=== PATIENT | female | born 1930 | race Caucasian/White ===

== ENCOUNTER 2020-04-13 13:23 | Inpatient (IN) ==
--- NOTE | 2020-04-13 14:09 | XRay Report ---
XR chest 1V portable CLINICAL HISTORY: weakness COMPARISON STUDY: March 22, 2014 FINDINGS: The heart is borderline enlarged. There is no failure. Since the prior study, the patient h as developed peripheral airspace opacities within the left upper lung zone and left lower lung zone. There is also a subtle peripheral nodular opacity within the right midlung zone.[This is rather dense despite its small size and may be calcified. There are no significant pleural effusions. IMPRESSION: 1. Interval development of nonspecific peripheral airspace opacities within the left upper lung zone and left lower lung zone. The findings are likely infectious/inflammatory. Clinical and radiographic follow-up is recommended. ACT 112: Negative or not required by law. Electronically signed by: Alvaro Barth M.D. 04/13/2020 2:08 PM
--- NOTE | 2020-04-13 14:14 | Electrocardiogram Report ---
Test Reason : Blood Pressure : / mmHG Vent. Rate : 059 BPM Atrial Rate : 059 BPM P-R Int : 162 ms QRS Dur : 120 ms QT Int : 440 ms P-R-T Axes : 088 270 -82 degrees QTc Int : 435 ms Sinus bradycardia Right superior axis deviation Septal infarct (cited on or before 21-MAR-2014) Incomplete left bundle block Abnormal ECG When compared with ECG of 21-MAR-2014 08:56, Questionable change in initial forces of Anterior leads ST no longer elevated in Anterior leads T wave inversion now evident in Lateral leads Confirmed by Eric Cates ([id number]) on 04/13/2020 2:13:46 PM Referred By: Confirmed By:Eric Cates
--- NOTE | 2020-04-13 14:16 | CT Scan Report ---
CT head/brain wo con CT DOSE: 537.48 mGy.cm HISTORY: Mental status change weakness TECHNIQUE: Multiaxial CT images of the head were performed without the use of intravenous contrast. A dose lowering technique was utilized adhering to the principles of ALARA. Comparison: 07/15/2009 Findings: The paranasal sinuses and mastoid air cells are clear. The calvarium and skull base are int act. The ventricles and sulci are within normal limits. There is no mass, hematoma, midline shift, or acute infarct. Age-related atrophy and chronic small vessel change Impression: 1. No acute intracranial abnormality. 2. Age-related atrophy and chronic small vessel change. ACT 112: Negative or not required by law. The above report was generated using voice recognition software. It may contain grammatical, syntax or spelling errors. Electronically signed by: Mj Pierre M.D. 04/13/2020 2:15 PM
[2020-04-13 14:17] LABS: Basophils # (auto) 0.02 K/uL (0-0.2); Basophils % (auto) 0.3 %; Eosinophils # (auto) 0.05 K/uL (0-0.5); Eosinophils % (auto) 0.8 %; Hematocrit (blood only) 32.6 % (37-47); Hemoglobin 10.4 g/dL (12.0-16.0); Immature Granulocytes # (auto) 0.02 K/uL (0.00-0.02); Immature Granulocytes % (auto) 0.3 %; Lymphocytes # (auto) 0.88 K/uL (1.2-3.4); Lymphocytes % (auto) 13.3 %; Mean Corpuscular Hemoglobin 30.5 pg (25-34); Mean Corpuscular Hgb Conc 31.9 g/dL (32-36); Mean Corpuscular Volume 95.6 fL (80-100); Mean Platelet Volume 10.2 fL (7.4-10.4); Monocytes # (auto) 0.79 K/uL (0.11-0.59); Neutrophils # (auto) 4.85 K/uL (1.4-6.5); Neutrophils % (auto) 73.3 %; Platelet Count 291 K/uL (130-400); RDW Coefficient of Variation 13.7 % (11.5-14.5); RDW Standard Deviation 47.6 fL (36.4-46.3); Red Blood Count 3.41 M/uL (4.2-5.4); White Blood Count 6.61 K/uL (4.8-10.8)
[2020-04-13 14:28] LABS: INR 1.1 (0.9-1.1); Partial Thromboplastin Ratio 0.8; Partial Thromboplastin Time 23.7 Seconds (21.0-31.0); Prothrombin Time 11.7 Seconds (9.0-12.0)
[2020-04-13 14:34] LABS: Albumin Level 2.3 gm/dl (3.4-5.0); Aspartate Aminotransferase 14 U/L (15-37); BUN Creatinine Ratio 23.9 (10-20); Blood Urea Nitrogen 24 mg/dl (7-18); Calcium 8.1 mg/dl (8.5-10.1); Carbon Dioxide 31 mmol/L (21-32); Chloride 103 mmol/L (98-107); Creatinine Clr Calc Pharmacy 24.6 ml/min; Est GFR (African American) 57.8; Est GFR (Non-African American) 49.9; Glucose 102 mg/dl (70-99); Potassium 4.4 mmol/L (3.5-5.1); Sodium 136 mmol/L (136-145)
[2020-04-13 14:38] LABS: D Dimer 1640 ug/L FEU (0-500)
[2020-04-13 14:44] LABS: Alanine Aminotransferase 14 U/L (12-78); Albumin Globulin Ratio 0.6 (0.9-2); Alkaline Phosphatase 76 U/L (45-117); Bilirubin,Total 0.4 mg/dl (0.2-1); Globulin 4.1 gm/dl (2.5-4.0); Total Protein 6.4 gm/dl (6.4-8.2); Troponin I < 0.015 ng/ml (0-0.045)
[2020-04-13] MEDS ORDERED: OPTIRAY 320 125ml IV PRN (14:59)
--- NOTE | 2020-04-13 15:09 | CT Scan Report ---
CT angio chest PE protocol CT DOSE: 245.29 mGy.cm HISTORY: Dyspnea. Hypoxia. PE, hypoxic, +dimer TECHNIQUE: Multiaxial CT images of the chest were performed following the intravenous administration of contrast to evaluate the pulmonary arteries. Maximal intensity projection images were also obtaine d. A dose lowering technique was utilized adhering to the principles of ALARA. COMPARISON STUDY: 03/19/2014 FINDINGS: Atherosclerotic change and ectasia of the thoracic aorta. No well-defined significant aneur ysm. Pulmonary vasculature enhances appropriately. There are no significant filling defects. Evaluation of lung parenchyma demonstrates consolidative left lower lobe infiltrative process. There are scattered infiltrative changes involving the peripheral aspect of the right middle and right uppe r lobe region. There is a more significant infiltrate involving the left upper lobe extending to the left pulmonary apex. IMPRESSION: 1. No evidence for pulmonary embolus. 2. Diffuse bilateral pulmonary infiltrates showing components of consolidation as well as a groundgla ss appearance ACT 112: Negative or not required by law. The above report was generated using voice recognition software. It may contain grammatical, syntax or spelling errors. Electronically signed by: Mj Pierre M.D. 04/13/2020 3:08 PM
[2020-04-13] MEDS ORDERED: cefTRIAXone SODIUM 1,000 MG/50 ML BAG IV STA (15:21)
--- NOTE | 2020-04-13 15:33 | Emergency Department Note ---
Impression & Plan Multifocal pneumonia, Hypoxia, Failure to thrive, Ambulatory dysfunction ED Provider Note Provider: Harpreet Garcia MD DATE OF SERVICE: 04/13/2020 CHIEF COMPLAINT: Weakness, decreased intake HISTORY OF PRESENT ILLNESS: Patient is a 89-year-old female with a past medical history of GERD, cardiomyopathy, hypertension, Negrete's esophagus, ambulatory dysfunction presenting from home today after her cleaning lady thought that she was having difficulty ambulating on her own. Patient arrives EMS who found her to be hypoxic on room air. Patient states that he been having some more falls related to not using her walker regularly as well as not eating drinking amounts over the last several months due to loss of taste and smell since starting a nasal spray. She herself denies any shortness of breath, chest pain, rosanne pain, nausea, vomiting, diarrhea, headache, or injury to the extremities. Patient states she sometimes uses oxygen at night inconsistently but does not use any oxygen during the day. States she is a former smoker. Denies fever. Denies recent travel. Patient states he was recently seen at the doctor's office. Patient does states that she had a fall a week or 2 ago. Reviewed the [facility] primary care office record from 2 days ago states that the patient has had issues with feeling "terrible "and not following up with appointments as well as inconsistently taking her medications. Patient states she lives by herself but has a brother nearby who helps with bills and her daughter lives in [place]. REVIEW OF SYSTEMS: A total of 10 review of systems was obtained and negative except as stated above in the HPI. PAST MEDICAL HISTORY: As noted above MEDICATIONS: Reviewed includes digoxin SOCIAL HISTORY: Lives by herself, former smoker PHYSICAL EXAM: GENERAL: alert and oriented in no acute distress on stretcher but appears fatigued and frail Head: normocephalic and atraumatic EYES: No injection, discharge or icterus. PERRL NECK: Trachea midline. Supple. ENT: Mucous membranes pink and moist. LUNGS: Airway patent. No retractions. Breath sounds clear anteriorly but diminished generally HEART: Regular rate and rhythm. No chest wall tenderness ABDOMEN: Soft and non-tender, without guarding or rebound. SKIN: Acyanotic, warm, dry, without rashes EXTREMITIES: Without swelling, tenderness or deformity NEUROLOGICAL: No focal deficits. No aphasia. No facial droop or slurred speech. EKG: Sinus bradycardia with a rate of 59 bpm. No PVC. No acute ST segment elevation is notable. Right axis is noted. CONTINUOUS CARDIAC MONITORING: was ordered and showed a heart rate of 62 bpm in normal sinus rhythm Patient's hypertension was referred to the hospitalist [facility] 15. HOSPITAL COURSE: 1329 Patient was first seen and H&P performed. 1518 Patient reassessed and updated. Patient was updated with findings and agreeable for plan for admission. Hospitalist contacted. Patient's laboratory studies and imaging reviewed. Differential includes Infection, dehydration, metabolic abnormality, hypo/hyperglycemia, electrolyte disturbance, anemia, hypoxia, cardiac sources, intracerebral event, toxicologic, neurologic, as well as other pathologies. IMPRESSION/MEDICAL DECISION MAKING: Patient presents today not hypoxic. D-dimer is elevated. CT scan shows evidence of left upper and left lower lobe pneumonia. Does not appear grossly septic at this time. Given a dose of ceftriaxone here. Again now with an oxygen requirement. No evidence of significant head injury although she is a poor historian and there are reports that she has had some falls. I doubt acute cervical spine injury. No evidence of significant traumatic injury on ev aluation of the patient although she is frail in appearance. There is been compliance issues likely leading to gradual weakness and failure to thrive is a big issue. Not a was compliant with her medications and using her walker which has caused falls. Discussed with the patient recommendation for admission. She was in agreement with this. Discussed with the hospitalist group. No significant exposure or travel although coronavirus exists as a possibility but in discussion with the hospitalist group testing will be sent. Likely is no evidence of digoxin toxicity or significant renal dysfunction at this time. DIAGNOSIS: Hypoxia, multifocal pneumonia, failure to thrive, ambulatory dysfunction, weakness DISPOSITION: Hospitalist will evaluate Patient was agreeable with this plan. Past Med/Surg History Medical History Aortic valve sclerosis Cardiomyopathy FOLLOWS WITH DR HAHN Chronic back pain CKD (chronic kidney disease), stage III Dementia Dementia with behavioral disturbance Depression Diastolic CHF Encounter for pre-operative examination Esophageal reflux HTN (hypertension) Left bundle branch block Mitral regurgitation Osteoarthritis Osteoarthritis Pulmonary hypertension Surgical History History of esophagogastroduodenoscopy (EGD) Family History Father Allergies Other specified forms of hearing loss Mother Allergies Cardiac disorder Daughter Asthma Sister Sinusitis Cancer Bleeding disorder Brother Cancer Sinusitis Social History Preferred Language: Indonesian Communication Ability: Effective 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 Beliefs That Will Affect Care: None Current Living Situation: Alone Other Information That Helps Us Care for You: No Feels Safe at Home: Yes Safety Concerns: Feels Safe At This Time Smoking Status: Former smoker Second Hand Exposure: No ; Hx Alcohol Use: No Hx Substance Use: No Allergies Allergies Allergy/AdvReac Type Severity Reaction Status Date / Time latex Allergy Mild "I don't Verified 04/13/20 14:33 remember" Penicillins Allergy Unknown rash Verified 04/13/20 14:33 yellow dye Allergy Unknown Verified 04/13/20 14:33 Home Meds Home Medications Medication Instructions Recorded Confirmed donepezil 10 mg tablet 10 mg PO QAM tab 06/12/19 04/13/20 alprazolam 0.25 mg tablet 0.25 mg PO BID tab 07/21/19 04/13/20 carvedilol 25 mg tablet 25 mg PO BID tab 07/21/19 04/13/20 ondansetron 4 mg disintegrating 4 mg PO Q8H PRN tab 07/21/19 04/13/20 tablet digoxin 125 mcg PO QAM 08/04/19 04/13/20 lisinopril 20 mg PO QAM 08/04/19 04/13/20 magnesium 100 mg PO QAM 08/04/19 04/13/20 multivitamin 1 tab PO DAILY 09/23/19 04/13/20 cholecalciferol (vitamin D3) 25 mcg PO DAILY 04/13/20 04/13/20 [Vitamin D3] dicyclomine 10 mg PO QID 04/13/20 04/13/20 krill oil 500 mg PO DAILY 04/13/20 04/13/20 omeprazole 20 mg PO BID 04/13/20 04/13/20 zoster vaccine live (PF) 0.5 ml SUBCUT DIRECTED 04/13/20 04/13/20 Results & Data (ED) Vital Signs Vital Signs - 24 hr 04/13/20 13:28 04/13/20 13:30 04/13/20 13:31 Temperature Temperature Source Pulse Rate 60 60 58 L Pulse Rate from SpO2 Sensor 60 60 59 L Respiratory Rate 25 H 24 26 H Blood Pressure 92/52 L 104/51 L Blood Pressure Mean 66 64 Pulse Oximetry 90 92 94 Oxygen Delivery Method Oxygen Flow Rate 3 3 3 Sepsis Recent Fever Within 48 Hours Sepsis New/Unexplained Change in Mental Status Sepsis Action Taken by Nursing Oxygen Flow Rate - Titration Pulse Oximetry Post Tiitration 04/13/20 13:39 04/13/20 13:45 04/13/20 13:46 Temperature 36.8 C Temperature Source Oral Pulse Rate 61 Pulse Rate from SpO2 Sensor Respiratory Rate 18 Blood Pressure 104/51 L Blood Pressure Mean 68 Pulse Oximetry 87 L 87 L 96 Oxygen Delivery Method Room Air Room Air Nasal Cannula Oxygen Flow Rate 3 Sepsis Recent Fever Within 48 Hours No Sepsis New/Unexplained Change in Mental Status No Sepsis Action Taken by Nursing No Action Required Oxygen Flow Rate - Titration 3 Pulse Oximetry Post Tiitration 96 04/13/20 14:00 04/13/20 14:13 04/13/20 14:30 Temperature Temperature Source Pulse Rate 60 62 62 Pulse Rate from SpO2 Sensor 60 62 62 Respiratory Rate 20 26 H 26 H Blood Pressure 126/61 128/62 Blood Pressure Mean 89 92 Pulse Oximetry 99 100 100 Oxygen Delivery Method Oxygen Flow Rate 3 Sepsis Recent Fever Within 48 Hours Sepsis New/Unexplained Change in Mental Status Sepsis Action Taken by Nursing Oxygen Flow Rate - Titration Pulse Oximetry Post Tiitration 04/13/20 14:31 04/13/20 15:01 04/13/20 15:02 Temperature Temperature Source Pulse Rate 63 62 63 Pulse Rate from SpO2 Sensor 63 62 62 Respiratory Rate 20 25 H 25 H Blood Pressure 128/54 L Blood Pressure Mean 74 Pulse Oximetry 100 100 100 Oxygen Delivery Method Oxygen Flow Rate 3 3 3 Sepsis Recent Fever Within 48 Hours Sepsis New/Unexplained Change in Mental Status Sepsis Action Taken by Nursing Oxygen Flow Rate - Titration Pulse Oximetry Post Tiitration 04/13/20 15:30 04/13/20 15:31 04/13/20 16:00 Temperature Temperature Source Pulse Rate 63 64 67 Pulse Rate from SpO2 Sensor 63 63 67 Respiratory Rate 28 H 29 H 24 Blood Pressure 116/51 L 100/46 L Blood Pressure Mean 70 66 Pulse Oximetry 100 100 Oxygen Delivery Method Oxygen Flow Rate 3 3 Sepsis Recent Fever Within 48 Hours Sepsis New/Unexplained Change in Mental Status Sepsis Action Taken by Nursing Oxygen Flow Rate - Titration Pulse Oximetry Post Tiitration 04/13/20 16:01 Temperature Temperature Source Pulse Rate 67 Pulse Rate from SpO2 Sensor 67 Respiratory Rate 25 H Blood Pressure Blood Pressure Mean Pulse Oximetry Oxygen Delivery Method Oxygen Flow Rate Sepsis Recent Fever Within 48 Hours Sepsis New/Unexplained Change in Mental Status Sepsis Action Taken by Nursing Oxygen Flow Rate - Titration Pulse Oximetry Post Tiitration Laboratory Data Result diagrams: 04/13/20 13:56 04/13/20 13:56 Lab Results 04/13/20 04/13/20 04/13/20 Range/Units 13:56 13:56 13:56 WBC 6.61 (4.8-10.8) K/uL RBC 3.41 L (4.2-5.4) M/uL Hgb 10.4 L (12.0-16.0) g/dL Hct 32.6 L (37-47) % MCV 95.6 (80-100) fL MCH 30.5 (25-34) pg MCHC 31.9 L (32-36) g/dL RDW Std Deviation 47.6 H (36.4-46.3) fL RDW Coeff of [place] 13.7 (11.5-14.5) % Plt Count 291 (130-400) K/uL MPV 10.2 (7.4-10.4) fL Immature Gran % (Auto) 0.3 % Neut % (Auto) 73.3 % Lymph % (Auto) 13.3 % Emm[place] % (Auto) 12.0 % Eos % (Auto) 0.8 % Baso % (Auto) 0.3 % Neut # (Auto) 4.85 (1.4-6.5) K/uL Lymph # (Auto) 0.88 L (1.2-3.4) K/uL Emmons # (Auto) 0.79 H (0.11-0.59) K/uL Eos # (Auto) 0.05 (0-0.5) K/uL Baso # (Auto) 0.02 (0-0.2) K/uL Immature Gran # (Auto) 0.02 (0.00-0.02) K/uL PT (9.0-12.0) Seconds INR (0.9-1.1) APTT (21.0-31.0) Seconds PTT Ratio D-Dimer (0-500) ug/L FEU Sodium 136 (136-145) mmol/L Potassium 4.4 (3.5-5.1) mmol/L Chloride 103 (98-107) mmol/L Carbon Dioxide 31 (21-32) mmol/L Anion Gap 3.0 (3-11) BUN 24 H (7-18) mg/dl Creatinine 1.00 (0.6-1.2) mg/dl Est Cr Clr Drug Dosing 24.6 ml/min Est GFR ( Amer) 57.8 Est GFR (Non-Af Amer) 49.9 BUN/Creatinine Ratio 23.9 H (10-20) Glucose 102 H (70-99) mg/dl Lactate 0.9 (0.4-2.0) mmol/L Calcium 8.1 L (8.5-10.1) mg/dl Magnesium 2.0 (1.8-2.4) mg/dl Total Bilirubin 0.4 (0.2-1) mg/dl AST 14 L (15-37) U/L ALT 14 (12-78) U/L Alkaline Phosphatase 76 (45-117) U/L Troponin I < 0.015 (0-0.045) ng/ml Total Protein 6.4 (6.4-8.2) gm/dl Albumin 2.3 L (3.4-5.0) gm/dl Globulin 4.1 H (2.5-4.0) gm/dl Albumin/Globulin Ratio 0.6 L (0.9-2) Procalcitonin (0-0.5) ng/ml TSH 2.250 (0.300-4.500) uIu/ml Digoxin (0.8-2.0) ng/ml 04/13/20 04/13/20 04/13/20 Range/Units 13:56 13:56 14:09 WBC (4.8-10.8) K/uL RBC (4.2-5.4) M/uL Hgb (12.0-16.0) g/dL Hct (37-47) % MCV (80-100) fL MCH (25-34) pg MCHC (32-36) g/dL RDW Std Deviation (36.4-46.3) fL RDW Coeff of [place] (11.5-14.5) % Plt Count (130-400) K/uL MPV (7.4-10.4) fL Immature Gran % (Auto) % Neut % (Auto) % Lymph % (Auto) % Emm[place] % (Auto) % Eos % (Auto) % Baso % (Auto) % Neut # (Auto) (1.4-6.5) K/uL Lymph # (Auto) (1.2-3.4) K/uL Emmons # (Auto) (0.11-0.59) K/uL Eos # (Auto) (0-0.5) K/uL Baso # (Auto) (0-0.2) K/uL Immature Gran # (Auto) (0.00-0.02) K/uL PT 11.7 (9.0-12.0) Seconds INR 1.1 (0.9-1.1) APTT 23.7 (21.0-31.0) Seconds PTT Ratio 0.8 D-Dimer 1640 H* (0-500) ug/L FEU Sodium (136-145) mmol/L Potassium (3.5-5.1) mmol/L Chloride (98-107) mmol/L Carbon Dioxide (21-32) mmol/L Anion Gap (3-11) BUN (7-18) mg/dl Creatinine (0.6-1.2) mg/dl Est Cr Clr Drug Dosing ml/min Est GFR ( Amer) Est GFR (Non-Af Amer) BUN/Creatinine Ratio (10-20) Glucose (70-99) mg/dl Lactate (0.4-2.0) mmol/L Calcium (8.5-10.1) mg/dl Magnesium (1.8-2.4) mg/dl Total Bilirubin (0.2-1) mg/dl AST (15-37) U/L ALT (12-78) U/L Alkaline Phosphatase (45-117) U/L Troponin I (0-0.045) ng/ml Total Protein (6.4-8.2) gm/dl Albumin (3.4-5.0) gm/dl Globulin (2.5-4.0) gm/dl Albumin/Globulin Ratio (0.9-2) Procalcitonin < 0.05 (0-0.5) ng/ml TSH (0.300-4.500) uIu/ml Digoxin 1.6 (0.8-2.0) ng/ml Administered Medications Discontinued Medications Ceftriaxone Sodium (Rocephin) 1,000 mg in 50 mls @ 100 mls/hr IV NOW STA Stop: 04/13/20 15:50 Last Infusion: 04/13/20 17:30 Dose: 0 mls/hr Documented by: [id number] Admin: 04/13/20 15:36 Dose: 100 mls/hr Documented by: [id number] Ioversol (Optiray 320 125ml) 99 ml IV ONCE PRN PRN Reason: Interaction Checking Stop: 04/17/20 14:58 Last Admin: 04/13/20 14:59 Dose: 99 ml Documented by: [id number] Discharge Plan Visit Data Chief Complaint: Lethargic ED Provider: Harpreet Garcia Discharge Problem: Multifocal pneumonia, Hypoxia, Failure to thrive, Ambulatory dysfunction Discharge Instructions Interventions: ED Discharge Assessment Last Done: 04/13/20 17:00 Discharge Problem: Failure to thrive Qualifiers: Failure to thrive age range: in adult Qualified Code(s): R62.7 - Adult failure to thrive
--- NOTE | 2020-04-13 16:09 | History & Physical Report ---
Date of Service April 13, 2020 Assessment & Plan (1) Hypoxia: acute hypoxemic respiratory failure : on night time home 02 as per chart was found to be hypoxic spo2 87% in RA , improved to 96% on 3L In ER pt afebrile, P: 60, R: 25, BP: 92/52 up to 104/51, 87% on RA, No leukocytosis, D-Dimer:1640, lactate: 0.9, procalcitonin: <0.05 possible cause of hypoxia : Pneumonia concern for aspiration pneumonitis ( pt reports of coughing /chocking on food while eating ) CXR: Interval development of nonspecific peripheral airspace opacities within the left upper lung zone and left lower lung zone. The findings are likely infectious/inflammatory. Clinical and radiographic follow-up is recommended. CTA CHEST: No evidence for pulmonary embolus. Diffuse bilateral pulmonary infiltrates showing components of consolidation as well as a groundglass appearance -In ER given Rocephin 1GM IV will change Abx to IV levaquin for broader coverage -sputum culture-ordered no evidence of sepsis : -Covid 19 pending -isolation precautions for now -speech eval -CBC, BMP in am ELEVATED DDIMER: CTA of chest negative for PE reports of lower ext swelling and cramps , has been mostly in bed recently due to weakness lower ext doppler ordered (2) Weakness: generalized weakness with ambulatory dysfunction failure to thrive CT HEAD:1. No acute intracranial abnormality. 2. Age-related atrophy and chronic small vessel change. -PT/OT eval ordered r/o infection reports of urinary incontinence -ordered for urine culture (3) Extremity edema: -Obtain BLE doppler to r/o DVT (4) HTN (hypertension): BP's on low side in ER concern for dehydration ordered gentle IV fluid -Hold lisinopril -Continue carvedilol with holding parameters (5) CKD (chronic kidney disease), stage III: Cr: 1.0. Baseline Cr: 0.9 -Monitor renal functions -Hold nephrotoxic agents when possible (6) Dementia: -Continue donepezil pt appears to be at her baseline mental status able to answer questions appropriately no confusion noted (7) Diastolic CHF: clinically dry due to dehydration , poor PO intake ordered for IVF , hold ACEI FAILURE TO THRIVE , PROTEIN CALORIE MALNUTRITION , SIGNIFICANT WT LOSS: reports of poor appetite , wt loss for several weeks net finisher consulted for nutrition assessment and supplement (8) Cardiomyopathy: H/O grade 1 diastolic dysfunction. H/O idiopathic cardiomyopathy Digoxin level: 1.6 -Continue digoxin, carvedilol with holding parameters DVT Prophylaxis -Lovenox SQ DNR/DNI as per discussion with pt Follows with Dr Herrera for routine care Pt coordinated with Dr Jung. Pt seen by Dr Jung, HPI, PE and further addendum by Dr Jung. History of Present Illness Chief Complaint: Weakness Primary Care Provider: Tiffanie Herrera DO This is a 89-year-old female with multiple comorbidities including diastolic CHF, hypertension, CKD stage III, chronic respiratory failure on home O2 Brought to ER for generalized weakness, poor appetite, dehydration. Patient reports that she has been feeling weak, poor appetite for past several weeks. States food does not taste well, previously was able to walk in her house using a cane, recently felt it has been very difficult to do, Has been staying in bed mostly, sustained a fall 4 weeks ago, never received any medical attention Patient was seen at primary care office visit 2 days ago: With complaint of not feeling well, Patient noted to have ambulatory dysfunction, has not been able to follow-up with any appointments, has not been able to take her oral meds Discussions were made whether need for more care and support at home(patient lives by herself)/and transition to assisted living Patient has been reluctant to make that change Today patient's rn new graduate found her lying in bed, not able to get up on her own, In the ER, patient was awake alert and oriented, very poor historian Understands that she has not been feeling well for past several months, reluctant to seek help, Reports of weight loss of 10-15 pounds in past 4 months: Due to lack of appetite, change in taste Not aware of any contact with COVID-19 positive person Does have a cleaning lady coming in Reports of not able to smell anything for past several days thinks it is due to nasal spray Reports of choking on food occasionally, Denies of any fever or chills, no cough, no chest pain, no dyspnea on exertion or orthopnea Does mention having occasional dizzy spell when trying to get up, Has not been able to take her medications, as she forgets " what are they for " Allergies Allergy/AdvReac Type Severity Reaction Status Date / Time latex Allergy Mild "I don't Verified 04/13/20 14:33 remember" Penicillins Allergy Unknown rash Verified 04/13/20 14:33 yellow dye Allergy Unknown Verified 04/13/20 14:33 Home Medications Home Medications Medication Instructions Recorded Confirmed Type donepezil 10 mg tablet 10 mg PO QAM tab 06/12/19 04/13/20 History alprazolam 0.25 mg tablet 0.25 mg PO BID tab 07/21/19 04/13/20 History carvedilol 25 mg tablet 25 mg PO BID tab 07/21/19 04/13/20 History ondansetron 4 mg disintegrating 4 mg PO Q8H PRN tab 07/21/19 04/13/20 History tablet digoxin 125 mcg PO QAM 08/04/19 04/13/20 History lisinopril 20 mg PO QAM 08/04/19 04/13/20 History magnesium 100 mg PO QAM 08/04/19 04/13/20 History multivitamin 1 tab PO DAILY 09/23/19 04/13/20 History cholecalciferol (vitamin D3) 25 mcg PO DAILY 04/13/20 04/13/20 History [Vitamin D3] dicyclomine 10 mg PO QID 04/13/20 04/13/20 History krill oil 500 mg PO DAILY 04/13/20 04/13/20 History omeprazole 20 mg PO BID 04/13/20 04/13/20 History zoster vaccine live (PF) 0.5 ml SUBCUT DIRECTED 04/13/20 04/13/20 History Past Med/Surg History Medical History Aortic valve sclerosis Cardiomyopathy FOLLOWS WITH DR CATES Chronic back pain CKD (chronic kidney disease), stage III Dementia Dementia with behavioral disturbance Depression Diastolic CHF Encounter for pre-operative examination Esophageal reflux HTN (hypertension) Left bundle branch block Mitral regurgitation Osteoarthritis Osteoarthritis Pulmonary hypertension Surgical History History of esophagogastroduodenoscopy (EGD) Family History Father Allergies Other specified forms of hearing loss Mother Allergies Cardiac disorder Daughter Asthma Sister Sinusitis Cancer Bleeding disorder Brother Cancer Sinusitis Social History Preferred Language: Croatian Communication Ability: Effective Scrubbing Machine Operator Required: No Beliefs That Will Affect Care: None Current Living Situation: Alone Other Information That Helps Us Care for You: No Feels Safe at Home: Yes Safety Concerns: Feels Safe At This Time Smoking Status: Former smoker Second Hand Exposure: No ; Hx Alcohol Use: No Hx Substance Use: No Review of Systems Review of Systems: All systems reviewed & are unremarkable except as noted in HPI & below Constitutional: + fatigue, + weakness, + weight loss (More than 15 pounds in last 4 months) and + problem reported (Lack of taste, change in appetite, unable to smell); no fever and no chills Respiratory: no cough, no dyspnea, no dyspnea on exertion, no sputum production and no wheezing Cardiovascular: + lightheadedness and + edema; no dyspnea, no palpitations and no syncope Gastrointestinal: no abdominal pain, no nausea, no vomiting and no diarrhea/loose stools Genitourinary: + urinary incontinence Neurologic: + gait abnormality, + unsteadiness, + falls and + generalized weakness Physical Exam Constitutional: WD/WN, vitals as above + ill appearing and + thin; no acute distress Eyes: + anicteric sclerae ENMT: Dry oral mucosa Neck: trachea midline, no thyromegaly Respiratory: normal respiratory effort; no respiratory distress and no cough Auscultation: + diminished lung sounds; no crackles, no rales, no rhonchi and no wheezes Cardiovascular: Rate/Rhythm: regular rate and regular rhythm Vessels: no JVD Extremities: + calf tenderness, + pedal edema and + edema Gastrointestinal (Abdomen): Inspection/Auscultation: normal bowel sounds Percussion/Palpation: abdomen soft; abdomen nontender Musculoskeletal: generalized weakness Skin: no rashes, warm and dry Neurologic: PERRL, EOMI, accommodation nl, no face palsy, no dysarthria moves all extremities; no focal motor deficits Psychiatric: A+Ox3, euthymic affect Results & Data Results & Data ([facility]) Vital Signs (Past 12 Hours) Vital Signs Temp Pulse Resp BP Pulse Ox 04/13/20 13:46 96 04/13/20 13:45 87 L 04/13/20 13:39 36.8 C 61 18 104/51 L 87 L 04/13/20 13:31 58 L 26 H 94 04/13/20 13:30 60 24 104/51 L 92 04/13/20 13:28 60 25 H 92/52 L 90 Laboratory Results Short CBC 04/13/20 Range/Units 13:56 WBC 6.61 (4.8-10.8) K/uL Hgb 10.4 L (12.0-16.0) g/dL Hct 32.6 L (37-47) % Plt Count 291 (130-400) K/uL BMP 04/13/20 13:56 Sodium 136 Potassium 4.4 Chloride 103 Carbon Dioxide 31 BUN 24 H Creatinine 1.00 Glucose 102 H Calcium 8.1 L Cardiac Enzymes 04/13/20 Range/Units 13:56 Troponin I < 0.015 (0-0.045) ng/ml Liver Function 04/13/20 Range/Units 13:56 Total Bilirubin 0.4 (0.2-1) mg/dl AST 14 L (15-37) U/L ALT 14 (12-78) U/L Alkaline Phosphatase 76 (45-117) U/L Albumin 2.3 L (3.4-5.0) gm/dl Diagnostic Findings CXR: IMPRESSION: 1. Interval development of nonspecific peripheral airspace opacities within the left upper lung zone and left lower lung zone. The findings are likely infectious/inflammatory. Clinical and radiographic follow-up is recommended. CTA CHEST: IMPRESSION: 1. No evidence for pulmonary embolus. 2. Diffuse bilateral pulmonary infiltrates showing components of consolidation as well as a groundglass appearance CT HEAD: Impression: 1. No acute intracranial abnormality. 2. Age-related atrophy and chronic small vessel change. ECG Additional Comments: Read by Senior Online Marketing Manager: Sinus bradycardia Right superior axis deviation Septal infarct (cited on or before 21-MAR-2014) Incomplete left bundle block Abnormal ECG When compared with ECG of 21-MAR-2014 08:56, Questionable change in initial forces of Anterior leads ST no longer elevated in Anterior leads T wave inversion now evident in Lateral leads Confirmed by Eric Cates ([id number]) on 04/13/2020 2:13:46 PM Supervising Physician Co-Signing Physician Notes Attending addendum: Patient seen and examined, care coordinated with Sydney Stevens PA-C Briefly this is a 9-year-old female, with multiple comorbidities, presented to ER with failure to thrive, poor appetite, dehydration, generalized weakness and ambulatory dysfunction Chest x-ray shows bilateral infiltrate, no evidence of sepsis concern for aspiration pneumonia Empiric admit antibiotic with Levaquin, ordered for sputum culture, COVID-19 test ordered, continue isolation precaution till test result is available Patient will need PT OT, dietitian/nutrition, speech evaluation(to assess aspiration) She will need additional support at home, case management consulted for discharge planning issues CODE STATUS: DNR/DNI Please refer to further documentation by Sydney Stevens PA-C for discussion of other chronic issues Carla Jung MD
[2020-04-13] MEDS ORDERED: ENOXAPARIN INJ 30 MG/0.3 ML SYR SQ SCH (19:24)
[2020-04-13] MEDS ORDERED: ALBUT/IPRATROP 3MG/0.5MG NEB 3 ML VIAL NEB PRN (19:24)
[2020-04-13] MEDS ORDERED: SODIUM CHLORIDE 0.9% 1000ML 1,000 ML IV SCH (19:24)
[2020-04-13] MEDS ORDERED: ALUMINUM/MAGNESIUM SUSP 30 ML UDC PO PRN (19:24)
[2020-04-13] MEDS ORDERED: POLYETHYLENE (MIRALAX) 17 GM PACK PO PRN (19:24)
[2020-04-13] MEDS ORDERED: ONDANSETRON INJ 2 MG/ML 2 ML VIAL IV PRN (19:24)
[2020-04-13] MEDS ORDERED: MAGNESIUM HYDROXIDE SUSP 30 ML UDC PO PRN (19:24)
[2020-04-13] MEDS: LEVOFLOXACIN/D5W 750 MG/150 ML BAG IV SCH (22:30)
[2020-04-13] MEDS: PANTOprazole 40 MG TAB PO SCH (22:37)
[2020-04-13] MEDS: carvediloL 25 MG TAB PO SCH (22:37)
[2020-04-13] MEDS: DICYCLOMINE HCL 10 MG CAP PO SCH (22:37)
[2020-04-13] MEDS: HEPARIN SOD 5,000 UNIT/0.5 ML VIAL SQ SCH (23:08)
[2020-04-14 08:19] LABS: Hematocrit (blood only) 31.3 % (37-47); Hemoglobin 9.7 g/dL (12.0-16.0); Mean Corpuscular Hemoglobin 30.7 pg (25-34); Mean Corpuscular Volume 99.1 fL (80-100); Mean Platelet Volume 9.8 fL (7.4-10.4); Platelet Count 271 K/uL (130-400); RDW Coefficient of Variation 13.7 % (11.5-14.5); RDW Standard Deviation 49.5 fL (36.4-46.3); Red Blood Count 3.16 M/uL (4.2-5.4); White Blood Count 5.45 K/uL (4.8-10.8)
[2020-04-14] MEDS: carvediloL 25 MG TAB PO SCH ×2 (08:35→19:44)
[2020-04-14 08:51] LABS: BUN Creatinine Ratio 29.1 (10-20); Calcium 8.3 mg/dl (8.5-10.1); Est GFR (African American) 79.3; Est GFR (Non-African American) 68.5; Potassium 4.5 mmol/L (3.5-5.1)
[2020-04-14] MEDS: PANTOprazole 40 MG TAB PO SCH ×2 (08:59→19:45)
[2020-04-14] MEDS: DICYCLOMINE HCL 10 MG CAP PO SCH ×4 (08:59→19:46)
[2020-04-14] MEDS: DONEPEZIL HCL 10 MG TAB PO SCH (08:59)
[2020-04-14] MEDS ORDERED: NON-FORMULARY MEDICATION (Magnesium 100 MG) PO SCH (09:00)
[2020-04-14] MEDS: CHOLECALCIFEROL 1,000 UNITS 25 MCG TAB PO SCH (09:00)
[2020-04-14] MEDS: MULTIVITAMIN TAB PO SCH (09:00)
[2020-04-14] MEDS: HEPARIN SOD 5,000 UNIT/0.5 ML VIAL SQ SCH ×2 (09:23→20:45)
--- NOTE | 2020-04-14 10:33 | Hospitalist Progress Note ---
Date of Service April 14, 2020 Assessment & Plan (1) Hypoxia: acute hypoxemic respiratory failure : on night time home 02 as per chart was found to be hypoxic spo2 87% in RA , improved to 96% on 3L In ER pt afebrile, P: 60, R: 25, BP: 92/52 up to 104/51, 87% on RA, No leukocytosis, D-Dimer:1640, lactate: 0.9, procalcitonin: <0.05 possible cause of hypoxia : Pneumonia concern for aspiration pneumonitis ( pt reports of coughing /choking on food while eating ) CXR: Interval development of nonspecific peripheral airspace opacities within the left upper lung zone and left lower lung zone. The findings are likely infectious/inflammatory. Clinical and radiographic follow-up is recommended. CTA CHEST: No evidence for pulmonary embolus. Diffuse bilateral pulmonary infiltrates showing components of consolidation as well as a ground glass appearance -In ER given Rocephin 1GM IV will change Abx to IV levaquin for broader coverage -sputum culture-ordered no evidence of sepsis : -Covid 19 pending -isolation precautions for now -speech eval -CBC, BMP in am ELEVATED DDIMER: CTA of chest negative for PE reports of lower ext swelling and cramps , has been mostly in bed recently due to weakness lower ext doppler ordered (2) Weakness: generalized weakness with ambulatory dysfunction failure to thrive CT HEAD:1. No acute intracranial abnormality. 2. Age-related atrophy and chronic small vessel change. -PT/OT eval ordered r/o infection reports of urinary incontinence -ordered for urine culture (3) Extremity edema: -Obtain BLE doppler to r/o DVT (4) HTN (hypertension): BP's on low side in ER concern for dehydration ordered gentle IV fluid -Hold lisinopril -Continue carvedilol with holding parameters (5) CKD (chronic kidney disease), stage III: Cr: 1.0. Baseline Cr: 0.9 -Monitor renal functions -Hold nephrotoxic agents when possible (6) Dementia: -Continue donepezil pt appears to be at her baseline mental status able to answer questions appropriately no confusion noted (7) Diastolic CHF: clinically dry due to dehydration , poor PO intake ordered for IVF , hold ACEI FAILURE TO THRIVE , PROTEIN CALORIE MALNUTRITION , SIGNIFICANT WT LOSS: reports of poor appetite , wt loss for several weeks art instructor consulted for nutrition assessment and supplement (8) Cardiomyopathy: H/O grade 1 diastolic dysfunction. H/O idiopathic cardiomyopathy Digoxin level: 1.6 -Continue digoxin, carvedilol with holding parameters DVT Prophylaxis -Lovenox SQ DNR/DNI as per discussion with pt Follows with Dr Herrera for routine care labs checked ROS-No Headache, No Visual Changes, No Nausea, No Vomiting, No Fever, No Chills, No Neck Pain or Stiffness, No Chest Pain, No Palpitations, No SOB, No RIOS, No Cough, No Sputum, No Wheezing, No Abdominal Pain, No Diarrhea, No Hematemesis, No Hemoptysis, No Unexpected Weight Loss, No Flank pain, No Melena, No Hematochezia, No Frequency, No Urgency, No Burning, No Hematuria, No Rashes, No Diaphoresis. Appetite poor Physical Exam Gen-AAO x 3, NAD, Afebrile, pleasant/thin Head-NCAT, EOMI, PERRLA, Anicteric Sclera, No Posterior Pharyngeal Erythema Neck-Supple, No JVD, No Thyromegaly, No Masses, No LAD, No Bruits Lungs-Clear to Auscultation Bilaterally, No Rales, No Rhonchi, No Wheezing, No Crepitus Chest-No S4, +S1, +S2, No S3, No Murmurs, No Rubs, No Gallops, No Ectopy Abdomen-Soft, Bowel Sounds Present, Non Tender, Non Distended, No Hepatomegaly, No Splenomegaly, No Palpable Masses, No Rebound, No Rigidity, No Guarding Musculoskeletal-Full Range of Motion Bilaterally, No CVAT Extremities-No Cyanosis, No Clubbing, No Edema Nuero-Cranial Nerves II-XII grossly intact, Motor WNL, DTRs WNL, Strength WNL, Non Focal Psych-Normal Mood Admission and Anticipated Discharge Date Admission Date: April 13, 2020 Anticipated date of discharge: 04/16/20 Results & Data Results & Data ([facility]) Vital Signs (Past 12 Hours) Vital Signs Temp Pulse Pulse Resp BP Pulse Ox 04/14/20 08:01 36.8 C 66 20 116/60 98 04/14/20 08:00 56 L 04/14/20 05:02 36.7 C 57 L 20 111/54 L 94 04/13/20 22:38 36.8 C 63 20 129/65 97
[2020-04-14 14:32] LABS: Appearance Urine Cloudy (Clear); Bacteria Urine Automated Negative (Negative); Bilirubin Urine Negative (Negative); Blood Urine Trace (Negative); Color Urine Dark Yellow; Epithelial Cell Urine Auto >30 /lpf (0-5); Glucose Urine UA Negative (Negative); Ketones Urine Negative (Negative); Leukocyte Esterase Urine 1+ (Negative); Nitrite Urine Negative (Negative); Protein Urine 1+ (Negative); Specific Gravity Urine > 1.045 (1.000-1.030); Urobilinogen Urine Negative (Negative); WBC Urine Automated >30 /hpf (0-5); pH Urine 5.5 (4.5-7.5)
[2020-04-14] MEDS: DIGOXIN 0.125 MG TAB PO SCH (16:57)
[2020-04-15] MEDS: CHOLECALCIFEROL 1,000 UNITS 25 MCG TAB PO SCH (08:13)
[2020-04-15] MEDS: MULTIVITAMIN TAB PO SCH (08:13)
[2020-04-15] MEDS: DONEPEZIL HCL 10 MG TAB PO SCH (08:13)
[2020-04-15] MEDS: PANTOprazole 40 MG TAB PO SCH ×2 (08:13→21:06)
[2020-04-15] MEDS: DICYCLOMINE HCL 10 MG CAP PO SCH ×4 (08:14→21:06)
[2020-04-15] MEDS: carvediloL 25 MG TAB PO SCH ×3 (08:14→21:07)
[2020-04-15] MEDS: HEPARIN SOD 5,000 UNIT/0.5 ML VIAL SQ SCH ×2 (09:18→21:49)
--- NOTE | 2020-04-15 10:47 | Hospitalist Progress Note ---
Date of Service April 15, 2020 Assessment & Plan (1) Hypoxia: acute hypoxemic respiratory failure : on night time home 02 as per chart was found to be hypoxic spo2 87% in RA , improved to 96% on 3L In ER pt afebrile, P: 60, R: 25, BP: 92/52 up to 104/51, 87% on RA, No leukocytosis, D-Dimer:1640, lactate: 0.9, procalcitonin: <0.05 possible cause of hypoxia : Pneumonia concern for aspiration pneumonitis ( pt reports of coughing /choking on food while eating ) CXR: Interval development of nonspecific peripheral airspace opacities within the left upper lung zone and left lower lung zone. The findings are likely infectious/inflammatory. Clinical and radiographic follow-up is recommended. CTA CHEST: No evidence for pulmonary embolus. Diffuse bilateral pulmonary infiltrates showing components of consolidation as well as a ground glass appearance -In ER given Rocephin 1GM IV will change Abx to IV levaquin for broader coverage -sputum culture-ordered no evidence of sepsis : -Covid 19 pending -isolation precautions for now -speech eval -CBC, BMP in am ELEVATED DDIMER: CTA of chest negative for PE reports of lower ext swelling and cramps , has been mostly in bed recently due to weakness lower ext doppler ordered (2) Weakness: generalized weakness with ambulatory dysfunction failure to thrive UTI-Continue Levaquin CT HEAD:1. No acute intracranial abnormality. 2. Age-related atrophy and chronic small vessel change. -PT/OT eval ordered (3) Extremity edema: -Obtain BLE doppler to r/o DVT (4) HTN (hypertension): -Resume lisinopril, Add Norvasc, Stop IVFs -Continue carvedilol with holding parameters (5) CKD (chronic kidney disease), stage III: Cr: 1.0. Baseline Cr: 0.9 -Monitor renal functions -Hold nephrotoxic agents when possible (6) Dementia: -Continue donepezil pt appears to be at her baseline mental status able to answer questions appropriately no confusion noted (7) Diastolic CHF: FAILURE TO THRIVE , PROTEIN CALORIE MALNUTRITION , SIGNIFICANT WT LOSS: reports of poor appetite , wt loss for several weeks project management analyst consulted for nutrition assessment and supplement (8) Cardiomyopathy: H/O grade 1 diastolic dysfunction. H/O idiopathic cardiomyopathy Digoxin level: 1.6 -Continue digoxin, carvedilol with holding parameters DVT Prophylaxis -Lovenox SQ DNR/DNI as per discussion with pt Follows with Dr Herrera for routine care labs checked ROS-No Headache, No Visual Changes, No Nausea, No Vomiting, No Fever, No Chills, No Neck Pain or Stiffness, No Chest Pain, No Palpitations, No SOB, No RIOS, No Cough, No Sputum, No Wheezing, No Abdominal Pain, No Diarrhea, No Hematemesis, No Hemoptysis, No Unexpected Weight Loss, No Flank pain, No Melena, No Hematochezia, No Frequency, No Urgency, No Burning, No Hematuria, No Rashes, No Diaphoresis. Appetite poor Physical Exam Gen-AAO x 3, NAD, Afebrile, pleasant/thin Head-NCAT, EOMI, PERRLA, Anicteric Sclera, No Posterior Pharyngeal Erythema Neck-Supple, No JVD, No Thyromegaly, No Masses, No LAD, No Bruits Lungs-Clear to Auscultation Bilaterally, No Rales, No Rhonchi, No Wheezing, No Crepitus Chest-No S4, +S1, +S2, No S3, No Murmurs, No Rubs, No Gallops, No Ectopy Abdomen-Soft, Bowel Sounds Present, Non Tender, Non Distended, No Hepatomegaly, No Splenomegaly, No Palpable Masses, No Rebound, No Rigidity, No Guarding Musculoskeletal-Full Range of Motion Bilaterally, No CVAT Extremities-No Cyanosis, No Clubbing, No Edema Nuero-Cranial Nerves II-XII grossly intact, Motor WNL, DTRs WNL, Strength WNL, Non Focal Psych-Normal Mood Admission and Anticipated Discharge Date Admission Date: April 13, 2020 Anticipated date of discharge: 04/16/20 Results & Data Results & Data ([facility]) Vital Signs (Past 12 Hours) Vital Signs Temp Pulse Resp BP Pulse Ox 04/15/20 08:20 36.1 C L 64 20 180/80 H 98 04/15/20 04:11 36.8 C 58 L 18 164/75 H 94
[2020-04-15 11:29] LABS: Basophils # (auto) 0.01 K/uL (0-0.2); Basophils % (auto) 0.2 %; Eosinophils # (auto) 0.05 K/uL (0-0.5); Eosinophils % (auto) 0.8 %; Hematocrit (blood only) 33.7 % (37-47); Hemoglobin 10.6 g/dL (12.0-16.0); Immature Granulocytes # (auto) 0.01 K/uL (0.00-0.02); Immature Granulocytes % (auto) 0.2 %; Lymphocytes # (auto) 0.71 K/uL (1.2-3.4); Lymphocytes % (auto) 11.1 %; Mean Corpuscular Hemoglobin 30.5 pg (25-34); Mean Corpuscular Hgb Conc 31.5 g/dL (32-36); Mean Corpuscular Volume 97.1 fL (80-100); Mean Platelet Volume 10.6 fL (7.4-10.4); Monocytes # (auto) 0.49 K/uL (0.11-0.59); Monocytes % (auto) 7.7 %; Neutrophils # (auto) 5.13 K/uL (1.4-6.5); Platelet Count 322 K/uL (130-400); RDW Coefficient of Variation 13.8 % (11.5-14.5); RDW Standard Deviation 48.8 fL (36.4-46.3); Red Blood Count 3.47 M/uL (4.2-5.4)
[2020-04-15 11:33] LABS: Albumin Level 2.3 gm/dl (3.4-5.0); BUN Creatinine Ratio 26.8 (10-20); Creatinine Clr Calc Pharmacy 26.8 ml/min; Est GFR (Non-African American) 55.2; Potassium 4.2 mmol/L (3.5-5.1)
[2020-04-15 11:40] LABS: Albumin Globulin Ratio 0.5 (0.9-2); Bilirubin,Total 0.3 mg/dl (0.2-1); Globulin 4.9 gm/dl (2.5-4.0); Prealbumin 8.2 mg/dl (20-40); Total Protein 7.2 gm/dl (6.4-8.2)
[2020-04-15] MEDS: lisinopriL 20 MG TAB PO SCH (11:59)
[2020-04-15] MEDS: AMLODIPINE BESYLATE 5 MG TAB PO SCH (11:59)
[2020-04-15] MEDS: DIGOXIN 0.125 MG TAB PO SCH (16:56)
[2020-04-15] MEDS: LEVOFLOXACIN/D5W 750 MG/150 ML BAG IV SCH (21:07)
[2020-04-15] MEDS: MELATONIN 3 MG TAB PO PRN (22:21)
[2020-04-16] MEDS ORDERED: HydrALAZINE HCL 20 MG/ML VIAL IV STA (05:12)
[2020-04-16 05:41] LABS: Basophils # (auto) 0.01 K/uL (0-0.2); Basophils % (auto) 0.1 %; Eosinophils # (auto) 0.06 K/uL (0-0.5); Eosinophils % (auto) 0.7 %; Hematocrit (blood only) 35.8 % (37-47); Hemoglobin 11.3 g/dL (12.0-16.0); Immature Granulocytes # (auto) 0.03 K/uL (0.00-0.02); Immature Granulocytes % (auto) 0.3 %; Lymphocytes # (auto) 1.14 K/uL (1.2-3.4); Lymphocytes % (auto) 12.9 %; Mean Corpuscular Hemoglobin 30.4 pg (25-34); Mean Corpuscular Hgb Conc 31.6 g/dL (32-36); Mean Corpuscular Volume 96.2 fL (80-100); Mean Platelet Volume 10.8 fL (7.4-10.4); Monocytes # (auto) 0.93 K/uL (0.11-0.59); Monocytes % (auto) 10.5 %; Neutrophils % (auto) 75.5 %; Platelet Count 341 K/uL (130-400); RDW Coefficient of Variation 13.6 % (11.5-14.5); RDW Standard Deviation 47.6 fL (36.4-46.3); Red Blood Count 3.72 M/uL (4.2-5.4); White Blood Count 8.87 K/uL (4.8-10.8)
[2020-04-16 06:13] LABS: BUN Creatinine Ratio 32.6 (10-20); Calcium 9.2 mg/dl (8.5-10.1); Est GFR (African American) 73.5; Est GFR (Non-African American) 63.4; Potassium 4.5 mmol/L (3.5-5.1)
--- NOTE | 2020-04-16 07:18 | Hospitalist Progress Note ---
Date of Service April 16, 2020 Assessment & Plan (1) Hypoxia: acute hypoxemic respiratory failure : on night time home 02 as per chart was found to be hypoxic spo2 87% in RA , improved to 96% on 3L In ER pt afebrile, P: 60, R: 25, BP: 92/52 up to 104/51, 87% on RA, No leukocytosis, D-Dimer:1640, lactate: 0.9, procalcitonin: <0.05 possible cause of hypoxia : Pneumonia concern for aspiration pneumonitis ( pt reports of coughing /choking on food while eating ) CXR: Interval development of nonspecific peripheral airspace opacities within the left upper lung zone and left lower lung zone. The findings are likely infectious/inflammatory. Clinical and radiographic follow-up is recommended. CTA CHEST: No evidence for pulmonary embolus. Diffuse bilateral pulmonary infiltrates showing components of consolidation as well as a ground glass appearance -In ER given Rocephin 1GM IV will change Abx to IV levaquin for broader coverage -sputum culture-ordered no evidence of sepsis : -Covid 19 pending -isolation precautions for now -speech eval -CBC, BMP in am ELEVATED DDIMER: CTA of chest negative for PE reports of lower ext swelling and cramps , has been mostly in bed recently due to weakness lower ext doppler ordered (2) Weakness: generalized weakness with ambulatory dysfunction UTI-Continue Levaquin CT HEAD:1. No acute intracranial abnormality. 2. Age-related atrophy and chronic small vessel change. -PT/OT eval ordered (3) Extremity edema: -Obtain BLE doppler to r/o DVT (4) HTN (hypertension): -Resume lisinopril, Add Norvasc, Added Imdur and Hydralazine -Continue carvedilol with holding parameters (5) CKD (chronic kidney disease), stage III: -Monitor renal functions -Hold nephrotoxic agents when possible Dry by numbers, gentle IVFs (6) Dementia: -Continue donepezil pt appears to be at her baseline mental status able to answer questions appropriately no confusion noted (7) Diastolic CHF: FAILURE TO THRIVE , PROTEIN CALORIE MALNUTRITION , SIGNIFICANT WT LOSS: Prealbumin 8.2 reports of poor appetite , wt loss for several weeks mechanical systems control engineer consulted for nutrition assessment and supplement (8) Cardiomyopathy: H/O grade 1 diastolic dysfunction. H/O idiopathic cardiomyopathy Digoxin level: 1.6 -Continue digoxin, carvedilol with holding parameters DVT Prophylaxis -Lovenox SQ DNR/DNI as per discussion with pt Follows with Dr Herrera for routine care labs checked ROS-No Headache, No Visual Changes, No Nausea, No Vomiting, No Fever, No Chills, No Neck Pain or Stiffness, No Chest Pain, No Palpitations, No SOB, No RIOS, No Cough, No Sputum, No Wheezing, No Abdominal Pain, No Diarrhea, No Hematemesis, No Hemoptysis, No Unexpected Weight Loss, No Flank pain, No Melena, No Hematochezia, No Frequency, No Urgency, No Burning, No Hematuria, No Rashes, No Diaphoresis. Appetite poor Physical Exam Gen-AAO x 3, NAD, Afebrile, pleasant/thin Head-NCAT, EOMI, PERRLA, Anicteric Sclera, No Posterior Pharyngeal Erythema Neck-Supple, No JVD, No Thyromegaly, No Masses, No LAD, No Bruits Lungs-Faint Rales, No Rhonchi, No Wheezing, No Crepitus Chest-No S4, +S1, +S2, No S3, No Murmurs, No Rubs, No Gallops, No Ectopy Abdomen-Soft, Bowel Sounds Present, Non Tender, Non Distended, No Hepatomegaly, No Splenomegaly, No Palpable Masses, No Rebound, No Rigidity, No Guarding Musculoskeletal-Full Range of Motion Bilaterally, No CVAT Extremities-No Cyanosis, No Clubbing, No Edema Nuero-Cranial Nerves II-XII grossly intact, Motor WNL, DTRs WNL, Strength WNL, Non Focal Psych-Normal Mood Admission and Anticipated Discharge Date Admission Date: April 13, 2020 Anticipated date of discharge: 04/16/20 Results & Data Results & Data ([facility]) Vital Signs (Past 12 Hours) Vital Signs Temp Pulse Pulse Resp BP BP Pulse Ox 04/16/20 05:48 69 183/80 H 04/16/20 05:44 69 196/89 H 04/16/20 03:43 37.0 C 72 18 201/94 H 199/97 H 90 04/15/20 22:20 61
[2020-04-16] MEDS: DONEPEZIL HCL 10 MG TAB PO SCH (09:09)
[2020-04-16] MEDS: AMLODIPINE BESYLATE 5 MG TAB PO SCH (09:09)
[2020-04-16] MEDS: HEPARIN SOD 5,000 UNIT/0.5 ML VIAL SQ SCH ×2 (09:10→20:07)
[2020-04-16] MEDS: DICYCLOMINE HCL 10 MG CAP PO SCH ×4 (09:10→20:33)
[2020-04-16] MEDS: carvediloL 25 MG TAB PO SCH ×2 (09:10→20:08)
[2020-04-16] MEDS: MULTIVITAMIN TAB PO SCH (09:11)
[2020-04-16] MEDS: ISOSORBIDE MONO EXTENDED REL 30 MG TABCR PO SCH (09:11)
[2020-04-16] MEDS: lisinopriL 20 MG TAB PO SCH (09:12)
[2020-04-16] MEDS: PANTOprazole 40 MG TAB PO SCH ×2 (09:12→20:33)
[2020-04-16] MEDS: CHOLECALCIFEROL 1,000 UNITS 25 MCG TAB PO SCH (09:12)
[2020-04-16] MEDS: ACETAMINOPHEN 325 MG TAB PO PRN (09:16)
[2020-04-16] MEDS ORDERED: ONDANSETRON 4 MG OD TAB PO PRN (10:46)
[2020-04-16] MEDS ORDERED: SODIUM CHLORIDE 0.9% 1000ML 1,000 ML IV ONE (11:14)
--- NOTE | 2020-04-16 14:38 | Ultrasound Report ---
US venous doppler LE BI HISTORY: Pain. Edema. R/O DVT COMPARISON STUDY: None. FINDINGS: There is normal compressibility, flow, and augmentation within the bilateral lower extremit y deep venous systems. IMPRESSION: No DVT within the right or left lower extremity. ACT 112: Negative or not required by law. The above report was generated using voice recognition software. It may contain grammatical, syntax or spelling errors. Electronically signed by: Mj Pierre M.D. 04/16/2020 2:36 PM
[2020-04-16] MEDS: DIGOXIN 0.125 MG TAB PO SCH (16:18)
[2020-04-16] MEDS: ALPRAZolam 0.25 MG TABLET PO SCH (20:11)
[2020-04-17 05:57] LABS: Hematocrit (blood only) 33.9 % (37-47); Hemoglobin 10.8 g/dL (12.0-16.0); Mean Corpuscular Hemoglobin 30.4 pg (25-34); Mean Corpuscular Hgb Conc 31.9 g/dL (32-36); Mean Corpuscular Volume 95.5 fL (80-100); Platelet Count 333 K/uL (130-400); RDW Coefficient of Variation 13.9 % (11.5-14.5); RDW Standard Deviation 48.3 fL (36.4-46.3); Red Blood Count 3.55 M/uL (4.2-5.4)
[2020-04-17 06:31] LABS: BUN Creatinine Ratio 29.5 (10-20); Calcium 8.9 mg/dl (8.5-10.1); Creatinine Clr Calc Pharmacy 35.7 ml/min; Est GFR (African American) 89.5; Est GFR (Non-African American) 77.2; Potassium 4.1 mmol/L (3.5-5.1)
--- NOTE | 2020-04-17 08:10 | Hospitalist Progress Note ---
Date of Service April 17, 2020 Assessment & Plan (1) Hypoxia: acute hypoxemic respiratory failure : on night time home 02 as per chart was found to be hypoxic spo2 87% in RA , improved to 96% on 3L In ER pt afebrile, P: 60, R: 25, BP: 92/52 up to 104/51, 87% on RA, No leukocytosis, D-Dimer:1640, lactate: 0.9, procalcitonin: <0.05 possible cause of hypoxia : Pneumonia concern for aspiration pneumonitis ( pt reports of coughing /choking on food while eating ) CXR: Interval development of nonspecific peripheral airspace opacities within the left upper lung zone and left lower lung zone. The findings are likely infectious/inflammatory. Clinical and radiographic follow-up is recommended. CTA CHEST: No evidence for pulmonary embolus. Diffuse bilateral pulmonary infiltrates showing components of consolidation as well as a ground glass appearance -In ER given Rocephin 1GM IV will change Abx to IV levaquin for broader coverage -sputum culture-ordered no evidence of sepsis : -Covid 19 pending -isolation precautions for now -speech eval -CBC, BMP in am ELEVATED DDIMER: CTA of chest negative for PE reports of lower ext swelling and cramps , has been mostly in bed recently due to weakness lower ext doppler ordered (2) Weakness: generalized weakness with ambulatory dysfunction She and DTR c/o neck weakness, when she flexes her neck, she's too weak to lift it up UTI-Continue Levaquin CT HEAD:1. No acute intracranial abnormality. 2. Age-related atrophy and chronic small vessel change. -PT/OT eval ordered (3) Extremity edema: -Obtain BLE doppler to r/o DVT (4) HTN (hypertension): -Resume lisinopril, Add Norvasc, Added Imdur and Hydralazine -Continue carvedilol with holding parameters (5) CKD (chronic kidney disease), stage III: -Monitor renal functions -Hold nephrotoxic agents when possible Dry by numbers, gentle IVFs (6) Dementia: -Continue donepezil pt appears to be at her baseline mental status able to answer questions appropriately no confusion noted (7) Diastolic CHF: FAILURE TO THRIVE , PROTEIN CALORIE MALNUTRITION , SIGNIFICANT WT LOSS: Prealbumin 8.2 reports of poor appetite , wt loss for several weeks boarding room fixer consulted for nutrition assessment and supplement (8) Cardiomyopathy: H/O grade 1 diastolic dysfunction. H/O idiopathic cardiomyopathy Digoxin level: 1.6 -Continue digoxin, carvedilol with holding parameters DVT Prophylaxis -Lovenox SQ DNR/DNI as per discussion with pt Follows with Dr Herrera for routine care labs checked ROS-No Headache, No Visual Changes, No Nausea, No Vomiting, No Fever, No Chills, No Neck Pain or Stiffness, No Chest Pain, No Palpitations, No SOB, No RIOS, No Cough, No Sputum, No Wheezing, No Abdominal Pain, No Diarrhea, No Hematemesis, No Hemoptysis, No Unexpected Weight Loss, No Flank pain, No Melena, No Hematochezia, No Frequency, No Urgency, No Burning, No Hematuria, No Rashes, No Diaphoresis. Appetite poor Physical Exam Gen-AAO x 3, NAD, Afebrile, pleasant/thin Head-NCAT, EOMI, PERRLA, Anicteric Sclera, No Posterior Pharyngeal Erythema Neck-Supple, No JVD, No Thyromegaly, No Masses, No LAD, No Bruits Lungs-Faint Rales, No Rhonchi, No Wheezing, No Crepitus Chest-No S4, +S1, +S2, No S3, No Murmurs, No Rubs, No Gallops, No Ectopy Abdomen-Soft, Bowel Sounds Present, Non Tender, Non Distended, No Hepatomegaly, No Splenomegaly, No Palpable Masses, No Rebound, No Rigidity, No Guarding Musculoskeletal-Full Range of Motion Bilaterally, No CVAT Extremities-No Cyanosis, No Clubbing, No Edema Nuero-Cranial Nerves II-XII grossly intact, Motor WNL, DTRs WNL, Strength WNL, Non Focal Psych-Normal Mood Admission and Anticipated Discharge Date Admission Date: April 13, 2020 Anticipated date of discharge: 04/16/20 Results & Data Results & Data ([facility]) Vital Signs (Past 12 Hours) Vital Signs Temp Pulse Resp BP BP Pulse Ox 04/17/20 07:37 36.7 C 70 16 176/78 H 93 04/17/20 06:08 64 176/78 H 94 04/17/20 01:23 70 165/81 H 04/17/20 00:21 36.6 C 74 22 206/89 H 211/96 H 91
[2020-04-17] MEDS: carvediloL 25 MG TAB PO SCH ×2 (08:44→20:07)
[2020-04-17] MEDS: DONEPEZIL HCL 10 MG TAB PO SCH (08:44)
[2020-04-17] MEDS: AMLODIPINE BESYLATE 5 MG TAB PO SCH (08:44)
[2020-04-17] MEDS: DICYCLOMINE HCL 10 MG CAP PO SCH ×4 (08:44→20:07)
[2020-04-17] MEDS: PANTOprazole 40 MG TAB PO SCH ×2 (08:45→20:06)
[2020-04-17] MEDS: HEPARIN SOD 5,000 UNIT/0.5 ML VIAL SQ SCH ×2 (08:45→20:12)
[2020-04-17] MEDS: MULTIVITAMIN TAB PO SCH (08:45)
[2020-04-17] MEDS: lisinopriL 20 MG TAB PO SCH (08:45)
[2020-04-17] MEDS: ISOSORBIDE MONO EXTENDED REL 30 MG TABCR PO SCH (08:45)
[2020-04-17] MEDS: CHOLECALCIFEROL 1,000 UNITS 25 MCG TAB PO SCH (08:45)
[2020-04-17] MEDS: ALPRAZolam 0.25 MG TABLET PO SCH ×2 (08:48→20:14)
[2020-04-17] MEDS ORDERED: NON-FORMULARY MEDICATION (Krill Oil 500 MG) PO SCH (09:00)
[2020-04-17] MEDS: DIGOXIN 0.125 MG TAB PO SCH (16:28)
[2020-04-17] MEDS: levoFLOXacin 750 MG TAB PO SCH (20:06)
[2020-04-17] MEDS: MELATONIN 3 MG TAB PO PRN (21:16)
[2020-04-18] MEDS ORDERED: ZOLPIDEM TARTRATE 5 MG TAB PO STA (01:02)
[2020-04-18 06:46] LABS: Hemoglobin 9.7 g/dL (12.0-16.0); Mean Corpuscular Hemoglobin 30.8 pg (25-34); Mean Corpuscular Hgb Conc 32.3 g/dL (32-36); Mean Corpuscular Volume 95.2 fL (80-100); Mean Platelet Volume 10.1 fL (7.4-10.4); Platelet Count 306 K/uL (130-400); RDW Coefficient of Variation 14.1 % (11.5-14.5); RDW Standard Deviation 48.6 fL (36.4-46.3); Red Blood Count 3.15 M/uL (4.2-5.4); White Blood Count 6.18 K/uL (4.8-10.8)
[2020-04-18 07:18] LABS: BUN Creatinine Ratio 32.6 (10-20); Calcium 8.5 mg/dl (8.5-10.1); Est GFR (African American) 79.3; Est GFR (Non-African American) 68.5; Potassium 4.7 mmol/L (3.5-5.1)
[2020-04-18] MEDS: lisinopriL 20 MG TAB PO SCH (08:41)
[2020-04-18] MEDS: MULTIVITAMIN TAB PO SCH (08:41)
[2020-04-18] MEDS: AMLODIPINE BESYLATE 5 MG TAB PO SCH (08:41)
[2020-04-18] MEDS: ISOSORBIDE MONO EXTENDED REL 30 MG TABCR PO SCH (08:41)
[2020-04-18] MEDS: PANTOprazole 40 MG TAB PO SCH ×2 (08:42→20:41)
[2020-04-18] MEDS: DICYCLOMINE HCL 10 MG CAP PO SCH ×4 (08:42→20:37)
[2020-04-18] MEDS: CHOLECALCIFEROL 1,000 UNITS 25 MCG TAB PO SCH (08:42)
[2020-04-18] MEDS: carvediloL 25 MG TAB PO SCH ×2 (08:42→20:38)
[2020-04-18] MEDS: DONEPEZIL HCL 10 MG TAB PO SCH (08:42)
[2020-04-18] MEDS: HEPARIN SOD 5,000 UNIT/0.5 ML VIAL SQ SCH ×2 (08:44→20:37)
[2020-04-18] MEDS: ALPRAZolam 0.25 MG TABLET PO SCH ×2 (08:45→20:48)
--- NOTE | 2020-04-18 09:44 | Hospitalist Progress Note ---
Date of Service April 18, 2020 Assessment & Plan (1) Hypoxia: acute hypoxemic respiratory failure : on night time home 02 as per chart was found to be hypoxic spo2 87% in RA , improved to 96% on 3L In ER pt afebrile, P: 60, R: 25, BP: 92/52 up to 104/51, 87% on RA, No leukocytosis, D-Dimer:1640, lactate: 0.9, procalcitonin: <0.05 possible cause of hypoxia : Pneumonia concern for aspiration pneumonitis ( pt reports of coughing /choking on food while eating ) CXR: Interval development of nonspecific peripheral airspace opacities within the left upper lung zone and left lower lung zone. The findings are likely infectious/inflammatory. Clinical and radiographic follow-up is recommended. CTA CHEST: No evidence for pulmonary embolus. Diffuse bilateral pulmonary infiltrates showing components of consolidation as well as a ground glass appearance -In ER given Rocephin 1GM IV will change Abx to IV levaquin for broader coverage -sputum culture-ordered no evidence of sepsis : -Covid 19 pending-needs another for placement -isolation precautions for now -speech eval -CBC, BMP in am ELEVATED DDIMER: CTA of chest negative for PE reports of lower ext swelling and cramps , has been mostly in bed recently due to weakness lower ext doppler ordered (2) Weakness: generalized weakness with ambulatory dysfunction She and DTR c/o neck weakness, when she flexes her neck, she's too weak to lift it up UTI-Continue Levaquin CT HEAD:1. No acute intracranial abnormality. 2. Age-related atrophy and chronic small vessel change. -PT/OT eval ordered (3) Extremity edema: -Obtain BLE doppler to r/o DVT (4) HTN (hypertension): -Resume lisinopril, Add Norvasc, Added Imdur and Hydralazine -Continue carvedilol with holding parameters (5) CKD (chronic kidney disease), stage III: -Monitor renal functions -Hold nephrotoxic agents when possible Dry by numbers, gentle IVFs (6) Dementia: -Continue donepezil pt appears to be at her baseline mental status able to answer questions appropriately no confusion noted (7) Diastolic CHF: FAILURE TO THRIVE , PROTEIN CALORIE MALNUTRITION , SIGNIFICANT WT LOSS: Prealbumin 8.2 reports of poor appetite , wt loss for several weeks chief warden consulted for nutrition assessment and supplement (8) Cardiomyopathy: H/O grade 1 diastolic dysfunction. H/O idiopathic cardiomyopathy Digoxin level: 1.6 -Continue digoxin, carvedilol with holding parameters DVT Prophylaxis -Lovenox SQ DNR/DNI as per discussion with pt Follows with Dr Herrera for routine care labs checked COVID test for placement, Needs SNF in my opinion, PT/OT to address neck for weakness?? ROS-No Headache, No Visual Changes, No Nausea, No Vomiting, No Fever, No Chills, No Neck Pain or Stiffness, No Chest Pain, No Palpitations, No SOB, No RIOS, No Cough, No Sputum, No Wheezing, No Abdominal Pain, No Diarrhea, No Hematemesis, No Hemoptysis, No Unexpected Weight Loss, No Flank pain, No Melena, No Hematochezia, No Frequency, No Urgency, No Burning, No Hematuria, No Rashes, No Diaphoresis. Appetite still poor, Doesn't want to eat because she can't taste Physical Exam Gen-AAO x 3, NAD, Afebrile, pleasant/thin Head-NCAT, EOMI, PERRLA, Anicteric Sclera, No Posterior Pharyngeal Erythema Neck-Supple, No JVD, No Thyromegaly, No Masses, No LAD, No Bruits Lungs-Faint Rales, No Rhonchi, No Wheezing, No Crepitus Chest-No S4, +S1, +S2, No S3, No Murmurs, No Rubs, No Gallops, No Ectopy Abdomen-Soft, Bowel Sounds Present, Non Tender, Non Distended, No Hepatomegaly, No Splenomegaly, No Palpable Masses, No Rebound, No Rigidity, No Guarding Musculoskeletal-Full Range of Motion Bilaterally, No CVAT Extremities-No Cyanosis, No Clubbing, No Edema Nuero-Cranial Nerves II-XII grossly intact, Motor WNL, DTRs WNL, Strength WNL, Non Focal Psych-Normal Mood Admission and Anticipated Discharge Date Admission Date: April 13, 2020 Anticipated date of discharge: 04/16/20 Results & Data Results & Data ([facility]) Vital Signs (Past 12 Hours) Vital Signs Temp Pulse Pulse Resp BP BP Pulse Ox 04/18/20 07:41 36.9 C 59 L 16 156/61 H 96 04/18/20 01:22 65 163/75 H 04/17/20 23:45 37.1 C 70 12 170/82 H 98 04/17/20 23:33 37.2 C 63 18 153/72 H 95
[2020-04-18] MEDS: ACETAMINOPHEN 325 MG TAB PO PRN (12:16)
[2020-04-18] MEDS: DIGOXIN 0.125 MG TAB PO SCH (15:41)
[2020-04-18] MEDS: MELATONIN 3 MG TAB PO PRN (20:47)
[2020-04-19] MEDS: ACETAMINOPHEN 325 MG TAB PO PRN ×2 (00:11→17:42)
[2020-04-19] MEDS: TEMAZEPAM 15 MG CAPSULE PO PRN (00:12)
[2020-04-19 06:07] LABS: Hematocrit (blood only) 32.6 % (37-47); Hemoglobin 9.9 g/dL (12.0-16.0); Mean Corpuscular Hemoglobin 29.9 pg (25-34); Mean Corpuscular Hgb Conc 30.4 g/dL (32-36); Mean Corpuscular Volume 98.5 fL (80-100); Mean Platelet Volume 10.2 fL (7.4-10.4); Platelet Count 330 K/uL (130-400); RDW Coefficient of Variation 14.2 % (11.5-14.5); RDW Standard Deviation 50.8 fL (36.4-46.3); Red Blood Count 3.31 M/uL (4.2-5.4)
[2020-04-19 06:37] LABS: BUN Creatinine Ratio 38.2 (10-20); Calcium 9.1 mg/dl (8.5-10.1); Est GFR (African American) 70.4; Est GFR (Non-African American) 60.7; Potassium 4.5 mmol/L (3.5-5.1)
--- NOTE | 2020-04-19 08:12 | Discharge Summary ---
Date of Service April 19, 2020 Admission HPI Per Admitting Provider This is a 89-year-old female with multiple comorbidities including diastolic CHF, hypertension, CKD stage III, chronic respiratory failure on home O2 Brought to ER for generalized weakness, poor appetite, dehydration. Patient reports that she has been feeling weak, poor appetite for past several weeks. States food does not taste well, previously was able to walk in her house using a cane, recently felt it has been very difficult to do, Has been staying in bed mostly, sustained a fall 4 weeks ago, never received any medical attention Patient was seen at primary care office visit 2 days ago: With complaint of not feeling well, Patient noted to have ambulatory dysfunction, has not been able to follow-up with any appointments, has not been able to take her oral meds Discussions were made whether need for more care and support at home(patient lives by herself)/and transition to assisted living Patient has been reluctant to make that change Today patient's front office associate found her lying in bed, not able to get up on her own, In the ER, patient was awake alert and oriented, very poor historian Understands that she has not been feeling well for past several months, reluctant to seek help, Reports of weight loss of 10-15 pounds in past 4 months: Due to lack of appetite, change in taste Not aware of any contact with COVID-19 positive person Does have a cleaning lady coming in Reports of not able to smell anything for past several days thinks it is due to nasal spray Reports of choking on food occasionally, Denies of any fever or chills, no cough, no chest pain, no dyspnea on exertion or orthopnea Does mention having occasional dizzy spell when trying to get up, Has not been able to take her medications, as she forgets " what are they for " Admission Exam Per Admitting Provider Constitutional: WD/WN, vitals as above + ill appearing and + thin; no acute distress Eyes: + anicteric sclerae ENMT: Dry oral mucosa Neck: trachea midline, no thyromegaly Respiratory: normal respiratory effort; no respiratory distress and no cough Auscultation: + diminished lung sounds; no crackles, no rales, no rhonchi and no wheezes Cardiovascular: Rate/Rhythm: regular rate and regular rhythm Vessels: no JVD Extremities: + calf tenderness, + pedal edema and + edema Gastrointestinal (Abdomen): Inspection/Auscultation: normal bowel sounds Percussion/Palpation: abdomen soft; abdomen nontender Musculoskeletal: generalized weakness Skin: no rashes, warm and dry Neurologic: PERRL, EOMI, accommodation nl, no face palsy, no dysarthria moves all extremities; no focal motor deficits Psychiatric: A+Ox3, euthymic affect Principal Diagnosis Hypoxia: Sec to Pneumonia-Suspect Aspiration acute hypoxemic respiratory failure :on night time home 02 as per chart Pneumonia concern for aspiration pneumonitis Weakness: UTI-Continue Levaquin Extremity edema: HTN (hypertension): CKD (chronic kidney disease), stage III: Dementia: Diastolic CHF: FAILURE TO THRIVE , PROTEIN CALORIE MALNUTRITION , SIGNIFICANT WT LOSS: Prealbumin 8.2 Cardiomyopathy: Discharge Exam see below Discharge Data Allergies Allergy/AdvReac Type Severity Reaction Status Date / Time Penicillins Allergy Intermediate rash Verified 04/16/20 10:47 strawberry Allergy Intermediate Rash Verified 04/16/20 16:20 latex Allergy Unknown "I don't Verified 04/16/20 10:47 remember" yellow dye Allergy Unknown Unknown Verified 04/16/20 10:47 Consultations 04/13/20 15:37 ED Decision to Admit Stat 04/13/20 19:24 Consult Case Management - Discharge Planning Routine Ordered Studies 04/13/20 13:26 CT head/brain wo con Stat 04/13/20 14:38 CT angio chest PE protocol Stat 04/16/20 US venous doppler LE BI Stat neg dvt 04/19/20 04/19/20 Range/Units 05:19 05:19 WBC 6.40 (4.8-10.8) K/uL RBC 3.31 L (4.2-5.4) M/uL Hgb 9.9 L (12.0-16.0) g/dL Hct 32.6 L (37-47) % MCV 98.5 (80-100) fL MCH 29.9 (25-34) pg MCHC 30.4 L (32-36) g/dL RDW Std Deviation 50.8 H (36.4-46.3) fL RDW Coeff of [place] 14.2 (11.5-14.5) % Plt Count 330 (130-400) K/uL MPV 10.2 (7.4-10.4) fL Sodium 135 L (136-145) mmol/L Potassium 4.5 (3.5-5.1) mmol/L Chloride 99 (98-107) mmol/L Carbon Dioxide 35 H (21-32) mmol/L Anion Gap 1.0 L (3-11) BUN 33 H (7-18) mg/dl Creatinine 0.85 (0.6-1.2) mg/dl Est Cr Clr Drug Dosing 29.0 ml/min Est GFR ( Amer) 70.4 Est GFR (Non-Af Amer) 60.7 BUN/Creatinine Ratio 38.2 H (10-20) Glucose 111 H (70-99) mg/dl Calcium 9.1 (8.5-10.1) mg/dl Hospital Course (1) Hypoxia: acute hypoxemic respiratory failure : on night time home 02 as per chart was found to be hypoxic spo2 87% in RA , improved to 96% on 3L In ER pt afebrile, P: 60, R: 25, BP: 92/52 up to 104/51, 87% on RA, No leukocytosis, D-Dimer:1640, lactate: 0.9, procalcitonin: <0.05 possible cause of hypoxia : Pneumonia concern for aspiration pneumonitis ( pt reports of coughing /choking on food while eating ) CXR: Interval development of nonspecific peripheral airspace opacities within the left upper lung zone and left lower lung zone. The findings are likely infectious/inflammatory. Clinical and radiographic follow-up is recommended. CTA CHEST: No evidence for pulmonary embolus. Diffuse bilateral pulmonary infiltrates showing components of consolidation as well as a ground glass appearance -In ER given Rocephin 1GM IV will change Abx to IV levaquin for broader coverage -sputum culture-ordered no evidence of sepsis : -Covid 19 neg -CBC, BMP in am ELEVATED DDIMER: CTA of chest negative for PE reports of lower ext swelling and cramps , has been mostly in bed recently due to weakness lower ext doppler ordered neg for dvt (2) Weakness: generalized weakness with ambulatory dysfunction She and DTR c/o neck weakness, when she flexes her neck, she's too weak to lift it up UTI-Continue Levaquin CT HEAD:1. No acute intracranial abnormality. 2. Age-related atrophy and chronic small vessel change. -PT/OT eval ordered (3) Extremity edema: -Doppler r/o DVT- no dvt (4) HTN (hypertension): -Resume lisinopril, Add Norvasc, (Added Imdur and Hydralazine-Will DC on discharge) -Continue carvedilol (5) CKD (chronic kidney disease), stage III: -Monitor renal functions -Hold nephrotoxic agents when possible Dry by numbers, was given gentle IVFs (6) Dementia: -Continue donepezil pt appears to be at her baseline mental status able to answer questions appropriately no confusion noted (7) Diastolic CHF: FAILURE TO THRIVE , PROTEIN CALORIE MALNUTRITION , SIGNIFICANT WT LOSS: Prealbumin 8.2 reports of poor appetite , wt loss for several weeks car chaser consulted for nutrition assessment and supplement (8) Cardiomyopathy: H/O grade 1 diastolic dysfunction. H/O idiopathic cardiomyopathy Digoxin level: 1.6 -Continue digoxin, carvedilol with holding parameters DVT Prophylaxis -Lovenox SQ DNR/DNI as per discussion with pt Follows with Dr Herrera for routine care labs checked COVID test for placement, Needs SNF, PT/OT to address neck for weakness?? ROS-No Headache, No Visual Changes, No Nausea, No Vomiting, No Fever, No Chills, No Neck Pain or Stiffness, No Chest Pain, No Palpitations, No SOB, No RIOS, No Cough, No Sputum, No Wheezing, No Abdominal Pain, No Diarrhea, No Hematemesis, No Hemoptysis, No Unexpected Weight Loss, No Flank pain, No Melena, No Hematochezia, No Frequency, No Urgency, No Burning, No Hematuria, No Rashes, No Diaphoresis. Appetite still poor, Doesn't want to eat because she can't taste Physical Exam Gen-AAO x 3, NAD, Afebrile, pleasant/thin Head-NCAT, EOMI, PERRLA, Anicteric Sclera, No Posterior Pharyngeal Erythema Neck-Supple, No JVD, No Thyromegaly, No Masses, No LAD, No Bruits Lungs-Faint Rales, No Rhonchi, No Wheezing, No Crepitus Chest-No S4, +S1, +S2, No S3, No Murmurs, No Rubs, No Gallops, No Ectopy Abdomen-Soft, Bowel Sounds Present, Non Tender, Non Distended, No Hepatomegaly, No Splenomegaly, No Palpable Masses, No Rebound, No Rigidity, No Guarding Musculoskeletal-Full Range of Motion Bilaterally, No CVAT Extremities-No Cyanosis, No Clubbing, No Edema Nuero-Cranial Nerves II-XII grossly intact, Motor WNL, DTRs WNL, Strength WNL, Non Focal Psych-Normal Mood Total Time Total Time Spent Total Time Spent (In Minutes): 45 mins Total Time Includes: Examination of the Patient, Discharge Planning, Medication Reconciliation and Communication With Other Providers Discharge Plan Discharge Items Patient Disposition: Transfer Care Home Fac Reason For Visit: PNEUMONIA,WEAKNESS Discharge Diagnosis: Hypoxia: Sec to Pneumonia-Suspect Aspiration acute hypoxemic respiratory failure :on night time home 02 as per chart Pneumonia concern for aspiration pneumonitis Weakness: UTI-Continue Levaquin Extremity edema: HTN (hypertension): CKD (chronic kidney disease), stage III: Dementia: Diastolic CHF: FAILURE TO THRIVE , PROTEIN CALORIE MALNUTRITION , SIGNIFICANT WT LOSS: Prealbumin 8.2 Cardiomyopathy: Condition on Discharge: Fair Health Concerns: C/O neck weakness, Probably needs PT to address it Activity: As commented below Activity Comment: Walks with a Cane at home Lifting: Gradually increase as tolerated Bathing: No limitations Exercise/Sports: Gradually increase as tolerated Driving/Machine Use: None Weightbearing Comment: WBAT c FWW or Cane Non-emergency contact: Primary Care Provider Call non-emergency contact if: you have any medication questions Follow-up/Referrals: Tiffanie Herrera DO [Primary Care Provider] - Diet: Heart Healthy Addtl Attending Provider Instructions: Neck exercises per PT Keep O2 Sats 90-94%, On Home O2 outpatient Pending Studies at Discharge: No Stand-Alone Forms: My [facility] Skilled Items Patient informed of condition?: Yes DNR: Yes Discharge Level of Care: Skilled Communicable Disease: No Discharge Prognosis: Improving Lines: None Urinary Catheter: No Medications and DC Order Prescriptions: New levofloxacin 750 mg Tablet 750 mg PO Q48H Qty: 4 RF: 0 ipratropium-albuterol 0.5 mg-3 mg(2.5 mg base)/3 mL Solution For Nebulization 3 ml NEB Q6R PRN (Reason: shortness of breath or wheezing) Qty: 90 RF: 0 heparin, porcine (PF) 5,000 unit/0.5 mL Syringe 5,000 unit subcut Q12 Qty: 25 RF: 0 alprazolam 0.25 mg Tablet 0.25 mg PO BID PRN (Reason: Anxiety) Qty: 30 RF: 0 Continued multivitamin [Multiple Vitamins] tablet 1 tab PO DAILY RF: 0 carvedilol 25 mg tablet 25 mg PO BID RF: 0 ondansetron 4 mg tablet,disintegrating 4 mg PO Q8H PRN (Reason: Nausea) RF: 0 alprazolam 0.25 mg tablet 0.25 mg PO BID RF: 0 donepezil 10 mg tablet 10 mg PO QAM RF: 0 lisinopril 20 mg tablet 20 mg PO QAM RF: 0 magnesium 250 mg tablet 100 mg PO QAM RF: 0 digoxin 125 mcg (0.125 mg) Tablet 125 mcg PO QAM RF: 0 omeprazole 20 mg Capsule,Delayed Release(Dr/Ec) 20 mg PO BID RF: 0 dicyclomine 10 mg Capsule 10 mg PO QID RF: 0 cholecalciferol (vitamin D3) [Vitamin D3] 25 mcg (1,000 unit) Tablet 25 mcg PO DAILY RF: 0 krill oil 500 mg Capsule 500 mg PO DAILY RF: 0 Discontinued zoster vaccine live (PF) 19,400 unit/0.65 mL Suspension For Reconstitution 0.5 ml SUBCUT DIRECTED RF: 0 Discharge Orders: Discharge Order (Routine); Ordered 04/19/20 Ordered By: Thomas Gaming Admission Data Admit Date/Time: 04/13/20 16:05 Attending Provider: Thomas Gaming Admit Provider: Carla Jung Primary Care Provider: Tiffanie Herrera Other Providers: Nehal Corona ; Carla Jung
[2020-04-19] MEDS: ISOSORBIDE MONO EXTENDED REL 30 MG TABCR PO SCH (08:34)
[2020-04-19] MEDS: ALPRAZolam 0.25 MG TABLET PO SCH ×2 (08:34→21:21)
[2020-04-19] MEDS: carvediloL 25 MG TAB PO SCH ×2 (08:34→21:01)
[2020-04-19] MEDS: CHOLECALCIFEROL 1,000 UNITS 25 MCG TAB PO SCH (08:35)
[2020-04-19] MEDS: DICYCLOMINE HCL 10 MG CAP PO SCH ×4 (08:35→21:01)
[2020-04-19] MEDS: AMLODIPINE BESYLATE 5 MG TAB PO SCH (08:35)
[2020-04-19] MEDS: MULTIVITAMIN TAB PO SCH (08:35)
[2020-04-19] MEDS: PANTOprazole 40 MG TAB PO SCH ×2 (08:35→21:03)
[2020-04-19] MEDS: HEPARIN SOD 5,000 UNIT/0.5 ML VIAL SQ SCH ×2 (08:36→21:03)
[2020-04-19] MEDS: lisinopriL 20 MG TAB PO SCH (08:36)
[2020-04-19] MEDS: DONEPEZIL HCL 10 MG TAB PO SCH (09:11)
[2020-04-19] MEDS: DIGOXIN 0.125 MG TAB PO SCH (16:17)
[2020-04-19] MEDS: levoFLOXacin 750 MG TAB PO SCH (21:02)
[2020-04-20] MEDS: carvediloL 25 MG TAB PO SCH ×2 (09:01→20:16)
[2020-04-20] MEDS: ALPRAZolam 0.25 MG TABLET PO SCH ×2 (09:01→20:33)
[2020-04-20] MEDS: AMLODIPINE BESYLATE 5 MG TAB PO SCH (09:02)
[2020-04-20] MEDS: CHOLECALCIFEROL 1,000 UNITS 25 MCG TAB PO SCH (09:02)
[2020-04-20] MEDS: DICYCLOMINE HCL 10 MG CAP PO SCH ×4 (09:02→20:16)
[2020-04-20] MEDS: MULTIVITAMIN TAB PO SCH (09:02)
[2020-04-20] MEDS: DONEPEZIL HCL 10 MG TAB PO SCH (09:02)
[2020-04-20] MEDS: PANTOprazole 40 MG TAB PO SCH ×2 (09:03→20:17)
[2020-04-20] MEDS: ISOSORBIDE MONO EXTENDED REL 30 MG TABCR PO SCH (09:03)
[2020-04-20] MEDS: lisinopriL 20 MG TAB PO SCH (09:03)
[2020-04-20] MEDS: HEPARIN SOD 5,000 UNIT/0.5 ML VIAL SQ SCH ×2 (10:10→20:17)
[2020-04-20] MEDS: DIGOXIN 0.125 MG TAB PO SCH (16:02)
[2020-04-20] MEDS: TEMAZEPAM 15 MG CAPSULE PO PRN (23:34)
--- NOTE | 2020-04-21 00:08 | Hospitalist Progress Note ---
Date of Service April 20, 2020 Assessment & Plan (1) Hypoxia: acute hypoxemic respiratory failure : on night time home 02 as per chart was found to be hypoxic spo2 87% in RA , improved to 96% on 3L on admission In ER pt afebrile, P: 60, R: 25, BP: 92/52 up to 104/51, 87% on RA, No leukocytosis, D-Dimer:1640, lactate: 0.9, procalcitonin: <0.05 possible cause of hypoxia : Pneumonia concern for aspiration pneumonitis ( pt reports of coughing /choking on food while eating ) CXR: Interval development of nonspecific peripheral airspace opacities within the left upper lung zone and left lower lung zone. The findings are likely infectious/inflammatory. Clinical and radiographic follow-up is recommended. CTA CHEST: No evidence for pulmonary embolus. Diffuse bilateral pulmonary infiltrates showing components of consolidation as well as a ground glass appearance -In ER given Rocephin 1GM IV - changed Abx to IV levaquin for broader coverage -sputum culture-ordered no evidence of sepsis : -Covid 19 neg -CBC, BMP in am ELEVATED DDIMER: CTA of chest negative for PE reports of lower ext swelling and cramps , has been mostly in bed recently due to weakness lower ext doppler ordered neg for DVT (2) Weakness: generalized weakness with ambulatory dysfunction She and DTR c/o neck weakness, when she flexes her neck, she's too weak to lift it up CT HEAD:1. No acute intracranial abnormality. 2. Age-related atrophy and chronic small vessel change. -PT/OT eval ordered (3) Extremity edema: -Doppler r/o DVT- no dvt (4) HTN (hypertension): -Resume lisinopril, Add Norvasc, (Added Imdur and Hydralazine-Will DC on discharge) -Continue carvedilol (5) CKD (chronic kidney disease), stage III: -Monitor renal functions -Hold nephrotoxic agents when possible Dry by numbers, was given gentle IVFs on admission (6) Dementia: -Continue donepezil pt appears to be at her baseline mental status able to answer questions appropriately no confusion noted (7) Diastolic CHF: FAILURE TO THRIVE , PROTEIN CALORIE MALNUTRITION , SIGNIFICANT WT LOSS: Prealbumin 8.2 reports of poor appetite , wt loss for several weeks medical videographer consulted for nutrition assessment and supplement (8) Cardiomyopathy: H/O grade 1 diastolic dysfunction. H/O idiopathic cardiomyopathy Digoxin level: 1.6 -Continue digoxin, carvedilol with holding parameters DVT Prophylaxis -Lovenox SQ DNR/DNI as per discussion with pt Follows with Dr Herrera for routine care labs checked COVID test for placement, Needs SNF, PT/OT to address neck for weakness?? Disposition, plan for [facility] Admission and Anticipated Discharge Date Admission Date: April 13, 2020 Anticipated date of discharge: 04/16/20 Subjective Patient is sitting up in bed, in no acute distress. She said that she had a loose stool/incontinence. Currently denies any fevers, chills, chest pain, shortness of breath, abdominal pain, nausea or vomiting. Review of Systems Review of Systems: All systems reviewed & are unremarkable except as noted in HPI & below Constitutional: no fever and no chills Respiratory: no cough and no dyspnea Cardiovascular: no chest pain and no palpitations Gastrointestinal: + diarrhea/loose stools; no abdominal pain, no nausea and no vomiting Physical Exam Physical Exam: Constitutional: Elderly female, sitting up in the chair, + ill appearing, in no acute distress HEENT: Normocephalic, atraumatic, EOMI, anicteric sclera Neck: trachea midline, no thyromegaly Respiratory: normal respiratory effort; no respiratory distress and no cough Auscultation: + diminished lung sounds; no crackles, no rales, no rhonchi and no wheezes Cardiovascular: Rate/Rhythm: regular rate and regular rhythm Vessels: no JVD Extremities: + mild LE edema Gastrointestinal (Abdomen): Inspection/Auscultation: normal bowel sounds Percussion/Palpation: abdomen soft; abdomen nontender Musculoskeletal: generalized weakness Skin: no rashes, warm and dry Neurologic: PERRL, EOMI, accommodation nl, no face palsy, no dysarthria moves all extremities; no focal motor deficits Psychiatric: A+Ox3, euthymic affect Results & Data Results & Data ([facility]) Vital Signs (Past 12 Hours) Vital Signs Temp Pulse Pulse Resp BP Pulse Ox 04/20/20 23:18 37.0 C 59 L 16 109/54 L 90 04/20/20 19:23 60 152/70 H 04/20/20 16:02 59 L 04/20/20 15:35 36.7 C 59 L 18 117/54 L 90
[2020-04-21] MEDS: AMLODIPINE BESYLATE 5 MG TAB PO SCH (08:57)
[2020-04-21] MEDS: MULTIVITAMIN TAB PO SCH (08:57)
[2020-04-21] MEDS: DICYCLOMINE HCL 10 MG CAP PO SCH ×2 (08:57→15:11)
[2020-04-21] MEDS: PANTOprazole 40 MG TAB PO SCH ×2 (08:57→21:33)
[2020-04-21] MEDS: lisinopriL 20 MG TAB PO SCH (08:58)
[2020-04-21] MEDS: DONEPEZIL HCL 10 MG TAB PO SCH (08:58)
[2020-04-21] MEDS: carvediloL 25 MG TAB PO SCH (08:58)
[2020-04-21] MEDS: CHOLECALCIFEROL 1,000 UNITS 25 MCG TAB PO SCH (08:58)
[2020-04-21] MEDS: HEPARIN SOD 5,000 UNIT/0.5 ML VIAL SQ SCH (08:59)
[2020-04-21] MEDS: ALPRAZolam 0.25 MG TABLET PO SCH (09:22)
[2020-04-21] MEDS: ISOSORBIDE MONO EXTENDED REL 30 MG TABCR PO SCH (09:55)
[2020-04-21] MEDS: ACETAMINOPHEN 325 MG TAB PO PRN (10:48)
--- NOTE | 2020-04-21 10:51 | Hospitalist Progress Note ---
Date of Service April 21, 2020 Assessment & Plan (1) Hypoxia: acute hypoxemic respiratory failure on admission: on night time home 02 as per chart was found to be hypoxic spo2 87% in RA , improved to 96% on 3L on admission In ER pt afebrile, P: 60, R: 25, BP: 92/52 up to 104/51, 87% on RA, No leukocytosis, D-Dimer:1640, lactate: 0.9, procalcitonin: <0.05 possible cause of hypoxia : Pneumonia concern for aspiration pneumonitis ( pt reports of coughing /choking on food while eating ) CXR: Interval development of nonspecific peripheral airspace opacities within the left upper lung zone and left lower lung zone. The findings are likely infectious/inflammatory. Clinical and radiographic follow-up is recommended. CTA CHEST: No evidence for pulmonary embolus. Diffuse bilateral pulmonary infiltrates showing components of consolidation as well as a ground glass appearance -In ER given Rocephin 1GM IV - changed Abx to IV levaquin for broader coverage -sputum culture-ordered no evidence of sepsis : -Covid 19 neg -CBC, BMP in am Pt underwent treatment for pna w/ Levaquin. Had episode of LOC, bradycardia, hypotension (04/21/20). As part of work up, CXR was repeated - concerning for worsening multifocal pna/ HCAP/ poss. aspiration. Broad spectrum empiric Abx started. ELEVATED DDIMER: CTA of chest negative for PE reports of lower ext swelling and cramps , has been mostly in bed recently due to weakness lower ext doppler ordered neg for DVT (2) Weakness: generalized weakness with ambulatory dysfunction She and DTR c/o neck weakness, when she flexes her neck, she's too weak to lift it up CT HEAD:1. No acute intracranial abnormality. 2. Age-related atrophy and chronic small vessel change. -PT/OT eval ordered (3) Extremity edema: -Doppler r/o DVT- no dvt (4) HTN (hypertension): -Resume lisinopril, Add Norvasc, (Added Imdur and Hydralazine-Will DC on discharge) -Continue carvedilol - will hold vasoactive medications that were previously necessary for treating her cardiomyopathy and hypertension - pt had episode of unresponsiveness, bradycardia, hypotension (04/21/2020) she may no longer tolerate the combination of medications -Cardiology consulted, plan to gradually re-start her meds as needed (5) CKD (chronic kidney disease), stage III: -Monitor renal functions -Hold nephrotoxic agents when possible Dry by numbers, was given gentle IVFs on admission (6) Dementia: -Continue donepezil pt appears to be at her baseline mental status able to answer questions appropriately no confusion noted (7) Diastolic CHF: FAILURE TO THRIVE , PROTEIN CALORIE MALNUTRITION , SIGNIFICANT WT LOSS: Prealbumin 8.2 reports of poor appetite , wt loss for several weeks policy intern consulted for nutrition assessment and supplement (8) Cardiomyopathy: H/O grade 1 diastolic dysfunction. H/O idiopathic cardiomyopathy Digoxin level: 1.6 -Continue digoxin, carvedilol with holding parameters - will hold for now, d/t her episode of LOC, bradycardia, hypotension (04/21/20) DVT Prophylaxis -Lovenox SQ DNR/DNI as per discussion with pt Follows with Dr Herrera for routine care labs checked COVID test for placement, Needs SNF, PT/OT to address neck for weakness?? Disposition, plan for [facility] Admission and Anticipated Discharge Date Admission Date: April 13, 2020 Anticipated date of discharge: 04/16/20 Subjective Code purple called today as pt found unresponsive sitting up in the chair. She was found bradycardic into low 40s and hypotensive. Received 1-2L of NS and a small dose of atropine, HR then increased to 60-70s. BP improved. Pt was able to answer questions appropriately, but slowly, and was very fatigued. She was transferred to PCU, discussed with cardiology, holding vasoactive medications. Discussed with family, pt is DNR/DNI but agree on pacemaker placement if needed. CXR and other work up obtained. CXR concerning for worsening multifocal pna, will broaden Abx coverage. Previously pt on Levaquin. Review of Systems Review of Systems: All systems reviewed & are unremarkable except as noted in HPI & below Constitutional: + fatigue and + weakness; no fever and no chills Respiratory: no cough and no dyspnea Cardiovascular: no chest pain and no palpitations Gastrointestinal: + abdominal pain (had some tenderness on palpation, now denies any); no nausea and no vomiting Physical Exam Physical Exam: Constitutional: Elderly female, laying in bed, + ill appearing HEENT: Normocephalic, atraumatic, EOMI, anicteric sclera Neck: trachea midline, no thyromegaly Respiratory: normal respiratory effort; no respiratory distress and no cough Auscultation: + diminished lung sounds; + rhonchi, no wheezes Cardiovascular: Rate/Rhythm: regular rate and regular rhythm Vessels: no JVD Extremities: + mild LE edema Gastrointestinal (Abdomen): normal bowel sounds Percussion/Palpation: abdomen soft; abdomen nontender, mildly distended Musculoskeletal: generalized weakness, moves extremities spontaneously Skin: no rashes, warm and dry Neurologic: PERRL, EOMI, no face palsy, no dysarthria, moves all extremities; no focal motor deficits Psychiatric: A+Ox3, euthymic affect Results & Data Results & Data ([facility]) Vital Signs (Past 12 Hours) Vital Signs Temp Pulse Resp BP Pulse Ox 04/21/20 07:33 36.7 C 65 15 130/56 L 90 04/21/20 01:40 103/53 L 04/20/20 23:18 37.0 C 59 L 16 109/54 L 90 Laboratory Results 04/21/20 04/21/20 04/21/20 Range/Units 20:38 14:51 13:56 WBC (4.8-10.8) K/uL RBC (4.2-5.4) M/uL Hgb (12.0-16.0) g/dL Hct (37-47) % MCV (80-100) fL MCH (25-34) pg MCHC (32-36) g/dL RDW Std Deviation (36.4-46.3) fL RDW Coeff of [place] (11.5-14.5) % Plt Count (130-400) K/uL MPV (7.4-10.4) fL Immature Gran % (Auto) % Neut % (Auto) % Lymph % (Auto) % Towns % (Auto) % Eos % (Auto) % Baso % (Auto) % Neut # (Auto) (1.4-6.5) K/uL Lymph # (Auto) (1.2-3.4) K/uL Towns # (Auto) (0.11-0.59) K/uL Eos # (Auto) (0-0.5) K/uL Baso # (Auto) (0-0.2) K/uL Immature Gran # (Auto) (0.00-0.02) K/uL PT (9.0-12.0) Seconds INR (0.9-1.1) APTT (21.0-31.0) Seconds PTT Ratio ABG pH (7.35-7.45) ABG pCO2 (35-46) mmHg ABG pO2 (80-95) mmHg ABG HCO3 (19-24) mmol/L ABG O2 Saturation (90-95) % ABG Base Excess (-9-1.8) mEq/L Elijah Test (Pos) Barometric Pressure mm/Hg Oxygen Given Sodium 129 L Potassium 4.7 Chloride 93 L Carbon Dioxide 34 H Anion Gap 2.0 L BUN 28 H Creatinine 0.95 Est Cr Clr Drug Dosing 25.9 Est GFR ( Amer) 61.5 Est GFR (Non-Af Amer) 53.1 BUN/Creatinine Ratio 29.7 H Glucose 191 H POC Glucose 117 H (70-99) mg/dl Lactate 0.9 (0.4-2.0) mmol/L Calcium 8.5 Phosphorus 3.2 Magnesium 1.6 L Total Bilirubin 0.3 AST 28 ALT 30 Alkaline Phosphatase 84 Troponin I < 0.015 Total Protein 5.9 L Albumin 1.9 L Globulin 4.0 Albumin/Globulin Ratio 0.5 L Procalcitonin (0-0.5) ng/ml 04/21/20 04/21/20 04/21/20 Range/Units 13:56 13:56 13:56 WBC (4.8-10.8) K/uL RBC (4.2-5.4) M/uL Hgb (12.0-16.0) g/dL Hct (37-47) % MCV (80-100) fL MCH (25-34) pg MCHC (32-36) g/dL RDW Std Deviation (36.4-46.3) fL RDW Coeff of [place] (11.5-14.5) % Plt Count (130-400) K/uL MPV (7.4-10.4) fL Immature Gran % (Auto) % Neut % (Auto) % Lymph % (Auto) % Towns % (Auto) % Eos % (Auto) % Baso % (Auto) % Neut # (Auto) (1.4-6.5) K/uL Lymph # (Auto) (1.2-3.4) K/uL Towns # (Auto) (0.11-0.59) K/uL Eos # (Auto) (0-0.5) K/uL Baso # (Auto) (0-0.2) K/uL Immature Gran # (Auto) (0.00-0.02) K/uL PT (9.0-12.0) Seconds INR (0.9-1.1) APTT (21.0-31.0) Seconds PTT Ratio ABG pH 7.36 (7.35-7.45) ABG pCO2 59 H (35-46) mmHg ABG pO2 104 H (80-95) mmHg ABG HCO3 33 H (19-24) mmol/L ABG O2 Saturation 97.5 H (90-95) % ABG Base Excess 6.1 H (-9-1.8) mEq/L Elijah Test Pos (Pos) Barometric Pressure 730.5 mm/Hg Oxygen Given 6L Sodium Cancelled Potassium Cancelled Chloride Cancelled Carbon Dioxide Cancelled Anion Gap Cancelled BUN Cancelled Creatinine Cancelled Est Cr Clr Drug Dosing Cancelled Est GFR ( Amer) Cancelled Est GFR (Non-Af Amer) Cancelled BUN/Creatinine Ratio Cancelled Glucose Cancelled POC Glucose (70-99) mg/dl Lactate (0.4-2.0) mmol/L Calcium Cancelled Phosphorus Cancelled Magnesium Cancelled Total Bilirubin Cancelled AST Cancelled ALT Cancelled Alkaline Phosphatase Cancelled Troponin I Cancelled Total Protein Cancelled Albumin Cancelled Globulin Cancelled Albumin/Globulin Ratio Cancelled Procalcitonin < 0.05 (0-0.5) ng/ml 04/21/20 04/21/20 04/21/20 Range/Units 13:56 13:56 13:30 WBC 5.92 (4.8-10.8) K/uL RBC 2.73 L (4.2-5.4) M/uL Hgb 8.5 L (12.0-16.0) g/dL Hct 26.6 L (37-47) % MCV 97.4 (80-100) fL MCH 31.1 (25-34) pg MCHC 32.0 (32-36) g/dL RDW Std Deviation 51.5 H (36.4-46.3) fL RDW Coeff of [place] 14.6 H (11.5-14.5) % Plt Count 283 (130-400) K/uL MPV 9.7 (7.4-10.4) fL Immature Gran % (Auto) 0.5 % Neut % (Auto) 75.7 % Lymph % (Auto) 11.3 % Towns % (Auto) 10.6 % Eos % (Auto) 1.7 % Baso % (Auto) 0.2 % Neut # (Auto) 4.48 (1.4-6.5) K/uL Lymph # (Auto) 0.67 L (1.2-3.4) K/uL Towns # (Auto) 0.63 H (0.11-0.59) K/uL Eos # (Auto) 0.10 (0-0.5) K/uL Baso # (Auto) 0.01 (0-0.2) K/uL Immature Gran # (Auto) 0.03 H (0.00-0.02) K/uL PT 10.9 (9.0-12.0) Seconds INR 1.0 (0.9-1.1) APTT 57.4 H* (21.0-31.0) Seconds PTT Ratio 2.1 ABG pH (7.35-7.45) ABG pCO2 (35-46) mmHg ABG pO2 (80-95) mmHg ABG HCO3 (19-24) mmol/L ABG O2 Saturation (90-95) % ABG Base Excess (-9-1.8) mEq/L Elijah Test (Pos) Barometric Pressure mm/Hg Oxygen Given Sodium Potassium Chloride Carbon Dioxide Anion Gap BUN Creatinine Est Cr Clr Drug Dosing Est GFR ( Amer) Est GFR (Non-Af Amer) BUN/Creatinine Ratio Glucose POC Glucose 116 H (70-99) mg/dl Lactate (0.4-2.0) mmol/L Calcium Phosphorus Magnesium Total Bilirubin AST ALT Alkaline Phosphatase Troponin I Total Protein Albumin Globulin Albumin/Globulin Ratio Procalcitonin (0-0.5) ng/ml Medications Administered Current Inpatient Medications Acetaminophen (Tylenol) 650 mg PO Q4H PRN PRN Reason: Pain or Fever Stop: 05/13/20 19:23 Last Admin: 04/21/20 10:48 Dose: 650 mg Documented by: Al Hydrox/Mg Hydrox/Simethicone (Maalox) 15 ml PO Q4H PRN PRN Reason: Dyspepsia Stop: 05/13/20 19:23 Albuterol (Duoneb) 3 ml NEB Q6R PRN PRN Reason: Shortness Of Breath Or Wheezin Stop: 05/13/20 19:23 Alprazolam (Xanax) 0.25 mg PO BID [facility] Stop: 05/16/20 20:59 Last Admin: 04/21/20 09:22 Dose: 0.25 mg Documented by: Amlodipine Besylate (Norvasc) 5 mg PO DAILY@0800 [facility] Stop: 05/15/20 10:44 Last Admin: 04/21/20 08:57 Dose: 5 mg Documented by: Carvedilol (Coreg) 25 mg PO BID [facility] Stop: 05/13/20 20:59 Last Admin: 04/21/20 08:58 Dose: 25 mg Documented by: Dicyclomine HCl (Bentyl) 10 mg PO QID [facility] Stop: 05/13/20 19:59 Last Admin: 04/21/20 08:57 Dose: 10 mg Documented by: Digoxin (Lanoxin) 0.125 mg PO DAILY@1600 [facility] Stop: 05/14/20 15:59 Last Admin: 04/20/20 16:02 Dose: Not Given Documented by: Donepezil HCl (Aricept) 10 mg PO QAM [facility] Stop: 05/14/20 08:59 Last Admin: 04/21/20 08:58 Dose: 10 mg Documented by: Heparin Sodium (Porcine) (Heparin Sodium (Porcine)) 5,000 units SQ Q12 [facility] Stop: 05/13/20 21:59 Last Admin: 04/21/20 08:59 Dose: 5,000 units Documented by: Hydralazine HCl (Apresoline) 25 mg PO Q6H [facility] Stop: 05/16/20 07:14 Last Admin: 04/21/20 08:57 Dose: 25 mg Documented by: Isosorbide Mononitrate (Imdur Extended Rel) 30 mg PO QAM [facility] Stop: 05/16/20 08:59 Last Admin: 04/21/20 09:55 Dose: 30 mg Documented by: Levofloxacin (Levaquin) 750 mg PO Q48H [facility]; Protocol Stop: 04/23/20 21:01 Lisinopril (Zestril) 20 mg PO QAM [facility] Stop: 05/15/20 10:29 Last Admin: 04/21/20 08:58 Dose: 20 mg Documented by: Magnesium Hydroxide (Milk Of Magnesia) 30 ml PO Q12H PRN PRN Reason: Constipation Stop: 05/13/20 19:23 Melatonin (Melatonin) 3 mg PO HS PRN PRN Reason: Sleep Stop: 05/15/20 18:04 Last Admin: 04/18/20 20:47 Dose: 3 mg Documented by: Multivitamins (Multivitamin Tab) 1 tab PO DAILY [facility] Stop: 05/14/20 08:59 Last Admin: 04/21/20 08:57 Dose: 1 tab Documented by: Ondansetron HCl (Zofran) 4 mg IV Q6H PRN PRN Reason: Nausea Stop: 05/13/20 19:23 Ondansetron HCl (Zofran Odt) 4 mg PO Q8H PRN PRN Reason: Nausea And Vomiting Stop: 05/16/20 10:45 Pantoprazole Sodium (Protonix) 40 mg PO BID [facility] Stop: 05/13/20 20:59 Last Admin: 04/21/20 08:57 Dose: 40 mg Documented by: Polyethylene Glycol (Miralax Powder Packet) 17 gm PO DAILY PRN PRN Reason: Constipation Stop: 05/13/20 19:23 Temazepam (Restoril) 15 mg PO HSZ PRN PRN Reason: Insomnia Stop: 05/17/20 08:13 Last Admin: 04/20/20 23:34 Dose: 15 mg Documented by: Vitamin D (Vitamin D3) 1,000 units PO DAILY [facility] Stop: 05/14/20 08:59 Last Admin: 04/21/20 08:58 Dose: 1,000 units Documented by:
[2020-04-21 14:10] LABS: Basophils # (auto) 0.01 K/uL (0-0.2); Basophils % (auto) 0.2 %; Eosinophils % (auto) 1.7 %; Hematocrit (blood only) 26.6 % (37-47); Hemoglobin 8.5 g/dL (12.0-16.0); Immature Granulocytes # (auto) 0.03 K/uL (0.00-0.02); Immature Granulocytes % (auto) 0.5 %; Lymphocytes # (auto) 0.67 K/uL (1.2-3.4); Lymphocytes % (auto) 11.3 %; Mean Corpuscular Hemoglobin 31.1 pg (25-34); Mean Corpuscular Volume 97.4 fL (80-100); Mean Platelet Volume 9.7 fL (7.4-10.4); Monocytes # (auto) 0.63 K/uL (0.11-0.59); Monocytes % (auto) 10.6 %; Neutrophils # (auto) 4.48 K/uL (1.4-6.5); Neutrophils % (auto) 75.7 %; Platelet Count 283 K/uL (130-400); RDW Coefficient of Variation 14.6 % (11.5-14.5); RDW Standard Deviation 51.5 fL (36.4-46.3); Red Blood Count 2.73 M/uL (4.2-5.4); White Blood Count 5.92 K/uL (4.8-10.8)
--- NOTE | 2020-04-21 14:13 | Hospitalist Progress Note ---
Date of Service April 21, 2020 Assessment & Plan Admission and Anticipated Discharge Date Admission Date: April 13, 2020 Anticipated date of discharge: 04/16/20 Subjective Code purple called on patient, by nursing staff. Reportedly patient was sitting in a chair, unresponsive. Upon arrival, patient's heart rate in 40s, blood pressure low systolic in high 70s low 80s. Normal saline 2 L boluses ordered, peripheral IV obtained. Half of atropine given, heart rate increased to 60s to 70s. Patient is able to answer simple questions on my arrival. She denied any chest pain, shortness of breath, she could answer her name and also tell me where she was. She had mild discomfort on her abdominal palpation. Twelve-lead EKG obtained, showed left bundle branch block, no significant gagan nges from prior EKGs noted. Dr. Zimmer, from cardiology contacted, reviewed EKG and story patient follows with Dr. Garcias, will be consulting him further. Patient blood pressures improved, and heart rate currently in 70s. She is able to answer questions appropriately. She will be transferred to PCU. Blood work pending, troponin pending, blood cultures pending, chest x-ray and KUB pending MD Zhane Results & Data Results & Data ([facility]) Vital Signs (Past 12 Hours) Vital Signs Temp Pulse Resp BP BP Pulse Ox 04/21/20 08:40 140/62 04/21/20 07:33 36.7 C 65 15 130/56 L 90
[2020-04-21 14:16] LABS: Base Excess ABG 6.1 mEq/L (-9-1.8); HCO3 ABG 33 mmol/L (19-24); Oxygen Saturation ABG 97.5 % (90-95); PCO2 ABG 59 mmHg (35-46); PO2 ABG 104 mmHg (80-95); pH ABG 7.36 (7.35-7.45)
[2020-04-21 14:18] LABS: Allen Test Pos (Pos)
--- NOTE | 2020-04-21 14:25 | Electrocardiogram Report ---
Test Reason : Blood Pressure : / mmHG Vent. Rate : 068 BPM Atrial Rate : 068 BPM P-R Int : 136 ms QRS Dur : 136 ms QT Int : 442 ms P-R-T Axes : 077 075 059 degrees QTc Int : 469 ms Sinus rhythm with Premature atrial complexes Left bundle branch block Abnormal ECG When compared with ECG of 13-Apr-2020 13:31; QRS duration has increased Otherwise no significant change Reconfirmed by Darrin Garcias ([id number]) on 04/21/2020 3:17:13 PM Referred By: REFERRED SELF Confirmed By:Darrin Garcias
--- NOTE | 2020-04-21 14:27 | Hospitalist Progress Note ---
Date of Service April 21, 2020 Assessment & Plan Admission and Anticipated Discharge Date Admission Date: April 13, 2020 Anticipated date of discharge: 04/16/20 Subjective Discussed with family, confirmed CODE STATUS DNR/DNI as is currently in our system. They feel that patient would agree with pacemaker if needed. I talked to her brother Gabriele, who is listed as primary contact. They will be contacting patient's daughter. Results & Data Results & Data ([facility]) Vital Signs (Past 12 Hours) Vital Signs Temp Pulse Resp BP BP Pulse Ox 04/21/20 14:12 79 20 111/57 L 93 04/21/20 08:40 140/62 04/21/20 07:33 36.7 C 65 15 130/56 L 90
[2020-04-21 14:37] LABS: Partial Thromboplastin Ratio 2.1; Prothrombin Time 10.9 Seconds (9.0-12.0)
[2020-04-21] MEDS ORDERED: ATROPINE SULFATE 0.1 MG/ML 10ML SYR IV ONE (14:46)
[2020-04-21 15:02] LABS: Partial Thromboplastin Time 57.4 Seconds (21.0-31.0)
--- NOTE | 2020-04-21 15:18 | Cardiology Consultation ---
Date of Consultation April 21, 2020 Assessment & Plan (1) Syncope: (2) Cardiomyopathy: (3) Failure to thrive: (4) Multifocal pneumonia: (5) Diastolic CHF: Elderly woman with failure to thrive/general decline in functional status/weight loss in recent months on multiple vasoactive medications for her idiopathic cardiomyopathy and hypertension who experienced a transient loss of consciousness associated with hypotension and bradycardia. Suspect that in her current debilitated state with weight loss/anorexia/poor nutrition (albumin 1.9) she may no longer tolerate the combination of vasoactive medications that was previously necessary for treating her cardiomyopathy and hypertension (her BP is likely acutely elevated when she is physiologically stressed, such as earlier during her current admission for pneumonia). Agree with holding her amlodipine, carvedilol, digoxin, donepezil, hydralazine, isosorbide, and lisinopril currently. If she improves her oral intake and remains hydrated her blood pressure will likely increase, would then add back medications only gradually and even allow some degree of permissive hypertension as long as she does not have overt congestive heart failure. She appears euvolemic currently (after 1 to 2 L of IV fluid), but based on her poor intake may be prone to hypovolemia in the future. If BP becomes significantly elevated, would likely first add vasodilators but in the absence of tachycardia would avoid carvedilol for now, since she has been showing a tendency to bradycardia. She is followed routinely by Dr. Cates. Defer further management of her cardiac regimen to his expertise. History of Present Illness Reason for Consultation: Bradycardia/transient unresponsiveness Requesting Physician: Benedict Lynn MD Attending Physician: Benedict Lynn MD History of Present Illness 89-year-old woman with history of transient idiopathic cardiomyopathy (EF 45-50% 2019 echo), moderate LVH, valvular heart disease (mild MR/moderate TR) and chronic diastolic congestive heart failure who follows routinely with Dr. Cates, now seen in consultation after an episode of bradycardia/hypotension/transient unresponsiveness. She had been living independently but has had a general decline in her functional status and has noted significant weight loss secondary to loss of appetite. She has not had any exertional or rest chest pain and she has not had any lifestyle limiting dyspnea. She denied any baseline symptoms of edema, orthopnea, PND, or subjective palpitations. Prior to today, she has not had any recent episodes of presyncope or syncope. She was admitted to the hospital on 04/13/2020 with generalized weakness and a possible pneumonia. She had progressed to the point where transfer to assisted living was being considered. However, earlier this afternoon she was found by nursing staff to be unresponsive with a heart rate in the 40s and systolic blood pressure in the 7080 range, a code purple was called. She received a small dose of atropine and some intravenous fluids and responded with return of co nsciousness and hemodynamics normalizing. She apparently had some mild abdominal discomfort at that time. ECG at the time of her code purple showed sinus rhythm with PACs, rate 68 bpm, left bundle branch block. Compared with an ECG from 1 week ago, the QRS duration had increased somewhat, otherwise no significant change. At the time of my evaluation, she denied any chest pain or dyspnea. She felt weak and fatigued and complained of chronic right heel pain. She asked for a drink of coffee. Allergies Allergy/AdvReac Type Severity Reaction Status Date / Time Penicillins Allergy Intermediate rash Verified 04/16/20 10:47 strawberry Allergy Intermediate Rash Verified 04/16/20 16:20 latex Allergy Unknown "I don't Verified 04/16/20 10:47 remember" yellow dye Allergy Unknown Unknown Verified 04/16/20 10:47 Home Medications Home Medications Medication Instructions Recorded Confirmed Type donepezil 10 mg tablet 10 mg PO QAM tab 06/12/19 04/13/20 History alprazolam 0.25 mg tablet 0.25 mg PO BID tab 07/21/19 04/13/20 History carvedilol 25 mg tablet 25 mg PO BID tab 07/21/19 04/13/20 History ondansetron 4 mg disintegrating 4 mg PO Q8H PRN tab 07/21/19 04/13/20 History tablet digoxin 125 mcg PO QAM 08/04/19 04/13/20 History lisinopril 20 mg PO QAM 08/04/19 04/13/20 History magnesium 100 mg PO QAM 08/04/19 04/13/20 History multivitamin 1 tab PO DAILY 09/23/19 04/13/20 History cholecalciferol (vitamin D3) 25 mcg PO DAILY 04/13/20 04/13/20 History [Vitamin D3] dicyclomine 10 mg PO QID 04/13/20 04/13/20 History krill oil 500 mg PO DAILY 04/13/20 04/13/20 History omeprazole 20 mg PO BID 04/13/20 04/13/20 History zoster vaccine live (PF) 0.5 ml SUBCUT DIRECTED 04/13/20 04/13/20 History alprazolam 0.25 mg PO BID PRN #30 tab 04/19/20 Rx heparin, porcine (PF) 5,000 unit SUBCUT Q12 #25 ml 04/19/20 Rx ipratropium-albuterol 3 ml NEB Q6R PRN #90 ml 04/19/20 Rx levofloxacin 750 mg PO Q48H #4 tab 04/19/20 Rx Patient History Medical History Aortic valve sclerosis Cardiomyopathy FOLLOWS WITH DR CATES Chronic back pain CKD (chronic kidney disease), stage III Dementia Dementia with behavioral disturbance Depression Diastolic CHF Encounter for pre-operative examination Esophageal reflux HTN (hypertension) Left bundle branch block Mitral regurgitation Osteoarthritis Osteoarthritis Pulmonary hypertension Surgical History History of esophagogastroduodenoscopy (EGD) Family History Cardiac disorder Mother Allergies Father Mother Other specified forms of hearing loss Father Sinusitis Sister Brother Bleeding disorder Sister Cancer Sister Brother Asthma Daughter Social History Preferred Language: Albanian Communication Ability: Effective 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 Beliefs That Will Affect Care: None Current Living Situation: Alone Other Information That Helps Us Care for You: No Feels Safe at Home: Yes Safety Concerns: Feels Safe At This Time Smoking Status: Former smoker Second Hand Exposure: No ; Hx Alcohol Use: No Hx Substance Use: No Review of Systems Constitutional: + fatigue and + weight loss; no fever, no chills and no weight gain Eyes: no problem reported Ear, Nose, Mouth, Throat: no problem reported Respiratory: no cough and no dyspnea Cardiovascular: as per Subjective / HPI Gastrointestinal: no change in stools Genitourinary: no problem reported Musculoskeletal: no myalgia Integumentary: no rash and no new lesions Neurologic: no falls and no syncope Psychiatric: no problem reported Hematologic / Lymphatic: no easy bleeding and no easy bruising Physical Exam Physical Exam: Elderly white female who appears frail but not acutely distressed. Afebrile. Blood pressure was initially borderline hypotensive on admission, after 3 or 4 days in the hospital she had periods of significant hypertension, in recent days she has been normotensive or borderline hypotensive once again. Pulse has been consistently bradycardic, generally in the 50s and 60s. Respirations 20 but unlabored. Skin: No generalized lesions. Both of her heels are bandaged. HEENT: Unremarkable. Neck: Jugular venous pulse appears normal (after 1 to 2 L of fluid), no carotid bruits. Lungs: Coarse breath sounds with few rhonchi at the left base. No obvious wheezing. No abdominal paradox, intercostal retraction, or nasal flaring. Cardiac: Regular rhythm with sporadic ectopy. Normal S1, paradoxically split S2 with 2/6 basal systolic ejection murmur which is nonradiating. No diastolic murmur or distant gallop. Abdomen: Nondistended. Extremities: No edema, peripheral pulses intact. Neurologic: Awake and alert, normal conversation, grossly nonfocal. Results & Data ([facility]) Vital Signs (Past 12 Hours) Vital Signs Temp Pulse Resp BP BP Pulse Ox 04/21/20 14:12 79 20 111/57 L 93 04/21/20 08:40 140/62 04/21/20 07:33 98.1 F 65 15 130/56 L 90 Laboratory Results Hemoglobin was 10.4 on admission, 8.5 today. WBC and platelet count normal. Sodium 129, potassium 4.7, BUN 28, creatinine 0.95. Magnesium today was 1.6. Albumin today was 1.9. Troponin on admission was negative, troponin from today is pending. Diagnostic Findings ECG showed sinus rhythm with PACs, left bundle branch block, compared with study from 04/13/2020, QRS duration has increased, otherwise no significant change. Echocardiogram August 2019 showed EF 45 to 50% with moderate left ventricle hypertrophy, mild mitral regurgitation, moderate tricuspid regurgitation. Compared to 2008 study, left ventricular systolic function had slightly improved. Chest x-ray on admission showed new left-sided infiltrates. CT of the chest on admission showed no evidence of pulmonary embolism, there were diffuse bilateral pulmonary infiltrates showing components of consolidation as well as groundglass appearance. PG Care Time/CCT Total # of Minutes Spent Total Time Spent with Patient: Total time spent is greater than 50% in coordination of care (as documented) at patient's floor/unit and/or counseling patient: Coding Level of Care Code 32762 Initial Inpt Care Lvl 3 Diagnoses Syncope R55 Cardiomyopathy I42.9 Failure to thrive R62.7 Failure to thrive age range: in adult Multifocal pneumonia J18.9 Diastolic CHF I50.30 (1) Failure to thrive Failure to thrive age range: in adult Qualified Code(s): R62.7 - Adult failure to thrive
[2020-04-21 15:21] LABS: Alanine Aminotransferase 30 U/L (12-78); Albumin Level 1.9 gm/dl (3.4-5.0); Aspartate Aminotransferase 28 U/L (15-37); BUN Creatinine Ratio 29.7 (10-20); Blood Urea Nitrogen 28 mg/dl (7-18); Calcium 8.5 mg/dl (8.5-10.1); Carbon Dioxide 34 mmol/L (21-32); Chloride 93 mmol/L (98-107); Creatinine Clr Calc Pharmacy 25.9 ml/min; Est GFR (African American) 61.5; Est GFR (Non-African American) 53.1; Glucose 191 mg/dl (70-99); Magnesium 1.6 mg/dl (1.8-2.4); Potassium 4.7 mmol/L (3.5-5.1); Sodium 129 mmol/L (136-145)
[2020-04-21 15:26] LABS: Albumin Globulin Ratio 0.5 (0.9-2); Alkaline Phosphatase 84 U/L (45-117); Bilirubin,Total 0.3 mg/dl (0.2-1); Phosphorus 3.2 mg/dl (2.5-4.9); Total Protein 5.9 gm/dl (6.4-8.2); Troponin I < 0.015 ng/ml (0-0.045)
--- NOTE | 2020-04-21 18:39 | XRay Report ---
XR chest 1V portable CLINICAL HISTORY: follow up pna, unresponsive COMPARISON STUDY: Chest radiograph and chest CT April 13, 2020. FINDINGS: There is no pneumothorax. Small bilateral pleural effusions have increased. Bibasilar conso lidation has increased as have additional multifocal airspace opacities within the lungs. Moderate ca rdiomegaly is noted. There is pulmonary vascular congestion with suspected mild pulmonary edema. IMPRESSION: 1. Interval development of right basilar consolidation and increasing left basilar consolidation whic h favors pneumonia. Increasing additional bilateral airspace opacities which also favor an infectious process. 2. Small bilateral pleural effusions. 3. Suspected superimposed mild pulmonary edema. ACT 112: Negative or not required by law. Electronically signed by: Max Lui M.D. 04/21/2020 6:38 PM
--- NOTE | 2020-04-21 18:40 | XRay Report ---
KUB CLINICAL HISTORY: abd. discomfort, unresponsive COMPARISON STUDY: None. FINDINGS: Bibasilar opacities are better depicted on the chest radiograph. The bowel gas pattern is n ormal. There is a moderate amount of stool within the colon and rectum. Patient is rotated. IMPRESSION: 1. No evidence for a bowel obstruction. 2. Moderate amount of stool within the colon and rectum. ACT 112: Negative or not required by law. Electronically signed by: Max Lui M.D. 04/21/2020 6:39 PM
[2020-04-21] MEDS ORDERED: CONSULT PHARMACY STA (18:50)
[2020-04-21] MEDS ORDERED: levoFLOXacin 750 MG TAB PO SCH (21:00)
[2020-04-21] MEDS: DOXYCYCLINE HYCLATE 100 MG in DEXTROSE 5% 100 ML IV SCH (21:33)
[2020-04-21] MEDS: CEFEPIME 2,000 MG in SYRINGE 7.5 ML IV SCH (21:33)
[2020-04-21] MEDS: metroNIDAZOLE 500 MG/100 ML BAG IV SCH (21:33)
[2020-04-21] MEDS: guaiFENesin 600 MG TABCR PO SCH (21:33)
[2020-04-21] MEDS: ALBUT/IPRATROP 3MG/0.5MG NEB 3 ML VIAL NEB SCH (23:18)
[2020-04-22] MEDS: ALBUT/IPRATROP 3MG/0.5MG NEB 3 ML VIAL NEB SCH ×6 (02:34→23:02)
[2020-04-22] MEDS: metroNIDAZOLE 500 MG/100 ML BAG IV SCH ×3 (04:40→23:39)
[2020-04-22 07:04] LABS: Hematocrit (blood only) 30.8 % (37-47); Hemoglobin 9.9 g/dL (12.0-16.0); Mean Corpuscular Hemoglobin 30.5 pg (25-34); Mean Corpuscular Hgb Conc 32.1 g/dL (32-36); Mean Corpuscular Volume 94.8 fL (80-100); Mean Platelet Volume 9.3 fL (7.4-10.4); Platelet Count 289 K/uL (130-400); RDW Coefficient of Variation 14.5 % (11.5-14.5); Red Blood Count 3.25 M/uL (4.2-5.4); White Blood Count 7.72 K/uL (4.8-10.8)
[2020-04-22 07:30] LABS: BUN Creatinine Ratio 30.6 (10-20); Calcium 9.3 mg/dl (8.5-10.1); Creatinine Clr Calc Pharmacy 27.4 ml/min; Est GFR (African American) 65.7; Est GFR (Non-African American) 56.7; Magnesium 1.6 mg/dl (1.8-2.4); Phosphorus 2.9 mg/dl (2.5-4.9); Potassium 4.7 mmol/L (3.5-5.1)
--- NOTE | 2020-04-22 08:17 | Hospitalist Progress Note ---
Date of Service April 22, 2020 Assessment & Plan (1) Hypoxia: acute hypoxemic respiratory failure on admission: on night time home 02 as per chart was found to be hypoxic spo2 87% in RA , improved to 96% on 3L on admission In ER pt afebrile, P: 60, R: 25, BP: 92/52 up to 104/51, 87% on RA, No leukocytosis, D-Dimer:1640, lactate: 0.9, procalcitonin: <0.05 possible cause of hypoxia : Pneumonia concern for aspiration pneumonitis ( pt reports of coughing /choking on food while eating ) CXR: Interval development of nonspecific peripheral airspace opacities within the left upper lung zone and left lower lung zone. The findings are likely infectious/inflammatory. Clinical and radiographic follow-up is recommended. CTA CHEST: No evidence for pulmonary embolus. Diffuse bilateral pulmonary infiltrates showing components of consolidation as well as a ground glass appearance -In ER given Rocephin 1GM IV - changed Abx to IV levaquin for broader coverage -sputum culture-ordered no evidence of sepsis : -Covid 19 neg -CBC, BMP in am Pt underwent treatment for pna w/ Levaquin. Had episode of LOC, bradycardia, hypotension (04/21/20). As part of work up, CXR was repeated - concerning for worsening multifocal pna/ HCAP/ poss. aspiration. Broad spectrum empiric Abx started. CT chest obtained (04/22/20) - poss. wors. pna, pl. effusions, vs interstitial lung disease Pulmonary consulted for their input, concern for poss. interstitial lung disease, do not recommend Abx as there is no WBC elev., procal. elev., fever, cough ELEVATED DDIMER: CTA of chest negative for PE reports of lower ext swelling and cramps , has been mostly in bed recently due to weakness lower ext doppler ordered neg for DVT Insomnia - pt reports difficulty sleeping, and reports long hx of insomnia -states used to have medication prescribed by psychiatrist to help her sleep which was effective -stopped seeing psychiatrist several yrs ago, and has not been using the med -was taking alprazolam prescribed by PCP, pt states the med makes her tired but does not help her to actually fall asleep -will discuss w/ psychiatry (2) Weakness: generalized weakness with ambulatory dysfunction She and DTR c/o neck weakness, when she flexes her neck, she's too weak to lift it up CT HEAD:1. No acute intracranial abnormality. 2. Age-related atrophy and chronic small vessel change. -PT/OT eval ordered (3) Extremity edema: -Doppler r/o DVT- no dvt (4) HTN (hypertension): -Resumed lisinopril, Added Norvasc, (Added Imdur and Hydralazine d/t hypertension earlier during her admission- plan was to DC these on discharge) -Continued carvedilol Now holding vasoactive medications that were previously necessary for treating her cardiomyopathy and hypertension - pt had episode of unresponsiveness, bradycardia, hypotension (04/21/2020) she may no longer tolerate the combination of medications -Cardiology consulted, plan to gradually re-start her meds as needed (5) CKD (chronic kidney disease), stage III: -Monitor renal functions -Hold nephrotoxic agents when possible Dry by numbers, was given gentle IVFs on admission (6) Dementia: -Continue donepezil pt appears to be at her baseline mental status able to answer questions appropriately no confusion noted (7) Diastolic CHF: FAILURE TO THRIVE , PROTEIN CALORIE MALNUTRITION , SIGNIFICANT WT LOSS: Prealbumin 8.2 reports of poor appetite , 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 H/O idiopathic cardiomyopathy Digoxin level: 1.6 -initially continued digoxin, carvedilol with holding parameters - will hold for now, d/t her episode of LOC, bradycardia, hypotension (04/21/20) DVT Prophylaxis -Lovenox SQ DNR/DNI as per discussion with pt Follows with Dr Herrera for routine care labs checked COVID test for placement, Needs SNF, PT/OT to address neck weakness?? Disposition, plan for [facility] Admission and Anticipated Discharge Date Admission Date: April 13, 2020 Anticipated date of discharge: 04/16/20 Subjective Pt is lying in bed, in NAD. She is alert and oriented and answering questions appropriately. Denies chest pain, shortness of breath, abd. pain, cough, fever, chills, n/v. She reports fatigue and insomnia. States she used to take medications prescribed by psychiatrist and was able to sleep but when she stopped seeing psychiatrist she was not able to have this medication anymore. Will try to clarify this hx and will consult w/ psychiatry. Chest CT concerning for worsening pna, pl. effusions,vs. interstitial lung disease, will consult w/ pulmonary medicine. Per cardiology, cont. to hold her medications. Currently HR and BP acceptable. Review of Systems Review of Systems: All systems reviewed & are unremarkable except as noted in HPI & below Constitutional: + fatigue; no fever and no chills Respiratory: no cough and no dyspnea Cardiovascular: no chest pain and no palpitations Gastrointestinal: no abdominal pain, no nausea and no vomiting Physical Exam Physical Exam: Constitutional: Elderly female, laying in bed, + ill appearing HEENT: Normocephalic, atraumatic, EOMI, anicteric sclera Neck: trachea midline, no thyromegaly Respiratory: normal respiratory effort; no respiratory distress and no cough Auscultation: + diminished lung sounds; + rhonchi, no wheezes Cardiovascular: Rate/Rhythm: regular rate and regular rhythm Vessels: no JVD Extremities: + mild LE edema Gastrointestinal (Abdomen): normal bowel sounds Percussion/Palpation: abdomen soft; abdomen nontender, mildly distended Musculoskeletal: generalized weakness, moves extremities spontaneously Skin: no rashes, warm and dry Neurologic: PERRL, EOMI, no face palsy, no dysarthria, moves all extremities; no focal motor deficits Psychiatric: A+Ox3, euthymic affect Results & Data Results & Data ([facility]) Vital Signs (Past 12 Hours) Vital Signs Temp Pulse Resp BP Pulse Ox 04/22/20 07:06 70 18 90 04/22/20 05:00 36.6 C 64 18 135/63 94 04/22/20 02:36 57 L 16 96 04/21/20 23:48 36.7 C 62 18 122/55 L 96 04/21/20 23:18 62 16 95 Laboratory Results 04/22/20 04/22/20 04/21/20 Range/Units 06:51 06:51 20:38 WBC 7.72 (4.8-10.8) K/uL RBC 3.25 L (4.2-5.4) M/uL Hgb 9.9 L (12.0-16.0) g/dL Hct 30.8 L (37-47) % MCV 94.8 (80-100) fL MCH 30.5 (25-34) pg MCHC 32.1 (32-36) g/dL RDW Std Deviation 50.0 H (36.4-46.3) fL RDW Coeff of [place] 14.5 (11.5-14.5) % Plt Count 289 (130-400) K/uL MPV 9.3 (7.4-10.4) fL Immature Gran % (Auto) % Neut % (Auto) % Lymph % (Auto) % Yell % (Auto) % Eos % (Auto) % Baso % (Auto) % Neut # (Auto) (1.4-6.5) K/uL Lymph # (Auto) (1.2-3.4) K/uL Yell # (Auto) (0.11-0.59) K/uL Eos # (Auto) (0-0.5) K/uL Baso # (Auto) (0-0.2) K/uL Immature Gran # (Auto) (0.00-0.02) K/uL PT (9.0-12.0) Seconds INR (0.9-1.1) APTT (21.0-31.0) Seconds PTT Ratio ABG pH (7.35-7.45) ABG pCO2 (35-46) mmHg ABG pO2 (80-95) mmHg ABG HCO3 (19-24) mmol/L ABG O2 Saturation (90-95) % ABG Base Excess (-9-1.8) mEq/L Elijah Test (Pos) Barometric Pressure mm/Hg Oxygen Given Sodium 132 L Potassium 4.7 Chloride 96 L Carbon Dioxide 34 H Anion Gap 2.0 L BUN 28 H Creatinine 0.90 Est Cr Clr Drug Dosing 27.4 Est GFR ( Amer) 65.7 Est GFR (Non-Af Amer) 56.7 BUN/Creatinine Ratio 30.6 H Glucose 97 POC Glucose 117 H (70-99) mg/dl Lactate (0.4-2.0) mmol/L Calcium 9.3 Phosphorus 2.9 Magnesium 1.6 L Total Bilirubin AST ALT Alkaline Phosphatase Troponin I Total Protein Albumin Globulin Albumin/Globulin Ratio Procalcitonin (0-0.5) ng/ml 04/21/20 04/21/20 04/21/20 Range/Units 14:51 13:56 13:56 WBC (4.8-10.8) K/uL RBC (4.2-5.4) M/uL Hgb (12.0-16.0) g/dL Hct (37-47) % MCV (80-100) fL MCH (25-34) pg MCHC (32-36) g/dL RDW Std Deviation (36.4-46.3) fL RDW Coeff of [place] (11.5-14.5) % Plt Count (130-400) K/uL MPV (7.4-10.4) fL Immature Gran % (Auto) % Neut % (Auto) % Lymph % (Auto) % Yell % (Auto) % Eos % (Auto) % Baso % (Auto) % Neut # (Auto) (1.4-6.5) K/uL Lymph # (Auto) (1.2-3.4) K/uL Yell # (Auto) (0.11-0.59) K/uL Eos # (Auto) (0-0.5) K/uL Baso # (Auto) (0-0.2) K/uL Immature Gran # (Auto) (0.00-0.02) K/uL PT (9.0-12.0) Seconds INR (0.9-1.1) APTT (21.0-31.0) Seconds PTT Ratio ABG pH 7.36 (7.35-7.45) ABG pCO2 59 H (35-46) mmHg ABG pO2 104 H (80-95) mmHg ABG HCO3 33 H (19-24) mmol/L ABG O2 Saturation 97.5 H (90-95) % ABG Base Excess 6.1 H (-9-1.8) mEq/L Elijah Test Pos (Pos) Barometric Pressure 730.5 mm/Hg Oxygen Given 6L Sodium 129 L Potassium 4.7 Chloride 93 L Carbon Dioxide 34 H Anion Gap 2.0 L BUN 28 H Creatinine 0.95 Est Cr Clr Drug Dosing 25.9 Est GFR ( Amer) 61.5 Est GFR (Non-Af Amer) 53.1 BUN/Creatinine Ratio 29.7 H Glucose 191 H POC Glucose (70-99) mg/dl Lactate 0.9 (0.4-2.0) mmol/L Calcium 8.5 Phosphorus 3.2 Magnesium 1.6 L Total Bilirubin 0.3 AST 28 ALT 30 Alkaline Phosphatase 84 Troponin I < 0.015 Total Protein 5.9 L Albumin 1.9 L Globulin 4.0 Albumin/Globulin Ratio 0.5 L Procalcitonin (0-0.5) ng/ml 04/21/20 04/21/20 04/21/20 Range/Units 13:56 13:56 13:56 WBC (4.8-10.8) K/uL RBC (4.2-5.4) M/uL Hgb (12.0-16.0) g/dL Hct (37-47) % MCV (80-100) fL MCH (25-34) pg MCHC (32-36) g/dL RDW Std Deviation (36.4-46.3) fL RDW Coeff of [place] (11.5-14.5) % Plt Count (130-400) K/uL MPV (7.4-10.4) fL Immature Gran % (Auto) % Neut % (Auto) % Lymph % (Auto) % Yell % (Auto) % Eos % (Auto) % Baso % (Auto) % Neut # (Auto) (1.4-6.5) K/uL Lymph # (Auto) (1.2-3.4) K/uL Yell # (Auto) (0.11-0.59) K/uL Eos # (Auto) (0-0.5) K/uL Baso # (Auto) (0-0.2) K/uL Immature Gran # (Auto) (0.00-0.02) K/uL PT 10.9 (9.0-12.0) Seconds INR 1.0 (0.9-1.1) APTT 57.4 H* (21.0-31.0) Seconds PTT Ratio 2.1 ABG pH (7.35-7.45) ABG pCO2 (35-46) mmHg ABG pO2 (80-95) mmHg ABG HCO3 (19-24) mmol/L ABG O2 Saturation (90-95) % ABG Base Excess (-9-1.8) mEq/L Elijah Test (Pos) Barometric Pressure mm/Hg Oxygen Given Sodium Cancelled Potassium Cancelled Chloride Cancelled Carbon Dioxide Cancelled Anion Gap Cancelled BUN Cancelled Creatinine Cancelled Est Cr Clr Drug Dosing Cancelled Est GFR ( Amer) Cancelled Est GFR (Non-Af Amer) Cancelled BUN/Creatinine Ratio Cancelled Glucose Cancelled POC Glucose (70-99) mg/dl Lactate (0.4-2.0) mmol/L Calcium Cancelled Phosphorus Cancelled Magnesium Cancelled Total Bilirubin Cancelled AST Cancelled ALT Cancelled Alkaline Phosphatase Cancelled Troponin I Cancelled Total Protein Cancelled Albumin Cancelled Globulin Cancelled Albumin/Globulin Ratio Cancelled Procalcitonin < 0.05 (0-0.5) ng/ml 04/21/20 04/21/20 Range/Units 13:56 13:30 WBC 5.92 (4.8-10.8) K/uL RBC 2.73 L (4.2-5.4) M/uL Hgb 8.5 L (12.0-16.0) g/dL Hct 26.6 L (37-47) % MCV 97.4 (80-100) fL MCH 31.1 (25-34) pg MCHC 32.0 (32-36) g/dL RDW Std Deviation 51.5 H (36.4-46.3) fL RDW Coeff of [place] 14.6 H (11.5-14.5) % Plt Count 283 (130-400) K/uL MPV 9.7 (7.4-10.4) fL Immature Gran % (Auto) 0.5 % Neut % (Auto) 75.7 % Lymph % (Auto) 11.3 % Yell % (Auto) 10.6 % Eos % (Auto) 1.7 % Baso % (Auto) 0.2 % Neut # (Auto) 4.48 (1.4-6.5) K/uL Lymph # (Auto) 0.67 L (1.2-3.4) K/uL Yell # (Auto) 0.63 H (0.11-0.59) K/uL Eos # (Auto) 0.10 (0-0.5) K/uL Baso # (Auto) 0.01 (0-0.2) K/uL Immature Gran # (Auto) 0.03 H (0.00-0.02) K/uL PT (9.0-12.0) Seconds INR (0.9-1.1) APTT (21.0-31.0) Seconds PTT Ratio ABG pH (7.35-7.45) ABG pCO2 (35-46) mmHg ABG pO2 (80-95) mmHg ABG HCO3 (19-24) mmol/L ABG O2 Saturation (90-95) % ABG Base Excess (-9-1.8) mEq/L Elijah Test (Pos) Barometric Pressure mm/Hg Oxygen Given Sodium Potassium Chloride Carbon Dioxide Anion Gap BUN Creatinine Est Cr Clr Drug Dosing Est GFR ( Amer) Est GFR (Non-Af Amer) BUN/Creatinine Ratio Glucose POC Glucose 116 H (70-99) mg/dl Lactate (0.4-2.0) mmol/L Calcium Phosphorus Magnesium Total Bilirubin AST ALT Alkaline Phosphatase Troponin I Total Protein Albumin Globulin Albumin/Globulin Ratio Procalcitonin (0-0.5) ng/ml Medications Administered Current Inpatient Medications Albuterol (Duoneb) 3 ml NEB Q6R PRN PRN Reason: Shortness Of Breath Or Wheezin Stop: 05/13/20 19:23 Albuterol (Duoneb) 3 ml NEB Q4R [facility] Stop: 05/21/20 22:59 Last Admin: 04/22/20 07:06 Dose: 3 ml Documented by: Guaifenesin (Mucinex) 600 mg PO Q12 [facility] Stop: 05/21/20 20:59 Last Admin: 04/21/20 21:33 Dose: 600 mg Documented by: Doxycycline Hyclate 100 mg/ (Dextrose) 110 mls @ 50 mls/hr IV Q12H [facility]; Protocol Stop: 04/28/20 19:59 Last Infusion: 04/22/20 01:50 Dose: Infused Documented by: Cefepime HCl 2,000 mg/ Syringe 20 mls @ 5 mls/min IV DAILY@1999 [facility]; Protocol Stop: 04/28/20 19:59 Last Admin: 04/21/20 21:33 Dose: 5 mls/min Documented by: Metronidazole (Flagyl) 500 mg in 100 mls @ 100 mls/hr IV Q8 [facility]; Protocol Stop: 04/28/20 21:59 Last Infusion: 04/22/20 06:35 Dose: Infused Documented by: Pantoprazole Sodium (Protonix) 40 mg PO BID [facility] Stop: 05/13/20 20:59 Last Admin: 04/21/20 21:33 Dose: 40 mg Documented by:
[2020-04-22] MEDS: guaiFENesin 600 MG TABCR PO SCH ×2 (08:25→21:28)
[2020-04-22] MEDS: PANTOprazole 40 MG TAB PO SCH ×2 (08:25→21:28)
[2020-04-22] MEDS: DOXYCYCLINE HYCLATE 100 MG in DEXTROSE 5% 100 ML IV SCH ×2 (08:25→21:27)
[2020-04-22 09:13] LABS: Appearance Urine Clear (Clear); Bilirubin Urine Negative (Negative); Blood Urine Negative (Negative); Color Urine Yellow; Glucose Urine UA Negative (Negative); Ketones Urine Negative (Negative); Leukocyte Esterase Urine Negative (Negative); Nitrite Urine Negative (Negative); Protein Urine Negative (Negative); Specific Gravity Urine 1.014 (1.000-1.030); Urobilinogen Urine Negative (Negative)
--- NOTE | 2020-04-22 11:34 | CT Scan Report ---
CT chest wo con CT DOSE: 197.75 mGy.cm HISTORY: CXR w/ poss. worsening pna,hypoxia TECHNIQUE: Multiaxial CT images of the chest were performed without contrast. A dose lowering techni que was utilized adhering to the principles of ALARA. COMPARISON: 04/13/2020 FINDINGS: Stable left upper lobe interstitial infiltrative/bronchiectatic change. Scattered parenchymal groundglass nodule right upper lobe. Interval development of bilateral lower lobe consolidative infiltrative change. This is associated bi lateral pleural effusions. There are moderate consolidative changes of the right as well as left lowe r lobe. Several small mediastinal nodes unchanged from the prior study. IMPRESSION: 1. Progressive lower lobe infiltrative change. 2. Superimposed bibasilar pleural effusions and lower lobe consolidative change. 3. Unchanged interstitial/bronchiectatic left upper lobe infiltrative process. ACT 112: Negative or not required by law. The above report was generated using voice recognition software. It may contain grammatical, syntax or spelling errors. Electronically signed by: Mj Pierre M.D. 04/22/2020 11:32 AM
--- NOTE | 2020-04-22 13:02 | Pulmonary Consultation ---
Date of Consultation April 22, 2020 Assessment & Plan (1) Abnormal CT scan of lung: Impression: 89-year-old female admitted with failure to thrive. She has an abnormal CT scan of unclear significance. This could represent resolving pneumonia although on review of her labs, I do not see that her white count was never elevated. In addition her procalcitonin is been negative on 2 separate occasions. This raises the possibility of interstitial lung disease. Review of her medication list does not reveal any offending agents. In a an 89-year-old female who is DNR/DNI, I am not sure I would recommend an aggressive approach such as bronchoscopy or surgical lung biopsy is going to be unlikely to affect treatment recommendations or outcome. Recommendations: 1. We will conduct a limited serological evaluation to evaluate for interstitial lung disease. 2. Continue oxygen titrated to keep saturations at or above 88%. 3. Would not recommend additional antibiotics at this point time unless the patient should demonstrate leukocytosis, fever, or other signs or symptoms of active lower respiratory infection. 4. Could consider outpatient pulmonary function testing in this patient when she recovers however again given her advanced age and dementia with limitations on care, a conservative approach may be much more reasonable. From my perspective, her pulmonary issues can be evaluated in the outpatient setting if needed. Additional work-up of her medical issues is deferred to her primary care service including her underlying anemia.. (2) Failure to thrive: Failure to thrive age range: in adult Qualified Code(s): R62.7 - Adult failure to thrive (3) Hypoxemia: History of Present Illness Attending Physician: Benedict Lynn MD History of Present Illness Asked by hospitalist to evaluate this patient with an abnormal CT scan. History is obtained from discussion with hospitalist as well as review electronic medical record and interview the patient. The patient is an 89-year-old female with an over [id number] history of tobacco abuse who quit smoking decades ago who was initially admitted to the hospital on April 13 with generalized weakness poor appetite and dehydration. She apparently had been feeling poor for several months. There was concern for potential aspiration as she complained of some dysphasia. Her procalcitonin was negative. CT angiogram showed no evidence of filling defects but did show some consolidation. She received Rocephin in the emergency room but was changed to Levaquin and completed a full course. Her COVID test was negative. She was [facility] but yesterday developed an episode of bradycardia and hypotension which responded to low-dose atropine. She was on multiple medications including carvedilol digoxin Aricept hydralazine nitrates and lisinopril. A chest x-ray was performed which revealed persistent infiltrates which led to a CT scan which confirmed the presence of persistent i nfiltrates and subsequently led to a pulmonary consultation. The patient states that she is not having any respiratory issues currently. She does not report cough, shortness of breath, sputum production, fevers, chills, or night sweats. She states that she is hungry but is unable to eat. When qu eried repetitively, she does endorse some slight dysphasia but is not able to explain exactly why she cannot eat. She does state that she continues to feel quite poorly. Allergies Allergy/AdvReac Type Severity Reaction Status Date / Time Penicillins Allergy Intermediate rash Verified 04/16/20 10:47 strawberry Allergy Intermediate Rash Verified 04/16/20 16:20 latex Allergy Unknown "I don't Verified 04/16/20 10:47 remember" yellow dye Allergy Unknown Unknown Verified 04/16/20 10:47 Home Medications Home Medications Medication Instructions Recorded Confirmed Type donepezil 10 mg tablet 10 mg PO QAM tab 06/12/19 04/13/20 History alprazolam 0.25 mg tablet 0.25 mg PO BID tab 07/21/19 04/13/20 History carvedilol 25 mg tablet 25 mg PO BID tab 07/21/19 04/13/20 History ondansetron 4 mg disintegrating 4 mg PO Q8H PRN tab 07/21/19 04/13/20 History tablet digoxin 125 mcg PO QAM 08/04/19 04/13/20 History lisinopril 20 mg PO QAM 08/04/19 04/13/20 History magnesium 100 mg PO QAM 08/04/19 04/13/20 History multivitamin 1 tab PO DAILY 09/23/19 04/13/20 History cholecalciferol (vitamin D3) 25 mcg PO DAILY 04/13/20 04/13/20 History [Vitamin D3] dicyclomine 10 mg PO QID 04/13/20 04/13/20 History krill oil 500 mg PO DAILY 04/13/20 04/13/20 History omeprazole 20 mg PO BID 04/13/20 04/13/20 History zoster vaccine live (PF) 0.5 ml SUBCUT DIRECTED 04/13/20 04/13/20 History alprazolam 0.25 mg PO BID PRN #30 tab 04/19/20 Rx heparin, porcine (PF) 5,000 unit SUBCUT Q12 #25 ml 04/19/20 Rx ipratropium-albuterol 3 ml NEB Q6R PRN #90 ml 04/19/20 Rx levofloxacin 750 mg PO Q48H #4 tab 04/19/20 Rx Patient History Medical History (Updated 04/22/20 @ 13:11 by Ari Aranda MD) Aortic valve sclerosis Cardiomyopathy FOLLOWS WITH DR HAHN Chronic back pain CKD (chronic kidney disease), stage III Dementia Dementia with behavioral disturbance Depression Diastolic CHF Encounter for pre-operative examination Esophageal reflux HTN (hypertension) Left bundle branch block Mitral regurgitation Osteoarthritis Osteoarthritis Pulmonary hypertension Respiratory failure (Inactive 03/19/14) Surgical History History of esophagogastroduodenoscopy (EGD) Family History Cardiac disorder Mother Allergies Father Mother Other specified forms of hearing loss Father Sinusitis Sister Brother Bleeding disorder Sister Cancer Sister Brother Asthma Daughter Social History Preferred Language: Syriac Communication Ability: Effective Car Packer Required: No Beliefs That Will Affect Care: None Current Living Situation: Alone Other Information That Helps Us Care for You: No Feels Safe at Home: Yes Safety Concerns: Feels Safe At This Time Smoking Status: Former smoker Second Hand Exposure: No ; Hx Alcohol Use: No Hx Substance Use: No Review of Systems Review of Systems: Please refer to H&P for details. I have no additions or deletions. Negative except as noted in HPI Physical Exam Physical Exam: Elderly white female who appears frail but not acutely distressed. Afebrile. Blood pressure was initially borderline hypotensive on admission, after 3 or 4 days in the hospital she had periods of significant hypertension, in recent days she has been normotensive or borderline hypotensive once again. Pulse has been consistently bradycardic, generally in the 50s and 60s. Respirations 20 but unlabored. Skin: No generalized lesions. Both of her heels are bandaged. HEENT: Unremarkable. Neck: Jugular venous pulse appears normal (after 1 to 2 L of fluid), no carotid bruits. Lungs: Coarse breath sounds with few rhonchi at the left base. No obvious wheezing. No abdominal paradox, intercostal retraction, or nasal flaring. Cardiac: Regular rhythm with sporadic ectopy. Normal S1, paradoxically split S2 with 2/6 basal systolic ejection murmur which is nonradiating. No diastolic murmur or distant gallop. Abdomen: Nondistended. Extremities: No edema, peripheral pulses intact. Neurologic: Awake and alert, normal conversation, grossly nonfocal. Results & Data Results & Data ([facility]) Vital Signs (Past 12 Hours) Vital Signs Temp Pulse Resp BP Pulse Ox 04/22/20 12:06 36.9 C 63 18 136/74 93 04/22/20 07:48 36.8 C 66 18 123/64 92 04/22/20 07:06 70 18 90 04/22/20 05:00 36.6 C 64 18 135/63 94 04/22/20 02:36 57 L 16 96 Laboratory Results 04/22/20 06:51 04/22/20 06:[address] the chest from 04/22/2020 was independently reviewed and compared to prior CT scan from 04/13/2020. There is increased interstitial markings in the left upper lobe as well as increased interstitial markings and consolidation noted within the lateral aspect of the right upper lobe. The most recent film demonstrates appearance of new bilateral effusions. A prior CT scan from 2013 did not demonstrate significant interstitial lung disease at that time. PG Care Time/CCT Total # of Minutes Spent Total Time Spent with Patient: Total time spent is greater than 50% in coordination of care (as documented) at patient's floor/unit and/or counseling patient: Coding Level of Care Code 09713 Initial Inpt Care Lvl [address] scan of lung R91.8 Failure to thrive R62.7 Failure to thrive age range: in adult Hypoxemia R09.02 Time Spent (min) 50
--- NOTE | 2020-04-22 13:05 | Cardiology Progress Note ---
Date of Service April 22, 2020 Assessment & Plan (1) Syncope: -no recurrence since admission. -agree with holding antihypertensives for now. -continue to watch on telemetry. (2) Cardiomyopathy: -left ventricular dysfunction is mild. -EF 45-50% on echocardiogram August 2019. (3) Failure to thrive: -this has been longstanding. (4) Multifocal pneumonia: -continue intravenous antibiotics (5) Diastolic CHF: -compensated at this time. -medications currently on hold. Admission and Anticipated Discharge Date Admission Date: April 13, 2020 Anticipated date of discharge: 04/16/20 Subjective The patient is resting comfortably bed but complaining of fatigue. No chest pain or dyspnea. Physical Exam Physical Exam: Elderly white female in no acute distress. HEENT exam is negative. Neck is supple with full carotid upstrokes. No obvious bruits. Jugular venous pressure is flat at 90 was no thyromegaly. Cardiovascular exam reveals a regular rhythm with distant heart sounds. No obvious murmurs. No S3. Lungs are clear without rales, rhonchi or wheezes. Abdomen is soft nontender without bruits. Extremities reveal intact radial artery pulses bilaterally. There is no edema Results & Data ([facility] [place]) Vital Signs (Past 12 Hours) Vital Signs Temp Pulse Resp BP Pulse Ox 04/22/20 12:06 36.9 C 63 18 136/74 93 04/22/20 07:48 36.8 C 66 18 123/64 92 04/22/20 07:06 70 18 90 04/22/20 05:00 36.6 C 64 18 135/63 94 04/22/20 02:36 57 L 16 96 Diagnostic Findings cash applications associate is benign. PG Care Time/CCT Total # of Minutes Spent Total Time Spent with Patient: Total time spent is greater than 50% in coordination of care (as documented) at patient's floor/unit and/or counseling patient: Coding Level of Care Code 46945 Subseq Hosp Care Lvl 3 Diagnoses Syncope R55 Cardiomyopathy I42.9 Failure to thrive R62.7 Failure to thrive age range: in adult Multifocal pneumonia J18.9 Diastolic CHF I50.30 (1) Failure to thrive Failure to thrive age range: in adult Qualified Code(s): R62.7 - Adult failure to thrive
[2020-04-22 14:29] LABS: Reticulocyte % 2.1 % (0.5-2.0); Reticulocytes # 0.07 10^6/uL (0.02-0.10)
[2020-04-22 14:52] LABS: C Reactive Protein 3.05 mg/dl (0-0.29); Ferritin 163.9 ng/ml (8-388)
[2020-04-22] MEDS: MELATONIN 3 MG TAB PO SCH (21:27)
[2020-04-22] MEDS: CEFEPIME 2,000 MG in SYRINGE 7.5 ML IV SCH (21:27)
[2020-04-23] MEDS: ALBUT/IPRATROP 3MG/0.5MG NEB 3 ML VIAL NEB SCH ×6 (02:51→22:58)
[2020-04-23] MEDS: metroNIDAZOLE 500 MG/100 ML BAG IV SCH (06:03)
[2020-04-23 07:12] LABS: Hematocrit (blood only) 32.9 % (37-47); Hemoglobin 10.3 g/dL (12.0-16.0); Mean Corpuscular Hemoglobin 30.2 pg (25-34); Mean Corpuscular Hgb Conc 31.3 g/dL (32-36); Mean Corpuscular Volume 96.5 fL (80-100); Mean Platelet Volume 9.8 fL (7.4-10.4); Platelet Count 332 K/uL (130-400); RDW Coefficient of Variation 14.6 % (11.5-14.5); RDW Standard Deviation 50.8 fL (36.4-46.3); Red Blood Count 3.41 M/uL (4.2-5.4); White Blood Count 8.39 K/uL (4.8-10.8)
--- NOTE | 2020-04-23 07:34 | Hospitalist Progress Note ---
Date of Service April 23, 2020 Assessment & Plan (1) Hypoxia: acute hypoxemic respiratory failure on admission: on night time home 02 as per chart was found to be hypoxic spo2 87% in RA , improved to 96% on 3L on admission In ER pt afebrile, P: 60, R: 25, BP: 92/52 up to 104/51, 87% on RA, No leukocytosis, D-Dimer:1640, lactate: 0.9, procalcitonin: <0.05 possible cause of hypoxia : Pneumonia concern for aspiration pneumonitis ( pt reports of coughing /choking on food while eating ) CXR: Interval development of nonspecific peripheral airspace opacities within the left upper lung zone and left lower lung zone. The findings are likely infectious/inflammatory. Clinical and radiographic follow-up is recommended. CTA CHEST: No evidence for pulmonary embolus. Diffuse bilateral pulmonary infiltrates showing components of consolidation as well as a ground glass appearance -In ER given Rocephin 1GM IV - changed Abx to IV levaquin for broader coverage -sputum culture-ordered no evidence of sepsis : -Covid 19 neg -CBC, BMP in am Pt underwent treatment for pna w/ Levaquin. Had episode of LOC, bradycardia, hypotension (04/21/20). As part of work up, CXR was repeated - concerning for worsening multifocal pna/ HCAP/ poss. aspiration. Broad spectrum empiric Abx started. CT chest obtained (04/22/20) - poss. wors. pna, pl. effusions, vs interstitial lung disease Pulmonary consulted for their input, concern for poss. interstitial lung disease, do not recommend Abx as there is no WBC elev., procal. elev., fever, cough -Serology ordered and pending -ESR, CRP ordered -suspect her CT scan represent interstitial lung disease and given her elevated CRP ESR and anemia, polymyalgia rheumatica associated ILD would be in the differential, as the patient is not complaining of significant pulmonary complaints currently, would be somewhat reluctant to place her on prednisone merely for lung disease which is not overtly symptomatic -Given her advanced age and dementia she is not like a candidate for aggressive therapies such as surgical lung biopsy or bronchoscopy ELEVATED DDIMER: CTA of chest negative for PE reports of lower ext swelling and cramps , has been mostly in bed recently due to weakness lower ext doppler ordered neg for DVT Insomnia - pt reports difficulty sleeping, and reports long hx of insomnia -states used to have medication prescribed by psychiatrist to help her sleep which was effective -stopped seeing psychiatrist several yrs ago, and has not been using the med -was taking alprazolam prescribed by PCP, pt states the med makes her tired but does not help her to actually fall asleep -will discuss w/ psychiatry, will try trazodone in addition to melatonin (melatonin alone did not help with insomnia) (2) Weakness: generalized weakness with ambulatory dysfunction She and DTR c/o neck weakness, when she flexes her neck, she's too weak to lift it up CT HEAD:1. No acute intracranial abnormality. 2. Age-related atrophy and chronic small vessel change. -PT/OT eval ordered (3) Extremity edema: -Doppler r/o DVT- no dvt (4) HTN (hypertension): -Resumed lisinopril, Added Norvasc, (Added Imdur and Hydralazine d/t hypertension earlier during her admission- plan was to DC these on discharge) -Continued carvedilol Now holding vasoactive medications that were previously necessary for treating her cardiomyopathy and hypertension - pt had episode of unresponsiveness, bradycardia, hypotension (04/21/2020) she may no longer tolerate the combination of medications -Cardiology consulted, plan to gradually re-start her meds as needed (5) CKD (chronic kidney disease), stage III: -Monitor renal functions -Hold nephrotoxic agents when possible Dry by numbers, was given gentle IVFs on admission (6) Dementia: -Continue donepezil pt appears to be at her baseline mental status able to answer questions appropriately no confusion noted (7) Diastolic CHF: FAILURE TO THRIVE , PROTEIN CALORIE MALNUTRITION , SIGNIFICANT WT LOSS: Prealbumin 8.2 reports of poor appetite , wt loss for several weeks collection systems technician consulted for nutrition assessment and supplement Admission and Anticipated Discharge Date Admission Date: April 13, 2020 Anticipated date of discharge: 04/16/20 Subjective Patient lying in bed, in no acute distress. Denies any fevers, chills, chest pain, shortness of breath, abdominal pain, nausea or vomiting. Patient is on a supplemental oxygen, which is her baseline. Complained about some pain at her IV site, this was removed and currently patient has no complaints. Patient had difficulty sleeping, this seems to be unfortunately ongoing process. Psychiatry was consulted to help with insomnia. Patient's daughter was updated over the phone, also stated that patient has had ongoing sciatica pain. Review of Systems Review of Systems: All systems reviewed & are unremarkable except as noted in HPI & below Constitutional: + fatigue; no fever and no chills Respiratory: no cough and no dyspnea Cardiovascular: no chest pain and no palpitations Gastrointestinal: no abdominal pain, no nausea and no vomiting Physical Exam Physical Exam: Constitutional: Elderly female, laying in bed, + ill appearing HEENT: Normocephalic, atraumatic, EOMI, anicteric sclera Neck: trachea midline, no thyromegaly Respiratory: normal respiratory effort; no respiratory distress and no cough Auscultation: + diminished lung sounds; + rhonchi, no wheezes Cardiovascular: Rate/Rhythm: regular rate and regular rhythm Vessels: no JVD Extremities: + mild LE edema Gastrointestinal (Abdomen): normal bowel sounds Percussion/Palpation: abdomen soft; abdomen nontender, mildly distended Musculoskeletal: generalized weakness, moves extremities spontaneously Skin: no rashes, warm and dry Neurologic: PERRL, EOMI, no face palsy, no dysarthria, moves all extremities; no focal motor deficits Psychiatric: A+Ox3, euthymic affect Results & Data Results & Data ([facility]) Vital Signs (Past 12 Hours) Vital Signs Temp Pulse Resp BP Pulse Ox 04/23/20 07:03 77 18 95 04/23/20 03:34 37.5 C 66 18 129/66 96 04/23/20 00:08 37.2 C 78 20 144/49 H 95 Medications Administered Current Inpatient Medications Albuterol (Duoneb) 3 ml NEB Q6R PRN PRN Reason: Shortness Of Breath Or Wheezin Stop: 05/13/20 19:23 Albuterol (Duoneb) 3 ml NEB Q4R [facility] Stop: 05/21/20 22:59 Last Admin: 04/23/20 07:03 Dose: 3 ml Documented by: Guaifenesin (Mucinex) 600 mg PO Q12 [facility] Stop: 05/21/20 20:59 Last Admin: 04/22/20 21:28 Dose: 600 mg Documented by: Doxycycline Hyclate 100 mg/ (Dextrose) 110 mls @ 50 mls/hr IV Q12H [facility]; Protocol Stop: 04/28/20 19:59 Last Infusion: 04/22/20 23:40 Dose: Infused Documented by: Cefepime HCl 2,000 mg/ Syringe 20 mls @ 5 mls/min IV DAILY@2000 [facility]; Protocol Stop: 04/28/20 19:59 Last Admin: 04/22/20 21:27 Dose: 5 mls/min Documented by: Metronidazole (Flagyl) 500 mg in 100 mls @ 100 mls/hr IV Q8 [facility]; Protocol Stop: 04/28/20 21:59 Last Infusion: 04/23/20 07:07 Dose: Infused Documented by: Melatonin (Melatonin) 3 mg PO HS [facility] Stop: 05/22/20 20:59 Last Admin: 04/22/20 21:27 Dose: 3 mg Documented by: Pantoprazole Sodium (Protonix) 40 mg PO BID [facility] Stop: 05/13/20 20:59 Last Admin: 04/22/20 21:28 Dose: 40 mg Documented by:
[2020-04-23 07:39] LABS: BUN Creatinine Ratio 28.6 (10-20); Creatinine Clr Calc Pharmacy 30.4 ml/min; Est GFR (African American) 74.6; Est GFR (Non-African American) 64.4; Magnesium 1.6 mg/dl (1.8-2.4); Potassium 4.6 mmol/L (3.5-5.1)
[2020-04-23] MEDS: PANTOprazole 40 MG TAB PO SCH ×2 (08:50→21:29)
[2020-04-23] MEDS: guaiFENesin 600 MG TABCR PO SCH ×2 (08:50→21:28)
[2020-04-23] MEDS: DOXYCYCLINE HYCLATE 100 MG in DEXTROSE 5% 100 ML IV SCH (08:50)
[2020-04-23] MEDS ORDERED: MAGNESIUM SULFATE / D5W 1 GM/100 ML BAG IV ONE (10:08)
--- NOTE | 2020-04-23 10:52 | Pulmonology Progress Note ---
Date of Service April 23, 2020 Assessment & Plan (1) Abnormal CT scan of lung: Impression: 89-year-old female admitted with failure to thrive. She has an abnormal CT scan of unclear significance. I suspect her CT scan represent interstitial lung disease and given her elevated CRP ESR and anemia, polymyalgia rheumatica associated ILD would be in the differential. Her remaining serological evaluation is currently pending. Given her advanced age and dementia I do not think she is a candidate for aggressive therapies such as surgical lung biopsy or bronchoscopy. Recommendations: 1. Await remaining serological evaluation 2. Continue oxygen titrated to keep saturations at or above 88%. 3. Would not recommend additional antibiotics at this point time unless the patient should demonstrate leukocytosis, fever, or other signs or symptoms of active lower respiratory infection. 4. Could consider outpatient pulmonary function testing in this patient when she recovers however again given her advanced age and dementia with limitations on care, a conservative approach may be much more reasonable. May be reasonable to pursue therapy for polymyalgia rheumatica if the admitting service feels this is a appropriate diagnosis. As the patient is not complaining of significant pulmonary complaints currently, I would be somewhat reluctant to place her on prednisone merely for lung disease which is not overtly symptomatic. (2) Failure to thrive: Failure to thrive age range: in adult Qualified Code(s): R62.7 - Adult failure to thrive (3) Hypoxemia: Admission and Anticipated Discharge Date Admission Date: April 13, 2020 Anticipated date of discharge: 04/16/20 Subjective Patient states she continues to feel poorly. She is complaining about pain in her IV site. She is not had fevers chills or new respiratory complaints. Review of Systems Review of Systems: All systems reviewed & are unremarkable except as noted in HPI & below Physical Exam Physical Exam: Elderly white female who appears frail but not acutely distressed. Afebrile. Blood pressure was initially borderline hypotensive on admission, after 3 or 4 days in the hospital she had periods of significant hypertension, in recent days she has been normotensive or borderline hypotensive once again. Pulse has been consistently bradycardic, generally in the 50s and 60s. Respirations 20 but unlabored. Skin: No generalized lesions. Both of her heels are bandaged. HEENT: Unremarkable. Neck: Jugular venous pulse appears normal (after 1 to 2 L of fluid), no carotid bruits. Lungs: Coarse breath sounds with few rhonchi at the left base. No obvious wheezing. No abdominal paradox, intercostal retraction, or nasal flaring. Cardiac: Regular rhythm with sporadic ectopy. Normal S1, paradoxically split S2 with 2/6 basal systolic ejection murmur which is nonradiating. No diastolic murmur or distant gallop. Abdomen: Nondistended. Extremities: No edema, peripheral pulses intact. Neurologic: Awake and alert, normal conversation, grossly nonfocal. Results & Data Results & Data ([facility]) Vital Signs (Past 12 Hours) Vital Signs Temp Pulse Resp BP Pulse Ox 04/23/20 08:01 37.0 C 67 18 128/62 89 L 04/23/20 07:03 77 18 95 04/23/20 03:34 37.5 C 66 18 129/66 96 04/23/20 00:08 37.2 C 78 20 144/49 H 95 Laboratory Results 04/23/20 06:40 04/23/20 06:40 Reticulocyte count 2.1% ESR 70 Ferritin 163 Total iron binding capacity 267 LDH 150 CPK 41 C-reactive protein 3.05 Diagnostic Findings No new imaging PG Care Time/CCT Total # of Minutes Spent Total Time Spent with Patient: Total time spent is greater than 50% in coordination of care (as documented) at patient's floor/unit and/or counseling patient: Coding Level of Care Code 51167 Subseq Hosp Care Lvl [address] scan of lung R91.8 Failure to thrive R62.7 Failure to thrive age range: in adult Hypoxemia R09.02
--- NOTE | 2020-04-23 13:22 | Psychiatric Consultation ---
Date of Consultation April 23, 2020 Impression / Recommendations Impression 89 yo female with some hx of non-specific anxiety presents with FTT in context of heart failure, lung findings. Has some depressive symptoms but mainly newer onset sleep difficulties. Xanax held in hospital, cannot exclude withdrawal as contributing factor even though is low dose. no indication for inpatient hospitalization weight loss more likely ongoing medical issues, decline in ability to maintain self at home than primary psych by current assessment, obviously should be monitored for such and Remeron could be an option at that point with regards to sleep which was primary consult question at this time--I would not resume benzos given age and fall risk. melatonin X1 ineffective. Would want to avoid anticholinergics like Benadryl and Vistaril. If short term use and no medical contraindication per hospitalist, Ambien 5 mg while supervised in care settings or if desire to avoid that class, start with 12.5-25 mg trazodone and titrate in no more than 25 mg intervals. Risk Factors Assessment Do You Have Access To A Gun?: No Psych History Identifying Data 89 yo female admit 04/13 for FTT and syncope. Consult is by Dr. Lynn for insomnia. Chief Complaint "I used to sleep fine, here I wake up every time someone comes in". History of Present Illness Patient reportedly with dementia but keren in conversation and able to provide history to liaison. States she has recurrent N with 10-15 lb weight loss, says "nerves" probably don't help but doesn't attribute to psychiatric symptoms. She lives alone but with caregivers. Liaison reports daughter concerned about her being alone overnight and hoping for placement following rehab. She was given melatonin 3 mg last night. It appears on PDMP that she has been prescribed Xanax 0.25 mg po BID prn for anxiety the past few months. Was held on admission. With regards to depression, she states that she still struggles with her son's at age 19 (suicide) and she had seen a psychiatrist in the past for this, unsure what she may have been prescribed for sleep at that time. Past Psychiatric History Previous Psych History: no formal for >7 years Previous Psych Admissions: none Do You Have Access To A Gun?: No History of Previous Suicide Attempt: No Past Medication Trials: Xanax, donepezil, doesn't believe antidepressant Allergies Allergy/AdvReac Type Severity Reaction Status Date / Time Penicillins Allergy Intermediate rash Verified 04/16/20 10:47 strawberry Allergy Intermediate Rash Verified 04/16/20 16:20 latex Allergy Unknown "I don't Verified 04/16/20 10:47 remember" yellow dye Allergy Unknown Unknown Verified 04/16/20 10:47 Home Medications Home Medications Medication Instructions Recorded Confirmed Type donepezil 10 mg tablet 10 mg PO QAM tab 06/12/19 04/13/20 History alprazolam 0.25 mg tablet 0.25 mg PO BID tab 07/21/19 04/13/20 History carvedilol 25 mg tablet 25 mg PO BID tab 07/21/19 04/13/20 History ondansetron 4 mg disintegrating 4 mg PO Q8H PRN tab 07/21/19 04/13/20 History tablet digoxin 125 mcg PO QAM 08/04/19 04/13/20 History lisinopril 20 mg PO QAM 08/04/19 04/13/20 History magnesium 100 mg PO QAM 08/04/19 04/13/20 History multivitamin 1 tab PO DAILY 09/23/19 04/13/20 History cholecalciferol (vitamin D3) 25 mcg PO DAILY 04/13/20 04/13/20 History [Vitamin D3] dicyclomine 10 mg PO QID 04/13/20 04/13/20 History krill oil 500 mg PO DAILY 04/13/20 04/13/20 History omeprazole 20 mg PO BID 04/13/20 04/13/20 History zoster vaccine live (PF) 0.5 ml SUBCUT DIRECTED 04/13/20 04/13/20 History alprazolam 0.25 mg PO BID PRN #30 tab 04/19/20 Rx heparin, porcine (PF) 5,000 unit SUBCUT Q12 #25 ml 04/19/20 Rx ipratropium-albuterol 3 ml NEB Q6R PRN #90 ml 04/19/20 Rx levofloxacin 750 mg PO Q48H #4 tab 04/19/20 Rx Family History son suicide Substance Abuse History none Personal History Living Arrangements: Home Employment Status: Retired Number Of Children: daughter is main contact Beliefs That Will Affect Care: None Patient History Medical History Aortic valve sclerosis Cardiomyopathy FOLLOWS WITH DR HANH Chronic back pain CKD (chronic kidney disease), stage III Dementia Dementia with behavioral disturbance Depression Diastolic CHF Encounter for pre-operative examination Esophageal reflux HTN (hypertension) Left bundle branch block Mitral regurgitation Osteoarthritis Osteoarthritis Pulmonary hypertension Respiratory failure (Inactive 03/19/14) Surgical History History of esophagogastroduodenoscopy (EGD) Family History Father Allergies Other specified forms of hearing loss Mother Allergies Cardiac disorder Daughter Asthma Sister Sinusitis Cancer Bleeding disorder Brother Cancer Sinusitis Social History Preferred Language: [place] Communication Ability: Effective Caption Writer Required: No Beliefs That Will Affect Care: None Current Living Situation: Alone Other Information That Helps Us Care for You: No Feels Safe at Home: Yes Safety Concerns: Feels Safe At This Time Smoking Status: Former smoker Second Hand Exposure: No ; Hx Alcohol Use: No Hx Substance Use: No Physical Exam Psychiatric: Orientation: alert but tired appearing Apperance: ap propriately groomed Eye Contact: + fair eye contact Motor Behavior: no abnormal motor movements Speech: normal rate/rhythm/volume of speech Affect: + constricted affect "just tired" Thought Process: linear/logical thought process Thought Content: reality based without delusions Suicidal Thoughts: denies suicidal thoughts Homicidal Thoughts: denies homicidal thoughts Hallucinations: no auditory hallucinations and no visual hallucinations Cognition: attention grossly intact Insight: + fair insight Judgement: + fair judgement Vital Signs (Past 24 Hours): Last Vital Signs Temp 37.0 C 04/23/20 11:55 Pulse 74 04/23/20 11:55 Resp 17 04/23/20 11:55 BP 146/57 H 04/23/20 11:55 Pulse Ox 89 L 04/23/20 11:55 Review of Systems All systems reviewed & are unremarkable except as noted in HPI & below Results & Data ([facility]) Medications Administered Albuterol (Duoneb) 3 ml NEB Q4R [facility] Stop: 05/21/20 22:59 Last Admin: 04/23/20 11:02 Dose: 3 ml Documented by: [id number] Admin: 04/23/20 07:03 Dose: 3 ml Documented by: [id number] Admin: 04/23/20 02:51 Dose: Not Given Documented by: [id number] Admin: 04/22/20 23:02 Dose: Not Given Documented by: [id number] Admin: 04/22/20 19:18 Dose: 3 ml Documented by: [id number] Admin: 04/22/20 15:17 Dose: 3 ml Documented by: [id number] Admin: 04/22/20 12:27 Dose: Not Given Documented by: [id number] Admin: 04/22/20 07:06 Dose: 3 ml Documented by: [id number] Admin: 04/22/20 02:34 Dose: 3 ml Documented by: [id number] Admin: 04/21/20 23:18 Dose: 3 ml Documented by: [id number] Guaifenesin (Mucinex) 600 mg PO Q12 [facility] Stop: 05/21/20 20:59 Last Admin: 04/23/20 08:50 Dose: 600 mg Documented by: [id number] Admin: 04/22/20 21:28 Dose: 600 mg Documented by: [id number] Admin: 04/22/20 08:25 Dose: 600 mg Documented by: [id number] Admin: 04/21/20 21:33 Dose: 600 mg Documented by: [id number] Doxycycline Hyclate 100 mg/ (Dextrose) 110 mls @ 50 mls/hr IV Q12H [facility]; Protocol Stop: 04/28/20 19:59 Last Admin: 04/23/20 08:50 Dose: 50 mls/hr Documented by: [id number] Infusion: 04/22/20 23:40 Dose: 0 mls/hr Documented by: [id number] Admin: 04/22/20 21:27 Dose: 50 mls/hr Documented by: [id number] Infusion: 04/22/20 10:40 Dose: 0 mls/hr Documented by: [id number] Admin: 04/22/20 08:25 Dose: 50 mls/hr Documented by: [id number] Infusion: 04/22/20 01:50 Dose: 0 mls/hr Documented by: [id number] Admin: 04/21/20 21:33 Dose: 50 mls/hr Documented by: [id number] Cefepime HCl 2,000 mg/ Syringe 20 mls @ 5 mls/min IV DAILY@2000 [facility]; Protocol Stop: 04/28/20 19:59 Last Admin: 04/22/20 21:27 Dose: 5 mls/min Documented by: [id number] Admin: 04/21/20 21:33 Dose: 5 mls/min Documented by: [id number] Metronidazole (Flagyl) 500 mg in 100 mls @ 100 mls/hr IV Q8 [facility]; Protocol Stop: 04/28/20 21:59 Last Infusion: 04/23/20 07:07 Dose: 0 mls/hr Documented by: [id number] Admin: 04/23/20 06:03 Dose: 100 mls/hr Documented by: [id number] Infusion: 04/23/20 01:09 Dose: 0 mls/hr Documented by: [id number] Admin: 04/22/20 23:39 Dose: 100 mls/hr Documented by: [id number] Infusion: 04/22/20 15:50 Dose: 0 mls/hr Documented by: [id number] Admin: 04/22/20 14:48 Dose: 100 mls/hr Documented by: [id number] Infusion: 04/22/20 06:35 Dose: 0 mls/hr Documented by: [id number] Admin: 04/22/20 04:40 Dose: 100 mls/hr Documented by: [id number] Infusion: 04/21/20 22:56 Dose: 0 mls/hr Documented by: [id number] Admin: 04/21/20 21:33 Dose: 100 mls/hr Documented by: [id number] Melatonin (Melatonin) 3 mg PO HS [facility] Stop: 05/22/20 20:59 Last Admin: 04/22/20 21:27 Dose: 3 mg Documented by: [id number] Pantoprazole Sodium (Protonix) 40 mg PO BID [facility] Stop: 05/13/20 20:59 Last Admin: 04/23/20 08:50 Dose: 40 mg Documented by: [id number] Admin: 04/22/20 21:28 Dose: 40 mg Documented by: [id number] Admin: 04/22/20 08:25 Dose: 40 mg Documented by: [id number] Admin: 04/21/20 21:33 Dose: 40 mg Documented by: [id number] Admin: 04/21/20 08:57 Dose: 40 mg Documented by: [id number] Admin: 04/20/20 20:17 Dose: 40 mg Documented by: [id number] Admin: 04/20/20 09:03 Dose: 40 mg Documented by: [id number] Admin: 04/19/20 21:03 Dose: 40 mg Documented by: [id number] Admin: 04/19/20 08:35 Dose: 40 mg Documented by: [id number] Admin: 04/18/20 20:41 Dose: 40 mg Documented by: [id number] Admin: 04/18/20 08:42 Dose: 40 mg Documented by: [id number] Admin: 04/17/20 20:06 Dose: 40 mg Documented by: [id number] Admin: 04/17/20 08:45 Dose: 40 mg Documented by: [id number] Admin: 04/16/20 20:33 Dose: 40 mg Documented by: [id number] Admin: 04/16/20 09:12 Dose: 40 mg Documented by: [id number] Admin: 04/15/20 21:06 Dose: 40 mg Documented by: [id number] Admin: 04/15/20 08:13 Dose: 40 mg Documented by: [id number] Admin: 04/14/20 19:45 Dose: 40 mg Documented by: [id number] Admin: 04/14/20 08:59 Dose: 40 mg Documented by: [id number] Admin: 04/13/20 22:37 Dose: 40 mg Documented by: [id number] Coding Level of Care Code 18222 [facility] Intl Hosp Care Lvl 2
[2020-04-23] MEDS: TRAZODONE HCL 50 MG TAB PO SCH (21:28)
[2020-04-23] MEDS: MELATONIN 3 MG TAB PO SCH (21:29)
[2020-04-24] MEDS: ACETAMINOPHEN 325 MG TAB PO PRN ×2 (02:03→16:14)
[2020-04-24] MEDS: ALBUT/IPRATROP 3MG/0.5MG NEB 3 ML VIAL NEB SCH ×6 (03:29→22:56)
[2020-04-24 07:24] LABS: Hematocrit (blood only) 31.2 % (37-47); Hemoglobin 9.8 g/dL (12.0-16.0); Mean Corpuscular Hemoglobin 30.2 pg (25-34); Mean Corpuscular Hgb Conc 31.4 g/dL (32-36); Mean Platelet Volume 9.5 fL (7.4-10.4); Platelet Count 337 K/uL (130-400); RDW Coefficient of Variation 14.7 % (11.5-14.5); RDW Standard Deviation 51.4 fL (36.4-46.3); Red Blood Count 3.25 M/uL (4.2-5.4)
[2020-04-24 07:52] LABS: BUN Creatinine Ratio 24.5 (10-20); Creatinine Clr Calc Pharmacy 34.2 ml/min; Est GFR (African American) 86.1; Est GFR (Non-African American) 74.3; Magnesium 1.8 mg/dl (1.8-2.4); Phosphorus 3.5 mg/dl (2.5-4.9); Potassium 4.3 mmol/L (3.5-5.1)
[2020-04-24] MEDS: guaiFENesin 600 MG TABCR PO SCH ×2 (08:04→20:59)
[2020-04-24] MEDS: PANTOprazole 40 MG TAB PO SCH ×2 (08:04→20:59)
--- NOTE | 2020-04-24 09:10 | Pulmonology Progress Note ---
Date of Service April 24, 2020 Assessment & Plan (1) Abnormal CT scan of lung: Impression: 89-year-old female admitted with failure to thrive. She has an abnormal CT scan of unclear significance. I suspect her CT scan represent interstitial lung disease and given her elevated CRP ESR and anemia, polymyalgia rheumatica associated ILD would be in the differential. Her remaining serological evaluation is currently pending. Given her advanced age and dementia I do not think she is a candidate for aggressive therapies such as surgical lung biopsy or bronchoscopy. Recommendations: 1. Await remaining serological evaluation. Could consider empiric therapy with prednisone although in this 89-year-old female with some underlying dementia I would strongly recommend a discussion with the patient and her family as prednisone therapy is not a benign intervention in 89-year-old patient's. In addition she is already suffering from insomnia and I would expect that steroids may significantly worsen this. She is devoid of significant respiratory complaints currently, could consider an approach of watchful waiting. Alternatively, palliative care consultation could be appropriate as well. Will defer to the patient's primary admitting service. 2. Continue oxygen titrated to keep saturations at or above 88%. 3. Would not recommend additional antibiotics at this point time unless the patient should demonstrate leukocytosis, fever, or other signs or symptoms of active lower respiratory infection. 4. Could consider outpatient pulmonary function testing in this patient when she recovers however again given her advanced age and dementia with limitations on care, a conservative approach may be much more reasonable. May be reasonable to pursue therapy for polymyalgia rheumatica if the admitting service feels this is a appropriate diagnosis. As the patient is not complainin g of significant pulmonary complaints currently, I would be somewhat reluctant to place her on prednisone merely for lung disease which is not overtly symptomatic. Feel free to contact us if we can be of additional assistance. Will sign off for now (2) Failure to thrive: Failure to thrive age range: in adult Qualified Code(s): R62.7 - Adult failure to thrive (3) Hypoxemia: Admission and Anticipated Discharge Date Admission Date: April 13, 2020 Anticipated date of discharge: 04/16/20 Subjective Patient seen and examined. EMR reviewed. The patient states that she is having no respiratory issues. She denies cough or sputum production. Her biggest complaint currently is insomnia which is been longstanding in nature. She was seen by psychiatry with recommendations made. She states she is not really at a better active during the day and does have some issues maintaining a normal sleep-wake cycle. No chest pain or palpitations. Review of Systems Review of Systems: Unchanged from prior Physical Exam Physical Exam: Elderly white female who appears frail but not acutely distressed. Afebrile. Blood pressure was initially borderline hypotensive on admission, after 3 or 4 days in the hospital she had periods of significant hypertension, in recent days she has been normotensive or borderline hypotensive once again. Pulse has been consistently bradycardic, generally in the 50s and 60s. Respirations 20 but unlabored. Skin: No generalized lesions. Both of her heels are bandaged. HEENT: Unremarkable. Neck: Jugular venous pulse appears normal (after 1 to 2 L of fluid), no carotid bruits. Lungs: Coarse breath sounds with few rhonchi at the left base. No obvious wheezing. No abdominal paradox, intercostal retraction, or nasal flaring. Cardiac: Regular rhythm with sporadic ectopy. Normal S1, paradoxically split S2 with 2/6 basal systolic ejection murmur which is nonradiating. No diastolic murmur or distant gallop. Abdomen: Nondistended. Extremities: No edema, peripheral pulses intact. Neurologic: Awake and alert, normal conversation, grossly nonfocal. Results & Data Results & Data ([facility]) Vital Signs (Past 12 Hours) Vital Signs Temp Pulse Pulse Pulse Resp BP BP 04/24/20 07:48 36.6 C 69 20 160/77 H 04/24/20 07:31 69 18 04/24/20 03:54 36.9 C 69 18 126/62 04/24/20 03:29 74 18 04/24/20 00:34 75 04/23/20 23:43 37.3 C 76 17 134/58 L 04/23/20 22:59 72 18 04/23/20 22:24 37.3 C 78 16 154/72 H Pulse Ox 04/24/20 07:48 95 04/24/20 07:31 94 04/24/20 03:54 94 04/24/20 03:29 94 04/24/20 00:34 04/23/20 23:43 95 04/23/20 22:59 93 04/23/20 22:24 92 Laboratory Results 04/24/20 06:54 04/24/20 06:54 Aldolase, rheumatoid factor, MIRNA, ANCA, and anti-[place] as well as IgE level pending Diagnostic Findings No new imaging PG Care Time/CCT Total # of Minutes Spent Total Time Spent with Patient: Total time spent is greater than 50% in coordination of care (as documented) at patient's floor/unit and/or counseling patient: Coding Level of Care Code 50724 Subseq Hosp Care Lvl [address] scan of lung R91.8 Failure to thrive R62.7 Failure to thrive age range: in adult Hypoxemia R09.02
--- NOTE | 2020-04-24 18:43 | Hospitalist Progress Note ---
Date of Service April 24, 2020 Assessment & Plan (1) Hypoxia: acute hypoxemic respiratory failure on admission: on night time home 02 as per chart was found to be hypoxic spo2 87% in RA , improved to 96% on 3L on admission In ER pt afebrile, P: 60, R: 25, BP: 92/52 up to 104/51, 87% on RA, No leukocytosis, D-Dimer:1640, lactate: 0.9, procalcitonin: <0.05 possible cause of hypoxia : Pneumonia concern for aspiration pneumonitis ( pt reports of coughing /choking on food while eating ) CXR: Interval development of nonspecific peripheral airspace opacities within the left upper lung zone and left lower lung zone. The findings are likely infectious/inflammatory. Clinical and radiographic follow-up is recommended. CTA CHEST: No evidence for pulmonary embolus. Diffuse bilateral pulmonary infiltrates showing components of consolidation as well as a ground glass appearance -In ER given Rocephin 1GM IV - changed Abx to IV levaquin for broader coverage -sputum culture-ordered no evidence of sepsis : -Covid 19 neg -CBC, BMP in am Pt underwent treatment for pna w/ Levaquin. Had episode of LOC, bradycardia, hypotension (04/21/20). As part of work up, CXR was repeated - concerning for worsening multifocal pna/ HCAP/ poss. aspiration. Broad spectrum empiric Abx started., Discussed with pulmonary medicine, antibiotics stopped CT chest obtained (04/22/20) - poss. wors. pna, pl. effusions, vs interstitial lung disease Pulmonary medicine consulted for their input, concern for poss. interstitial lung disease, do not recommend Abx as there is no WBC elev., procal. elev., fever, cough -Serology ordered and pending -ESR, CRP elevated -suspect her CT scan represent interstitial lung disease and given her elevated CRP ESR and anemia, polymyalgia rheumatica associated ILD would be in the differential, as the patient is not complaining of significant pulmonary complaints currently, would be somewhat reluctant to place her on prednisone merely for lung disease which is not overtly symptomatic -Could consider empiric therapy with prednisone although in this 89-year-old female with some underlying dementia, would strongly recommend a discussion with the patient and her family as prednisone therapy is not a benign intervention in 89-year-old patient's. In addition she is already suffering from insomnia and would expect that steroids may significantly worsen this. She is devoid of significant respiratory complaints currently, could consider an approach of watchful waiting -Given her advanced age and dementia she is not likely a candidate for aggressive therapies such as surgical lung biopsy or bronchoscopy ELEVATED DDIMER: CTA of chest negative for PE reports of lower ext swelling and cramps , has been mostly in bed recently due to weakness lower ext doppler ordered neg for DVT Insomnia - pt reports difficulty sleeping, and reports long hx of insomnia -states used to have medication prescribed by psychiatrist to help her sleep which was effective -stopped seeing psychiatrist several yrs ago, and has not been using the med -was taking alprazolam prescribed by PCP, pt states the med makes her tired but does not help her to actually fall asleep -will discuss w/ psychiatry, will try trazodone in addition to melatonin (melatonin alone did not help with insomnia) (2) Weakness: generalized weakness with ambulatory dysfunction She and DTR c/o neck weakness, when she flexes her neck, she's too weak to lift it up CT HEAD:1. No acute intracranial abnormality. 2. Age-related atrophy and chronic small vessel change. -PT/OT eval ordered (3) Extremity edema: -Doppler r/o DVT- no dvt (4) HTN (hypertension): -Resumed lisinopril, Added Norvasc, (Added Imdur and Hydralazine d/t hypertension earlier during her admission- plan was to DC these on discharge) -Continued carvedilol Now holding vasoactive medications that were previously necessary for treating her cardiomyopathy and hypertension - pt had episode of unresponsiveness, bradycardia, hypotension (04/21/2020) she may no longer tolerate the combination of medications -Cardiology consulted, plan to gradually re-start her meds as needed (5) CKD (chronic kidney disease), stage III: -Monitor renal functions -Hold nephrotoxic agents when possible Dry by numbers, was given gentle IVFs on admission (6) Dementia: -Continue donepezil pt appears to be at her baseline mental status able to answer questions appropriately no confusion noted (7) Diastolic CHF: FAILURE TO THRIVE , PROTEIN CALORIE MALNUTRITION , SIGNIFICANT WT LOSS: Prealbumin 8.2 reports of poor appetite , wt loss for several weeks tariff inspector consulted for nutrition assessment and supplement Admission and Anticipated Discharge Date Admission Date: April 13, 2020 Anticipated date of discharge: 04/16/20 Subjective Patient lying in bed, in no acute distress. Denies any fevers, chills, chest pain, shortness of breath, cough, abdominal pain, nausea or vomiting. Patient is on a supplemental oxygen, which is her baseline. Patient had difficulty sleeping, this seems to be unfortunately ongoing process. Psychiatry was consulted to help with insomnia. Trazodone and melatonin was tried so far. Per nursing staff, patient slept at night however patient denies it and says that she could not sleep all night. Review of Systems Review of Systems: All systems reviewed & are unremarkable except as noted in HPI & below Constitutional: + fatigue; no fever and no chills Respiratory: no cough and no dyspnea Cardiovascular: no chest pain and no palpitations Gastrointestinal: no abdominal pain, no nausea and no vomiting Physical Exam Physical Exam: Constitutional: Elderly female, laying in bed, + ill appearing HEENT: Normocephalic, atraumatic, EOMI, anicteric sclera Neck: trachea midline, no thyromegaly Respiratory: normal respiratory effort; no respiratory distress and no cough Auscultation: + diminished lung sounds; + rhonchi, no wheezes Cardiovascular: Rate/Rhythm: regular rate and regular rhythm Vessels: no JVD Extremities: + mild LE edema Gastrointestinal (Abdomen): normal bowel sounds Percussion/Palpation: abdomen soft; abdomen nontender, mildly distended Musculoskeletal: generalized weakness, moves extremities spontaneously Skin: no rashes, warm and dry Neurologic: PERRL, EOMI, no face palsy, no dysarthria, moves all extremities; no focal motor deficits Psychiatric: A+Ox3, euthymic affect Results & Data Results & Data ([facility]) Vital Signs (Past 12 Hours) Vital Signs Temp Pulse Pulse Resp BP Pulse Ox 04/24/20 15:58 77 20 96 04/24/20 15:15 36.9 C 77 20 135/64 95 04/24/20 14:49 79 04/24/20 11:19 37.1 C 73 20 135/67 93 04/24/20 11:15 74 18 96 04/24/20 11:03 65 04/24/20 07:48 36.6 C 69 20 160/77 H 95 04/24/20 07:31 69 18 94 Laboratory Results 04/24/20 04/24/20 Range/Units 06:54 06:54 WBC 7.80 (4.8-10.8) K/uL RBC 3.25 L (4.2-5.4) M/uL Hgb 9.8 L (12.0-16.0) g/dL Hct 31.2 L (37-47) % MCV 96.0 (80-100) fL MCH 30.2 (25-34) pg MCHC 31.4 L (32-36) g/dL RDW Std Deviation 51.4 H (36.4-46.3) fL RDW Coeff of [place] 14.7 H (11.5-14.5) % Plt Count 337 (130-400) K/uL MPV 9.5 (7.4-10.4) fL Sodium 134 L (136-145) mmol/L Potassium 4.3 (3.5-5.1) mmol/L Chloride 94 L (98-107) mmol/L Carbon Dioxide 36 H (21-32) mmol/L Anion Gap 4.0 (3-11) BUN 18 (7-18) mg/dl Creatinine 0.72 (0.6-1.2) mg/dl Est Cr Clr Drug Dosing 34.2 ml/min Est GFR ( Amer) 86.1 Est GFR (Non-Af Amer) 74.3 BUN/Creatinine Ratio 24.5 H (10-20) Glucose 94 (70-99) mg/dl Calcium 9.0 (8.5-10.1) mg/dl Phosphorus 3.5 (2.5-4.9) mg/dl Magnesium 1.8 (1.8-2.4) mg/dl Medications Administered Current Inpatient Medications Acetaminophen (Tylenol) 650 mg PO Q6H PRN PRN Reason: Fever Stop: 05/24/20 01:48 Last Admin: 04/24/20 16:14 Dose: 650 mg Documented by: Albuterol (Duoneb) 3 ml NEB Q6R PRN PRN Reason: Shortness Of Breath Or Wheezin Stop: 05/13/20 19:23 Albuterol (Duoneb) 3 ml NEB Q4R [facility] Stop: 05/21/20 22:59 Last Admin: 04/24/20 15:57 Dose: 3 ml Documented by: Guaifenesin (Mucinex) 600 mg PO Q12 [facility] Stop: 05/21/20 20:59 Last Admin: 04/24/20 08:04 Dose: 600 mg Documented by: Melatonin (Melatonin) 3 mg PO [facility] Stop: 05/22/20 20:59 Last Admin: 04/23/20 21:29 Dose: 3 mg Documented by: Pantoprazole Sodium (Protonix) 40 mg PO BID [facility] Stop: 05/13/20 20:59 Last Admin: 04/24/20 08:04 Dose: 40 mg Documented by: Trazodone HCl (Desyrel) 12.5 mg PO [facility] Stop: 05/23/20 20:59 Last Admin: 04/23/20 21:28 Dose: 12.5 mg Documented by:
[2020-04-24] MEDS: TRAZODONE HCL 50 MG TAB PO SCH (21:06)
[2020-04-24] MEDS: MELATONIN 3 MG TAB PO SCH (21:06)
[2020-04-25] MEDS: ALBUT/IPRATROP 3MG/0.5MG NEB 3 ML VIAL NEB SCH (02:59)
--- NOTE | 2020-04-25 06:39 | Communication Note ---
Date of Service: April 25, 2020 Made aware by RN of rapid A. jose, cardiac rate 1 10-1 20s, SBP 110s Patient asymptomatic as per RN. AP Recurrent A. fib Digoxin and Coreg home Rx held last week for bradycardia. Albuterol nebs possibly contributory Check electrolytes now Digoxin IV 1 dose now given borderline BP Initiate low-dose Lopressor and titrate accordingly Change albuterol to Xopenex Will relay to AM provider.
[2020-04-25] MEDS ORDERED: ALBUMIN 25% 50 ML IV ONE (06:40)
--- NOTE | 2020-04-25 06:48 | Communication Note ---
Date of Service: April 25, 2020
[2020-04-25] MEDS ORDERED: DIGOXIN 250 MCG in SYRINGE 9 ML IV ONE (06:50)
[2020-04-25] MEDS ORDERED: XOPENEX/ATROVENT 1.25mg/0.5MG NEB COMBO NEB SCH (07:00)
[2020-04-25] MEDS: METOPROLOL TARTRATE 25 MG TAB PO SCH ×2 (07:10→21:21)
[2020-04-25 07:16] LABS: Basophils # (auto) 0.02 K/uL (0-0.2); Basophils % (auto) 0.2 %; Eosinophils # (auto) 0.13 K/uL (0-0.5); Eosinophils % (auto) 1.6 %; Hematocrit (blood only) 33.7 % (37-47); Immature Granulocytes # (auto) 0.04 K/uL (0.00-0.02); Immature Granulocytes % (auto) 0.5 %; Lymphocytes # (auto) 1.22 K/uL (1.2-3.4); Lymphocytes % (auto) 14.6 %; Mean Corpuscular Hemoglobin 30.8 pg (25-34); Mean Corpuscular Hgb Conc 32.6 g/dL (32-36); Mean Corpuscular Volume 94.4 fL (80-100); Mean Platelet Volume 9.5 fL (7.4-10.4); Monocytes # (auto) 0.91 K/uL (0.11-0.59); Monocytes % (auto) 10.9 %; Neutrophils # (auto) 6.06 K/uL (1.4-6.5); Neutrophils % (auto) 72.2 %; Platelet Count 338 K/uL (130-400); RDW Coefficient of Variation 14.9 % (11.5-14.5); RDW Standard Deviation 51.3 fL (36.4-46.3); Red Blood Count 3.57 M/uL (4.2-5.4); White Blood Count 8.38 K/uL (4.8-10.8)
[2020-04-25] MEDS: IPRATROPIUM BROMIDE NEB SOLN 0.02% 2.5 ML VIAL INH SCH ×3 (07:17→18:56)
[2020-04-25] MEDS: LEVALBUTEROL 1.25MG/0.5ML NEB INH SCH ×4 (07:18→18:56)
[2020-04-25 07:29] LABS: Partial Thromboplastin Time 28.9 Seconds (21.0-31.0)
[2020-04-25] MEDS ORDERED: METOPROLOL TARTRATE 1 MG/ML VIAL IV STA (07:51)
[2020-04-25 07:52] LABS: BUN Creatinine Ratio 29.2 (10-20); Calcium 8.9 mg/dl (8.5-10.1); Creatinine Clr Calc Pharmacy 34.7 ml/min; Est GFR (African American) 87.5; Est GFR (Non-African American) 75.5; Magnesium 1.9 mg/dl (1.8-2.4); Potassium 4.3 mmol/L (3.5-5.1)
[2020-04-25] MEDS ORDERED: DIGOXIN 250 MCG in SYRINGE 9 ML IV STA (07:53)
[2020-04-25] MEDS: MAGNESIUM SULFATE / D5W 1 GM/100 ML BAG IV SCH ×2 (08:05→10:30)
[2020-04-25] MEDS: LIDOCAINE 5% 1 PATCH TD SCH ×3 (08:05→17:43)
[2020-04-25] MEDS: guaiFENesin 600 MG TABCR PO SCH ×2 (08:06→21:21)
[2020-04-25] MEDS: PANTOprazole 40 MG TAB PO SCH ×2 (08:06→21:21)
[2020-04-25] MEDS ORDERED: 0.2 MICRON FILTER SET 1 EA IV ONE (10:12)
[2020-04-25] MEDS ORDERED: AMIODARONE / D5W 150 MG/100 ML BAG IV STA (10:12)
[2020-04-25] MEDS ORDERED: AMIODARONE / D5W 360 MG/200 ML BAG IV ONE (10:12)
[2020-04-25] MEDS ORDERED: STAT IV Infusion **Titration per Protocol STA (10:12)
[2020-04-25] MEDS ORDERED: AMIODARONE IV BOLUS & DRIP IV STA (10:12)
--- NOTE | 2020-04-25 10:20 | Cardiology Progress Note ---
Date of Service April 25, 2020 Assessment & Plan (1) Atrial fibrillation with rapid ventricular response: -new diagnosis. -will add intravenous amiodarone hoping to convert to sinus rhythm. -no more digoxin. (2) Syncope: -no recurrence since admission. -continue to watch on telemetry. (3) Cardiomyopathy: -LV dysfunction is mild. -EF 45-50% on echocardiogram August 2019. (4) Failure to thrive: -this has been longstanding. (5) Multifocal pneumonia: -continue intravenous antibiotics (6) Diastolic CHF: -compensated at this time. Admission and Anticipated Discharge Date Admission Date: April 13, 2020 Anticipated date of discharge: 04/16/20 Subjective The patient is resting comfortably in bed without complaints of chest pain, dyspnea, or palpitations. She does complain of fatigue. Physical Exam Physical Exam: Elderly white female in no acute distress. HEENT exam is negative. Neck is supple with full carotid upstrokes. No obvious bruits. Jugular venous pressure is flat at 90 was no thyromegaly. Cardiovascular exam reveals an irregular rhythm with distant heart sounds. No obvious murmurs. No S3. Lungs are clear without rales, rhonchi or wheezes. Abdomen is soft nontender without bruits. Extremities reveal intact radial artery pulses bilaterally. There is no edema. Results & Data ([facility]) Vital Signs (Past 12 Hours) Vital Signs Temp Pulse Pulse Pulse Pulse Resp BP 04/25/20 09:29 138 H 04/25/20 09:19 130 H 04/25/20 08:05 139 H 102/47 L 04/25/20 07:49 141 H 04/25/20 07:22 120 H 24 04/25/20 07:03 36.9 C 133 H 21 04/25/20 06:38 04/25/20 03:47 37.2 C 78 17 04/24/20 23:56 37.0 C 84 17 04/24/20 22:50 81 BP BP Pulse Ox 04/25/20 09:29 04/25/20 09:19 105/67 04/25/20 08:05 04/25/20 07:49 04/25/20 07:22 91 04/25/20 07:03 121/79 91 04/25/20 06:38 113/59 L 04/25/20 03:47 135/65 91 04/24/20 23:56 148/72 H 90 04/24/20 22:50 PG Care Time/CCT Total # of Minutes Spent Total Time Spent with Patient: Total time spent is greater than 50% in coordination of care (as documented) at patient's floor/unit and/or counseling patient: Coding Level of Care Code 27420 Subseq Hosp Care Lvl 3 Diagnoses Atrial fibrillation with rapid ventricular response I48.91 Syncope R55 Cardiomyopathy I42.9 Failure to thrive R62.7 Failure to thrive age range: in adult Multifocal pneumonia J18.9 Diastolic CHF I50.30 (1) Failure to thrive Failure to thrive age range: in adult Qualified Code(s): R62.7 - Adult fail ure to thrive
[2020-04-25] MEDS: ACETAMINOPHEN 325 MG TAB PO PRN ×2 (13:55→20:30)
--- NOTE | 2020-04-25 17:11 | Hospitalist Progress Note ---
Date of Service April 25, 2020 Assessment & Plan (1) Hypoxia: acute hypoxemic respiratory failure on admission: on night time home 02 as per chart was found to be hypoxic spo2 87% in RA , improved to 96% on 3L on admission In ER pt afebrile, P: 60, R: 25, BP: 92/52 up to 104/51, 87% on RA, No leukocytosis, D-Dimer:1640, lactate: 0.9, procalcitonin: <0.05 possible cause of hypoxia : Pneumonia concern for aspiration pneumonitis ( pt reports of coughing /choking on food while eating ) CXR: Interval development of nonspecific peripheral airspace opacities within the left upper lung zone and left lower lung zone. The findings are likely infectious/inflammatory. Clinical and radiographic follow-up is recommended. CTA CHEST: No evidence for pulmonary embolus. Diffuse bilateral pulmonary infiltrates showing components of consolidation as well as a ground glass appearance -In ER given Rocephin 1GM IV - changed Abx to IV levaquin for broader coverage -sputum culture-ordered no evidence of sepsis : -Covid 19 neg -CBC, BMP in am Pt underwent treatment for pna w/ Levaquin. Had episode of LOC, bradycardia, hypotension (04/21/20). As part of work up, CXR was repeated - concerning for worsening multifocal pna/ HCAP/ poss. aspiration. Broad spectrum empiric Abx started., Discussed with pulmonary medicine, antibiotics stopped CT chest obtained (04/22/20) - poss. wors. pna, pl. effusions, vs interstitial lung disease Pulmonary medicine consulted for their input, concern for poss. interstitial lung disease, do not recommend Abx as there is no WBC elev., procal. elev., fever, cough -Serology ordered and pending -ESR, CRP elevated -suspect her CT scan represent interstitial lung disease and given her elevated CRP ESR and anemia, polymyalgia rheumatica associated ILD would be in the differential, as the patient is not complaining of significant pulmonary complaints currently, would be somewhat reluctant to place her on prednisone merely for lung disease which is not overtly symptomatic -Could consider empiric therapy with prednisone although in this 89-year-old female with some underlying dementia, would strongly recommend a discussion with the patient and her family as prednisone therapy is not a benign intervention in 89-year-old patient's. In addition she is already suffering from insomnia and would expect that steroids may significantly worsen this. She is devoid of significant respiratory complaints currently, could consider an approach of watchful waiting -Given her advanced age and dementia she is not likely a candidate for aggressive therapies such as surgical lung biopsy or bronchoscopy ELEVATED DDIMER: CTA of chest negative for PE reports of lower ext swelling and cramps , has been mostly in bed recently due to weakness lower ext doppler ordered neg for DVT Insomnia - pt reports difficulty sleeping, and reports long hx of insomnia -states used to have medication prescribed by psychiatrist to help her sleep which was effective -stopped seeing psychiatrist several yrs ago, and has not been using the med -was taking alprazolam prescribed by PCP, pt states the med makes her tired but does not help her to actually fall asleep -discussed w/ psychiatry, try trazodone in addition to melatonin (melatonin alone did not help with insomnia) (2) Weakness: generalized weakness with ambulatory dysfunction She and DTR c/o neck weakness, when she flexes her neck, she's too weak to lift it up CT HEAD:1. No acute intracranial abnormality. 2. Age-related atrophy and chronic small vessel change. -PT/OT eval ordered (3) Extremity edema: -Doppler r/o DVT- no dvt (4) HTN (hypertension): -Resumed lisinopril, Added Norvasc, (Added Imdur and Hydralazine d/t hypertension earlier during her admission- plan was to DC these on discharge) -Continued carvedilol Now holding vasoactive medications that were previously necessary for treating her cardiomyopathy and hypertension - pt had episode of unresponsiveness, bradycardia, hypotension (04/21/2020) she may no longer tolerate the combination of medications -Cardiology consulted, plan to gradually re-start her meds as needed A. fib with RVR -This a.m., April 25, 2020, patient developed A. fib with RVR -Patient was given digoxin metoprolol by [facility] cardiology contacted for further assistance -Patient started on IV amiodarone (5) CKD (chronic kidney disease), stage III: -Monitor renal functions -Hold nephrotoxic agents when possible Dry by numbers, was given gentle IVFs on admission (6) Dementia: -Continue donepezil pt appears to be at her baseline mental status able to answer questions appropriately no confusion noted (7) Diastolic CHF: FAILURE TO THRIVE , PROTEIN CALORIE MALNUTRITION , SIGNIFICANT WT LOSS: Prealbumin 8.2 reports of poor appetite , wt loss for several weeks tactical debriefer officer consulted for nutrition assessment and supplement Admission and Anticipated Discharge Date Admission Date: April 13, 2020 Anticipated date of discharge: 04/16/20 Subjective This AM notified that patient went into A. fib with RVR. Per physiatrist, patient was given digoxin and metoprolol. [facility] cardiology contacted. Patient is sitting up in a chair, in no acute distress. Says she felt a bit of palpitations earlier, but now does not feel it, no chest pain or shortness of breath. Also denies any fevers, chills, abdominal pain, nausea or vomiting. Says that she continues to have poor sleep. Patient's daughter updated over the phone. Review of Systems Review of Systems: All systems reviewed & are unremarkable except as noted in HPI & below Constitutional: + fatigue; no fever and no chills Respiratory: no cough and no dyspnea Cardiovascular: no chest pain and no palpitations Gastrointestinal: no abdominal pain, no nausea and no vomiting Psychiatric: + Insomnia Physical Exam Physical Exam: Constitutional: Elderly female, laying in bed, + ill appearing HEENT: Normocephalic, atraumatic, EOMI, anicteric sclera Neck: trachea midline, no thyromegaly Respiratory: normal respiratory effort; no respiratory distress and no cough Auscultation: + diminished lung sounds; + rhonchi, no wheezes Cardiovascular: Rate/Rhythm: Irregular, tachycardic vessels: no JVD Extremities: + mild LE edema Gastrointestinal (Abdomen): normal bowel sounds Percussion/Palpation: abdomen soft; abdomen nontender, mildly distended Musculoskeletal: generalized weakness, moves extremities spontaneously Skin: no rashes, warm and dry Neurologic: PERRL, EOMI, no face palsy, no dysarthria, moves all extremities; no focal motor deficits Psychiatric: A+Ox3, euthymic affect Results & Data Results & Data ([facility]) Vital Signs (Past 12 Hours) Vital Signs Temp Pulse Pulse Pulse Pulse Resp BP 04/25/20 16:02 65 04/25/20 16:00 37.1 C 65 20 04/25/20 13:00 66 22 04/25/20 12:38 67 25 H 116/57 L 04/25/20 12:32 66 24 107/57 L 04/25/20 12:30 74 26 H 04/25/20 12:15 120 H 24 04/25/20 12:00 129 H 24 04/25/20 11:45 119 H 24 04/25/20 11:35 36.9 C 04/25/20 11:32 133 H 24 129/78 04/25/20 11:30 132 H 19 04/25/20 09:29 138 H 04/25/20 09:19 130 H 04/25/20 08:05 139 H 102/47 L 04/25/20 07:49 141 H 04/25/20 07:22 120 H 24 04/25/20 07:03 36.9 C 133 H 21 04/25/20 06:38 BP BP Pulse Ox 04/25/20 16:02 04/25/20 16:00 141/73 H 95 04/25/20 13:00 93 04/25/20 12:38 93 04/25/20 12:32 93 04/25/20 12:30 93 04/25/20 12:15 04/25/20 12:00 04/25/20 11:45 04/25/20 11:35 04/25/20 11:32 04/25/20 11:30 04/25/20 09:29 04/25/20 09:19 105/67 04/25/20 08:05 04/25/20 07:49 04/25/20 07:22 91 04/25/20 07:03 121/79 91 04/25/20 06:38 113/59 L Laboratory Results 04/25/20 04/25/20 04/25/20 Range/Units 06:59 06:59 06:59 WBC 8.38 (4.8-10.8) K/uL RBC 3.57 L (4.2-5.4) M/uL Hgb 11.0 L (12.0-16.0) g/dL Hct 33.7 L (37-47) % MCV 94.4 (80-100) fL MCH 30.8 (25-34) pg MCHC 32.6 (32-36) g/dL RDW Std Deviation 51.3 H (36.4-46.3) fL RDW Coeff of [place] 14.9 H (11.5-14.5) % Plt Count 338 (130-400) K/uL MPV 9.5 (7.4-10.4) fL Immature Gran % (Auto) 0.5 % Neut % (Auto) 72.2 % Lymph % (Auto) 14.6 % [place] % (Auto) 10.9 % Eos % (Auto) 1.6 % Baso % (Auto) 0.2 % Neut # (Auto) 6.06 (1.4-6.5) K/uL Lymph # (Auto) 1.22 (1.2-3.4) K/uL [place] # (Auto) 0.91 H (0.11-0.59) K/uL Eos # (Auto) 0.13 (0-0.5) K/uL Baso # (Auto) 0.02 (0-0.2) K/uL Immature Gran # (Auto) 0.04 H (0.00-0.02) K/uL APTT 28.9 (21.0-31.0) Seconds PTT Ratio 1.0 Sodium 133 L (136-145) mmol/L Potassium 4.3 (3.5-5.1) mmol/L Chloride 94 L (98-107) mmol/L Carbon Dioxide 34 H (21-32) mmol/L Anion Gap 5.0 (3-11) BUN 21 H (7-18) mg/dl Creatinine 0.71 (0.6-1.2) mg/dl Est Cr Clr Drug Dosing 34.7 ml/min Est GFR ( Amer) 87.5 Est GFR (Non-Af Amer) 75.5 BUN/Creatinine Ratio 29.2 H (10-20) Glucose 103 H (70-99) mg/dl Calcium 8.9 (8.5-10.1) mg/dl Magnesium 1.9 (1.8-2.4) mg/dl Medications Administered Current Inpatient Medications Acetaminophen (Tylenol) 650 mg PO Q6H PRN PRN Reason: Fever Stop: 05/24/20 01:48 Last Admin: 04/25/20 13:55 Dose: 650 mg Documented by: Albuterol (Duoneb) 3 ml NEB Q6R PRN PRN Reason: Shortness Of Breath Or Wheezin Stop: 05/13/20 19:23 Guaifenesin (Mucinex) 600 mg PO Q12 [facility] Stop: 05/21/20 20:59 Last Admin: 04/25/20 08:06 Dose: 600 mg Documented by: Amiodarone HCl/Dextrose (Nexterone / D5w) 360 mg in 200 mls @ 16.667 mls/hr IV .Q12H [facility] Stop: 05/25/20 16:11 Ipratropium [place] (Atrovent 0.02% 0.5mg/2.5ml) 0.5 mg INH Q6R [facility] Stop: 05/25/20 06:59 Last Admin: 04/25/20 12:59 Dose: 0.5 mg Documented by: Levalbuterol HCl (Xopenex 1.25mg/0.5ml Neb) 1.25 mg INH Q6R [facility] Stop: 05/25/20 00:59 Last Admin: 04/25/20 12:59 Dose: 1.25 mg Documented by: Lidocaine (Lidoderm 5%) 1 patch TD QAM [facility] Stop: 05/25/20 08:59 Last Admin: 04/25/20 08:24 Dose: Not Given Documented by: Melatonin (Melatonin) 3 mg PO [facility] Stop: 05/22/20 20:59 Last Admin: 04/24/20 21:06 Dose: 3 mg Documented by: Metoprolol Tartrate (Lopressor) 12.5 mg PO BID [facility] Stop: 05/25/20 06:49 Last Admin: 04/25/20 07:10 Dose: 12.5 mg Documented by: Miscellaneous (Remove Lidoderm Patch) 1 ea N/A DAILY@2100 [facility] Stop: 05/25/20 20:59 Pantoprazole Sodium (Protonix) 40 mg PO BID [facility] Stop: 05/13/20 20:59 Last Admin: 04/25/20 08:06 Dose: 40 mg Documented by: Trazodone HCl (Desyrel) 12.5 mg PO [facility] Stop: 05/23/20 20:59 Last Admin: 04/24/20 21:06 Dose: 12.5 mg Documented by:
[2020-04-25] MEDS: AMIODARONE / D5W 360 MG/200 ML BAG IV SCH (18:23)
[2020-04-25] MEDS: TRAZODONE HCL 50 MG TAB PO SCH (20:33)
[2020-04-25] MEDS: MELATONIN 3 MG TAB PO SCH (21:21)
[2020-04-26] MEDS: IPRATROPIUM BROMIDE NEB SOLN 0.02% 2.5 ML VIAL INH SCH ×4 (00:25→19:34)
[2020-04-26] MEDS: LEVALBUTEROL 1.25MG/0.5ML NEB INH SCH ×4 (00:25→19:34)
[2020-04-26 05:57] LABS: Hemoglobin 10.5 g/dL (12.0-16.0); Mean Corpuscular Hemoglobin 30.7 pg (25-34); Mean Corpuscular Hgb Conc 31.8 g/dL (32-36); Mean Corpuscular Volume 96.5 fL (80-100); Mean Platelet Volume 9.6 fL (7.4-10.4); Platelet Count 400 K/uL (130-400); RDW Coefficient of Variation 14.9 % (11.5-14.5); RDW Standard Deviation 52.6 fL (36.4-46.3); Red Blood Count 3.42 M/uL (4.2-5.4); White Blood Count 8.38 K/uL (4.8-10.8)
[2020-04-26] MEDS: AMIODARONE / D5W 360 MG/200 ML BAG IV SCH ×2 (05:58→19:18)
--- NOTE | 2020-04-26 06:15 | Electrocardiogram Report ---
Test Reason : Blood Pressure : / mmHG Vent. Rate : 146 BPM Atrial Rate : 082 BPM P-R Int : 000 ms QRS Dur : 120 ms QT Int : 324 ms P-R-T Axes : 000 031 263 degrees QTc Int : 504 ms Atrial fibrillation with rapid ventricular response Left bundle branch block Abnormal ECG When compared with ECG of 21-APR-2020 13:41, Atrial fibrillation has replaced Sinus rhythm Vent. rate has increased BY 78 BPM Confirmed by Hu Powell ([id number]) on 04/26/2020 6:14:48 AM Referred By: REFERRED SELF Confirmed By:Hu Powell
[2020-04-26 06:41] LABS: BUN Creatinine Ratio 32.7 (10-20); Calcium 8.6 mg/dl (8.5-10.1); Creatinine Clr Calc Pharmacy 32.8 ml/min; Est GFR (African American) 81.9; Est GFR (Non-African American) 70.7; Magnesium 2.2 mg/dl (1.8-2.4); Phosphorus 3.2 mg/dl (2.5-4.9); Potassium 4.4 mmol/L (3.5-5.1)
[2020-04-26] MEDS: guaiFENesin 600 MG TABCR PO SCH ×2 (08:31→22:06)
[2020-04-26] MEDS: PANTOprazole 40 MG TAB PO SCH ×2 (08:31→22:06)
[2020-04-26] MEDS: METOPROLOL TARTRATE 25 MG TAB PO SCH ×2 (08:31→22:07)
--- NOTE | 2020-04-26 09:23 | Hospitalist Progress Note ---
Date of Service April 26, 2020 Assessment & Plan (1) Hypoxia: acute hypoxemic respiratory failure on admission: on night time home 02 as per chart was found to be hypoxic spo2 87% in RA , improved to 96% on 3L on admission (update: Per patient, she is supposed to be on home oxygen during the day as well) In ER pt afebrile, P: 60, R: 25, BP: 92/52 up to 104/51, 87% on RA, No leukocytosis, D-Dimer:1640, lactate: 0.9, procalcitonin: <0.05 possible cause of hypoxia : Pneumonia concern for aspiration pneumonitis ( pt reports of coughing /choking on food while eating ) CXR: Interval development of nonspecific peripheral airspace opacities within the left upper lung zone and left lower lung zone. The findings are likely infectious/inflammatory. Clinical and radiographic follow-up is recommended. CTA CHEST: No evidence for pulmonary embolus. Diffuse bilateral pulmonary infiltrates showing components of consolidation as well as a ground glass appearance -In ER given Rocephin 1GM IV - changed Abx to IV levaquin for broader coverage -sputum culture-ordered no evidence of sepsis : -Covid 19 neg -monitor CBC, BMP Pt underwent treatment for pna w/ Levaquin. Had episode of LOC, bradycardia, hypotension (04/21/20). As part of work up, CXR was repeated - concerning for worsening multifocal pna/ HCAP/ poss. aspiration. Broad spectrum empiric Abx started., Discussed with pulmonary medicine, antibiotics stopped CT chest obtained (04/22/20) - poss. wors. pna, pl. effusions, vs interstitial lung disease Pulmonary medicine consulted for their input, concern for poss. interstitial lung disease, do not recommend Abx as there is no WBC elev., procal. elev., fever, cough -Serology ordered and pending -ESR, CRP elevated -suspect her CT scan represent interstitial lung disease and given her elevated CRP ESR and anemia, polymyalgia rheumatica associated ILD would be in the differential, as the patient is not complaining of significant pulmonary complaints currently, would be somewhat reluctant to place her on prednisone merely for lung disease which is not overtly symptomatic -Could consider empiric therapy with prednisone although in this 89-year-old female with some underlying dementia, would strongly recommend a discussion with the patient and her family as prednisone therapy is not a benign intervention in 89-year-old patient's. In addition she is already suffering from insomnia and would expect that steroids may significantly worsen this. She is devoid of significant respiratory complaints currently, could consider an approach of watchful waiting -Given her advanced age and dementia she is not likely a candidate for aggressive therapies such as surgical lung biopsy or bronchoscopy -Discussed this with patient's daughter, says that in the past patient used steroids but it was years ago and did well. At this time agrees to hold steroids, especially as pt is now dealing with new onset A. fib. ELEVATED DDIMER: CTA of chest negative for PE reports of lower ext swelling and cramps , has been mostly in bed recently due to weakness lower ext doppler ordered neg for DVT Insomnia - pt reports difficulty sleeping, and reports long hx of insomnia -states used to have medication prescribed by psychiatrist to help her sleep which was effective -stopped seeing psychiatrist several yrs ago, and has not been using the med -was taking alprazolam prescribed by PCP, pt states the med makes her tired but does not help her to actually fall asleep -discussed w/ psychiatry, try trazodone in addition to melatonin (melatonin alone did not help with insomnia) -So far trazodone did not work, will either increase trazodone or will try Ambien as patient continues to complain of insomnia (2) Weakness: generalized weakness with ambulatory dysfunction She and DTR c/o neck weakness, when she flexes her neck, she's too weak to lift it up CT HEAD:1. No acute intracranial abnormality. 2. Age-related atrophy and chronic small vessel change. -PT/OT eval ordered (3) Extremity edema: -Doppler r/o DVT- no dvt (4) HTN (hypertension): -Resumed lisinopril, Added Norvasc, (Added Imdur and Hydralazine d/t hypertension earlier during her admission- plan was to DC these on discharge) -Continued carvedilol AFTER episode of LOC, holding vasoactive medications that were previously necessary for treating her cardiomyopathy and hypertension - pt had episode of unresponsiveness, bradycardia, hypotension (04/21/2020) she may no longer tolerate the combination of medications -Cardiology consulted, plan to gradually re-start her meds as needed A. fib with RVR -April 25, 2020, AM, patient developed A. fib with RVR -Patient was given digoxin metoprolol by [facility] cardiology contacted for further assistance -Patient started on IV amiodarone, plan to start on p.o. amiodarone (5) CKD (chronic kidney disease), stage III: -Monitor renal functions -Hold nephrotoxic agents when possible Dry by numbers, was given gentle IVFs on admission (6) Dementia: -Continue donepezil pt appears to be at her baseline mental status able to answer questions appropriately no confusion noted (7) Diastolic CHF: FAILURE TO THRIVE , PROTEIN CALORIE MALNUTRITION , SIGNIFICANT WT LOSS: Prealbumin 8.2 reports of poor appetite , wt loss for several weeks rn long term care consulted for nutrition assessment and supplement Admission and Anticipated Discharge Date Admission Date: April 13, 2020 Anticipated date of discharge: 04/16/20 Subjective No acute events overnight. Patient continues to complain of insomnia. Per nursing staff, patient slept at night. Currently on IV amiodarone, plan per cardiology to transfer to p.o. amiodarone. Patient denies any chest pain, shortness of breath, abdominal pain, nausea vomiting, also denies any fevers or chills. Review of Systems Review of Systems: All systems reviewed & are unremarkable except as noted in HPI & below Constitutional: + fatigue; no fever and no chills Respiratory: no cough and no dyspnea Cardiovascular: no chest pain and no palpitations Gastrointestinal: no abdominal pain, no nausea and no vomiting Psychiatric: + Insomnia Physical Exam Physical Exam: Constitutional: Elderly female, laying in bed, + ill appearing HEENT: Normocephalic, atraumatic, EOMI, anicteric sclera Neck: trachea midline, no thyromegaly Respiratory: normal respiratory effort; no respiratory distress and no cough Auscultation: + diminished lung sounds; + mild rhonchi, no wheezes Cardiovascular: Rate/Rhythm: RRR, HR 70s vessels: no JVD Extremities: + mild LE edema Gastrointestinal (Abdomen): normal bowel sounds Percussion/Palpation: abdomen soft; abdomen nontender, mildly distended Musculoskeletal: generalized weakness, moves extremities spontaneously Skin: no rashes, warm and dry Neurologic: PERRL, EOMI, no face palsy, no dysarthria, moves all extremities; no focal motor deficits Psychiatric: A+Ox3, euthymic affect Results & Data Results & Data ([facility]) Vital Signs (Past 12 Hours) Vital Signs Temp Pulse Pulse Resp BP BP Pulse Ox 04/26/20 07:37 37.0 C 72 20 162/72 H 90 04/26/20 07:19 75 16 91 04/26/20 03:12 36.9 C 67 18 151/72 H 92 04/25/20 23:26 36.8 C 60 18 117/57 L 93 04/25/20 23:07 56 L Laboratory Results 04/26/20 04/26/20 Range/Units 05:33 05:33 WBC 8.38 (4.8-10.8) K/uL RBC 3.42 L (4.2-5.4) M/uL Hgb 10.5 L (12.0-16.0) g/dL Hct 33.0 L (37-47) % MCV 96.5 (80-100) fL MCH 30.7 (25-34) pg MCHC 31.8 L (32-36) g/dL RDW Std Deviation 52.6 H (36.4-46.3) fL RDW Coeff of [place] 14.9 H (11.5-14.5) % Plt Count 400 (130-400) K/uL MPV 9.6 (7.4-10.4) fL Sodium 133 L (136-145) mmol/L Potassium 4.4 (3.5-5.1) mmol/L Chloride 93 L (98-107) mmol/L Carbon Dioxide 36 H (21-32) mmol/L Anion Gap 3.0 (3-11) BUN 24 H (7-18) mg/dl Creatinine 0.75 (0.6-1.2) mg/dl Est Cr Clr Drug Dosing 32.8 ml/min Est GFR ( Amer) 81.9 Est GFR (Non-Af Amer) 70.7 BUN/Creatinine Ratio 32.7 H (10-20) Glucose 107 H (70-99) mg/dl Calcium 8.6 (8.5-10.1) mg/dl Phosphorus 3.2 (2.5-4.9) mg/dl Magnesium 2.2 (1.8-2.4) mg/dl Medications Administered Current Inpatient Medications Acetaminophen (Tylenol) 650 mg PO Q6H PRN PRN Reason: Fever Stop: 05/24/20 01:48 Last Admin: 04/25/20 20:30 Dose: 650 mg Documented by: Albuterol (Duoneb) 3 ml NEB Q6R PRN PRN Reason: Shortness Of Breath Or Wheezin Stop: 05/13/20 19:23 Guaifenesin (Mucinex) 600 mg PO Q12 [facility] Stop: 05/21/20 20:59 Last Admin: 04/26/20 08:31 Dose: 600 mg Documented by: Amiodarone HCl/Dextrose (Nexterone / D5w) 360 mg in 200 mls @ 16.667 mls/hr IV .Q12H [facility] Stop: 05/25/20 16:11 Last Admin: 04/26/20 05:58 Dose: 0.5 mg/min, 16.7 mls/hr Documented by: Ipratropium [place] (Atrovent 0.02% 0.5mg/2.5ml) 0.5 mg INH Q6R [facility] Stop: 05/25/20 06:59 Last Admin: 04/26/20 07:18 Dose: 0.5 mg Documented by: Levalbuterol HCl (Xopenex 1.25mg/0.5ml Neb) 1.25 mg INH Q6R [facility] Stop: 05/25/20 00:59 Last Admin: 04/26/20 07:18 Dose: 1.25 mg Documented by: Lidocaine (Lidoderm 5%) 1 patch TD QAM [facility] Stop: 05/25/20 08:59 Last Admin: 04/25/20 17:43 Dose: 1 patch Documented by: Melatonin (Melatonin) 3 mg PO HS [facility] Stop: 05/22/20 20:59 Last Admin: 04/25/20 21:21 Dose: 3 mg Documented by: Metoprolol Tartrate (Lopressor) 12.5 mg PO BID [facility] Stop: 05/25/20 06:49 Last Admin: 04/26/20 08:31 Dose: 12.5 mg Documented by: Miscellaneous (Remove Lidoderm Patch) 1 ea N/A DAILY@2100 [facility] Stop: 05/25/20 20:59 Last Admin: 04/25/20 21:21 Dose: Not Given Documented by: Multivitamins/Minerals (Cerovite Liquid) 15 ml PO QAM [facility] Stop: 05/26/20 09:29 Pantoprazole Sodium (Protonix) 40 mg PO BID [facility] Stop: 05/13/20 20:59 Last Admin: 04/26/20 08:31 Dose: 40 mg Documented by: Trazodone HCl (Desyrel) 25 mg PO HS [facility] Stop: 05/25/20 20:59 Last Admin: 04/25/20 20:33 Dose: 25 mg Documented by:
[2020-04-26] MEDS: LIDOCAINE 5% 1 PATCH TD SCH (09:38)
[2020-04-26] MEDS: ACETAMINOPHEN 325 MG TAB PO PRN (10:08)
[2020-04-26] MEDS: MULTI VIT W/MINERALS LIQUID 15 ML UDP PO SCH (10:08)
--- NOTE | 2020-04-26 10:57 | Cardiology Progress Note ---
Date of Service April 26, 2020 Assessment & Plan (1) Atrial fibrillation with rapid ventricular response: -new diagnosis. -converted to sinus rhythm with intravenous amiodarone. -can switch to amiodarone 200 mg p.o. b.i.d. -too high risk for long-term anticoagulation. (2) Syncope: -no recurrence since admission. (3) Cardiomyopathy: -mild LV dysfunction. -EF 45-50% on echocardiogram, 08/2019. (4) Failure to thrive: -longstanding condition. (5) Multifocal pneumonia: -continue intravenous antibiotics (6) Diastolic CHF: -compensated at this time. Admission and Anticipated Discharge Date Admission Date: April 13, 2020 Anticipated date of discharge: 04/16/20 Subjective The patient is resting comfortably in bed without complaints of chest pain, dyspnea, or palpitations. Physical Exam Physical Exam: Elderly white female in no acute distress. HEENT exam is negative. Neck is supple with full carotid upstrokes. No obvious bruits. Jugular venous pressure is flat at 90 was no thyromegaly. Cardiovascular exam reveals a regular rhythm with distant heart sounds. No obvious murmurs. No S3. Lungs are clear without rales, rhonchi or wheezes. Abdomen is soft nontender without bruits. Extremities reveal intact radial artery pulses bilaterally. There is no edema. 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 She converted from atrial fibrillation yesterday afternoon at approximately 12:30. PG Care Time/CCT Total # of Minutes Spent Total Time Spent with Patient: Total time spent is greater than 50% in coordination of care (as documented) at patient's floor/unit and/or counseling patient: Coding Level of Care Code 63540 Subseq Hosp Care Lvl 3 Diagnoses Atrial fibrillation with rapid ventricular response I48.91 Syncope R55 Cardiomyopathy I42.9 Failure to thrive R62.7 Failure to thrive age range: in adult Multifocal pneumonia J18.9 Diastolic CHF I50.30 (1) Failure to thrive Failure to thrive age range: in adult Qualified Code(s): R62.7 - Adult failure to thrive
[2020-04-26] MEDS ORDERED: RAPID SEQUENCE INDUCTION BAG ONE (11:43)
[2020-04-26] MEDS: AMIODARONE 200 MG TAB PO SCH (22:06)
[2020-04-27] MEDS: MELATONIN 3 MG TAB PO SCH (00:24)
[2020-04-27] MEDS: TRAZODONE HCL 50 MG TAB PO SCH (00:24)
[2020-04-27] MEDS: IPRATROPIUM BROMIDE NEB SOLN 0.02% 2.5 ML VIAL INH SCH ×3 (00:30→13:07)
[2020-04-27] MEDS: LEVALBUTEROL 1.25MG/0.5ML NEB INH SCH ×3 (00:30→13:07)
[2020-04-27] MEDS ORDERED: carvediloL 3.125 MG TAB PO SCH (05:35)
--- NOTE | 2020-04-27 05:35 | Communication Note ---
Date of Service: April 27, 2020
[2020-04-27] MEDS ORDERED: METOPROLOL TARTRATE 25 MG TAB PO SCH (05:40)
[2020-04-27 06:33] LABS: Hematocrit (blood only) 36.2 % (37-47); Hemoglobin 11.6 g/dL (12.0-16.0); Mean Corpuscular Hemoglobin 30.6 pg (25-34); Mean Corpuscular Volume 95.5 fL (80-100); Mean Platelet Volume 9.8 fL (7.4-10.4); Platelet Count 436 K/uL (130-400); RDW Coefficient of Variation 14.8 % (11.5-14.5); RDW Standard Deviation 51.5 fL (36.4-46.3); Red Blood Count 3.79 M/uL (4.2-5.4); White Blood Count 9.15 K/uL (4.8-10.8)
[2020-04-27 06:46] LABS: BUN Creatinine Ratio 28.5 (10-20); Creatinine Clr Calc Pharmacy 33.7 ml/min; Est GFR (African American) 84.6; Magnesium 2.1 mg/dl (1.8-2.4); Potassium 4.4 mmol/L (3.5-5.1)
[2020-04-27] MEDS: MULTI VIT W/MINERALS LIQUID 15 ML UDP PO SCH (07:58)
[2020-04-27] MEDS: AMIODARONE 200 MG TAB PO SCH (07:58)
[2020-04-27] MEDS: guaiFENesin 600 MG TABCR PO SCH (07:59)
[2020-04-27] MEDS: LIDOCAINE 5% 1 PATCH TD SCH (07:59)
[2020-04-27] MEDS: PANTOprazole 40 MG TAB PO SCH (07:59)
[2020-04-27 12:18] LABS: ANA Screen NEGATIVE (NEGATIVE); ANCA Screen Negative (Negative); Aldolase 5.4 U/L (< OR = 8.1); Immunoglobulin IgE 7 kU/L (<OR=114); JO 1 Antibody <1.0 NEG AI (<1.0 NEG); Rheumatoid Factor <14 IU/mL (<14)
--- NOTE | 2020-04-27 13:22 | Cardiology Progress Note ---
Date of Service April 27, 2020 Assessment & Plan (1) Atrial fibrillation with rapid ventricular response: -new diagnosis. -converted to sinus rhythm with intravenous amiodarone. -would decrease amiodarone 200 mg p.o. daily. -too high risk for long-term anticoagulation. (2) Syncope: -no recurrence since admission. (3) Cardiomyopathy: -mild LV dysfunction. -EF 45-50% on echocardiogram, 08/2019. (4) Failure to thrive: -longstanding condition. (5) Multifocal pneumonia: -continue intravenous antibiotics (6) Diastolic CHF: -compensated at this time. Admission and Anticipated Discharge Date Admission Date: April 13, 2020 Anticipated date of discharge: 04/16/20 Subjective The patient is resting comfortably in bed without complaints of chest pain, dyspnea, palpitations. Complains of persistent fatigue. Physical Exam Physical Exam: Elderly white female in no acute distress. HEENT exam is negative. Neck is supple with full carotid upstrokes. No obvious bruits. Jugular venous pressure is flat at 90 was no thyromegaly. Cardiovascular exam reveals a regular rhythm with distant heart sounds. No obvious murmurs. No S3. Lungs are clear without rales, rhonchi or wheezes. Abdomen is soft nontender without bruits. Extremities reveal intact radial artery pulses bilaterally. There is no edema. 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 No atrial fibrillation. PG Care Time/CCT Total # of Minutes Spent Total Time Spent with Patient: Total time spent is greater than 50% in coordination of care (as documented) at patient's floor/unit and/or counseling patient: Coding Level of Care Code 85643 Subseq Hosp Care Lvl 3 Diagnoses Atrial fibrillation with rapid ventricular response I48.91 Syncope R55 Cardiomyopathy I42.9 Failure to thrive R62.7 Failure to thrive age range: in adult Multifocal pneumonia J18.9 Diastolic CHF I50.30 (1) Failure to thrive Failure to thrive age range: in adult Qualified Code(s): R62.7 - Adult failure to thrive
--- NOTE | 2020-04-27 14:02 | Hospitalist Progress Note ---
Date of Service April 27, 2020 Assessment & Plan (1) Hypoxia: acute hypoxemic respiratory failure on admission: ELEVATED D-DIMER: -on night time home 02 as per chart -was found to be hypoxic spo2 87% in RA , improved to 96% on 3L on admission (update: Per patient, she is supposed to be on home oxygen during the day as well) -In ER pt afebrile, P: 60, R: 25, BP: 92/52 up to 104/51, 87% on RA, -No leukocytosis, D-Dimer: 1640, lactate: 0.9, procalcitonin: <0.05, No DVT within the right or left lower extremity on ultrasound on 04/16/2020 -( pt reports of coughing /choking on food while eating ) -CXR: Interval development of nonspecific peripheral airspace opacities within the left upper lung zone and left lower lung zone. The findings are likely infectious/inflammatory. Clinical and radiographic follow-up is recommended. -CTA CHEST: No evidence for pulmonary embolus. Diffuse bilateral pulmonary infiltrates showing components of consolidation as well as a ground glass appearance -In ER given Rocephin 1GM IV, changed Abx to IV levaquin for broader coverage, no evidence of sepsis, Covid 19 neg, Pt underwent treatment for pna w/ Levaquin. Had episode of LOC, bradycardia, hypotension (04/21/20). As part of work up, CXR was repeated - concerning for worsening multifocal pna/ HCAP/ poss. aspiration., Broad spectrum empiric Abx was started but after previous hospitalist discussion with pulmonary medicine, antibiotics stopped (CT chest obtained (04/22/20) - poss. wors. pna, pl. effusions, vs interstitial lung disease Pulmonary medicine consulted for their input, concern for poss. interstitial lung disease, do not recommend Abx as there is no WBC elev., procal. elev., fever, cough. as summarized by previous hospitalist Dr. Lynn: (ESR, CRP elevated -suspect her CT scan represent interstitial lung disease and given her elevated CRP ESR and anemia, polymyalgia rheumatica associated ILD would be in the differential, as the patient is not complaining of significant pulmonary complaints currently, would be somewhat reluctant to place her on prednisone merely for lung disease which is not overtly symptomatic -Could consider empiric therapy with prednisone although in this 89-year-old fe male with some underlying dementia, would strongly recommend a discussion with the patient and her family as prednisone therapy is not a benign intervention in 89-year-old patient's. In addition she is already suffering from insomnia and would expect that steroids may significantly worsen this. She is devoid of significant respiratory complaints currently, could consider an approach of watchful waiting -Given her advanced age and dementia she is not likely a candidate for aggressive therapies such as surgical lung biopsy or bronchoscopy) -Dr. Lynn discussed this with patient's daughter, says that in the past patient used steroids but it was years ago and did well. At this time agrees to hold steroids, especially as pt is now dealing with new onset Atrial fibrillation as seen on this admission (2) Weakness: -generalized weakness with ambulatory dysfunction -c/o neck weakness, when she flexes her neck, she's too weak to lift it up -CT HEAD:1. No acute intracranial abnormality. 2. Age-related atrophy and chronic small vessel change. -patient may benefit with physical therapy stay upon discharge FAILURE TO THRIVE , PROTEIN CALORIE MALNUTRITION , SIGNIFICANT WT LOSS: Prealbumin 8.2 -reports of poor appetite , wt loss for several weeks, assessed by share holder consulted for nutrition assessment and supplement Insomnia - pt reports difficulty sleeping, and reports long hx of insomnia -states used to have medication prescribed by psychiatrist to help her sleep which was effective -stopped seeing psychiatrist several yrs ago, and has not been using the med -was taking alprazolam prescribed by PCP, pt states the med makes her tired but does not help her to actually fall asleep -attempts have been made with trazadone (3) HTN (hypertension): -multiple medication changes have been made to cardiac medications especially after episode of episode of unresponsiveness, bradycardia, hypotension (04/21/2020) and then subsequent episode of atrial fibrillation with rapid ventricular response on 04/25/2020 -currently on amiodarone with metoprolol tartrate 25 mg BID and lisinopril 2.5 mg daily Atrial fibrillation with Rapid Ventricular Response -April 25, 2020, AM, patient developed A. fib with RVR -Patient was given digoxin metoprolol by floresita, [facility] cardiology contacted for further assistance -Patient started on IV amiodarone, was the transitioned to oral amiodarone as 200 mg BID. as of 04/27/2002, [facility] recommending only 200 mg daily of amiodarone -currently heart rates stable (4) CKD (chronic kidney disease), stage III: renal function stable (5) Dementia: -Continue donepezil (6) Diastolic CHF: chronic diastolic congestive heart failure (7) Extremity edema: No DVT within the right or left lower extremity on ultrasound on 04/16/2020 Admission and Anticipated Discharge Date Admission Date: April 13, 2020 Anticipated date of discharge: 04/16/20 Subjective Patient on nasal cannula oxygen. she reports that she is breathing adequately. no distress. no chest pain. no palpitations. no dizziness. no headache Review of Systems Review of Systems: All systems reviewed & are unremarkable except as noted in Subjective Physical Exam Constitutional: comfortable Eyes: PERRL, conjunctivae normal, anicteric sclerae EOM intact bilaterally ENMT: external ear and nose normal, oropharynx normal Neck: trachea midline, no thyromegaly normal visual inspection Respiratory: normal respiratory effort Cardiovascular: Rate/Rhythm: regular rate Gastrointestinal (Abdomen): normal bowel sounds, soft, nontender, no hepatosplenomegaly Musculoskeletal: Head/Neck/Chest: normocephalic and head atraumatic Neurologic: PERRL, EOMI, accommodation nl, no face palsy, no dysarthria CN's II-XI intact bilaterally Psychiatric: A+Ox3, euthymic affect Results & Data Results & Data ([facility]) Vital Signs (Past 12 Hours) Vital Signs Temp Pulse Pulse Resp BP Pulse Ox 04/27/20 13:07 76 18 92 04/27/20 11:29 37.0 C 69 18 155/75 H 94 04/27/20 07:05 36.6 C 64 19 156/80 H 93 04/27/20 06:54 69 22 90 04/27/20 05:59 180/95 H 04/27/20 04:46 36.9 C 88 20 190/109 H 90
--- NOTE | 2020-04-27 15:11 | Discharge Summary ---
Date of Service April 27, 2020 Admission HPI Per Admitting Provider This is a 89-year-old female with multiple comorbidities including diastolic CHF, hypertension, CKD stage III, chronic respiratory failure on home O2 Brought to ER for generalized weakness, poor appetite, dehydration. Patient reports that she has been feeling weak, poor appetite for past several weeks. States food does not taste well, previously was able to walk in her house using a cane, recently felt it has been very difficult to do, Has been staying in bed mostly, sustained a fall 4 weeks ago, never received any medical attention Patient was seen at primary care office visit 2 days ago: With complaint of not feeling well, Patient noted to have ambulatory dysfunction, has not been able to follow-up with any appointments, has not been able to take her oral meds Discussions were made whether need for more care and support at home(patient lives by herself)/and transition to assisted living Patient has been reluctant to make that change Today patient's lubricating engineer found her lying in bed, not able to get up on her own, In the ER, patient was awake alert and oriented, very poor historian Understands that she has not been feeling well for past several months, reluctant to seek help, Reports of weight loss of 10-15 pounds in past 4 months: Due to lack of appetite, change in taste Not aware of any contact with COVID-19 positive person Does have a cleaning lady coming in Reports of not able to smell anything for past several days thinks it is due to nasal spray Reports of choking on food occasionally, Denies of any fever or chills, no cough, no chest pain, no dyspnea on exertion or orthopnea Does mention having occasional dizzy spell when trying to get up, Has not been able to take her medications, as she forgets " what are they for " Principal Diagnosis Hypoxia, acute hypoxemic respiratory failure (was treated for possible pneumonia, and antibiotics also covered for urinary tract infection) Weakness: Lower Extremity edema: HTN (hypertension) CKD (chronic kidney disease), stage III Dementia: Diastolic CHF, Cardiomyopathy Paroxysmal atrial fibrillation with rapid ventricular response FAILURE TO THRIVE , PROTEIN CALORIE MALNUTRITION , SIGNIFICANT WT LOSS: Prealbumin 8.2 Discharge Exam Constitutional comfortable Eyes PERRL, conjunctivae normal, anicteric sclerae EOM intact bilaterally ENMT external ear and nose normal, oropharynx normal Neck trachea midline, no thyromegaly normal visual inspection Respiratory normal respiratory effort Cardiovascular Rate/Rhythm: regular rate Gastrointestinal (Abdomen) normal bowel sounds, soft, nontender, no hepatosplenomegaly Musculoskeletal Head/Neck/Chest: normocephalic and head atraumatic Neurologic PERRL, EOMI, accommodation nl, no face palsy, no dysarthria CN's II-XI intact bilaterally Psychiatric A+Ox3, euthymic affect Discharge Data Allergies Allergy/AdvReac Type Severity Reaction Status Date / Time Penicillins Allergy Intermediate rash Verified 04/16/20 10:47 strawberry Allergy Intermediate Rash Verified 04/16/20 16:20 latex Allergy Unknown "I don't Verified 04/16/20 10:47 remember" yellow dye Allergy Unknown Unknown Verified 04/16/20 10:47 Consultations 04/13/20 15:37 ED Decision to Admit Stat 04/13/20 19:24 Consult Case Management - Discharge Planning Routine 04/21/20 13:59 Consult Cardiology Routine 04/22/20 12:12 Consult Pulmonology Routine 04/22/20 15:50 Consult Psychiatry Routine Ordered Studies 04/13/20 13:26 CT head/brain wo con Stat 04/13/20 14:38 CT angio chest PE protocol Stat 04/16/20 US venous doppler LE BI Stat 04/22/20 08:13 CT chest wo con Routine Hospital Course (1) Hypoxia: Hypoxia, acute hypoxemic respiratory failure (was treated for possible pneumonia, and antibiotics also covered for urinary tract infection) ELEVATED D-DIMER: -on night time home 02 as per chart -was found to be hypoxic spo2 87% in RA , improved to 96% on 3L on admission (update: Per patient, she is supposed to be on home oxygen during the day as well) -In ER pt afebrile, P: 60, R: 25, BP: 92/52 up to 104/51, 87% on RA, -No leukocytosis, D-Dimer: 1640, lactate: 0.9, procalcitonin: <0.05, No DVT wi thin the right or left lower extremity on ultrasound on 04/16/2020 -( pt reports of coughing /choking on food while eating ) -CXR: Interval development of nonspecific peripheral airspace opacities within the left upper lung zone and left lower lung zone. The findings are likely infectious/inflammatory. Clinical and radiographic follow-up is recommended. -CTA CHEST: No evidence for pulmonary embolus. Diffuse bilateral pulmonary infiltrates showing components of consolidation as well as a ground glass appearance -In ER given Rocephin 1GM IV, changed Abx to IV levaquin for broader coverage, no evidence of sepsis, Covid 19 neg, Pt underwent treatment for pna w/ Levaquin. Had episode of LOC, bradycardia, hypotension (04/21/20). As part of work up, CXR was repeated - concerning for worsening multifocal pna/ HCAP/ poss. aspiration., Broad spectrum empiric Abx was started but after previous hospitalist discussion with pulmonary medicine, antibiotics stopped (CT chest obtained (04/22/20) - poss. wors. pna, pl. effusions, vs interstitial lung disease Pulmonary medicine consulted for their input, concern for poss. interstitial lung disease, do not recommend Abx as there is no WBC elev., procal. elev., fever, cough. as summarized by previous hospitalist Dr. Lynn: (ESR, CRP elevated -suspect her CT scan represent interstitial lung disease and given her elevated CRP ESR and anemia, polymyalgia rheumatica associated ILD would be in the differential, as the patient is not complaining of significant pulmonary complaints currently, would be somewhat reluctant to place her on prednisone merely for lung disease which is not overtly symptomatic -Could consider empiric therapy with prednisone although in this 89-year-old female with some underlying dementia, would strongly recommend a discussion with the patient and her family as prednisone therapy is not a benign intervention in 89-year-old patient's. In addition she is already suffering from insomnia and would expect that steroids may significantly worsen this. She is devoid of significant respiratory complaints currently, could consider an approach of watchful waiting -Given her advanced age and dementia she is not likely a candidate for aggressive therapies such as surgical lung biopsy or bronchoscopy) -Dr. Lynn discussed this with patient's daughter, says that in the past patient used steroids but it was years ago and did well. At this time agrees to hold steroids, especially as pt is now dealing with new onset Atrial fibrillation as seen on this admission (2) Weakness: -generalized weakness with ambulatory dysfunction -c/o neck weakness, when she flexes her neck, she's too weak to lift it up -CT HEAD:1. No acute intracranial abnormality. 2. Age-related atrophy and chronic small vessel change. -patient may benefit with physical therapy stay upon discharge FAILURE TO THRIVE , PROTEIN CALORIE MALNUTRITION , SIGNIFICANT WT LOSS: Prealbumin 8.2 -reports of poor appetite , wt loss for several weeks, assessed by hairspring setter consulted for nutrition assessment and supplement Insomnia - pt reports difficulty sleeping, and reports long hx of insomnia -states used to have medication prescribed by psychiatrist to help her sleep which was effective -stopped seeing psychiatrist several yrs ago, and has not been using the med -was taking alprazolam prescribed by PCP, pt states the med makes her tired but does not help her to actually fall asleep -attempts have been made with trazadone (3) HTN (hypertension): -multiple medication changes have been made to cardiac medications especially after episode of episode of unresponsiveness, bradycardia, hypotension (04/21/2020) and then subsequent episode of atrial fibrillation with rapid ventricular response on 04/25/2020 -currently on amiodarone with metoprolol tartrate 25 mg BID and lisinopril 2.5 mg daily Atrial fibrillation with Rapid Ventricular Response (paroxysmal atrial fibrillation) -April 25, 2020, AM, patient developed A. fib with RVR -Patient was given digoxin metoprolol by floresita, [facility] cardiology contacted for further assistance -Patient started on IV amiodarone, was the transitioned to oral amiodarone as 200 mg BID. as of 04/27/2002, [facility] cardiology recommending only 200 mg daily of amiodarone -currently heart rates stable (4) CKD (chronic kidney disease), stage III: renal function stable (5) Dementia: -Continue donepezil (6) Diastolic CHF: Cardiomyopathy versus chronic diastolic congestive heart failure (7) Extremity edema: No DVT within the right or left lower extremity on ultrasound on 04/16/2020 Total Time Total Time Spent Total Time Spent (In Minutes): 40 minutes Total Time Includes: Examination of the Patient, Discharge Planning, Medication Reconciliation and Communication With Other Providers Discharge Plan Discharge Items Patient Disposition: Transfer Residential Fac Reason For Visit: PNEUMONIA,WEAKNESS Discharge Diagnosis: Hypoxia, acute hypoxemic respiratory failure (was treated for possible pneumonia, and antibiotics also covered for urinary tract infection) Weakness: Lower Extremity edema: HTN (hypertension) CKD (chronic kidney disease), stage III Dementia: Diastolic CHF, Cardiomyopathy Paroxysmal atrial fibrillation with rapid ventricular response FAILURE TO THRIVE , PROTEIN CALORIE MALNUTRITION , SIGNIFICANT WT LOSS: Prealbumin 8.2 Condition on Discharge: [facility] Health Concerns: C/O neck weakness, Probably needs PT to address it Activity: As commented below Activity Comment: Walks with a Cane at home Lifting: Gradually increase as tolerated Bathing: No limitations Exercise/Sports: Gradually increase as tolerated Driving/Machine Use: None Weightbearing Comment: WBAT c FWW or Cane Non-emergency contact: Primary Care Provider Call non-emergency contact if: you have any medication questions Follow-up/Referrals: Tiffanie Herrera DO [Primary Care Provider] - Diet: Heart Healthy Noreen Attending Provider Instructions: Neck exercises per Physical therapy Keep O2 Sats 90-94%, On Home O2 outpatient discharge to [facility] physical therapy schedule early follow up with [facility] Cardiology [facility] [address], [address] [place] [address] upcoming primary care doctor follow up 05/03/2020 11:00 AM Provider Tiffanie Herrera DO [facility] 08/17/2020 1:40 PM Provider Tiffanie Herrera DO [facility] Aleksandra Floor Care Technician Provider Instructions: acute hypoxemic respiratory failure on admission: ELEVATED D-DIMER: -on night time home 02 as per chart -was found to be hypoxic spo2 87% in RA , improved to 96% on 3L on admission (update: Per patient, she is supposed to be on home oxygen during the day as well) -In ER pt afebrile, P: 60, R: 25, BP: 92/52 up to 104/51, 87% on RA, -No leukocytosis, D-Dimer: 1640, lactate: 0.9, procalcitonin: <0.05, No DVT within the right or left lower extremity on ultrasound on 04/16/2020 -( pt reports of coughing /choking on food while eating ) -CXR: Interval development of nonspecific peripheral airspace opacities within the left upper lung zone and left lower lung zone. The findings are likely infectious/inflammatory. Clinical and radiographic follow-up is recommended. -CTA CHEST: No evidence for pulmonary embolus. Diffuse bilateral pulmonary infiltrates showing components of consolidation as well as a ground glass appearance -In ER given Rocephin 1GM IV, changed Abx to IV levaquin for broader coverage, no evidence of sepsis, Covid 19 neg, Pt underwent treatment for pna w/ Levaquin. Had episode of LOC, bradycardia, hypotension (04/21/20). As part of work up, CXR was repeated - concerning for worsening multifocal pna/ HCAP/ poss. aspiration., Broad spectrum empiric Abx was started but after previous hospitalist discussion with pulmonary medicine, antibiotics stopped (CT chest obtained (04/22/20) - poss. wors. pna, pl. effusions, vs interstitial lung disease Pulmonary medicine consulted for their input, concern for poss. interstitial lung disease, do not recommend Abx as there is no WBC elev., procal. elev., fever, cough. as summarized by previous hospitalist Dr. Lynn: (ESR, CRP elevated -suspect her CT scan represent interstitial lung disease and given her elevated CRP ESR and anemia, polymyalgia rheumatica associated ILD would be in the differential, as the patient is not complaining of significant pulmonary complaints currently, would be somewhat reluctant to place her on prednisone merely for lung disease which is not overtly symptomatic -Could consider empiric therapy with prednisone although in this 89-year-old female with some underlying dementia, would strongly recommend a discussion with the patient and her family as prednisone therapy is not a benign intervention in 89-year-old patient's. In addition she is already suffering from insomnia and would expect that steroids may significantly worsen this. She is devoid of significant respiratory complaints currently, could consider an approach of watchful waiting -Given her advanced age and dementia she is not likely a candidate for aggressive therapies such as surgical lung biopsy or bronchoscopy) Pending Studies at Discharge: No Stand-Alone Forms: My [facility] Skilled Items Patient informed of condition?: Yes DNR: Yes Discharge Level of Care: Skilled Communicable Disease: No Discharge Prognosis: Improving Lines: None Urinary Catheter: No Medications and DC Order Prescriptions: New ipratropium-albuterol 0.5 mg-3 mg(2.5 mg base)/3 mL Solution For Nebulization 3 ml NEB Q6R PRN (Reason: shortness of breath or wheezing) Qty: 90 RF: 0 heparin, porcine (PF) 5,000 unit/0.5 mL Syringe 5,000 unit subcut Q12 Qty: 25 RF: 0 alprazolam 0.25 mg Tablet 0.25 mg PO BID PRN (Reason: Anxiety) Qty: 30 RF: 0 lisinopril 2.5 mg Tablet 2.5 mg PO QAM 30 Days Qty: 30 RF: 0 metoprolol tartrate 25 mg Tablet 25 mg PO BID 30 Days Qty: 60 RF: 0 amiodarone 200 mg Tablet 200 mg PO QAM 30 Days Qty: 30 RF: 0 trazodone 50 mg Tablet 25 mg PO HS PRN (Reason: insomnia) 5 Days Qty: 2.5 RF: 0 Continued multivitamin [Multiple Vitamins] tablet 1 tab PO DAILY RF: 0 ondansetron 4 mg tablet,disintegrating 4 mg PO Q8H PRN (Reason: Nausea) RF: 0 alprazolam 0.25 mg tablet 0.25 mg PO BID RF: 0 donepezil 10 mg tablet 10 mg PO QAM RF: 0 magnesium 250 mg tablet 100 mg PO QAM RF: 0 omeprazole 20 mg Capsule,Delayed Release(Dr/Ec) 20 mg PO BID RF: 0 dicyclomine 10 mg Capsule 10 mg PO QID RF: 0 cholecalciferol (vitamin D3) [Vitamin D3] 25 mcg (1,000 unit) Tablet 25 mcg PO DAILY RF: 0 krill oil 500 mg Capsule 500 mg PO DAILY RF: 0 Discontinued carvedilol 25 mg tablet 25 mg PO BID RF: 0 lisinopril 20 mg tablet 20 mg PO QAM RF: 0 digoxin 125 mcg (0.125 mg) Tablet 125 mcg PO QAM RF: 0 zoster vaccine live (PF) 19,400 unit/0.65 mL Suspension For Reconstitution 0.5 ml SUBCUT DIRECTED RF: 0 Discharge Orders: Discharge Order (Routine); Ordered 04/27/20 Ordered By: Thomas Wesley Admission Data Admit Date/Time: 04/13/20 16:05 Attending Provider: Thomas Wesley Admit Provider: Carla Jung Primary Care Provider: Tiffanie Herrera Other Providers: Nehal Corona ; Thomas Gaming ; Carla Jung ; Darrin Garcias ; Ari Aranda ; Kumar Rashid ; Miriam Aguiar ; Bill Frost ; Anupam Swan ; Nitin Lincoln ; Leida Escobar ; Wilmar Freed ; Adelina Chowdary ; Christina Fernandez ; Rosalba Shields ; Amber Wallace ; Yuri Kumar I. ; Bruna Swift ; Sabina Romero ; Lisa Valadez ; Josh White. ; [facility]
--- NOTE | 2020-04-28 05:45 | Electrocardiogram Report ---
Test Reason : Blood Pressure : / mmHG Vent. Rate : 064 BPM Atrial Rate : 064 BPM P-R Int : 174 ms QRS Dur : 128 ms QT Int : 458 ms P-R-T Axes : 080 142 082 degrees QTc Int : 472 ms Normal sinus rhythm Left bundle branch block Abnormal ECG When compared with ECG of 25-APR-2020 06:45, Sinus rhythm has replaced Atrial fibrillation HR has decreased by 82 bpm Confirmed by Hu Powell ([id number]) on 04/28/2020 5:45:18 AM Referred By: REFERRED SELF Confirmed By:Hu Powell
[2020-04-28] MEDS ORDERED: AMIODARONE 200 MG TAB PO SCH (09:00)
== END 2020-04-27 15:37 | DRG 196 ==
LOC: ED 13:23 → 2S 16:05 → SUATTDRO 16:05 → 2S 17:00 → 2N 04-16 10:38 → 3N 04-17 23:57 → 2S 04-21 13:57 → 2N 04-23 20:58 → 1E 04-25 11:23 → 2E 04-25 15:15

== ENCOUNTER 2020-05-08 08:21 | Inpatient (IN) ==
[2020-05-08] MEDS ORDERED: CEFEPIME 2,000 MG/20 ML VIAL IV STA (08:55)
[2020-05-08 09:11] LABS: Hematocrit (blood only) 32.1 % (37-47); Hemoglobin 10.2 g/dL (12.0-16.0); Immature Granulocytes # (auto) 0.02 K/uL (0.00-0.02); Immature Granulocytes % (auto) 0.2 %; Lymphocytes % (auto) 2.7 %; Mean Corpuscular Hemoglobin 30.6 pg (25-34); Mean Corpuscular Hgb Conc 31.8 g/dL (32-36); Mean Corpuscular Volume 96.4 fL (80-100); Mean Platelet Volume 9.8 fL (7.4-10.4); Monocytes % (auto) 8.2 %; Neutrophils # (auto) 9.72 K/uL (1.4-6.5); Neutrophils % (auto) 88.9 %; Platelet Count 522 K/uL (130-400); RDW Standard Deviation 52.6 fL (36.4-46.3); Red Blood Count 3.33 M/uL (4.2-5.4); White Blood Count 10.94 K/uL (4.8-10.8)
[2020-05-08 09:26] LABS: Partial Thromboplastin Time 28.5 Seconds (21.0-31.0); Prothrombin Time 10.6 Seconds (9.0-12.0)
[2020-05-08 09:31] LABS: Alanine Aminotransferase 20 U/L (12-78); Albumin Level 2.5 gm/dl (3.4-5.0); Aspartate Aminotransferase 19 U/L (15-37); BUN Creatinine Ratio 37.8 (10-20); Bilirubin Direct 0.2 mg/dl (0-0.2); Blood Urea Nitrogen 25 mg/dl (7-18); Calcium 9.7 mg/dl (8.5-10.1); Carbon Dioxide 39 mmol/L (21-32); Chloride 88 mmol/L (98-107); Est GFR (African American) 90.3; Est GFR (Non-African American) 77.9; Glucose 123 mg/dl (70-99); Lipase 65 U/L (73-393); Magnesium 1.9 mg/dl (1.8-2.4); Potassium 4.9 mmol/L (3.5-5.1); Sodium 131 mmol/L (136-145)
[2020-05-08 09:34] LABS: Albumin Globulin Ratio 0.5 (0.9-2); Alkaline Phosphatase 104 U/L (45-117); Bilirubin,Total 0.5 mg/dl (0.2-1); Globulin 5.3 gm/dl (2.5-4.0); NT Pro B Type Natriuretic Pept 3903 pg/ml (0-1800); Phosphorus 3.5 mg/dl (2.5-4.9); Total Protein 7.8 gm/dl (6.4-8.2); Troponin I < 0.015 ng/ml (0-0.045)
[2020-05-08 09:38] LABS: Base Excess VBG 13.1 mEq/L; Oxygen Saturation VBG 67.7 %; pH VBG 7.37 (7.36-7.41)
[2020-05-08] MEDS ORDERED: SODIUM CHLORIDE 0.9% 500 ML IV ONE ×2 (10:16→13:13)
[2020-05-08] MEDS ORDERED: VANCOMYCIN CONSULT ACTIVE PRN (10:19)
[2020-05-08] MEDS ORDERED: VANCOMYCIN HCL 1,000 MG in SODIUM CHLORIDE 0.9% 500 ML IV ONE (10:19)
[2020-05-08] MEDS ORDERED: OPTIRAY 320 125ml IV PRN (10:24)
--- NOTE | 2020-05-08 10:36 | XRay Report ---
XR chest 1V portable HISTORY: SEPSIS COMPARISON: Chest CT 04/22/2020. FINDINGS: Interval progression of the right upper lobe airspace opacity. Diffuse interstitial thicken ing persists. Small bilateral pleural effusions are not significantly changed. Left basilar airspace opacity has improved. The heart remains mildly enlarged. The lungs are hyperexpanded. No pneumothorax . IMPRESSION: 1. Interval progression of the right upper lobe hazy airspace opacity. This may represent a worsening pneumonia. 2. Small bilateral pleural effusions persist. 3. Left basilar airspace opacity has improved. 4. Diffuse interstitial thickening may represent congestive change. ACT 112: Negative or not required by law. Electronically signed by: Jude Serna M.D. 05/08/2020 10:34 AM
--- NOTE | 2020-05-08 12:39 | Electrocardiogram Report ---
Test Reason : Blood Pressure : / mmHG Vent. Rate : 078 BPM Atrial Rate : 078 BPM P-R Int : 158 ms QRS Dur : 128 ms QT Int : 424 ms P-R-T Axes : 079 -52 093 degrees QTc Int : 483 ms Sinus rhythm with Premature atrial complexes Possible Left atrial enlargement Left axis deviation Left bundle branch block Abnormal ECG When compared with ECG of 27-APR-2020 08:25, Premature atrial complexes are now Present Questionable change in QRS axis Confirmed by Hu Powell ([id number]) on 05/08/2020 12:38:57 PM Referred By: [facility] Confirmed By:Hu Powell
--- NOTE | 2020-05-08 12:45 | CT Scan Report ---
CHEST CTA for PULMONARY ARTERIES CT DOSE: 323.45 mGy.cm HISTORY: Atypical chest pain. TECHNIQUE: Multiaxial CT images of the chest were performed following the intravenous administration of contrast to evaluate the pulmonary arteries. Maximal intensity projection images were also obtaine d. A dose lowering technique was utilized adhering to the principles of ALARA. COMPARISON STUDY: Chest CT 04/22/2020. FINDINGS: Mild anterior wedging at L1 which is likely chronic. Limited views of the upper abdomen dem onstrate a normal liver and spleen. Moderate bilateral pleural effusions which have progressed. Calci fied plaque within the thoracic aorta. No evidence for an aortic dissection within the opacified thor acic aorta. The heart remains enlarged. No suspicious filling defects within the pulmonary arteries t o suggest pulmonary embolus. Diffuse body wall edema. Normal caliber esophagus. A few prominent media stinal lymph nodes, unchanged. No hilar lymphadenopathy. No suspicious lytic are blastic osseous lesi ons. No pneumothorax. The central airways are patent. Dense consolidation within the bilateral lower lobes posteriorly has progressed. There is also progressive scattered consolidative and groundglass a irspace opacities. This is most pronounced within the upper to mid lung zones. Upper lobe interstitia l thickening has also progressed. Mild emphysema. IMPRESSION: 1. No evidence for pulmonary embolus. 2. Interval progression of the moderate bilateral pleural effusions. 3. Interval progression of the scattered airspace opacities and interstitial thickening within the marbella ngs as described above. This likely represents a pneumonia. Superimposed pulmonary edema cannot be ex cluded. 4. Mild emphysema. ACT 112: Negative or not required by law. Electronically signed by: Jude Serna M.D. 05/08/2020 12:43 PM
[2020-05-08 13:06] LABS: Appearance Urine Clear (Clear); Bacteria Urine Automated Negative (Negative); Bilirubin Urine Negative (Negative); Blood Urine Negative (Negative); Color Urine Dark Yellow; Epithelial Cell Urine Auto >30 /lpf (0-5); Glucose Urine UA Negative (Negative); Ketones Urine Negative (Negative); Leukocyte Esterase Urine Negative (Negative); Nitrite Urine Negative (Negative); Protein Urine 2+ (Negative); RBC Urine Automated 0-4 /hpf (0-4); Specific Gravity Urine 1.036 (1.000-1.030); Urobilinogen Urine Negative (Negative)
--- NOTE | 2020-05-08 14:01 | History & Physical Report ---
Date of Service May 08, 2020 Assessment & Plan (1) Hypoxemia: Healthcare associated pneumonia B/L pleural effusions--Volume overload status Acute on chronic respiratory failure with Hypoxia/Hypercapnia On chronic Oxygen 3L at bedtime H/O pulmonary Hypertension --CTA: No evidence for pulmonary embolus. Interval progression of the moderate bilateral pleural effusions. Interval progression of the scattered airspace opacities and interstitial thickening within the lungs as described above. This likely represents a pneumonia. Superimposed pulmonary edema cannot be excluded. Mild emphysema. -Lactate, procalcitonin levels -Start broad spectrum IV Antibiotics (Vanco and Zosyn) Oxygen support with high flow and BiPAP as needed, Duonebs Blood cultures obtained Aspiration precautions Appreciate Pulmonology Input Started on IV Lasix, IV Solu-Medrol May need 2 step prior to DC Will consult palliative care to address goals of care Avoid sedatives meds given respiratory start Hyponatremia Hypochloremia Noted chronically as well Volume overload could be contributing as well Acute on chronic systolic/Diastolic CHF exacerbation Last ECHO: EF: 45-50%, grade 1 diastolic dysfunction Start IV Lasix 40mg Update ECHO Daily weight, I/Os, fluid restriction Oxygen support PRN Monitor renal function/electrolytes Consider Cardiology eval if needed CKD stage III Renal function baseline Monitor Avoid nephrotoxic agents as able Dementia Stable Held benzodiazepines secondary to respiratory status P.Afib on Amiodarone, Metoprolol Not on any anticoagulation GERD Continue PPI DVT Px: Heparin SQ Code Status DNI/DNR as per my discussion with patient/Patient's daughter-POA Disposition To be determined History of Present Illness Chief Complaint: Acute hypoxemic respiratory failure Primary Care Provider: Tiffanie Herrera DO Patient is an 89-year-old female with history of CHF, CKD stage III, chronic respiratory failure with oxygen dependency, dementia, pulmonary hypertension, interstitial lung disease, GERD and other medical problems presents with history of worsening shortness of breath. History is limited secondary to patient's dementia. Most of the history is obtained from old records, ER physician and family. As per the staff, patient was noted to be hypoxic in 70s while on 3 L of nasal cannula and was placed on nonrebreather while at rehab facility. Later she was transitioned to BiPAP while in ED. No known history of fever, cough, chest pain. He was discharged from [facility] 10 days ago after being treated for hypoxic respiratory failure likely secondary to pneumonia, UTI and atrial fibrillation with RVR. She was started on amiodarone and metoprolol by [facility] cardiology during prior admission. She was noted to have an abnormal CT chest on prior admission and was evaluated by pulmonology. She was thought to have interstitial lung disease likely given history of polymyalgia rheumatica. COVID screen was tested negative. Chest CTA showed no evidence of PE. Short interval progression of moderate bilateral pleural effusions. Also showed progression of scattered airspace opacities in interstitial thickening within the lungs. I personally discussed with inventory analyst Dr. Fang information operator and also updated patient's daughter. Allergies Allergy/AdvReac Type Severity Reaction Status Date / Time Penicillins Allergy Intermediate rash Verified 04/16/20 10:47 strawberry Allergy Intermediate Rash Verified 04/16/20 16:20 latex Allergy Unknown "I don't Verified 04/16/20 10:47 remember" yellow dye Allergy Unknown Unknown Verified 04/16/20 10:47 Home Medications Home Medications Medication Instructions Recorded Confirmed Type donepezil 10 mg tablet 10 mg PO QAM tab 06/12/19 05/08/20 History ondansetron 4 mg disintegrating 4 mg PO Q8H PRN tab 07/21/19 05/08/20 History tablet multivitamin 1 tab PO DAILY 09/23/19 05/08/20 History cholecalciferol (vitamin D3) 1,000 unit PO DAILY 04/13/20 05/08/20 History [Vitamin D3] dicyclomine 10 mg PO QID 04/13/20 05/08/20 History alprazolam 0.25 mg PO BID PRN #30 tab 04/19/20 05/08/20 Rx heparin, porcine (PF) 5,000 unit SUBCUT Q12 #25 ml 04/19/20 05/08/20 Rx amiodarone 200 mg PO QAM 30 Days #30 tab 04/27/20 05/08/20 Rx lisinopril 2.5 mg PO QAM 30 Days #30 tab 04/27/20 05/08/20 Rx metoprolol tartrate 25 mg PO BID 30 Days #60 tab 04/27/20 05/08/20 Rx docusate sodium 100 mg PO BID 05/08/20 05/08/20 History ipratropium-albuterol [Combivent 1 puff INHALATION Q6H PRN 05/08/20 05/08/20 History Respimat] magnesium 200 mg PO DAILY 05/08/20 05/08/20 History pantoprazole [Protonix] 40 mg PO DAILY 05/08/20 05/08/20 History temazepam 15 mg PO HS 05/08/20 05/08/20 History Past Med/Surg History Medical History Aortic valve sclerosis Cardiomyopathy FOLLOWS WITH DR HAHN Chronic back pain CKD (chronic kidney disease), stage III Dementia Dementia with behavioral disturbance Depression Diastolic CHF Encounter for pre-operative examination Esophageal reflux HTN (hypertension) Idiopathic interstitial pneumonia Left bundle branch block Mitral regurgitation Osteoarthritis Osteoarthritis Pulmonary hypertension Respiratory failure (Inactive 03/19/14) Surgical History History of esophagogastroduodenoscopy (EGD) Family History Father Allergies Other specified forms of hearing loss Mother Allergies Cardiac disorder Daughter Asthma Sister Sinusitis Cancer Bleeding disorder Brother Cancer Sinusitis Social History Preferred Language: Peruvian Communication Ability: Effective Ancillary Specialist Required: No Beliefs That Will Affect Care: None Current Living Situation: Rehab Current Living Situation Comment: [facility] Other Information That Helps Us Care for You: No Feels Safe at Home: Yes Safety Concerns: Feels Safe At This Time Smoking Status: Former smoker Second Hand Exposure: No ; Hx Alcohol Use: No Hx Substance Use: No Review of Systems Review of Systems: Unobtainable due to mental health condition Physical Exam Physical Exam: Physical Exam: Vitals signs as noted above General Appearance: Chronically appearing, frail, elderly, no apparent distress, on BiPAP, no apparent distress Moderately built and nourished Head: normocephalic, Atraumatic Eyes: normal inspection, EOMI Neck: supple, Trachea midline Respiratory/Chest: Decreased breath sounds, B/L crackles, No accessory muscle use Cardiovascular: S1, S2, + murmur, tachycardia Abdomen/GI:Soft, Non tender, Bowel sounds present Extremities/Musculoskelatal:normal inspection, no edema Neurologic/Psych:grossly no focal neurological deficits, +Dementia Skin: normal color, warm Results & Data Results & Data ([facility]) Vital Signs (Past 12 Hours) Vital Signs Temp Pulse Resp BP Pulse Ox 05/08/20 13:45 69 20 100 05/08/20 13:30 69 20 157/75 H 99 05/08/20 13:15 68 18 100 05/08/20 13:04 69 26 H 100 05/08/20 13:00 71 18 153/75 H 100 05/08/20 12:45 74 26 H 99 05/08/20 12:37 77 22 154/72 H 100 05/08/20 12:36 68 18 97 05/08/20 12:15 69 26 H 141/66 H 100 05/08/20 12:00 69 26 H 140/63 100 05/08/20 11:45 70 30 H 100 05/08/20 11:30 69 27 H 142/68 H 100 05/08/20 11:15 71 24 98 05/08/20 11:00 67 23 147/67 H 98 05/08/20 10:45 69 26 H 100 05/08/20 10:30 71 26 H 123/65 100 05/08/20 10:15 72 27 H 100 05/08/20 10:00 72 26 H 150/70 H 100 05/08/20 09:45 73 26 H 99 05/08/20 09:30 74 26 H 157/76 H 99 05/08/20 09:15 75 26 H 98 05/08/20 09:00 81 24 162/82 H 99 05/08/20 08:45 80 24 97 05/08/20 08:35 81 24 172/97 H 95 05/08/20 08:32 82 36 H 94 05/08/20 08:30 83 24 91 05/08/20 08:27 83 26 H 05/08/20 08:21 36.4 C L 82 36 H 172/97 H 94 Laboratory Results Short CBC 05/08/20 Range/Units 08:35 WBC 10.94 H (4.8-10.8) K/uL Hgb 10.2 L (12.0-16.0) g/dL Hct 32.1 L (37-47) % Plt Count 522 H (130-400) K/uL BMP 05/08/20 08:35 Sodium 131 L Potassium 4.9 Chloride 88 L Carbon Dioxide 39 H BUN 25 H Creatinine 0.67 Glucose 123 H Calcium 9.7 Cardiac Enzymes 05/08/20 Range/Units 08:35 Troponin I < 0.015 (0-0.045) ng/ml Liver Function 05/08/20 Range/Units 08:35 Total Bilirubin 0.5 (0.2-1) mg/dl Direct Bilirubin 0.2 (0-0.2) mg/dl AST 19 (15-37) U/L ALT 20 (12-78) U/L Alkaline Phosphatase 104 (45-117) U/L Albumin 2.5 L (3.4-5.0) gm/dl Urine 05/08/20 Range/Units 12:54 Urine Color Dark Yellow Urine Appearance Clear (Clear) Urine pH 6.0 (4.5-7.5) Ur Specific [place] 1.036 H (1.000-1.030) Urine Protein 2+ H (Negative) Urine Glucose (UA) Negative (Negative) Diagnostic Findings Chest CTA: 1. No evidence for pulmonary embolus. 2. Interval progression of the moderate bilateral pleural effusions. 3. Interval progression of the scattered airspace opacities and interstitial thickening within the lungs as described above. This likely represents a pneumonia. Superimposed pulmonary edema cannot be excluded. 4. Mild emphysema. ECG Additional Comments: EKG: Sinus rhythm, PACs, left bundle branch block
[2020-05-08] MEDS ORDERED: FUROSEMIDE 40 MG/4 ML VIAL IV ONE (15:11)
--- NOTE | 2020-05-08 15:45 | Pulmonary Consultation ---
Date of Consultation May 08, 2020 Assessment & Plan (1) Idiopathic interstitial pneumonia: 89-year-old female with a past medical history of systolic and diastolic heart failure, secondary pulmonary hypertension (WHO class II and III), dementia, pulmonary cachexia, atrial fibrillation and chronic hypoxemic respiratory failure (chronically on 2 L of oxygen) presenting to the hospital due to respiratory failure and worsening consolidative changes on CT chest Differential for idiopathic interstitial pneumonia is quite broad and I think it is likely exacerbated by underlying volume overload given her bilateral effusions and groundglass opacities. Her prior serologies were negative. The pattern of her CT chest may be related to fibrotic NSIP with a cellular component, LIP, collagen vascular disease related ILD, organizing pneumonia, drug toxicity versus other. Additionally, I am not certain that she has underlying emphysema on her CT chest. I think the areas interpreted as emphysema may actually be cystic findings. It does appear that she received approximately 1 L of fluid in the ER. I would recommend starting her on IV Lasix at this time for volume overload. Bilateral effusions should improve with IV Lasix. Also, I recommend starting her on 40 mg IV twice daily of Solu- Medrol. I do agree with Dr. Aranda's previous note suggesting that steroids are not a benign therapy in a patient that is nearly 89 years old, however, she is critically ill at this time and I think it is not unreasonable to start her on steroids and see if she has any significant improvement over the next day or 2. Interestingly, she is chronically on amiodarone and this may be complicating the picture. I would recommend discontinuing amiodarone for the possibility of amiodarone associated lung toxicity. Unfortunately, I think bronchoscopic intervention or VATS biopsy would be a dangerous procedure in this patient given her underlying comorbidities and would likely have minimal impact on changing her prognosis. I think the focus at this time should be symptom control with d iuretic therapy and steroids. Consideration of palliative care input may be had to help alleviate some of her symptoms of dyspnea as well with such modalities as low-dose opiates. I would be very judicious with benzodiazepines or opiates in this patient given her underlying dementia, age and respiratory status. Additionally, I think that she can be weaned off the BiPAP and transitioned to high flow nasal cannula. This was all discussed with the patient's hospitalist. Lastly, I did discuss CODE STATUS with the patient and she indicated that she would like to be DNR/DNI in the event that she should have a cardiac arrest or a respiratory arrest.. (2) Abnormal CT scan of lung: (3) Hypoxia: (4) Cardiomyopathy: (5) Diastolic CHF: History of Present Illness Reason for Consultation: Acute hypoxemic respiratory failure Requesting Physician: Hospitalist Attending Physician: Dr. Guillermo History of Present Illness 89-year-old female with a past medical history of diastolic heart failure, dementia, hypertension, aortic valve sclerosis, secondary pulmonary hypertension and interstitial lung disease presenting to the hospital due to increasing shortness of breath and hypoxemia. Patient was seen in consultation by Dr. Aranda on 04/22/[address] of her chest at that time. The possibility of interstitial lung disease was raised secondary to polymyalgia rheumatica. IgE, rheumatoid factor, CCP anti-body, ANCA and Haleigh 1 antibody were checked and were all negative at that time. ESR was elevated 70 at that time. She underwent a CTA of her chest on 05/08/2020 which demonstrated no evidence of PE, but interval progression of moderate bilateral pleural effusions, interval progression of scattered airspace opacities and interstitial thickening within the lungs and mild emphysema. Procalcitonin was negative today. Hospitalist requested consultation for her ILD and hypoxemic respiratory failure. Patient notes that she has been having increasing shortness of breath for many weeks and her daughter came to check on her today and brought her to the ER. She is normally living at home and able to perform her activities of daily living. She denies any significant cough, fevers, chills, night sweats, sick contacts, nausea or vomiting. She does endorse shortness of breath as noted previously. COVID-19 testing was negative today. COVID-19 testing was negative on 04/13/2020. She received a 1 L bolus of fluids in the ER, vancomycin and cefepime. Allergies Allergy/AdvReac Type Severity Reaction Status Date / Time Penicillins Allergy Intermediate rash Verified 04/16/20 10:47 strawberry Allergy Intermediate Rash Verified 04/16/20 16:20 latex Allergy Unknown "I don't Verified 04/16/20 10:47 remember" yellow dye Allergy Unknown Unknown Verified 04/16/20 10:47 Home Medications Home Medications Medication Instructions Recorded Confirmed Type donepezil 10 mg tablet 10 mg PO QAM tab 06/12/19 05/08/20 History ondansetron 4 mg disintegrating 4 mg PO Q8H PRN tab 07/21/19 05/08/20 History tablet multivitamin 1 tab PO DAILY 09/23/19 05/08/20 History cholecalciferol (vitamin D3) 1,000 unit PO DAILY 04/13/20 05/08/20 History [Vitamin D3] dicyclomine 10 mg PO QID 04/13/20 05/08/20 History alprazolam 0.25 mg PO BID PRN #30 tab 04/19/20 05/08/20 Rx heparin, porcine (PF) 5,000 unit SUBCUT Q12 #25 ml 04/19/20 05/08/20 Rx amiodarone 200 mg PO QAM 30 Days #30 tab 04/27/20 05/08/20 Rx lisinopril 2.5 mg PO QAM 30 Days #30 tab 04/27/20 05/08/20 Rx metoprolol tartrate 25 mg PO BID 30 Days #60 tab 04/27/20 05/08/20 Rx docusate sodium 100 mg PO BID 05/08/20 05/08/20 History ipratropium-albuterol [Combivent 1 puff INHALATION Q6H PRN 05/08/20 05/08/20 History Respimat] magnesium 200 mg PO DAILY 05/08/20 05/08/20 History pantoprazole [Protonix] 40 mg PO DAILY 05/08/20 05/08/20 History temazepam 15 mg PO HS 05/08/20 05/08/20 History Patient History Medical History Aortic valve sclerosis Cardiomyopathy FOLLOWS WITH DR HAHN Chronic back pain CKD (chronic kidney disease), stage III Dementia Dementia with behavioral disturbance Depression Diastolic CHF Encounter for pre-operative examination Esophageal reflux HTN (hypertension) Left bundle branch block Mitral regurgitation Osteoarthritis Osteoarthritis Pulmonary hypertension Respiratory failure (Inactive 03/19/14) Surgical History History of esophagogastroduodenoscopy (EGD) Family History Father Allergies Other specified forms of hearing loss Mother Allergies Cardiac disorder Daughter Asthma Sister Sinusitis Cancer Bleeding disorder Brother Cancer Sinusitis Social History Preferred Language: Khmer Communication Ability: Effective Barrel Tester Required: No Beliefs That Will Affect Care: None Current Living Situation: Rehab Current [facility] Comment[facility] Other Information That Helps Us Care for You: No Feels Safe at Home: Yes Safety Concerns: Feels Safe At This Time Smoking Status: Former smoker Second Hand Exposure: No ; Hx Alcohol Use: No Hx Substance Use: No Review of Systems Review of Systems: All systems reviewed & are unremarkable except as noted in HPI & below Physical Exam Constitutional: Chronically ill and frail appearing female no apparent distress. BiPAP mask is in place. She is mildly tachypneic. Eyes: PERRL, conjunctivae normal, anicteric sclerae ENMT: external ear and nose normal, oropharynx normal Neck: trachea midline, no thyromegaly Respiratory: Diffuse upper lobe crackles. Diminished in the bases. Tachypneic. Cardiovascular: Mild systolic flow murmur noted. No significant edema. Gastrointestinal (Abdomen): normal bowel sounds, soft, nontender, no hepatosplenomegaly Musculoskeletal: no cyanosis or clubbing, extremities motor strength 5/5 Skin: no rashes, warm and dry Neurologic: PERRL, EOMI, accommodation nl, no face palsy, no dysarthria Psychiatric: A+Ox3, euthymic affect Results & Data Results & Data ([facility]) Vital Signs (Past 12 Hours) Vital Signs Temp Pulse Resp BP Pulse Ox 05/08/20 15:00 68 20 148/72 H 100 05/08/20 14:45 69 20 100 05/08/20 14:30 69 18 156/70 H 100 05/08/20 14:15 77 19 05/08/20 14:00 70 20 146/69 H 99 05/08/20 13:45 69 20 100 05/08/20 13:30 69 20 157/75 H 99 05/08/20 13:15 68 18 100 05/08/20 13:04 69 26 H 100 05/08/20 13:00 71 18 153/75 H 100 05/08/20 12:45 74 26 H 99 05/08/20 12:37 77 22 154/72 H 100 05/08/20 12:36 68 18 97 05/08/20 12:15 69 26 H 141/66 H 100 05/08/20 12:00 69 26 H 140/63 100 05/08/20 11:45 70 30 H 100 05/08/20 11:30 69 27 H 142/68 H 100 05/08/20 11:15 71 24 98 05/08/20 11:00 67 23 147/67 H 98 05/08/20 10:45 69 26 H 100 05/08/20 10:30 71 26 H 123/65 100 05/08/20 10:15 72 27 H 100 05/08/20 10:00 72 26 H 150/70 H 100 05/08/20 09:45 73 26 H 99 05/08/20 09:30 74 26 H 157/76 H 99 05/08/20 09:15 75 26 H 98 05/08/20 09:00 81 24 162/82 H 99 05/08/20 08:45 80 24 97 05/08/20 08:35 81 24 172/97 H 95 05/08/20 08:32 82 36 H 94 05/08/20 08:30 83 24 91 05/08/20 08:27 83 26 H 05/08/20 08:21 97.5 F L 82 36 H 172/97 H 94 I personally reviewed vital signs, labs, chest imaging and recent notes. PG Care Time/CCT Total # of Minutes Spent Total Time Spent with Patient: Total time spent is greater than 50% in coordination of care (as documented) at patient's floor/unit and/or counseling patient: Coding Level of Care Code 57847 Initial Inpt Care Lvl 3 Diagnoses Idiopathic interstitial pneumonia J84.[address] scan of lung R91.8 Hypoxia R09.02 Cardiomyopathy I42.9 Diastolic CHF I50.30
[2020-05-08] MEDS ORDERED: methylPREDNISolone 40 MG in SYRINGE 0 ML IV SCH (16:30)
--- NOTE | 2020-05-08 17:44 | Emergency Department Note ---
Impression & Plan Acute on chronic respiratory failure with hypoxia and hypercapnia, Pneumonia, H/O left bundle branch block ED Provider Note NAME: VIVIANE PATRICIO AGE: 89 SEX: F ARRIVES VIA: Ambulance INFORMANT: Patient, ED PROVIDER(S): Derik Souza MD CHIEF COMPLAINT: Acute respiratory failure. PLAN: Disposition: Admit MEDICAL DECISION MAKING: The patient is an 89 y/o woman with a pmhx of diastolic CHF, HTN, CKD stage III, chronic respiratory failure on home O2 who presents to the emergency department from [facility] with worsening respiratory distress in the setting of being treated for PNA after admission to [facility] from 04/13/2020-04/27/2020 with PNA with suspicious for interstitial lung disease. On arrival the patient is in mlld respiratory distress which was gradually improving en route from bipap from EMS. She was found to be hypoxic to mid 70s on her home O2 with increased WOB. Bipap continued on arrival to ED. She is afebrile, RR mid 30s, HR 100s, and BP stable. She appears clinically dry. Lungs diminished at bases with scant intermittent wheezes and rhonchi. EKG without overt acute ischemia. CXR with progression of airspace opacities c/w PNA. Patient treated empirically with Cefepime and Vancomycin. WBC 10.9. H/H 10 .2/32.1 similar to prior range of values. Platelets 500K, nonspecific. Chemistry without acidosis with with component of compensation for hypercapnia with bicarb fo 39. VBG with pCO2 of 72 and pH 7.37. Lactate 1.2. LFTs and electrolytes unremarkable. Troponin negative. BNP 3900 without prior for comparison. Lipase is not elevated. Procalcitonin 0.16. UA without infection. COvid19 PCR negative. CTA chest negative for PE but with further characterization of progression of airspace opacities/pna. Given patient's acute on chronic respiratory failure reasaonble to admit for further management. Case was discussed with Dr. Guillermo, [facility] hospitalist, who will evaluate the patient for admission. Triage Nursing notes reviewed and agree them. Prior medical records reviewed Vital Signs: reviewed and remarkable for no significant abnormalities Differential diagnosis: Sepsis, UTI, pneumonia, metabolic, electrolyte abnormalities, cardiac sources, intracerebral event, toxicologic, neurologic, as well as other pathologies. ER treatment provided: See below. Diagnostics interpreted by me: ECG: Sinus rhythm, 78 bpm, no ectopy, LBBB, no Sgarbossa criteria, QTC 482, QRS 128. Simllar to 04/27/2020. Cardiac Monitoring: An order for continuous cardiac monitoring was placed and demonstrated sinus rhythm, 78 bpm, no ectopy Laboratory studies: See below Imaging studies: XR chest 1V portable HISTORY: SEPSIS COMPARISON: Chest CT 04/22/2020. FINDINGS: Interval progression of the right upper lobe airspace opacity. Diffuse interstitial thickening persists. Small bilateral pleural effusions are not significantly changed. Left basilar airspace opacity has improved. The heart remains mildly enlarged. The lungs are hyperexpanded. No pneumothorax. IMPRESSION: 1. Interval progression of the right upper lobe hazy airspace opacity. This may represent a worsening pneumonia. 2. Small bilateral pleural effusions persist. 3. Left basilar airspace opacity has improved. 4. Diffuse interstitial thickening may represent congestive change. - CHEST CTA for PULMONARY ARTERIES CT DOSE: 323.45 mGy.cm HISTORY: Atypical chest pain. TECHNIQUE: Multiaxial CT images of the chest were performed following the intravenous administration of contrast to evaluate the pulmonary arteries. Maximal intensity projection images were also obtained. A dose lowering technique was utilized adhering to the principles of ALARA. COMPARISON STUDY: Chest CT 04/22/2020. FINDINGS: Mild anterior wedging at L1 which is likely chronic. Limited views of the upper abdomen demonstrate a normal liver and spleen. Moderate bilateral pleural effusions which have progressed. Calcified plaque within the thoracic aorta. No evidence for an aortic dissection within the opacified thoracic aorta. The heart remains enlarged. No suspicious filling defects within the pulmonary arteries to suggest pulmonary embolus. Diffuse body wall edema. Normal caliber esophagus. A few prominent mediastinal lymph nodes, unchanged. No hilar lymphadenopathy. No suspicious lytic are blastic osseous lesions. No pneumothorax. The central airways are patent. Dense consolidation within the bilateral lower lobes posteriorly has progressed. There is also progressive scattered consolidative and groundglass airspace opacities. This is most pronounced within the upper to mid lung zones. Upper lobe interstitial thickening has also progressed. Mild emphysema. IMPRESSION: 1. No evidence for pulmonary embolus. 2. Interval progression of the moderate bilateral pleural effusions. 3. Interval progression of the scattered airspace opacities and interstitial thickening within the lungs as described above. This likely represents a pneumonia. Superimposed pulmonary edema cannot be excluded. 4. Mild emphysema. Consultation(s): Case was discussed with Dr. Guillermo , [facility] hospitalist, who will evaluate the patient for admission. HPI: The patient is an 89 y/o woman with a pmhx of diastolic CHF, HTN, CKD stage III, chronic respiratory failure on home O2 who presents to the emergency department from [facility] with worsening respiratory distress in the setting of being treated for PNA after admission to [facility] from 04/13/2020-04/27/2020 with PNA with suspicious for interstitial lung disease. Denies n/v/d, urinary sx. ROS: See above HPI for pertinent positives & negatives. A total of 10 systems reviewed and were otherwise negative. PAST MEDICAL HISTORY:See Below PAST SURGICAL HISTORY:See Below FAMILY HISTORY:See Below SOCIAL HISTORY:See Below HOME MEDICATIONS:See Below ALLERGIES:See Below VITALS:See Below PHYSICAL EXAMINATION: GENERAL: Awake, alert, acute on chronically ill-appearing, moderate respiratory distress HENT: Normocephalic, atraumatic. Oropharynx with dry mucous membranes and ot herwise unremarkable. EYES: Normal conjunctiva. Sclera non-icteric. NECK: Supple. No nuchal rigidity. FROM. No JVD. RESPIRATORY: Lungs diminished at bases with scant intermittent wheezes and rhonchi. Increased WOB. CARDIAC: Regular rate, normal rhythm. Extremities warm and well perfused. Pulses equal. ABDOMEN: Soft, non-distended. No tenderness to palpation. No rebound or guarding. No masses. RECTAL: Deferred. MUSCULOSKELETAL: Chest examination reveals no tenderness. The back is symmetrical on inspection without obvious abnormality. There is no CVA tenderness to palpation. No joint edema. LOWER EXTREMITIES: Calves are equal size bilaterally and non-tender. No edema. No discoloration. NEURO: Normal sensorium. No sensory or motor deficits noted. SKIN: No rash or jaundice noted. ED COURSE: Critical Care: I have personally spent greater than 95 minutes of critical care time in the direct management of this patient. This includes bedside care, interpretation of diagnostic studies, and testing, discussion with consultants, patient, and family members, and other required patient management activities. This 95 minutes is in excess of all separately billable procedures. Derik Souza MD Past Med/Surg History Medical History Aortic valve sclerosis Cardiomyopathy FOLLOWS WITH DR HAHN Chronic back pain CKD (chronic kidney disease), stage III Dementia Dementia with behavioral disturbance Depression Diastolic CHF Encounter for pre-operative examination Esophageal reflux HTN (hypertension) Idiopathic interstitial pneumonia Left bundle branch block Mitral regurgitation Osteoarthritis Osteoarthritis Pulmonary hypertension Respiratory failure (Inactive 03/19/14) Surgical History History of esophagogastroduodenoscopy (EGD) Family History Father Allergies Other specified forms of hearing loss Mother Allergies Cardiac disorder Daughter Asthma Sister Sinusitis Cancer Bleeding disorder Brother Cancer Sinusitis Social History Preferred Language: Romanian Communication Ability: Effective Legal Assistant Required: No Beliefs That Will Affect Care: None Current Living Situation: Rehab Current Living Situation Comment: [facility] Feels Safe at Home: Yes Smoking Status: Former smoker Second Hand Exposure: No ; Hx Alcohol Use: No Hx Substance Use: No Allergies Allergies Allergy/AdvReac Type Severity Reaction Status Date / Time Penicillins Allergy Intermediate rash Verified 04/16/20 10:47 strawberry Allergy Intermediate Rash Verified 04/16/20 16:20 latex Allergy Unknown "I don't Verified 04/16/20 10:47 remember" yellow dye Allergy Unknown Unknown Verified 04/16/20 10:47 Home Meds Home Medications Medication Instructions Recorded Confirmed donepezil 10 mg tablet 10 mg PO QAM tab 06/12/19 05/08/20 ondansetron 4 mg disintegrating 4 mg PO Q8H PRN tab 07/21/19 05/08/20 tablet multivitamin 1 tab PO DAILY 09/23/19 05/08/20 cholecalciferol (vitamin D3) 1,000 unit PO DAILY 04/13/20 05/08/20 [Vitamin D3] dicyclomine 10 mg PO QID 04/13/20 05/08/20 docusate sodium 100 mg PO BID 05/08/20 05/08/20 ipratropium-albuterol [Combivent 1 puff INHALATION Q6H PRN 05/08/20 05/08/20 Respimat] magnesium 200 mg PO DAILY 05/08/20 05/08/20 pantoprazole [Protonix] 40 mg PO DAILY 05/08/20 05/08/20 temazepam 15 mg PO HS 05/08/20 05/08/20 Previous Rx's Medication Instructions Recorded alprazolam 0.25 mg PO BID PRN #30 tab 04/19/20 heparin, porcine (PF) 5,000 unit SUBCUT Q12 #25 ml 04/19/20 amiodarone 200 mg PO QAM 30 Days #30 tab 04/27/20 lisinopril 2.5 mg PO QAM 30 Days #30 tab 04/27/20 metoprolol tartrate 25 mg PO BID 30 Days #60 tab 04/27/20 Results & Data (ED) Vital Signs Vital Signs - 24 hr 05/08/20 08:21 05/08/20 08:27 05/08/20 08:30 Temperature 36.4 C L Temperature Source Oral Pulse Rate 82 83 83 Pulse Rate from SpO2 Sensor 83 Pulse Rhythm Regular Respiratory Rate 36 H 26 H 24 Respiratory Effort / Characteristics Spontaneous Blood Pressure 172/97 H Blood Pressure Mean 122 Blood Pressure Position Lying Pulse Oximetry 94 91 Oxygen Delivery Method BiPAP BiPAP Fraction of Inspired Oxygen 100 SaO2/FiO2 Ratio 94 Sepsis Recent Fever Within 48 Hours No Sepsis New/Unexplained Change in Mental Status N/A Sepsis Action Taken by Nursing No Action Required 05/08/20 08:32 05/08/20 08:35 05/08/20 08:45 Temperature Temperature Source Pulse Rate 82 81 80 Pulse Rate from SpO2 Sensor 81 78 Pulse Rhythm Respiratory Rate 36 H 24 24 Respiratory Effort / Characteristics Blood Pressure 172/97 H Blood Pressure Mean 127 Blood Pressure Position Pulse Oximetry 94 95 97 Oxygen Delivery Method BiPAP BiPAP Fraction of Inspired Oxygen 100 SaO2/FiO2 Ratio Sepsis Recent Fever Within 48 Hours Sepsis New/Unexplained Change in Mental Status Sepsis Action Taken by Nursing 05/08/20 09:00 05/08/20 09:15 05/08/20 09:30 Temperature Temperature Source Pulse Rate 81 75 74 Pulse Rate from SpO2 Sensor 81 75 74 Pulse Rhythm Respiratory Rate 24 26 H 26 H Respiratory Effort / Characteristics Blood Pressure 162/82 H 157/76 H Blood Pressure Mean 121 93 Blood Pressure Position Pulse Oximetry 99 98 99 Oxygen Delivery Method BiPAP BiPAP BiPAP Fraction of Inspired Oxygen SaO2/FiO2 Ratio Sepsis Recent Fever Within 48 Hours Sepsis New/Unexplained Change in Mental Status Sepsis Action Taken by Nursing 05/08/20 09:45 05/08/20 10:00 05/08/20 10:15 Temperature Temperature Source Pulse Rate 73 72 72 Pulse Rate from SpO2 Sensor 73 72 71 Pulse Rhythm Respiratory Rate 26 H 26 H 27 H Respiratory Effort / Characteristics Blood Pressure 150/70 H Blood Pressure Mean 95 Blood Pressure Position Pulse Oximetry 99 100 100 Oxygen Delivery Method BiPAP BiPAP BiPAP Fraction of Inspired Oxygen SaO2/FiO2 Ratio Sepsis Recent Fever Within 48 Hours Sepsis New/Unexplained Change in Mental Status Sepsis Action Taken by Nursing 05/08/20 10:30 05/08/20 10:45 05/08/20 11:00 Temperature Temperature Source Pulse Rate 71 69 67 Pulse Rate from SpO2 Sensor 71 69 70 Pulse Rhythm Respiratory Rate 26 H 26 H 23 Respiratory Effort / Characteristics Blood Pressure 123/65 147/67 H Blood Pressure Mean 90 85 Blood Pressure Position Pulse Oximetry 100 100 98 Oxygen Delivery Method BiPAP BiPAP BiPAP Fraction of Inspired Oxygen SaO2/FiO2 Ratio Sepsis Recent Fever Within 48 Hours Sepsis New/Unexplained Change in Mental Status Sepsis Action Taken by Nursing 05/08/20 11:15 05/08/20 11:30 05/08/20 11:45 Temperature Temperature Source Pulse Rate 71 69 70 Pulse Rate from SpO2 Sensor 71 69 70 Pulse Rhythm Respiratory Rate 24 27 H 30 H Respiratory Effort / Characteristics Blood Pressure 142/68 H Blood Pressure Mean 95 Blood Pressure Position Pulse Oximetry 98 100 100 Oxygen Delivery Method BiPAP BiPAP BiPAP Fraction of Inspired Oxygen SaO2/FiO2 Ratio Sepsis Recent Fever Within 48 Hours Sepsis New/Unexplained Change in Mental Status Sepsis Action Taken by Nursing 05/08/20 12:00 05/08/20 12:15 05/08/20 12:36 Temperature Temperature Source Pulse Rate 69 69 68 Pulse Rate from SpO2 Sensor 69 69 77 Pulse Rhythm Respiratory Rate 26 H 26 H 18 Respiratory Effort / Characteristics Blood Pressure 140/63 141/66 H Blood Pressure Mean 83 91 Blood Pressure Position Pulse Oximetry 100 100 97 Oxygen Delivery Method BiPAP BiPAP BiPAP Fraction of Inspired Oxygen SaO2/FiO2 Ratio Sepsis Recent Fever Within 48 Hours Sepsis New/Unexplained Change in Mental Status Sepsis Action Taken by Nursing 05/08/20 12:37 05/08/20 12:45 05/08/20 13:00 Temperature Temperature Source Pulse Rate 77 74 71 Pulse Rate from SpO2 Sensor 78 73 71 Pulse Rhythm Respiratory Rate 22 26 H 18 Respiratory Effort / Characteristics Blood Pressure 154/72 H 153/75 H Blood Pressure Mean 91 88 Blood Pressure Position Pulse Oximetry 100 99 100 Oxygen Delivery Method BiPAP BiPAP BiPAP Fraction of Inspired Oxygen SaO2/FiO2 Ratio Sepsis Recent Fever Within 48 Hours Sepsis New/Unexplained Change in Mental Status Sepsis Action Taken by Nursing 05/08/20 13:04 05/08/20 13:15 05/08/20 13:30 Temperature Temperature Source Pulse Rate 69 68 69 Pulse Rate from SpO2 Sensor 68 69 Pulse Rhythm Respiratory Rate 26 H 18 20 Respiratory Effort / Characteristics Non-Labored Blood Pressure 157/75 H Blood Pressure Mean 91 Blood Pressure Position Pulse Oximetry 100 100 99 Oxygen Delivery Method BiPAP BiPAP Fraction of Inspired Oxygen 100 SaO2/FiO2 Ratio Sepsis Recent Fever Within 48 Hours Sepsis New/Unexplained Change in Mental Status Sepsis Action Taken by Nursing 05/08/20 13:45 05/08/20 14:00 05/08/20 14:15 Temperature Temperature Source Pulse Rate 69 70 77 Pulse Rate from SpO2 Sensor 69 70 75 Pulse Rhythm Respiratory Rate 20 20 19 Respiratory Effort / Characteristics Blood Pressure 146/69 H Blood Pressure Mean 86 Blood Pressure Position Pulse Oximetry 100 99 Oxygen Delivery Method BiPAP BiPAP Fraction of Inspired Oxygen SaO2/FiO2 Ratio Sepsis Recent Fever Within 48 Hours Sepsis New/Unexplained Change in Mental Status Sepsis Action Taken by Nursing 05/08/20 14:30 05/08/20 14:45 05/08/20 15:00 Temperature Temperature Source Pulse Rate 69 69 68 Pulse Rate from SpO2 Sensor 69 69 68 Pulse Rhythm Respiratory Rate 18 20 20 Respiratory Effort / Characteristics Blood Pressure 156/70 H 148/72 H Blood Pressure Mean 84 84 Blood Pressure Position Pulse Oximetry 100 100 100 Oxygen Delivery Method BiPAP BiPAP BiPAP Fraction of Inspired Oxygen SaO2/FiO2 Ratio Sepsis Recent Fever Within 48 Hours Sepsis New/Unexplained Change in Mental Status Sepsis Action Taken by Nursing Laboratory Data Result diagrams: 05/08/20 08:35 05/08/20 08:35 Lab Results 05/08/20 05/08/20 05/08/20 Range/Units 08:35 08:35 08:35 WBC 10.94 H (4.8-10.8) K/uL RBC 3.33 L (4.2-5.4) M/uL Hgb 10.2 L (12.0-16.0) g/dL Hct 32.1 L (37-47) % MCV 96.4 (80-100) fL MCH 30.6 (25-34) pg MCHC 31.8 L (32-36) g/dL RDW Std Deviation 52.6 H (36.4-46.3) fL RDW Coeff of [place] 15.0 H (11.5-14.5) % Plt Count 522 H (130-400) K/uL MPV 9.8 (7.4-10.4) fL Immature Gran % (Auto) 0.2 % Neut % (Auto) 88.9 % Lymph % (Auto) 2.7 % [place] % (Auto) 8.2 % Eos % (Auto) 0.0 % Baso % (Auto) 0.0 % Neut # (Auto) 9.72 H (1.4-6.5) K/uL Lymph # (Auto) 0.30 L (1.2-3.4) K/uL [place] # (Auto) 0.90 H (0.11-0.59) K/uL Eos # (Auto) 0.00 (0-0.5) K/uL Baso # (Auto) 0.00 (0-0.2) K/uL Immature Gran # (Auto) 0.02 (0.00-0.02) K/uL PT 10.6 (9.0-12.0) Seconds INR 1.0 (0.9-1.1) APTT 28.5 (21.0-31.0) Seconds PTT Ratio 1.0 VBG pH (7.36-7.41) VBG pCO2 (38-50) mmHg VBG pO2 mmHg VBG HCO3 mmol/L VBG O2 Saturation % VBG Base Excess mEq/L Barometric Pressure mm/Hg Sodium (136-145) mmol/L Potassium (3.5-5.1) mmol/L Chloride (98-107) mmol/L Carbon Dioxide (21-32) mmol/L Anion Gap (3-11) BUN (7-18) mg/dl Creatinine (0.6-1.2) mg/dl Est Cr Clr Drug Dosing Est GFR ( Amer) Est GFR (Non-Af Amer) BUN/Creatinine Ratio (10-20) Glucose (70-99) mg/dl Lactate (0.4-2.0) mmol/L Calcium (8.5-10.1) mg/dl Phosphorus (2.5-4.9) mg/dl Magnesium (1.8-2.4) mg/dl Total Bilirubin (0.2-1) mg/dl Direct Bilirubin (0-0.2) mg/dl AST (15-37) U/L ALT (12-78) U/L Alkaline Phosphatase (45-117) U/L Troponin I (0-0.045) ng/ml NT-Pro-B Natriuret Pep (0-1800) pg/ml Total Protein (6.4-8.2) gm/dl Albumin (3.4-5.0) gm/dl Globulin (2.5-4.0) gm/dl Albumin/Globulin Ratio (0.9-2) Lipase (73-393) U/L Procalcitonin 0.16 (0-0.5) ng/ml Urine Color Urine Appearance (Clear) Urine pH (4.5-7.5) Ur Specific [place] (1.000-1.030) Urine Protein (Negative) Urine Glucose (UA) (Negative) Urine Ketones (Negative) Urine Blood (Negative) Urine Nitrite (Negative) Urine Bilirubin (Negative) Urine Urobilinogen (Negative) Ur Leukocyte Esterase (Negative) Urine WBC (Auto) (0-5) /hpf Urine RBC (Auto) (0-4) /hpf U Hyaline Cast (Auto) (0-5) /lpf U Epithel Cells (Auto) (0-5) /lpf Urine Bacteria (Auto) (Negative) COVID-19 PCR (Negative) 05/08/20 05/08/20 05/08/20 Range/Units 08:35 08:47 08:50 WBC (4.8-10.8) K/uL RBC (4.2-5.4) M/uL Hgb (12.0-16.0) g/dL Hct (37-47) % MCV (80-100) fL MCH (25-34) pg MCHC (32-36) g/dL RDW Std Deviation (36.4-46.3) fL RDW Coeff of [place] (11.5-14.5) % Plt Count (130-400) K/uL MPV (7.4-10.4) fL Immature Gran % (Auto) % Neut % (Auto) % Lymph % (Auto) % [place] % (Auto) % Eos % (Auto) % Baso % (Auto) % Neut # (Auto) (1.4-6.5) K/uL Lymph # (Auto) (1.2-3.4) K/uL [place] # (Auto) (0.11-0.59) K/uL Eos # (Auto) (0-0.5) K/uL Baso # (Auto) (0-0.2) K/uL Immature Gran # (Auto) (0.00-0.02) K/uL PT (9.0-12.0) Seconds INR (0.9-1.1) APTT (21.0-31.0) Seconds PTT Ratio VBG pH (7.36-7.41) VBG pCO2 (38-50) mmHg VBG pO2 mmHg VBG HCO3 mmol/L VBG O2 Saturation % VBG Base Excess mEq/L Barometric Pressure mm/Hg Sodium 131 L (136-145) mmol/L Potassium 4.9 (3.5-5.1) mmol/L Chloride 88 L (98-107) mmol/L Carbon Dioxide 39 H (21-32) mmol/L Anion Gap 4.0 (3-11) BUN 25 H (7-18) mg/dl Creatinine 0.67 (0.6-1.2) mg/dl Est Cr Clr Drug Dosing Not Reportable Est GFR ( Amer) 90.3 Est GFR (Non-Af Amer) 77.9 BUN/Creatinine Ratio 37.8 H (10-20) Glucose 123 H (70-99) mg/dl Lactate 1.2 (0.4-2.0) mmol/L Calcium 9.7 (8.5-10.1) mg/dl Phosphorus 3.5 (2.5-4.9) mg/dl Magnesium 1.9 (1.8-2.4) mg/dl Total Bilirubin 0.5 (0.2-1) mg/dl Direct Bilirubin 0.2 (0-0.2) mg/dl AST 19 (15-37) U/L ALT 20 (12-78) U/L Alkaline Phosphatase 104 (45-117) U/L Troponin I < 0.015 (0-0.045) ng/ml NT-Pro-B Natriuret Pep 3903 H (0-1800) pg/ml Total Protein 7.8 (6.4-8.2) gm/dl Albumin 2.5 L (3.4-5.0) gm/dl Globulin 5.3 H (2.5-4.0) gm/dl Albumin/Globulin Ratio 0.5 L (0.9-2) Lipase 65 L (73-393) U/L Procalcitonin (0-0.5) ng/ml Urine Color Urine Appearance (Clear) Urine pH (4.5-7.5) Ur Specific [place] (1.000-1.030) Urine Protein (Negative) Urine Glucose (UA) (Negative) Urine Ketones (Negative) Urine Blood (Negative) Urine Nitrite (Negative) Urine Bilirubin (Negative) Urine Urobilinogen (Negative) Ur Leukocyte Esterase (Negative) Urine WBC (Auto) (0-5) /hpf Urine RBC (Auto) (0-4) /hpf U Hyaline Cast (Auto) (0-5) /lpf U Epithel Cells (Auto) (0-5) /lpf Urine Bacteria (Auto) (Negative) COVID-19 PCR NEGATIVE (Negative) 05/08/20 05/08/20 Range/Units 09:28 12:54 WBC (4.8-10.8) K/uL RBC (4.2-5.4) M/uL Hgb (12.0-16.0) g/dL Hct (37-47) % MCV (80-100) fL MCH (25-34) pg MCHC (32-36) g/dL RDW Std Deviation (36.4-46.3) fL RDW Coeff of [place] (11.5-14.5) % Plt Count (130-400) K/uL MPV (7.4-10.4) fL Immature Gran % (Auto) % Neut % (Auto) % Lymph % (Auto) % [place] % (Auto) % Eos % (Auto) % Baso % (Auto) % Neut # (Auto) (1.4-6.5) K/uL Lymph # (Auto) (1.2-3.4) K/uL [place] # (Auto) (0.11-0.59) K/uL Eos # (Auto) (0-0.5) K/uL Baso # (Auto) (0-0.2) K/uL Immature Gran # (Auto) (0.00-0.02) K/uL PT (9.0-12.0) Seconds INR (0.9-1.1) APTT (21.0-31.0) Seconds PTT Ratio VBG pH 7.37 (7.36-7.41) VBG pCO2 72 H (38-50) mmHg VBG pO2 40 mmHg VBG HCO3 41 mmol/L VBG O2 Saturation 67.7 % VBG Base Excess 13.1 mEq/L Barometric Pressure 731.4 mm/Hg Sodium (136-145) mmol/L Potassium (3.5-5.1) mmol/L Chloride (98-107) mmol/L Carbon Dioxide (21-32) mmol/L Anion Gap (3-11) BUN (7-18) mg/dl Creatinine (0.6-1.2) mg/dl Est Cr Clr Drug Dosing Est GFR ( Amer) Est GFR (Non-Af Amer) BUN/Creatinine Ratio (10-20) Glucose (70-99) mg/dl Lactate (0.4-2.0) mmol/L Calcium (8.5-10.1) mg/dl Phosphorus (2.5-4.9) mg/dl Magnesium (1.8-2.4) mg/dl Total Bilirubin (0.2-1) mg/dl Direct Bilirubin (0-0.2) mg/dl AST (15-37) U/L ALT (12-78) U/L Alkaline Phosphatase (45-117) U/L Troponin I (0-0.045) ng/ml NT-Pro-B Natriuret Pep (0-1800) pg/ml Total Protein (6.4-8.2) gm/dl Albumin (3.4-5.0) gm/dl Globulin (2.5-4.0) gm/dl Albumin/Globulin Ratio (0.9-2) Lipase (73-393) U/L Procalcitonin (0-0.5) ng/ml Urine Color Dark Yellow Urine Appearance Clear (Clear) Urine pH 6.0 (4.5-7.5) Ur Specific [place] 1.036 H (1.000-1.030) Urine Protein 2+ H (Negative) Urine Glucose (UA) Negative (Negative) Urine Ketones Negative (Negative) Urine Blood Negative (Negative) Urine Nitrite Negative (Negative) Urine Bilirubin Negative (Negative) Urine Urobilinogen Negative (Negative) Ur Leukocyte Esterase Negative (Negative) Urine WBC (Auto) 1-5 (0-5) /hpf Urine RBC (Auto) 0-4 (0-4) /hpf U Hyaline Cast (Auto) 5-10 H (0-5) /lpf U Epithel Cells (Auto) >30 H (0-5) /lpf Urine Bacteria (Auto) Negative (Negative) COVID-19 PCR (Negative) Administered Medications Acetaminophen (Tylenol) 650 mg PO Q4H PRN PRN Reason: Pain or Fever Stop: 06/07/20 17:50 Last Admin: 05/08/20 20:37 Dose: 650 mg Documented by: [id number] Albuterol (Duoneb) 3 ml NEB QIDR [facility] Stop: 06/07/20 18:59 Last Admin: 05/08/20 19:14 Dose: 3 ml Documented by: [id number] Dicyclomine HCl (Bentyl) 10 mg PO QID [facility] Stop: 06/07/20 17:50 Last Admin: 05/08/20 20:36 Dose: 10 mg Documented by: [id number] Admin: 05/08/20 18:22 Dose: 10 mg Documented by: [id number] Docusate Sodium (Colace) 100 mg PO BID [facility] Stop: 06/07/20 20:59 Last Admin: 05/08/20 20:35 Dose: 100 mg Documented by: [id number] Heparin Sodium (Porcine) (Heparin Sodium (Porcine)) 5,000 units SC BID [facility] Stop: 06/07/20 20:59 Last Admin: 05/08/20 20:37 Dose: 5,000 units Documented by: [id number] Cosigned by: [id number] Methylprednisolone 40 mg/ (Syringe) 0.64 mls @ 1.5 mls/min IV BID [facility] Stop: 06/07/20 20:59 Last Admin: 05/08/20 20:35 Dose: 1.5 mls/min Documented by: [id number] Furosemide 40 mg/ Syringe 4 mls @ 4 mls/min IV BID [facility] Stop: 06/07/20 20:59 Last Admin: 05/08/20 20:35 Dose: 4 mls/min Documented by: [id number] Ioversol (Optiray 320 125ml) 118 ml IV ONCE PRN PRN Reason: Interaction Checking Stop: 05/12/20 10:23 Last Admin: 05/08/20 10:24 Dose: 118 ml Documented by: [id number] Metoprolol Tartrate (Lopressor) 25 mg PO BID [facility] Stop: 06/07/20 20:59 Last Admin: 05/08/20 20:36 Dose: Not Given Documented by: [id number] Discontinued Medications Furosemide (Lasix) 40 mg IV ONE ONE Stop: 05/08/20 15:12 Last Admin: 05/08/20 18:21 Dose: Not Given Documented by: [id number] Cefepime HCl (Maxipime) 2,000 mg in 20 mls @ 5 mls/min IV NOW STA; Protocol Stop: 05/08/20 08:58 Last Admin: 05/08/20 09:46 Dose: 5 mls/min Documented by: [id number] Sodium Chloride (Nss) 500 mls @ 999 mls/hr IV .Q31M ONE Stop: 05/08/20 10:46 Last Infusion: 05/08/20 11:13 Dose: 0 mls/hr Documented by: [id number] Admin: 05/08/20 10:42 Dose: 999 mls/hr Documented by: [id number] Vancomycin HCl 1,000 mg/ (Sodium Chloride) 520 mls @ 200 mls/hr IV NOW ONE Stop: 05/08/20 12:54 Last Infusion: 05/08/20 13:18 Dose: 0 mls/hr Documented by: [id number] Admin: 05/08/20 10:42 Dose: 200 mls/hr Documented by: [id number] Sodium Chloride (Nss) 500 mls @ 999 mls/hr IV .Q31M ONE Stop: 05/08/20 13:43 Last Infusion: 05/08/20 14:28 Dose: 0 mls/hr Documented by: [id number] Admin: 05/08/20 13:57 Dose: 999 mls/hr Documented by: [id number] Methylprednisolone 40 mg/ (Syringe) 0.64 mls @ 1.5 mls/min IV TODAY@1630 [facility] Stop: 05/08/20 16:31 Last Admin: 05/08/20 17:52 Dose: 1.5 mls/min Documented by: [id number] Piperacillin Sod/Tazobactam (Sod 3.375 gm/ Dextrose) 115 mls @ 230 mls/hr IV NOW ONE; Protocol Stop: 05/08/20 18:29 Last Infusion: 05/08/20 18:57 Dose: 0 mls/hr Documented by: [id number] Admin: 05/08/20 18:22 Dose: 230 mls/hr Documented by: [id number] Labetalol HCl (Normodyne) 10 mg IV ONE ONE Stop: 05/08/20 19:58 Last Admin: 05/08/20 20:33 Dose: 10 mg Documented by: [id number] Cosigned by: [id number] Miscellaneous (Patient's Height And/Or Weight Needed) 1 ea N/A Q2H [facility] Stop: 05/08/20 19:00 Last Admin: 05/08/20 22:25 Dose: 1 ea Documented by: [id number] Admin: 05/08/20 17:53 Dose: 1 ea Documented by: [id number] Discharge Plan Visit Data *Final* Discharge Date/Time: 05/08/20 15:48 Chief Complaint: Respiratory Problems Stated Complaint: respiratory distress / encompass ED Provider: Derik Souza Discharge Problem: Acute on chronic respiratory failure with hypoxia and hypercapnia, Pneumonia, H/O left bundle branch block Patient Disposition: Admitted As Inpatient Discharge Instructions Interventions: ED Discharge Assessment Last Done: 05/08/20 15:48 Discharge Problem: Pneumonia Qualifiers: Pneumonia type: due to unspecified organism Laterality: bilateral Lung location: unspecified part of lung Qualified Code(s): J18.9 - Pneumonia, unspecified organism
[2020-05-08] MEDS ORDERED: POLYETHYLENE (MIRALAX) 17 GM PACK PO PRN (17:51)
[2020-05-08] MEDS ORDERED: CONSULT PHARMACY PRN (17:53)
[2020-05-08] MEDS: PATIENT'S HEIGHT AND/OR WEIGHT NEEDED SCH ×2 (17:53→22:25)
[2020-05-08] MEDS ORDERED: PIPERACILLIN/TAZOBACTAM 3.375 GM in DEXTROSE 5% 100 ML IV ONE (18:00)
[2020-05-08] MEDS: DICYCLOMINE HCL 10 MG CAP PO SCH ×2 (18:22→20:36)
[2020-05-08] MEDS: ALBUT/IPRATROP 3MG/0.5MG NEB 3 ML VIAL NEB SCH (19:14)
[2020-05-08] MEDS ORDERED: LABETALOL HCL IV 5 MG/ML 20ML IV ONE (19:57)
--- NOTE | 2020-05-08 19:58 | Pharmacy Report ---
Pharmacy Abx Initial Consult - Date of Service May 08, 2020 - Pharmacy Dosing Scope Date of Consult: 05/08/20 Consultation requested by: Dr. Guillermo Pharmacy is consulted to initiate vanc + zosyn IV dosing therapy, order appropriate labs and adjust drug dose/frequency. - Subjective The patient is a 89 year old F admitted on 05/08/20 15:19. - Objective Height: 4 ft 10 in Weight: 55.5 kg Vital Signs (Past 12hrs): Vital Signs Temp Pulse Pulse Resp BP BP Pulse Ox 05/08/20 19:43 36.7 C 90 23 189/93 H 92 05/08/20 19:14 87 87 30 H 93 05/08/20 18:41 36.8 C 20 161/79 H 94 05/08/20 16:11 79 30 H 93 05/08/20 15:30 68 20 166/79 H 95 05/08/20 15:00 68 20 148/72 H 100 05/08/20 14:45 69 20 100 05/08/20 14:30 69 18 156/70 H 100 05/08/20 14:15 77 19 05/08/20 14:00 70 20 146/69 H 99 05/08/20 13:45 69 20 100 05/08/20 13:30 69 20 157/75 H 99 05/08/20 13:15 68 18 100 05/08/20 13:04 69 26 H 100 05/08/20 13:00 71 18 153/75 H 100 05/08/20 12:45 74 26 H 99 05/08/20 12:37 77 22 154/72 H 100 05/08/20 12:36 68 18 97 05/08/20 12:15 69 26 H 141/66 H 100 05/08/20 12:00 69 26 H 140/63 100 05/08/20 11:45 70 30 H 100 05/08/20 11:30 69 27 H 142/68 H 100 05/08/20 11:15 71 24 98 05/08/20 11:00 67 23 147/67 H 98 05/08/20 10:45 69 26 H 100 05/08/20 10:30 71 26 H 123/65 100 05/08/20 10:15 72 27 H 100 05/08/20 10:00 72 26 H 150/70 H 100 05/08/20 09:45 73 26 H 99 05/08/20 09:30 74 26 H 157/76 H 99 05/08/20 09:15 75 26 H 98 05/08/20 09:00 81 24 162/82 H 99 05/08/20 08:45 80 24 97 05/08/20 08:35 81 24 172/97 H 95 05/08/20 08:32 82 36 H 94 05/08/20 08:30 83 24 91 05/08/20 08:27 83 26 H 05/08/20 08:21 36.4 C L 82 36 H 172/97 H 94 Lab Results (24hrs): Laboratory Tests (24 Hours) 05/08/20 05/08/20 05/08/20 08:35 08:35 08:35 WBC 10.94 H Neut # (Auto) 9.72 H Creatinine 0.67 Est Cr Clr Drug Dosing Not Reportable Procalcitonin 0.16 Micro Results: 05/08/20 08:48 Aerobic Blood Culture - Pending Blood Anaerobic Blood Culture - Pending 05/08/20 08:35 Aerobic Blood Culture - Pending Blood Anaerobic Blood Culture - Pending - Risk Factors for Resistance * Hospitalization for 48 hours or more within the past 90 days * Antimicrobial use within the last 90 days - Assessment & Plan Assessment * 89 year old F admitted to [facility] this evening for hypoxemia * Pertinent PMH includes CKD III, chronic respiratory failure, pulmonary hypertension, and interstitial lung disease * Discharged from [facility] 10 days ago after being treated for hypoxic respiratory failure likely secondary to pneumonia * Started on broad spectrum IV Antibiotics (Vanco and Zosyn) * Blood Cx obtained and pending Plan Vancomycin IV * Estimated PK Parameters: Vd 0.7 L/kg, Vamshi 0.037 hr-1, t1/2 18 hr * Loading dose: 1000 mg (18 mg/kg) * Maintenance dose: 750 mg IV 13.5 mg/kg) every 24 hours * Goal trough level: 15 to 20 mcg/mL * Trough will be ordered appropriately if vancomycin is continued * A less than traditional dose and/or extended dosing interval have been selected due to likelihood of drug accumulation in patient with h/o CKD. Piperacillin/tazobactam * 3.375 g bolus administered over 30 minutes, then 3.375 g IV extended infusion every 8 hours for CrCl greater than 20 mL/min O Pharmacy will continue to follow and will adjust dose/frequency as necessary. Thank you.
[2020-05-08] MEDS: FUROSEMIDE 40 MG in SYRINGE 0 ML IV SCH (20:35)
[2020-05-08] MEDS: methylPREDNISolone 40 MG in SYRINGE 0 ML IV SCH (20:35)
[2020-05-08] MEDS: DOCUSATE SODIUM 100 MG CAP PO SCH (20:35)
[2020-05-08] MEDS: METOPROLOL TARTRATE 25 MG TAB PO SCH (20:36)
[2020-05-08] MEDS: ACETAMINOPHEN 325 MG TAB PO PRN (20:37)
[2020-05-08] MEDS: HEPARIN SOD 5,000 UNIT/0.5 ML VIAL SC SCH (20:37)
[2020-05-08] MEDS ORDERED: FUROSEMIDE 40 MG/4 ML VIAL IV SCH (21:00)
[2020-05-08] MEDS ORDERED: HEPARIN SOD (PORCINE) 5,000 UNITS/ML VIAL SC SCH (21:00)
[2020-05-09] MEDS: PIPERACILLIN/TAZOBACTAM 3.375 GM in DEXTROSE 5% 100 ML IV SCH ×4 (00:33→23:51)
[2020-05-09 06:31] LABS: Hematocrit (blood only) 31.4 % (37-47); Immature Granulocytes # (auto) 0.02 K/uL (0.00-0.02); Immature Granulocytes % (auto) 0.3 %; Lymphocytes # (auto) 0.34 K/uL (1.2-3.4); Lymphocytes % (auto) 5.5 %; Mean Corpuscular Hemoglobin 30.7 pg (25-34); Mean Corpuscular Hgb Conc 31.8 g/dL (32-36); Mean Corpuscular Volume 96.3 fL (80-100); Mean Platelet Volume 9.6 fL (7.4-10.4); Monocytes # (auto) 0.23 K/uL (0.11-0.59); Monocytes % (auto) 3.7 %; Neutrophils # (auto) 5.63 K/uL (1.4-6.5); Neutrophils % (auto) 90.5 %; Platelet Count 502 K/uL (130-400); RDW Coefficient of Variation 15.1 % (11.5-14.5); RDW Standard Deviation 53.1 fL (36.4-46.3); Red Blood Count 3.26 M/uL (4.2-5.4); White Blood Count 6.22 K/uL (4.8-10.8)
[2020-05-09] MEDS ORDERED: VANCOMYCIN HCL 750 MG in SODIUM CHLORIDE 0.9% 250 ML IV SCH (07:00)
[2020-05-09 07:05] LABS: BUN Creatinine Ratio 32.4 (10-20); Calcium 9.4 mg/dl (8.5-10.1); Creatinine Clr Calc Pharmacy 35.2 ml/min; Est GFR (Non-African American) 76.8; Magnesium 1.8 mg/dl (1.8-2.4); Potassium 4.3 mmol/L (3.5-5.1)
[2020-05-09] MEDS: ALBUT/IPRATROP 3MG/0.5MG NEB 3 ML VIAL NEB SCH ×4 (07:05→19:18)
[2020-05-09] MEDS: HEPARIN SOD 5,000 UNIT/0.5 ML VIAL SC SCH ×2 (08:17→20:22)
[2020-05-09] MEDS: FUROSEMIDE 40 MG in SYRINGE 0 ML IV SCH ×2 (08:17→20:23)
[2020-05-09] MEDS: methylPREDNISolone 40 MG in SYRINGE 0 ML IV SCH ×2 (08:17→20:23)
[2020-05-09] MEDS: METOPROLOL TARTRATE 25 MG TAB PO SCH ×2 (08:17→20:22)
[2020-05-09] MEDS: DOCUSATE SODIUM 100 MG CAP PO SCH ×2 (08:18→20:21)
[2020-05-09] MEDS: DONEPEZIL HCL 10 MG TAB PO SCH (08:18)
[2020-05-09] MEDS: DICYCLOMINE HCL 10 MG CAP PO SCH ×4 (08:18→20:21)
[2020-05-09] MEDS: AMIODARONE 200 MG TAB PO SCH (08:18)
[2020-05-09] MEDS: PANTOprazole 40 MG TAB PO SCH (08:18)
--- NOTE | 2020-05-09 08:50 | Pulmonology Progress Note ---
Date of Service May 09, 2020 Assessment & Plan (1) Acute on chronic respiratory failure with hypoxia and hypercapnia: Impression: 89-year-old female admitted with progressive hypoxemic and h ypercarbic respiratory failure with progressive pulmonary infiltrates and bilateral pleural effusions. She has an abnormal CT scan of unclear significance, however I suspect is multifactorial due to combinations of fluid overload as well as interstitial lung disease. I suspect her CT scan represent interstitial lung disease and given her elevated CRP ESR and anemia, polymyalgia rheumatica associated ILD would be in the differential. Her remaining serological evaluation is negative to date. Given her advanced age and dementia I do not think she is a candidate for aggressive therapies such as surgical lung biopsy or bronchoscopy. Recommendations: 1. ILD: The patient has been placed empirically on steroids (Solu-Medrol 40 mg daily) which seems reasonable at this point in time although there are significant risks associated with steroids. Again I think the patient is too frail and fragile to tolerate invasive procedures such as bronchoscopy or surgical lung biopsy. Unfortunately, we are likely left with proceeding on trials of empiric therapy in the hopes that the patient improves. Given her advanced age and hypoxemic and hypercarbic respiratory failure, it may not be unreasonable to engage palliative care to discuss with the patient and her family what additional options for care may be available for her. Will defer to the primary service. 2. Continue oxygen titrated to keep saturations at or above 88%. 3. Given her hypercarbic respiratory failure, we could consider the application of nocturnal noninvasive positive pressure ventilation however in this 89-year-old patient with underlying dementia who already has insomnia issues, I am unclear if this would offer her a clinical benefit. 4. Could consider outpatient pulmonary function testing in this patient when she recovers however again given her advanced age and dementia with limitations on care, a conservative approach may be much more reasonable. 5. Defer work-up of her remaining symptoms to the admitting hospitalist service. (2) Pneumonia: Laterality: bilateral Lung location: unspecified part of lung Pneumonia type: due to unspecified organism Qualified Code(s): J18.9 - Pneumonia, unspecified organism (3) Idiopathic interstitial pneumonia: (4) Hypoxemia: (5) Abnormal CT scan of lung: Admission and Anticipated Discharge Date Admission Date: May 08, 2020 Subjective Patient seen and examined. Discussed with bedside nurse. She states her breathing is better. She is coughing less. No wheezing. She is weaned down significantly with regards to her oxygen requirement overnight. She is tolerating a diet. She states that in general she feels quite poorly. She is fatigued and states that she had issues with insomnia last night and was unable to sleep. She has a variety of other constitutional symptoms. Review of Systems Review of Systems: All systems reviewed & are unremarkable except as noted in HPI & below Physical Exam Constitutional: Chronically ill and frail appearing female no apparent distress. BiPAP mask is in place. She is mildly tachypneic. Eyes: PERRL, conjunctivae normal, anicteric sclerae ENMT: external ear and nose normal, oropharynx normal Neck: trachea midline, no thyromegaly Respiratory: Diffuse upper lobe crackles. Diminished in the bases. Tachypneic. Cardiovascular: Mild systolic flow murmur noted. No significant edema. Gastrointestinal (Abdomen): normal bowel sounds, soft, nontender, no hepatosplenomegaly Musculoskeletal: no cyanosis or clubbing, extremities motor strength 5/5 Skin: no rashes, warm and dry Neurologic: PERRL, EOMI, accommodation nl, no face palsy, no dysarthria Psychiatric: A+Ox3, euthymic affect Results & Data Results & Data ([facility]) Vital Signs (Past 12 Hours) Vital Signs Temp Pulse Pulse Resp BP Pulse Ox 05/09/20 07:26 36.7 C 91 H 19 160/75 H 91 05/09/20 07:05 86 30 H 90 05/09/20 03:35 85 24 98 05/09/20 03:05 36.5 C 120 H 18 130/81 96 05/09/20 00:00 74 05/08/20 23:33 76 24 92 05/08/20 23:01 36.8 C 86 18 166/84 H 96 05/08/20 22:38 169/85 H Laboratory Results 05/09/20 05:57 05/09/20 05:57 Diagnostic Findings Images were independently reviewed and compared to prior studies PG Care Time/CCT Total # of Minutes Spent Total Time Spent with Patient: Total time spent is greater than 50% in coordination of care (as documented) at patient's floor/unit and/or counseling patient: Coding Level of Care Code 12862 Subseq Hosp Care Lvl 3 Diagnoses Acute on chronic respiratory failure with hypoxia and hypercapnia J96.21; J96.22 Pneumonia J18.9 Laterality: bilateral Lung location: unspecified part of lung Pneumonia type: due to unspecified organism Idiopathic interstitial pneumonia J84.[address] scan of lung R91.8
--- NOTE | 2020-05-09 09:22 | Hospitalist Progress Note ---
Date of Service May 09, 2020 Assessment & Plan (1) Hypoxemia: Healthcare associated pneumonia, interstitial lung disease B/L pleural effusions--Volume overload status Acute on chronic respiratory failure with Hypoxia/Hypercapnia On chronic Oxygen 3L at bedtime H/O pulmonary Hypertension --CTA: No evidence for pulmonary embolus. Interval progression of the moderate bilateral pleural effusions. Interval progression of the scattered airspace opacities and interstitial thickening within the lungs as described above. This likely represents a pneumonia. Superimposed pulmonary edema cannot be excluded. Mild emphysema. -Lactate, procalcitonin levels -Start broad spectrum IV Antibiotics (Vanco and Zosyn) Oxygen support with high flow and BiPAP as needed, Duonebs Blood cultures obtained Aspiration precautions Appreciate Pulmonology Input - Started on IV Lasix, IV Solu-Medrol May need 2 step prior to DC Will consult palliative care to address goals of care Avoid sedatives meds given respiratory start Hyponatremia Hypochloremia Noted chronically as well Volume overload could be contributing as well Acute on chronic systolic/Diastolic CHF exacerbation Last ECHO: EF: 45-50%, grade 1 diastolic dysfunction Start IV Lasix 40mg Update ECHO Daily weight, I/Os, fluid restriction Oxygen support PRN Monitor renal function/electrolytes Consider Cardiology eval if needed CKD stage III Renal function baseline Monitor Avoid nephrotoxic agents as able Dementia Stable Held benzodiazepines secondary to respiratory status P.Afib on Amiodarone, Metoprolol Not on any anticoagulation GERD: Continue PPI DVT Px: Heparin SQ Code Status : DNI/DNR as per discussion with patient/Patient's daughter-POA Disposition : To be determined Admission and Anticipated Discharge Date Admission Date: May 08, 2020 Subjective Patient is sitting up in a chair, in no acute distress, currently on high flow nasal cannula. Complains of mild dyspnea and insomnia. No fevers or chills or chest pain or abdominal pain. Review of Systems Review of Systems: All systems reviewed & are unremarkable except as noted in HPI & below Constitutional: no fever and no chills Respiratory: + cough and + dyspnea Cardiovascular: no chest pain and no palpitations Gastrointestinal: no abdominal pain, no nausea and no vomiting Physical Exam Physical Exam: General Appearance: Chronically appearing, frail, elderly, no apparent distress, on HF NC Head: normocephalic, Atraumatic Eyes: normal inspection, EOMI Neck: supple, Trachea midline Respiratory/Chest: Decreased breath sounds, B/L crackles, No accessory muscle use Cardiovascular: S1, S2, + murmur, tachycardia Abdomen/GI:Soft, Non tender, Bowel sounds present Extremities/MSKl:normal inspection, no edema Neurologic/Psych:grossly no focal neurological deficits, +Dementia Skin: normal color, warm Results & Data Results & Data ([facility]) Vital Signs (Past 12 Hours) Vital Signs Temp Pulse Pulse Resp BP Pulse Ox 05/09/20 07:26 36.7 C 91 H 19 160/75 H 91 05/09/20 07:05 86 30 H 90 05/09/20 03:35 85 24 98 05/09/20 03:05 36.5 C 120 H 18 130/81 96 05/09/20 00:00 74 05/08/20 23:33 76 24 92 05/08/20 23:01 36.8 C 86 18 166/84 H 96 05/08/20 22:38 169/85 H Laboratory Results 05/09/20 05/09/20 05/08/20 Range/Units 05:57 05:57 Unknown WBC 6.22 (4.8-10.8) K/uL RBC 3.26 L (4.2-5.4) M/uL Hgb 10.0 L (12.0-16.0) g/dL Hct 31.4 L (37-47) % MCV 96.3 (80-100) fL MCH 30.7 (25-34) pg MCHC 31.8 L (32-36) g/dL RDW Std Deviation 53.1 H (36.4-46.3) fL RDW Coeff of [place] 15.1 H (11.5-14.5) % Plt Count 502 H (130-400) K/uL MPV 9.6 (7.4-10.4) fL Immature Gran % (Auto) 0.3 % Neut % (Auto) 90.5 % Lymph % (Auto) 5.5 % [place] % (Auto) 3.7 % Eos % (Auto) 0.0 % Baso % (Auto) 0.0 % Neut # (Auto) 5.63 (1.4-6.5) K/uL Lymph # (Auto) 0.34 L (1.2-3.4) K/uL [place] # (Auto) 0.23 (0.11-0.59) K/uL Eos # (Auto) 0.00 (0-0.5) K/uL Baso # (Auto) 0.00 (0-0.2) K/uL Immature Gran # (Auto) 0.02 (0.00-0.02) K/uL PT (9.0-12.0) Seconds INR (0.9-1.1) APTT (21.0-31.0) Seconds PTT Ratio VBG pH (7.36-7.41) VBG pCO2 (38-50) mmHg VBG pO2 mmHg VBG HCO3 mmol/L VBG O2 Saturation % VBG Base Excess mEq/L Barometric Pressure mm/Hg Sodium 135 L (136-145) mmol/L Potassium 4.3 (3.5-5.1) mmol/L Chloride 92 L (98-107) mmol/L Carbon Dioxide 38 H (21-32) mmol/L Anion Gap 5.0 (3-11) BUN 23 H (7-18) mg/dl Creatinine 0.70 (0.6-1.2) mg/dl Est Cr Clr Drug Dosing 35.2 Est GFR ( Amer) 89.0 Est GFR (Non-Af Amer) 76.8 BUN/Creatinine Ratio 32.4 H (10-20) Glucose 124 H (70-99) mg/dl Lactate (0.4-2.0) mmol/L Calcium 9.4 (8.5-10.1) mg/dl Phosphorus (2.5-4.9) mg/dl Magnesium 1.8 (1.8-2.4) mg/dl Total Bilirubin (0.2-1) mg/dl Direct Bilirubin (0-0.2) mg/dl AST (15-37) U/L ALT (12-78) U/L Alkaline Phosphatase (45-117) U/L Troponin I (0-0.045) ng/ml NT-Pro-B Natriuret Pep (0-1800) pg/ml Total Protein (6.4-8.2) gm/dl Albumin (3.4-5.0) gm/dl Globulin (2.5-4.0) gm/dl Albumin/Globulin Ratio (0.9-2) Lipase (73-393) U/L Procalcitonin (0-0.5) ng/ml Urine Color Urine Appearance (Clear) Urine pH (4.5-7.5) Ur Specific [place] (1.000-1.030) Urine Protein (Negative) Urine Glucose (UA) (Negative) Urine Ketones (Negative) Urine Blood (Negative) Urine Nitrite (Negative) Urine Bilirubin (Negative) Urine Urobilinogen (Negative) Ur Leukocyte Esterase (Negative) Urine WBC (Auto) (0-5) /hpf Urine RBC (Auto) (0-4) /hpf U Hyaline Cast (Auto) (0-5) /lpf U Epithel Cells (Auto) (0-5) /lpf Urine Bacteria (Auto) (Negative) Nasal Screen MRSA (PCR) Negative (Negative) COVID-19 PCR (Negative) 05/08/20 05/08/20 05/08/20 Range/Units 12:54 09:28 08:50 WBC (4.8-10.8) K/uL RBC (4.2-5.4) M/uL Hgb (12.0-16.0) g/dL Hct (37-47) % MCV (80-100) fL MCH (25-34) pg MCHC (32-36) g/dL RDW Std Deviation (36.4-46.3) fL RDW Coeff of [place] (11.5-14.5) % Plt Count (130-400) K/uL MPV (7.4-10.4) fL Immature Gran % (Auto) % Neut % (Auto) % Lymph % (Auto) % [place] % (Auto) % Eos % (Auto) % Baso % (Auto) % Neut # (Auto) (1.4-6.5) K/uL Lymph # (Auto) (1.2-3.4) K/uL [place] # (Auto) (0.11-0.59) K/uL Eos # (Auto) (0-0.5) K/uL Baso # (Auto) (0-0.2) K/uL Immature Gran # (Auto) (0.00-0.02) K/uL PT (9.0-12.0) Seconds INR (0.9-1.1) APTT (21.0-31.0) Seconds PTT Ratio VBG pH 7.37 (7.36-7.41) VBG pCO2 72 H (38-50) mmHg VBG pO2 40 mmHg VBG HCO3 41 mmol/L VBG O2 Saturation 67.7 % VBG Base Excess 13.1 mEq/L Barometric Pressure 731.4 mm/Hg Sodium (136-145) mmol/L Potassium (3.5-5.1) mmol/L Chloride (98-107) mmol/L Carbon Dioxide (21-32) mmol/L Anion Gap (3-11) BUN (7-18) mg/dl Creatinine (0.6-1.2) mg/dl Est Cr Clr Drug Dosing Est GFR ( Amer) Est GFR (Non-Af Amer) BUN/Creatinine Ratio (10-20) Glucose (70-99) mg/dl Lactate 1.2 (0.4-2.0) mmol/L Calcium (8.5-10.1) mg/dl Phosphorus (2.5-4.9) mg/dl Magnesium (1.8-2.4) mg/dl Total Bilirubin (0.2-1) mg/dl Direct Bilirubin (0-0.2) mg/dl AST (15-37) U/L ALT (12-78) U/L Alkaline Phosphatase (45-117) U/L Troponin I (0-0.045) ng/ml NT-Pro-B Natriuret Pep (0-1800) pg/ml Total Protein (6.4-8.2) gm/dl Albumin (3.4-5.0) gm/dl Globulin (2.5-4.0) gm/dl Albumin/Globulin Ratio (0.9-2) Lipase (73-393) U/L Procalcitonin (0-0.5) ng/ml Urine Color Dark Yellow Urine Appearance Clear (Clear) Urine pH 6.0 (4.5-7.5) Ur Specific [place] 1.036 H (1.000-1.030) Urine Protein 2+ H (Negative) Urine Glucose (UA) Negative (Negative) Urine Ketones Negative (Negative) Urine Blood Negative (Negative) Urine Nitrite Negative (Negative) Urine Bilirubin Negative (Negative) Urine Urobilinogen Negative (Negative) Ur Leukocyte Esterase Negative (Negative) Urine WBC (Auto) 1-5 (0-5) /hpf Urine RBC (Auto) 0-4 (0-4) /hpf U Hyaline Cast (Auto) 5-10 H (0-5) /lpf U Epithel Cells (Auto) >30 H (0-5) /lpf Urine Bacteria (Auto) Negative (Negative) Nasal Screen MRSA (PCR) (Negative) COVID-19 PCR (Negative) 05/08/20 05/08/20 05/08/20 Range/Units 08:47 08:35 08:35 WBC (4.8-10.8) K/uL RBC (4.2-5.4) M/uL Hgb (12.0-16.0) g/dL Hct (37-47) % MCV (80-100) fL MCH (25-34) pg MCHC (32-36) g/dL RDW Std Deviation (36.4-46.3) fL RDW Coeff of [place] (11.5-14.5) % Plt Count (130-400) K/uL MPV (7.4-10.4) fL Immature Gran % (Auto) % Neut % (Auto) % Lymph % (Auto) % [place] % (Auto) % Eos % (Auto) % Baso % (Auto) % Neut # (Auto) (1.4-6.5) K/uL Lymph # (Auto) (1.2-3.4) K/uL [place] # (Auto) (0.11-0.59) K/uL Eos # (Auto) (0-0.5) K/uL Baso # (Auto) (0-0.2) K/uL Immature Gran # (Auto) (0.00-0.02) K/uL PT 10.6 (9.0-12.0) Seconds INR 1.0 (0.9-1.1) APTT 28.5 (21.0-31.0) Seconds PTT Ratio 1.0 VBG pH (7.36-7.41) VBG pCO2 (38-50) mmHg VBG pO2 mmHg VBG HCO3 mmol/L VBG O2 Saturation % VBG Base Excess mEq/L Barometric Pressure mm/Hg Sodium 131 L (136-145) mmol/L Potassium 4.9 (3.5-5.1) mmol/L Chloride 88 L (98-107) mmol/L Carbon Dioxide 39 H (21-32) mmol/L Anion Gap 4.0 (3-11) BUN 25 H (7-18) mg/dl Creatinine 0.67 (0.6-1.2) mg/dl Est Cr Clr Drug Dosing Not Reportable Est GFR ( Amer) 90.3 Est GFR (Non-Af Amer) 77.9 BUN/Creatinine Ratio 37.8 H (10-20) Glucose 123 H (70-99) mg/dl Lactate (0.4-2.0) mmol/L Calcium 9.7 (8.5-10.1) mg/dl Phosphorus 3.5 (2.5-4.9) mg/dl Magnesium 1.9 (1.8-2.4) mg/dl Total Bilirubin 0.5 (0.2-1) mg/dl Direct Bilirubin 0.2 (0-0.2) mg/dl AST 19 (15-37) U/L ALT 20 (12-78) U/L Alkaline Phosphatase 104 (45-117) U/L Troponin I < 0.015 (0-0.045) ng/ml NT-Pro-B Natriuret Pep 3903 H (0-1800) pg/ml Total Protein 7.8 (6.4-8.2) gm/dl Albumin 2.5 L (3.4-5.0) gm/dl Globulin 5.3 H (2.5-4.0) gm/dl Albumin/Globulin Ratio 0.5 L (0.9-2) Lipase 65 L (73-393) U/L Procalcitonin (0-0.5) ng/ml Urine Color Urine Appearance (Clear) Urine pH (4.5-7.5) Ur Specific [place] (1.000-1.030) Urine Protein (Negative) Urine Glucose (UA) (Negative) Urine Ketones (Negative) Urine Blood (Negative) Urine Nitrite (Negative) Urine Bilirubin (Negative) Urine Urobilinogen (Negative) Ur Leukocyte Esterase (Negative) Urine WBC (Auto) (0-5) /hpf Urine RBC (Auto) (0-4) /hpf U Hyaline Cast (Auto) (0-5) /lpf U Epithel Cells (Auto) (0-5) /lpf Urine Bacteria (Auto) (Negative) Nasal Screen MRSA (PCR) (Negative) COVID-19 PCR NEGATIVE (Negative) 05/08/20 Range/Units 08:35 WBC (4.8-10.8) K/uL RBC (4.2-5.4) M/uL Hgb (12.0-16.0) g/dL Hct (37-47) % MCV (80-100) fL MCH (25-34) pg MCHC (32-36) g/dL RDW Std Deviation (36.4-46.3) fL RDW Coeff of [place] (11.5-14.5) % Plt Count (130-400) K/uL MPV (7.4-10.4) fL Immature Gran % (Auto) % Neut % (Auto) % Lymph % (Auto) % [place] % (Auto) % Eos % (Auto) % Baso % (Auto) % Neut # (Auto) (1.4-6.5) K/uL Lymph # (Auto) (1.2-3.4) K/uL [place] # (Auto) (0.11-0.59) K/uL Eos # (Auto) (0-0.5) K/uL Baso # (Auto) (0-0.2) K/uL Immature Gran # (Auto) (0.00-0.02) K/uL PT (9.0-12.0) Seconds INR (0.9-1.1) APTT (21.0-31.0) Seconds PTT Ratio VBG pH (7.36-7.41) VBG pCO2 (38-50) mmHg VBG pO2 mmHg VBG HCO3 mmol/L VBG O2 Saturation % VBG Base Excess mEq/L Barometric Pressure mm/Hg Sodium (136-145) mmol/L Potassium (3.5-5.1) mmol/L Chloride (98-107) mmol/L Carbon Dioxide (21-32) mmol/L Anion Gap (3-11) BUN (7-18) mg/dl Creatinine (0.6-1.2) mg/dl Est Cr Clr Drug Dosing Est GFR ( Amer) Est GFR (Non-Af Amer) BUN/Creatinine Ratio (10-20) Glucose (70-99) mg/dl Lactate (0.4-2.0) mmol/L Calcium (8.5-10.1) mg/dl Phosphorus (2.5-4.9) mg/dl Magnesium (1.8-2.4) mg/dl Total Bilirubin (0.2-1) mg/dl Direct Bilirubin (0-0.2) mg/dl AST (15-37) U/L ALT (12-78) U/L Alkaline Phosphatase (45-117) U/L Troponin I (0-0.045) ng/ml NT-Pro-B Natriuret Pep (0-1800) pg/ml Total Protein (6.4-8.2) gm/dl Albumin (3.4-5.0) gm/dl Globulin (2.5-4.0) gm/dl Albumin/Globulin Ratio (0.9-2) Lipase (73-393) U/L Procalcitonin 0.16 (0-0.5) ng/ml Urine Color Urine Appearance (Clear) Urine pH (4.5-7.5) Ur Specific [place] (1.000-1.030) Urine Protein (Negative) Urine Glucose (UA) (Negative) Urine Ketones (Negative) Urine Blood (Negative) Urine Nitrite (Negative) Urine Bilirubin (Negative) Urine Urobilinogen (Negative) Ur Leukocyte Esterase (Negative) Urine WBC (Auto) (0-5) /hpf Urine RBC (Auto) (0-4) /hpf U Hyaline Cast (Auto) (0-5) /lpf U Epithel Cells (Auto) (0-5) /lpf Urine Bacteria (Auto) (Negative) Nasal Screen MRSA (PCR) (Negative) COVID-19 PCR (Negative) Medications Administered Current Inpatient Medications Acetaminophen (Tylenol) 650 mg PO Q4H PRN PRN Reason: Pain or Fever Stop: 06/07/20 17:50 Last Admin: 05/08/20 20:37 Dose: 650 mg Documented by: Albuterol (Duoneb) 3 ml NEB QIDR [facility] Stop: 06/07/20 18:59 Last Admin: 05/09/20 07:05 Dose: 3 ml Documented by: Amiodarone HCl (Cordarone) 200 mg PO QAM [facility] Stop: 06/08/20 08:59 Last Admin: 05/09/20 08:18 Dose: 200 mg Documented by: Dicyclomine HCl (Bentyl) 10 mg PO QID [facility] Stop: 06/07/20 17:50 Last Admin: 05/09/20 08:18 Dose: 10 mg Documented by: Docusate Sodium (Colace) 100 mg PO BID [facility] Stop: 06/07/20 20:59 Last Admin: 05/09/20 08:18 Dose: 100 mg Documented by: Donepezil HCl (Aricept) 10 mg PO QAM [facility] Stop: 06/08/20 08:59 Last Admin: 05/09/20 08:18 Dose: 10 mg Documented by: Heparin Sodium (Porcine) (Heparin Sodium (Porcine)) 5,000 units SC BID [facility] Stop: 06/07/20 20:59 Last Admin: 05/09/20 08:17 Dose: 5,000 units Documented by: Methylprednisolone 40 mg/ (Syringe) 0.64 mls @ 1.5 mls/min IV BID [facility] Stop: 06/07/20 20:59 Last Admin: 05/09/20 08:17 Dose: 1.5 mls/min Documented by: Furosemide 40 mg/ Syringe 4 mls @ 4 mls/min IV BID [facility] Stop: 06/07/20 20:59 Last Admin: 05/09/20 08:17 Dose: 4 mls/min Documented by: Piperacillin Sod/Tazobactam (Sod 3.375 gm/ Dextrose) 115 mls @ 28.75 mls/hr IV Q8H [facility]; Protocol Stop: 05/16/20 00:00 Last Admin: 05/09/20 08:16 Dose: 28.8 mls/hr Documented by: Vancomycin HCl 750 mg/ Sodium (Chloride) 265 mls @ 125 mls/hr IV Q24H [facility] Stop: 05/16/20 06:59 Last Admin: 05/09/20 08:16 Dose: 125 mls/hr Documented by: Ioversol (Optiray 320 125ml) 118 ml IV ONCE PRN PRN Reason: Interaction Checking Stop: 05/12/20 10:23 Last Admin: 05/08/20 10:24 Dose: 118 ml Documented by: Lisinopril (Zestril) 2.5 mg PO QAM [facility] Stop: 06/08/20 08:59 Last Admin: 05/09/20 08:18 Dose: 2.5 mg Documented by: Metoprolol Tartrate (Lopressor) 25 mg PO BID [facility] Stop: 06/07/20 20:59 Last Admin: 05/09/20 08:17 Dose: 25 mg Documented by: Miscellaneous Information (Consult) 1 ea N/A UD PRN PRN Reason: Consult Stop: 06/07/20 10:18 Miscellaneous Information (Pharmacy Consult) 1 ea N/A UD PRN PRN Reason: Consult Stop: 06/07/20 17:52 Pantoprazole Sodium (Protonix) 40 mg PO DAILY [facility] Stop: 06/08/20 08:59 Last Admin: 05/09/20 08:18 Dose: 40 mg Documented by: Polyethylene Glycol (Miralax Powder Packet) 17 gm PO DAILY PRN PRN Reason: Constipation Stop: 06/07/20 17:50
[2020-05-09] MEDS: ACETAMINOPHEN 325 MG TAB PO PRN ×2 (09:49→18:41)
--- NOTE | 2020-05-09 11:30 | XCELERA ---
[id number]
--- NOTE | 2020-05-09 15:08 | Electrocardiogram Report ---
Test Reason : Blood Pressure : / mmHG Vent. Rate : 098 BPM Atrial Rate : 098 BPM P-R Int : 138 ms QRS Dur : 122 ms QT Int : 412 ms P-R-T Axes : 004 -08 090 degrees QTc Int : 525 ms Sinus rhythm with Premature atrial complexes Non-specific intra-ventricular conduction delay Minimal voltage criteria for LVH, may be normal variant Abnormal ECG When compared with ECG of 08-MAY-2020 09:02, QRS axis Shifted right ST now depressed in Anterior leads Nonspecific T wave abnormality now evident in Inferior leads Confirmed by Eric Cates ([id number]) on 05/09/2020 3:07:45 PM Referred By: [facility] Confirmed By:Eric Cates
[2020-05-09] MEDS ORDERED: LORazepam 0.5 MG TAB PO STA ×2 (19:51→23:42)
[2020-05-09] MEDS: MELATONIN 3 MG TAB PO SCH (20:24)
[2020-05-10 06:31] LABS: Hematocrit (blood only) 29.5 % (37-47); Hemoglobin 9.3 g/dL (12.0-16.0); Mean Corpuscular Hemoglobin 30.3 pg (25-34); Mean Corpuscular Hgb Conc 31.5 g/dL (32-36); Mean Corpuscular Volume 96.1 fL (80-100); Mean Platelet Volume 9.6 fL (7.4-10.4); Platelet Count 536 K/uL (130-400); RDW Coefficient of Variation 15.3 % (11.5-14.5); RDW Standard Deviation 53.1 fL (36.4-46.3); Red Blood Count 3.07 M/uL (4.2-5.4); White Blood Count 9.04 K/uL (4.8-10.8)
[2020-05-10 07:02] LABS: BUN Creatinine Ratio 30.4 (10-20); Calcium 8.6 mg/dl (8.5-10.1); Creatinine Clr Calc Pharmacy 22.8 ml/min; Est GFR (African American) 52.7; Est GFR (Non-African American) 45.5; Magnesium 1.8 mg/dl (1.8-2.4)
[2020-05-10 07:07] LABS: Phosphorus 4.3 mg/dl (2.5-4.9)
[2020-05-10] MEDS: ALBUT/IPRATROP 3MG/0.5MG NEB 3 ML VIAL NEB SCH ×4 (07:09→19:17)
[2020-05-10] MEDS ORDERED: VANCOMYCIN HCL 1,250 MG in SODIUM CHLORIDE 0.9% 250 ML IV ONE (07:30)
[2020-05-10] MEDS: METOPROLOL TARTRATE 25 MG TAB PO SCH ×2 (07:49→19:58)
[2020-05-10] MEDS: HEPARIN SOD 5,000 UNIT/0.5 ML VIAL SC SCH ×2 (07:49→21:34)
[2020-05-10] MEDS: AMIODARONE 200 MG TAB PO SCH (07:49)
[2020-05-10] MEDS: DONEPEZIL HCL 10 MG TAB PO SCH (07:49)
[2020-05-10] MEDS: DICYCLOMINE HCL 10 MG CAP PO SCH ×4 (07:50→19:58)
[2020-05-10] MEDS: FUROSEMIDE 40 MG in SYRINGE 0 ML IV SCH (07:50)
[2020-05-10] MEDS: PANTOprazole 40 MG TAB PO SCH (07:50)
[2020-05-10] MEDS: DOCUSATE SODIUM 100 MG CAP PO SCH ×2 (07:51→19:59)
[2020-05-10] MEDS: methylPREDNISolone 40 MG in SYRINGE 0 ML IV SCH ×2 (07:51→19:59)
[2020-05-10] MEDS: PIPERACILLIN/TAZOBACTAM 3.375 GM in DEXTROSE 5% 100 ML IV SCH ×2 (07:58→16:00)
[2020-05-10] MEDS: ACETAMINOPHEN 325 MG TAB PO PRN ×2 (07:58→12:02)
--- NOTE | 2020-05-10 08:21 | Hospitalist Progress Note ---
Date of Service May 10, 2020 Assessment & Plan (1) Hypoxemia: Healthcare associated pneumonia, interstitial lung disease B/L pleural effusions--Volume overload status (received 1L of NS in ED) Acute on chronic respiratory failure with Hypoxia/Hypercapnia On chronic Oxygen 2-3L during the day and at bedtime H/O pulmonary Hypertension --CTA: No evidence for pulmonary embolus. Interval progression of the moderate bilateral pleural effusions. Interval progression of the scattered airspace opacities and interstitial thickening within the lungs as described above. This likely represents a pneumonia. Superimposed pulmonary edema cannot be excluded. Mild emphysema. -Lactate obtained, procalcitonin elevated -Started broad spectrum IV Antibiotics (Vanco and Zosyn), vancomycin will d/c, mrsa swab negative Oxygen support with high flow and BiPAP as needed, Duonebs Pt on HF NC yesterday and now on NC 4L Blood cultures obtained Aspiration precautions Appreciate Pulmonology Input - Started on IV Lasix, IV Solu-Medrol, will switch to PO lasix and PO prednisone starting tomorrow May need 2 step prior to DC Palliative care consulted to address goals of care Avoid sedatives meds given respiratory dis. Hyponatremia Hypochloremia Noted chronically as well Volume overload could be contributing as well Acute on chronic systolic/Diastolic CHF exacerbation Last ECHO: EF: 45-50%, grade 1 diastolic dysfunction Pt also received IVF in ED Started IV Lasix 40mg on admission Update ECHO Daily weight, I/Os, fluid restriction Oxygen support PRN Monitor renal function/electrolytes Consider Cardiology eval if needed CKD stage III Renal function baseline Monitor Avoid nephrotoxic agents as able Dementia Stable Held benzodiazepines secondary to respiratory status P.Afib on Amiodarone, Metoprolol Not on any anticoagulation GERD: Continue PPI DVT Px: Heparin SQ Code Status : DNI/DNR as per discussion with patient/Patient's daughter-POA Disposition : To be determined Admission and Anticipated Discharge Date Admission Date: May 08, 2020 Subjective Pt is sitting up in chair, in NAD. She is on NC now. Denies fever, chills, chest pain, she is still occasionally short of breath. Complains of insomnia which is chronic. No abd. pain, n/v. Palliative medicine to see her. Review of Systems Review of Systems: All systems reviewed & are unremarkable except as noted in HPI & below Physical Exam 2 Physical Exam: General Appearance: Chronically appearing, frail, elderly, no apparent distress, on NC Head: normocephalic, Atraumatic Eyes: normal inspection, EOMI Neck: supple, Trachea midline Respiratory/Chest: Decreased breath sounds, B/L crackles, No accessory muscle use Cardiovascular: S1, S2, + murmur, tachycardia Abdomen/GI:Soft, Non tender, Bowel sounds present Extremities/MSKl:normal inspection, no edema Neurologic/Psych:grossly no focal neurological deficits, +Dementia Skin: normal color, warm Results & Data Results & Data ([facility]) Vital Signs (Past 12 Hours) Vital Signs Temp Pulse Pulse Resp BP BP Pulse Ox 05/10/20 07:16 36.8 C 73 18 118/64 98 05/10/20 07:10 73 20 97 05/10/20 04:39 36.9 C 74 22 136/67 98 05/09/20 23:59 72 05/09/20 23:31 37.2 C 75 22 152/65 H 91 Laboratory Results 05/10/20 05/10/20 05/10/20 Range/Units 05:41 05:41 05:41 WBC 9.04 (4.8-10.8) K/uL RBC 3.07 L (4.2-5.4) M/uL Hgb 9.3 L (12.0-16.0) g/dL Hct 29.5 L (37-47) % MCV 96.1 (80-100) fL MCH 30.3 (25-34) pg MCHC 31.5 L (32-36) g/dL RDW Std Deviation 53.1 H (36.4-46.3) fL RDW Coeff of [place] 15.3 H (11.5-14.5) % Plt Count 536 H (130-400) K/uL MPV 9.6 (7.4-10.4) fL Sodium 134 L (136-145) mmol/L Potassium 4.0 (3.5-5.1) mmol/L Chloride 89 L (98-107) mmol/L Carbon Dioxide 40 H (21-32) mmol/L Anion Gap 5.0 (3-11) BUN 33 H (7-18) mg/dl Creatinine 1.08 (0.6-1.2) mg/dl Est Cr Clr Drug Dosing 22.8 ml/min Est GFR ( Amer) 52.7 Est GFR (Non-Af Amer) 45.5 BUN/Creatinine Ratio 30.4 H (10-20) Glucose 119 H (70-99) mg/dl Calcium 8.6 (8.5-10.1) mg/dl Phosphorus 4.3 (2.5-4.9) mg/dl Magnesium 1.8 (1.8-2.4) mg/dl Random Vancomycin 9.9 mcg/ml Medications Administered Current Inpatient Medications Acetaminophen (Tylenol) 650 mg PO Q4H PRN PRN Reason: Pain or Fever Stop: 06/07/20 17:50 Last Admin: 05/10/20 07:58 Dose: 650 mg Documented by: Albuterol (Duoneb) 3 ml NEB QIDR [facility] Stop: 06/07/20 18:59 Last Admin: 05/10/20 07:09 Dose: 3 ml Documented by: Amiodarone HCl (Cordarone) 200 mg PO QAM [facility] Stop: 06/08/20 08:59 Last Admin: 05/10/20 07:49 Dose: 200 mg Documented by: Dicyclomine HCl (Bentyl) 10 mg PO QID [facility] Stop: 06/07/20 17:50 Last Admin: 05/10/20 07:50 Dose: 10 mg Documented by: Docusate Sodium (Colace) 100 mg PO BID [facility] Stop: 06/07/20 20:59 Last Admin: 05/10/20 07:51 Dose: 100 mg Documented by: Donepezil HCl (Aricept) 10 mg PO QAM [facility] Stop: 06/08/20 08:59 Last Admin: 05/10/20 07:49 Dose: 10 mg Documented by: Heparin Sodium (Porcine) (Heparin Sodium (Porcine)) 5,000 units SC BID [facility] Stop: 06/07/20 20:59 Last Admin: 05/10/20 07:49 Dose: 5,000 units Documented by: Methylprednisolone 40 mg/ (Syringe) 0.64 mls @ 1.5 mls/min IV BID [facility] Stop: 06/07/20 20:59 Last Admin: 05/10/20 07:51 Dose: 1.5 mls/min Documented by: Furosemide 40 mg/ Syringe 4 mls @ 4 mls/min IV BID [facility] Stop: 06/07/20 20:59 Last Admin: 05/10/20 07:50 Dose: 4 mls/min Documented by: Piperacillin Sod/Tazobactam (Sod 3.375 gm/ Dextrose) 115 mls @ 28.75 mls/hr IV Q8H [facility]; Protocol Stop: 05/16/20 00:00 Last Admin: 05/10/20 07:58 Dose: 28.8 mls/hr Documented by: Vancomycin HCl 1,250 mg/ (Sodium Chloride) 275 mls @ 125 mls/hr IV NOW ONE Stop: 05/10/20 09:41 Last Admin: 05/10/20 07:49 Dose: 125 mls/hr Documented by: Ioversol (Optiray 320 125ml) 118 ml IV ONCE PRN PRN Reason: Interaction Checking Stop: 05/12/20 10:23 Last Admin: 05/08/20 10:24 Dose: 118 ml Documented by: Lisinopril (Zestril) 2.5 mg PO QAM [facility] Stop: 06/08/20 08:59 Last Admin: 05/10/20 07:49 Dose: 2.5 mg Documented by: Melatonin (Melatonin) 3 mg PO HS [facility] Stop: 06/08/20 20:59 Last Admin: 05/09/20 20:24 Dose: Not Given Documented by: Metoprolol Tartrate (Lopressor) 25 mg PO BID [facility] Stop: 06/07/20 20:59 Last Admin: 05/10/20 07:49 Dose: 25 mg Documented by: Miscellaneous Information (Consult) 1 ea N/A UD PRN PRN Reason: Consult Stop: 06/07/20 10:18 Miscellaneous Information (Pharmacy Consult) 1 ea N/A UD PRN PRN Reason: Consult Stop: 06/07/20 17:52 Pantoprazole Sodium (Protonix) 40 mg PO DAILY [facility] Stop: 06/08/20 08:59 Last Admin: 05/10/20 07:50 Dose: 40 mg Documented by: Polyethylene Glycol (Miralax Powder Packet) 17 gm PO DAILY PRN PRN Reason: Constipation Stop: 06/07/20 17:50
--- NOTE | 2020-05-10 09:00 | XRay Report ---
SINGLE VIEW CHEST CLINICAL HISTORY: Sepsis. FINDINGS: An AP, portable, upright chest radiograph is compared to chest x-ray and chest CT dated 04/20. The examination is degraded by portable technique and patient rotation. The heart is enlarged noting atherosclerotic calcification of the thoracic aorta. There is mild pulmonary vascular congest ion. Exam is change and chronic interstitial thickening are similar to previous. There are layering p leural effusions with bibasilar consolidation. Patchy airspace consolidation is seen in the upper lob es, right greater than left. No pneumothorax is seen. The skeletal structures are osteopenic. The bon y thorax is grossly intact. The right carotid bulb is densely calcified. IMPRESSION: 1. Cardiomegaly and emphysema with evidence of mild congestive failure. 2. There is asymmetric right upper lobe airspace consolidation, likely representing pneumonia. There may be superimposed interstitial edema and clinical correlation will be required. 3. Layering pleural effusions with bibasilar consolidation. These have modestly increased in size fro m 05/08/2020. ACT 112: Negative or not required by law. Electronically signed by: Tr Shirley M.D. 05/10/2020 8:59 AM
--- NOTE | 2020-05-10 13:40 | Pulmonology Progress Note ---
Date of Service May 10, 2020 Assessment & Plan (1) Acute on chronic respiratory failure with hypoxia and hypercapnia: Multifactorial including interstitial lung disease, hypercapnia, chronic supplemental oxygen use, secondary pulmonary hypertension Patient has been started on IV Solu-Medrol at 40 mg twice daily for interstitial lung disease. We will continue this for salvage therapy. Patient had considerable improvement and is now off of high flow O2 and currently 4 L/min via nasal cannula Continue titrate supplemental O2 for a target SaO2 to be between 88 and 92% Continue treat underlying pneumonia Patient does have dementia but would attempt incentive spirometry and flutter valve (2) Pneumonia: Chest x-ray shows bilateral opacities. Continue with Zosyn (day #3). Received vancomycin and cefepime in the ER. Vancomycin discontinued on day #2 Procalcitonin on admission was 0.16 (positive result) WBC 9.04 Patient continues to be afebrile Blood cultures are negative for growth Urinalysis with hyaline casts and epithelial cells but negative for nitrites and urobilinogen as well as esterase Laterality: bilateral Lung location: unspecified part of lung Pneumonia type: due to unspecified organism Qualified Code(s): J18.9 - Pneumonia, unspecified organism (3) Idiopathic interstitial pneumonia: Continue with IV methylprednisolone at this time patient had improvement since begin administration on 05/08/2020 Patient currently receiving 40 mg IV twice daily Consider changing to prednisone 60 mg daily starting tomorrow Patient may benefit from pulmonary function testing as an outpatient. However, due to advanced age and underlying dementia may be difficult to obtain Continue treat empirically and follow clinically Consider palliative care consult secondary to limited treatment options Poor surgical candidate for lung biopsy or bronchoscopy Thank you for including us in the care of this patient. Please refer to Dr. Aranda's addendum for further recommendations. Admission and Anticipated Discharge Date Admission Date: May 08, 2020 Subjective Attending: Dr. Aranda Patient seen and examined at bedside. She is in bedside chair. She has decreased oxygen requirements from high flow O2 to nasal cannula. She is currently on nasal cannula 4 L/min. She has no respiratory distress. She is able to talk in full sentences without dyspnea. She denies any chest pain or tightness. She has no sputum production. She denies any hemoptysis. She has no acute complaints from a pulmonary perspective at this time. Review of Systems Review of Systems: All systems reviewed & are unremarkable except as noted in HPI & below Physical Exam Physical Exam: GENERAL : No acute distress. In bedside chair EYES: No icterus, gaze conjugate NOSE: No evidence of epistaxis MOUTH: No lesions or candidiasis NECK: Supple LUNGS: CTA B/L, no wheezes, rales or rhonchi. Good inspiratory effort HEART: Regular, rate controlled ABDOMEN: Soft, NT, ND, BS Present EXTREMITIES: No LE edema, pedal pulses intact and equal bilaterally. NEURO: A&OX3 Results & Data Results & Data ([facility]) Vital Signs (Past 12 Hours) Vital Signs Temp Pulse Pulse Resp BP BP Pulse Ox 05/10/20 11:19 69 26 H 88 L 05/10/20 10:05 75 05/10/20 08:00 75 05/10/20 07:16 36.8 C 73 18 118/64 98 05/10/20 07:10 73 20 97 05/10/20 04:39 36.9 C 74 22 136/67 98 Laboratory Results 05/10/20 05:41 05/10/20 05:41 Diagnostic Findings SINGLE VIEW CHEST CLINICAL HISTORY: Sepsis. FINDINGS: An AP, portable, upright chest radiograph is compared to chest x-ray and chest CT dated 05/08/2020. The examination is degraded by portable technique and patient rotation. The heart is enlarged noting atherosclerotic calcification of the thoracic aorta. There is mild pulmonary vascular congestion. Exam is change and chronic interstitial thickening are similar to previous. There are layering pleural effusions with bibasilar consolidation. Patchy airspace consolidation is seen in the upper lobes, right greater than left. No pneumothorax is seen. The skeletal structures are osteopenic. The bony thorax is grossly intact. The right carotid bulb is densely calcified. IMPRESSION: 1. Cardiomegaly and emphysema with evidence of mild congestive failure. 2. There is asymmetric right upper lobe airspace consolidation, likely representing pneumonia. There may be superimposed interstitial edema and clinical correlation will be required. 3. Layering pleural effusions with bibasilar consolidation. These have modestly increased in size from 05/08/2020. Electronically signed by: Tr Shirley M.D. 05/10/2020 8:59 AM PG Care Time/CCT Total # of Minutes Spent Total Time Spent with Patient: Total time spent is greater than 50% in coordination of care (as documented) at patient's floor/unit and/or counseling patient: 30 minutes Coding Level of Care Code 65913 Subseq Hosp Care Lvl 2 Diagnoses Acute on chronic respiratory failure with hypoxia and hypercapnia J96.21; J96.22 Pneumonia J18.9 Laterality: bilateral Lung location: unspecified part of lung Pneumonia type: due to unspecified organism Idiopathic interstitial pneumonia J84.111 Time Spent (min) 30
--- NOTE | 2020-05-10 18:21 | Palliative Care Consultation ---
Date of Consultation May 10, 2020 Assessment & Plan (1) Goals of care, counseling/discussion: Patient well-known to me from [facility]. Patient had been hospitalized [facility] from 04/13 to 04/27 for acute respiratory failure requiring BiPAP and high flow nasal cannula. Patient was sent to [facility] on 04/27 for rehab therapies. Past medical history is significant for A. fib, diastolic CHF, hypertension, interstitial lung disease, CKD stage III, chronic respiratory failure on O2 at home, poor oral intake with weight loss and dementia. Patient seen and examined, patient slept through visit-patient's daughter Maru at bedside. [facility], patient had crackles bilaterally-these improved over several days, she did well on 2 to 3 L of O2. Lungs became clear on exam after several deep breaths using incentive spirometer and her morning inhaler. Patient very weak and frail, did participate in therapies at times, was quickly fatigued, would state repeatedly she feels "tired". On the morning of 05/08 patient was noted to have hypoxia with sats in the high 70s-oxygen turned up to 5 L, no change in her O2 sats. Patient had clear breath sounds on the left, coarse crackles throughout her entire right side-concern regarding possible aspiration. Patient was sent to [facility] the morning of 05/08. Patient did receive a liter of IV fluids in the ER-she had worsening shortness of breath- required BiPAP for several hours and then was weaned to high flow nasal cannula. Patient did require IV Lasix for diuresis. Patient has a history of long standing insomnia-she often reports that she does not sleep despite staff assessments stating otherwise. -Patient's daughter, Maru, is here from [facility], she is the patient's only living child. Patient had been living home alone with 5 hours of care givers a week and a cleaning lady. -Patient was having increased memory loss, not able to remember her medications. -Discussed with daughter at length options for her continued care. Patient is not making much improvement despite IV antibiotics, diuresis as well as aggressive pulmonary toilet. Options included placement with hospice care, patient did not tolerate high intensity inpatient rehab at [facility], if family would wish to take her home with them, case management can help coordinate hospice referral in the [facility]. -Daughter reports most of the family works, daughter is not currently working [id number] care and what they generally provide, family would need to provide her care or employee hired caregivers. -Daughter would like some time to think about the options and speak to the patient when she is more alert and oriented regarding her wishes. We will follow-up. -Will continue to follow and assist family with medical decision making. (2) Acute on chronic respiratory failure with hypoxia and hypercapnia: Improving, patient takes short shallow breaths-oxygenation improves with incentive spirometer Continue O2 and scheduled nebs (3) Idiopathic interstitial pneumonia: Contributing to her respiratory failure (4) Atrial fibrillation with rapid ventricular response: Rate controlled with metoprolol and amiodarone (5) Hypoxemia: Improving, now on O2 at 5 L (6) Diastolic CHF: -Improved after diuresis (7) Dementia: Short-term memory loss, may contribute to med noncompliance (8) Failure to thrive: Poor appetite with poor p.o. intake and weight loss Failure to thrive age range: in adult Qualified Code(s): R62.7 - Adult failure to thrive History of Present Illness Reason for Consultation: Discuss goals of care Requesting Physician: Dr. Guillermo Attending Physician: Benedict Lynn MD History of Present Illness Patient well-known to me from [facility]. Patient had been hospitalized [facility] from 04/13 to 04/27 for acute respiratory failure requiring BiPAP and high flow nasal cannula. Patient was sent to [facility] on 04/27 for rehab therapies. Past medical history is significant for A. fib, diastolic CHF, hypertension, interstitial lung disease, CKD stage III, chronic respiratory failure on O2 at home, poor oral intake with weight loss and dementia. Patient seen and examined, patient slept through visit-patient's daughter Maru at bedside. [facility], patient had crackles bilaterally-these improved over several days, she did well on 2 to 3 L of O2. Lungs became clear on exam after several deep breaths using incentive spirometer and her morning inhaler. Patient very weak and frail, did participate in therapies at times, was quickly fatigued, would state repeatedly she feels "tired". On the morning of 05/08 patient was noted to have hypoxia with sats in the high 70s-oxygen turned up to 5 L, no change in her O2 sats. Patient had clear breath sounds on the left, coarse crackles throughout her entire right side-concern regarding possible aspiration. Patient was sent to [facility] the morning of 05/08. Patient did receive a liter of IV fluids in the ER-she had worsening shortness of breath- required BiPAP for several hours and then was weaned to high flow nasal cannula. Patient did require IV Lasix for diuresis. Patient has a history of long standing insomnia-she often reports that she does not sleep despite staff assessments stating otherwise. -Patient's daughter, Maru, is here from [facility], she is the patient's only living child. Patient had been living home alone with 5 hours of care givers a week and a cleaning lady. -Patient was having increased memory loss, not able to remember her medications. -Discussed with daughter at length options for her continued care. Patient is not making much improvement despite IV antibiotics, diuresis as well as aggressive pulmonary toilet. Options included placement with hospice care, patient did not tolerate high intensity inpatient rehab at [facility], if family would wish to take her home with them, case management can help coordinate hospice referral in the [facility]. -Daughter reports most of the family works, daughter is not currently working [id number] care and what they generally provide, family would need to provide her care or employee hired caregivers. -Daughter would like some time to think about the options and speak to the patient when she is more alert and oriented regarding her wishes. We will follow-up. -Will continue to follow and assist family with medical decision making. Allergies Allergy/AdvReac Type Severity Reaction Status Date / Time Penicillins Allergy Intermediate rash Verified 04/16/20 10:47 strawberry Allergy Intermediate Rash Verified 04/16/20 16:20 latex Allergy Unknown "I don't Verified 04/16/20 10:47 remember" yellow dye Allergy Unknown Unknown Verified 04/16/20 10:47 Home Medications Home Medications Medication Instructions Recorded Confirmed Type donepezil 10 mg tablet 10 mg PO QAM tab 06/12/19 05/08/20 History ondansetron 4 mg disintegrating 4 mg PO Q8H PRN tab 07/21/19 05/08/20 History tablet multivitamin 1 tab PO DAILY 09/23/19 05/08/20 History cholecalciferol (vitamin D3) 1,000 unit PO DAILY 04/13/20 05/08/20 History [Vitamin D3] dicyclomine 10 mg PO QID 04/13/20 05/08/20 History alprazolam 0.25 mg PO BID PRN #30 tab 04/19/20 05/08/20 Rx heparin, porcine (PF) 5,000 unit SUBCUT Q12 #25 ml 04/19/20 05/08/20 Rx amiodarone 200 mg PO QAM 30 Days #30 tab 04/27/20 05/08/20 Rx lisinopril 2.5 mg PO QAM 30 Days #30 tab 04/27/20 05/08/20 Rx metoprolol tartrate 25 mg PO BID 30 Days #60 tab 04/27/20 05/08/20 Rx docusate sodium 100 mg PO BID 05/08/20 05/08/20 History ipratropium-albuterol [Combivent 1 puff INHALATION Q6H PRN 05/08/20 05/08/20 History Respimat] magnesium 200 mg PO DAILY 05/08/20 05/08/20 History pantoprazole [Protonix] 40 mg PO DAILY 05/08/20 05/08/20 History temazepam 15 mg PO HS 05/08/20 05/08/20 History Patient History Medical History Aortic valve sclerosis Cardiomyopathy FOLLOWS WITH DR HAHN Chronic back pain CKD (chronic kidney disease), stage III Dementia Dementia with behavioral disturbance Depression Diastolic CHF Encounter for pre-operative examination Esophageal reflux HTN (hypertension) Idiopathic interstitial pneumonia Left bundle branch block Mitral regurgitation Osteoarthritis Osteoarthritis Pulmonary hypertension Respiratory failure (Inactive 03/19/14) Surgical History History of esophagogastroduodenoscopy (EGD) Family History Father Allergies Other specified forms of hearing loss Mother Allergies Cardiac disorder Daughter Asthma Sister Sinusitis Cancer Bleeding disorder Brother Cancer Sinusitis Social History Smoking Status: Former smoker Tobacco Type: Cigarettes Second Hand Exposure: No; Hx Alcohol Use: No Hx Substance Use: No Preferred Language: Estonian Communication Ability: Effective Exercise Physiology Professor Required: No Beliefs That Will Affect Care: None Current Living Situation: Rehab Current Living Situation Comment: [facility] Feels Safe at Home: Yes Review of Systems Review of Systems: Unobtainable due to reduced consciousness Physical Exam Physical Exam: PE: Patient did not arouse to voice or touch, appears comfortable HEENT: Dry mucous membranes Respirations: Unlabored, sats 100% on O2 at 5 L nasal cannula, coarse breath sounds right greater than left CV: Regular rate Abdomen: Soft, nontender Neuro: Did not arouse to voice or touch Results & Data Vital Signs (Past 12 Hours) Vital Signs Temp Pulse Pulse Resp BP BP Pulse Ox 05/10/20 15:26 98.8 F 75 19 140/61 95 05/10/20 15:15 77 18 98 05/10/20 12:37 98.1 F 75 17 147/70 H 93 05/10/20 11:19 69 26 H 88 L 05/10/20 10:05 75 05/10/20 08:00 75 05/10/20 07:16 98.2 F 73 18 118/64 98 05/10/20 07:10 73 20 97 PG Care Time/CCT Total # of Minutes Spent Total Time Spent with Patient: Total time spent 90 minutes with greater than 50% of the time spent at bedside discussing patient's current condition, prognosis, and discussing treatment options with daughter at bedside. Coding Level of Care Code 15027 Inpt Consult Level 3 Diagnoses Goals of care, counseling/discussion Z71.89 Acute on chronic respiratory failure with hypoxia and hypercapnia J96.21; J96.22 Idiopathic interstitial pneumonia J84.111 Atrial fibrillation with rapid ventricular response I48.91 Hypoxemia R09.02 Diastolic CHF I50.30 Dementia F03.90 Failure to thrive R62.7 Failure to thrive age range: in adult Time Spent (min) 90
[2020-05-10] MEDS ORDERED: FUROSEMIDE 40 MG TAB PO ONE (19:00)
[2020-05-10] MEDS: MELATONIN 3 MG TAB PO SCH (19:58)
[2020-05-11] MEDS: PIPERACILLIN/TAZOBACTAM 3.375 GM in DEXTROSE 5% 100 ML IV SCH ×3 (00:13→21:18)
[2020-05-11 06:59] LABS: Hematocrit (blood only) 30.4 % (37-47); Hemoglobin 9.6 g/dL (12.0-16.0); Mean Corpuscular Hemoglobin 30.6 pg (25-34); Mean Corpuscular Hgb Conc 31.6 g/dL (32-36); Mean Corpuscular Volume 96.8 fL (80-100); Mean Platelet Volume 9.5 fL (7.4-10.4); Platelet Count 510 K/uL (130-400); RDW Coefficient of Variation 15.4 % (11.5-14.5); Red Blood Count 3.14 M/uL (4.2-5.4); White Blood Count 8.83 K/uL (4.8-10.8)
[2020-05-11] MEDS: ALBUT/IPRATROP 3MG/0.5MG NEB 3 ML VIAL NEB SCH ×4 (07:02→19:30)
[2020-05-11 07:36] LABS: BUN Creatinine Ratio 31.3 (10-20); Calcium 8.9 mg/dl (8.5-10.1); Creatinine Clr Calc Pharmacy 18.5 ml/min; Est GFR (Non-African American) 35.4; Magnesium 1.8 mg/dl (1.8-2.4); Potassium 3.8 mmol/L (3.5-5.1)
[2020-05-11 07:37] LABS: Phosphorus 4.4 mg/dl (2.5-4.9)
[2020-05-11] MEDS: DOCUSATE SODIUM 100 MG CAP PO SCH ×2 (08:02→16:25)
[2020-05-11] MEDS: DONEPEZIL HCL 10 MG TAB PO SCH (08:02)
[2020-05-11] MEDS: AMIODARONE 200 MG TAB PO SCH (08:02)
[2020-05-11] MEDS: METOPROLOL TARTRATE 25 MG TAB PO SCH ×2 (08:02→21:26)
[2020-05-11] MEDS: HEPARIN SOD 5,000 UNIT/0.5 ML VIAL SC SCH ×2 (08:02→21:26)
[2020-05-11] MEDS: FUROSEMIDE 40 MG TAB PO SCH ×2 (08:03→16:38)
[2020-05-11] MEDS: DICYCLOMINE HCL 10 MG CAP PO SCH ×4 (08:03→21:18)
[2020-05-11] MEDS: PANTOprazole 40 MG TAB PO SCH (08:03)
[2020-05-11] MEDS: predniSONE 20 MG TAB PO SCH (08:03)
[2020-05-11] MEDS: ACETAMINOPHEN 325 MG TAB PO PRN ×3 (11:53→21:46)
--- NOTE | 2020-05-11 12:23 | Pulmonology Progress Note ---
Date of Service May 11, 2020 Assessment & Plan (1) Acute on chronic respiratory failure with hypoxia and hypercapnia: Multifactorial including interstitial lung disease, hypercapnia, chronic supplemental oxygen use, secondary pulmonary hypertension Patient has shown some improvement with IV Solu-Medrol at 40 mg twice daily for interstitial lung disease. Can continue steroids for salvage therapy. Will change to 60 mg prednisone p.o. tomorrow and decrease in 3 days to 40 mg. Would keep at that level until seen by outpatient pulmonary Patient is now off of high flow O2 and currently 3 L/min via nasal cannula Continue titrate supplemental O2 for a target SaO2 to be between 88 and 92% Continue treat underlying pneumonia for a total of 7 days Continue incentive spirometry and flutter valve as tolerated (2) Pneumonia: Chest x-ray shows bilateral opacities. Continue with Zosyn (day #4). Received vancomycin and cefepime in the ER. Vancomycin discontinued on day #2 Procalcitonin on admission was 0.16 (positive result). I do not think there is any benefit to following procalcitonin levels. WBC 9.04 Patient continues to be afebrile Blood cultures are negative for growth Urinalysis with hyaline casts and epithelial cells but negative for nitrites and urobilinogen as well as esterase Laterality: bilateral Lung location: unspecified part of lung Pneumonia type: due to unspecified organism Qualified Code(s): J18.9 - Pneumonia, unspecified organism (3) Idiopathic interstitial pneumonia: Continue with IV methylprednisolone at this time patient had improvement since begin administration on 05/08/2020 Patient currently receiving 40 mg IV twice daily Consider changing to prednisone 60 mg daily and taper to 40 mg daily and 3 days. Maintaining 40 mg daily until seen in pulmonary clinic. Patient may benefit from pulmonary function testing as an outpatient. However, due to advanced age and underlying dementia may be difficult to obtain Continue to treat empirically and follow clinically Palliative care consult appreciated Poor surgical candidate for lung biopsy or bronchoscopy Thank you for including us in the care of this patient. Please refer to Dr. Aranda's addendum for further recommendations. We will sign off at this time. Please feel free to reconsult as needed. Admission and Anticipated Discharge Date Admission Date: May 08, 2020 Supervising Physician Co-Signing Physician Notes Agree with A/P as noted by PA. Appears better with empiric steroids and diuresis. Recommend tapering steroids by 5 mg a week until off. May consider follow up CXR in 2-4 weeks. Subjective Attending: Dr. Aranda Patient seen in her room. She was just moved from bed side chair back to bed. She did refuse Occupational Therapy this morning secondary to fatigue. She denies any respiratory issues this morning. She has no cough or sputum production. She is at 3 L/min via nasal cannula and oxygenating well without any distress. Review of Systems Review of Systems: All systems reviewed & are unremarkable except as noted in HPI & below Physical Exam Physical Exam: GENERAL : No acute distress EYES: No icterus, gaze conjugate NOSE: No evidence of epistaxis MOUTH: No lesions or candidiasis NECK: Supple LUNGS: CTA B/L, no wheezes, rales or rhonchi HEART: Regular, rate controlled ABDOMEN: Soft, NT, ND, BS Present EXTREMITIES: No LE edema, pedal pulses intact NEURO: A&OX3 Results & Data Results & Data ([facility]) Vital Signs (Past 12 Hours) Vital Signs Temp Pulse Pulse Resp BP BP Pulse Ox 05/11/20 12:10 36.7 C 69 22 152/62 H 93 05/11/20 11:31 79 20 91 05/11/20 08:00 79 05/11/20 07:32 36.5 C 73 22 166/82 H 93 05/11/20 07:05 65 20 93 05/11/20 04:21 36.7 C 71 18 164/84 H 98 Laboratory Results 05/11/20 06:22 05/11/20 06:22 Diagnostic Findings No new diagnostic findings today PG Care Time/CCT Total # of Minutes Spent Total Time Spent with Patient: Total time spent is greater than 50% in coordination of care (as documented) at patient's floor/unit and/or counseling patient: 30 minutes Coding Level of Care Code 20612 Subseq Hosp Care Lvl 2 Diagnoses Acute on chronic respiratory failure with hypoxia and hypercapnia J96.21; J96.22 Pneumonia J18.9 Laterality: bilateral Lung location: unspecified part of lung Pneumonia type: due to unspecified organism Idiopathic interstitial pneumonia J84.111 Time Spent (min) 30
--- NOTE | 2020-05-11 13:10 | Palliative Care Progress Note ---
Date of Service May 11, 2020 Assessment & Plan (1) Goals of care, counseling/discussion: -I spoke with patients daughter, Maru, outside of the patients room. She admits to her having increased memory loss. -It appears that she is showing some improvements from a respiratory standpoint. -Overall, our discussion talked about [facility] vs SNF. -She agrees that [facility] may be more rigorous than a SNF and the patient likely will transition there permanently. -They are in the process of selling her house to have funds to pay for longterm fci. -She wants to allow her to do rehab prior to getting Hospice on board. The patient even stated that she would not want to go to [facility] and [facility] is only 1 mile from her home. -We did discuss a POLST form which her daughter took along with her, not completed. She wanted time to think about that. -Case Management to discuss placement options. A few more days of inpatient stay expected. -For now, palliative care will follow peripherally unless she declines. (2) Acute on chronic respiratory failure with hypoxia and hypercapnia: Improving, patient takes short shallow breaths-oxygenation improves with incentive spirometer Continue O2 and scheduled nebs (3) Idiopathic interstitial pneumonia: Contributing to her respiratory failure (4) Atrial fibrillation with rapid ventricular response: Rate controlled with metoprolol and amiodarone (5) Hypoxemia: Improving, now on O2 at 5 L (6) Diastolic CHF: -Improved after diuresis (7) Dementia: Short-term memory loss, may contribute to med noncompliance (8) Failure to thrive: Poor appetite with poor p.o. intake and weight loss Subjective Pt denies SOB. O2 has been today. Appears slightly fatigued. Pt did refuse OT this morning. Review of Systems Review of Systems: Pt denies DUBON, dizziness, SOB, CP Physical Exam Eyes: PERRL, conjunctivae normal, anicteric sclerae ENMT: external ear and nose normal, oropharynx normal Neck: trachea midline, no thyromegaly Respiratory: normal respiratory effort Auscultation: + diminished lung sounds 5 L Gastrointestinal (Abdomen): normal bowel sounds, soft, nontender, no hepatosplenomegaly Musculoskeletal: no cyanosis or clubbing, extremities motor strength 5/5 Skin: no rashes, warm and dry Neurologic: PERRL, EOMI, accommodation nl, no face palsy, no dysarthria Psychiatric: A+Ox3, euthymic affect Results & Data Vital Signs (Past 12 Hours) Vital Signs Temp Pulse Pulse Resp BP BP Pulse Ox 05/11/20 12:10 36.7 C 69 22 152/62 H 93 05/11/20 11:31 79 20 91 05/11/20 08:00 79 05/11/20 07:32 36.5 C 73 22 166/82 H 93 05/11/20 07:05 65 20 93 05/11/20 04:21 36.7 C 71 18 164/84 H 98 PG Care Time/CCT Total # of Minutes Spent Total Time Spent with Patient: Total time spent is greater than 50% in coordination of care (as documented) at patient's floor/unit and/or counseling patient: 45 Coding Level of Care Code 53058 Subseq Hosp Care Lvl 3 Diagnoses Goals of care, counseling/discussion Z71.89 Acute on chronic respiratory failure with hypoxia and hypercapnia J96.21; J96.22 Idiopathic interstitial pneumonia J84.111 Atrial fibrillation with rapid ventricular response I48.91 Hypoxemia R09.02 Diastolic CHF I50.30 Dementia F03.90 Failure to thrive R62.7 Failure to thrive age range: in adult Time Spent (min) 45 Time Spent Midlevel Total time spent 45 minutes with > 50% of that time spent assessing the patient, discussing plans of care with the patients daughter and IDT. (1) Failure to thrive Failure to thrive age range: in adult Qualified Code(s): R62.7 - Adult failure to thrive
[2020-05-11] MEDS ORDERED: IPRATROPIUM BROMIDE/ALBUTEROL respimat INH INH PRN (17:39)
--- NOTE | 2020-05-11 17:40 | Hospitalist Progress Note ---
Date of Service May 11, 2020 Assessment & Plan (1) Hypoxemia: Healthcare associated pneumonia, interstitial lung disease B/L pleural effusions--Volume overload status (received 1L of NS in ED) Acute on chronic respiratory failure with Hypoxia/Hypercapnia On chronic Oxygen 2-3L during the day and at bedtime H/O pulmonary Hypertension --CTA: No evidence for pulmonary embolus. Interval progression of the moderate bilateral pleural effusions. Interval progression of the scattered airspace opacities and interstitial thickening within the lungs as described above. This likely represents a pneumonia. Superimposed pulmonary edema cannot be excluded. Mild emphysema. -Started broad spectrum IV Antibiotics (Vanco and Zosyn), vancomycin will d/c, mrsa swab negative Oxygen support with high flow and BiPAP as needed, Duonebs Pt on HF NC yesterday and now on NC 4L Blood cultures -Negative Aspiration precautions Appreciate Pulmonology Input - Started on IV Lasix, IV Solu-Medrol, will switch to PO lasix and PO prednisone May need 2 step prior to DC Palliative care consulted to address goals of care-recommended SNF Hyponatremia Hypochloremia Noted chronically as well Volume overload could be contributing as well Sodium level is 134 as of 05/11/2020 Acute on chronic systolic/Diastolic CHF exacerbation Last ECHO: EF: 45-50%, grade 1 diastolic dysfunction Pt also received IVF in ED Started IV Lasix 40mg on admission Update ECHO: LV systolic function is normal without any wall motion abnormalities but mild concentric LVH, EF 50 to 55%, mild MR and mild TR. no change compared with 03/20/2014 Daily weight, I/Os, fluid restriction Oxygen support PRN Monitor renal function/electrolytes CKD stage III Renal function baseline Monitor Creatinine slightly up at 1.33 today that is 05/11/2020 Dementia Stable Held benzodiazepines secondary to respiratory status P.Afib on Amiodarone, Metoprolol Not on any anticoagulation GERD: Continue PPI DVT Px: Heparin SQ Code Status : DNI/DNR as per discussion with patient/Patient's daughter-POA Disposition : To be determined Admission and Anticipated Discharge Date Admission Date: May 08, 2020 Subjective Patient was seen and examined in telemetry unit She remains generally weak and lethargic but denies any acute symptoms No pain and/or shortness of breath No nausea and or vomiting Review of Systems Review of Systems: All systems reviewed and are unremarkable except as noted below Neurologic: + generalized weakness Physical Exam Physical Exam: Lying in bed comfortably Constitutional: well developed and well nourished; no acute distress and not ill appearing Eyes: PERRL, conjunctivae normal, anicteric sclerae ENMT: external ear and nose normal, oropharynx normal Neck: trachea midline, no thyromegaly Respiratory: normal respiratory effort; no respiratory distress Auscultation: + diminished lung sounds and + crackles (Minimal bibasilar crackles) Cardiovascular: Rate/Rhythm: regular rate and regular rhythm Heart Sounds: no murmur Gastrointestinal (Abdomen): Inspection/Auscultation: abdomen normal to inspection and normal bowel sounds; abdomen not distended Percussion/Palpation: abdomen soft; abdomen nontender Musculoskeletal: No acute arthritis involving any joints Neurologic: moves all extremities; no focal motor deficits Alert and awake Results & Data Results & Data ([facility]) Vital Signs (Past 12 Hours) Vital Signs Temp Pulse Pulse Resp BP BP Pulse Ox 05/11/20 15:32 72 05/11/20 15:18 75 22 94 05/11/20 15:09 36.9 C 75 20 137/69 93 05/11/20 12:10 36.7 C 69 22 152/62 H 93 05/11/20 11:31 79 20 91 05/11/20 08:00 79 05/11/20 07:32 36.5 C 73 22 166/82 H 93 05/11/20 07:05 65 20 93 Laboratory Results Home Medications Medication Instructions Recorded Confirmed donepezil 10 mg tablet 10 mg PO QAM tab 06/12/19 05/08/20 ondansetron 4 mg disintegrating 4 mg PO Q8H PRN tab 07/21/19 05/08/20 tablet multivitamin 1 tab PO DAILY 09/23/19 05/08/20 cholecalciferol (vitamin D3) 1,000 unit PO DAILY 04/13/20 05/08/20 [Vitamin D3] dicyclomine 10 mg PO QID 04/13/20 05/08/20 docusate sodium 100 mg PO BID 05/08/20 05/08/20 ipratropium-albuterol [Combivent 1 puff INHALATION Q6H PRN 05/08/20 05/08/20 Respimat] magnesium 200 mg PO DAILY 05/08/20 05/08/20 pantoprazole [Protonix] 40 mg PO DAILY 05/08/20 05/08/20 temazepam 15 mg PO HS 05/08/20 05/08/20 Previous Rx's Medication Instructions Recorded alprazolam 0.25 mg PO BID PRN #30 tab 04/19/20 heparin, porcine (PF) 5,000 unit SUBCUT Q12 #25 ml 04/19/20 amiodarone 200 mg PO QAM 30 Days #30 tab 04/27/20 lisinopril 2.5 mg PO QAM 30 Days #30 tab 04/27/20 metoprolol tartrate 25 mg PO BID 30 Days #60 tab 04/27/20 Medications Administered Current Inpatient Medications Acetaminophen (Tylenol) 650 mg PO Q4H PRN PRN Reason: Pain or Fever Stop: 06/07/20 17:50 Last Admin: 05/11/20 16:37 Dose: 650 mg Documented by: Albuterol (Duoneb) 3 ml NEB QIDR [facility] Stop: 06/07/20 18:59 Last Admin: 05/11/20 15:17 Dose: 3 ml Documented by: Amiodarone HCl (Cordarone) 200 mg PO QAM [facility] Stop: 06/08/20 08:59 Last Admin: 05/11/20 08:02 Dose: 200 mg Documented by: Dicyclomine HCl (Bentyl) 10 mg PO QID [facility] Stop: 06/07/20 17:50 Last Admin: 05/11/20 16:38 Dose: 10 mg Documented by: Docusate Sodium (Colace) 100 mg PO BID [facility] Stop: 06/07/20 20:59 Last Admin: 05/11/20 16:25 Dose: Not Given Documented by: Donepezil HCl (Aricept) 10 mg PO QAM [facility] Stop: 06/08/20 08:59 Last Admin: 05/11/20 08:02 Dose: 10 mg Documented by: Furosemide (Lasix) 40 mg PO BID17 [facility] Stop: 06/10/20 08:59 Last Admin: 05/11/20 16:38 Dose: 40 mg Documented by: Heparin Sodium (Porcine) (Heparin Sodium (Porcine)) 5,000 units SC BID [facility] Stop: 06/07/20 20:59 Last Admin: 05/11/20 08:02 Dose: 5,000 units Documented by: Furosemide 40 mg/ Syringe 4 mls @ 4 mls/min IV BID [facility] Stop: 06/07/20 20:59 Last Admin: 05/10/20 07:50 Dose: 4 mls/min Documented by: Piperacillin Sod/Tazobactam (Sod 3.375 gm/ Dextrose) 115 mls @ 28.75 mls/hr IV Q12H [facility]; Protocol Stop: 05/15/20 19:59 Ioversol (Optiray 320 125ml) 118 ml IV ONCE PRN PRN Reason: Interaction Checking Stop: 05/12/20 10:23 Last Admin: 05/08/20 10:24 Dose: 118 ml Documented by: Lisinopril (Zestril) 2.5 mg PO QAM [facility] Stop: 06/08/20 08:59 Last Admin: 05/11/20 08:02 Dose: 2.5 mg Documented by: Melatonin (Melatonin) 3 mg PO HS [facility] Stop: 06/08/20 20:59 Last Admin: 05/10/20 19:58 Dose: 3 mg Documented by: Metoprolol Tartrate (Lopressor) 25 mg PO BID [facility] Stop: 06/07/20 20:59 Last Admin: 05/11/20 08:02 Dose: 25 mg Documented by: Miscellaneous Information (Pharmacy Consult) 1 ea N/A UD PRN PRN Reason: Consult Stop: 06/07/20 17:52 Pantoprazole Sodium (Protonix) 40 mg PO DAILY [facility] Stop: 06/08/20 08:59 Last Admin: 05/11/20 08:03 Dose: 40 mg Documented by: Polyethylene Glycol (Miralax Powder Packet) 17 gm PO DAILY PRN PRN Reason: Constipation Stop: 06/07/20 17:50 Prednisone (Prednisone) 60 mg PO QAM [facility] Stop: 06/10/20 08:59 Last Admin: 05/11/20 08:03 Dose: 60 mg Documented by:
[2020-05-11] MEDS: MELATONIN 3 MG TAB PO SCH (21:18)
[2020-05-12 06:00] LABS: Hematocrit (blood only) 29.4 % (37-47); Hemoglobin 9.3 g/dL (12.0-16.0); Immature Granulocytes # (auto) 0.04 K/uL (0.00-0.02); Immature Granulocytes % (auto) 0.5 %; Lymphocytes # (auto) 0.74 K/uL (1.2-3.4); Lymphocytes % (auto) 9.6 %; Mean Corpuscular Hemoglobin 30.8 pg (25-34); Mean Corpuscular Hgb Conc 31.6 g/dL (32-36); Mean Corpuscular Volume 97.4 fL (80-100); Mean Platelet Volume 9.3 fL (7.4-10.4); Monocytes # (auto) 0.82 K/uL (0.11-0.59); Monocytes % (auto) 10.6 %; Neutrophils # (auto) 6.13 K/uL (1.4-6.5); Neutrophils % (auto) 79.3 %; Platelet Count 488 K/uL (130-400); RDW Coefficient of Variation 15.1 % (11.5-14.5); RDW Standard Deviation 53.7 fL (36.4-46.3); Red Blood Count 3.02 M/uL (4.2-5.4); White Blood Count 7.73 K/uL (4.8-10.8)
[2020-05-12 06:34] LABS: Calcium 8.6 mg/dl (8.5-10.1); Creatinine Clr Calc Pharmacy 21.4 ml/min; Est GFR (African American) 48.9; Est GFR (Non-African American) 42.2; Magnesium 1.6 mg/dl (1.8-2.4); Potassium 3.9 mmol/L (3.5-5.1)
[2020-05-12 06:47] LABS: Phosphorus 2.9 mg/dl (2.5-4.9)
[2020-05-12] MEDS: ALBUT/IPRATROP 3MG/0.5MG NEB 3 ML VIAL NEB SCH ×2 (07:04→11:04)
[2020-05-12] MEDS: ACETAMINOPHEN 325 MG TAB PO PRN ×3 (08:28→20:54)
[2020-05-12] MEDS: PANTOprazole 40 MG TAB PO SCH (08:29)
[2020-05-12] MEDS: HEPARIN SOD 5,000 UNIT/0.5 ML VIAL SC SCH ×2 (08:30→20:56)
[2020-05-12] MEDS: METOPROLOL TARTRATE 25 MG TAB PO SCH ×2 (08:30→20:51)
[2020-05-12] MEDS: DICYCLOMINE HCL 10 MG CAP PO SCH ×4 (08:32→20:49)
[2020-05-12] MEDS: FUROSEMIDE 40 MG TAB PO SCH ×2 (08:32→16:43)
[2020-05-12] MEDS: DONEPEZIL HCL 10 MG TAB PO SCH (08:33)
[2020-05-12] MEDS: DOCUSATE SODIUM 100 MG CAP PO SCH ×2 (08:33→20:53)
[2020-05-12] MEDS: AMIODARONE 200 MG TAB PO SCH (08:33)
[2020-05-12] MEDS: MAGNESIUM OXIDE 400 MG TAB PO SCH (08:34)
[2020-05-12] MEDS: predniSONE 20 MG TAB PO SCH (08:34)
[2020-05-12] MEDS: CHOLECALCIFEROL 1,000 UNITS 25 MCG TAB PO SCH (08:34)
[2020-05-12] MEDS: MULTIVITAMIN TAB PO SCH (08:35)
[2020-05-12] MEDS: PIPERACILLIN/TAZOBACTAM 3.375 GM in DEXTROSE 5% 100 ML IV SCH ×2 (08:40→19:54)
[2020-05-12] MEDS ORDERED: ALBUT/IPRATROP 3MG/0.5MG NEB 3 ML VIAL NEB PRN (11:41)
--- NOTE | 2020-05-12 16:46 | Hospitalist Progress Note ---
Date of Service May 12, 2020 Assessment & Plan (1) Hypoxemia: Healthcare associated pneumonia, interstitial lung disease B/L pleural effusions--Volume overload status (received 1L of NS in ED) Acute on chronic respiratory failure with Hypoxia/Hypercapnia On chronic Oxygen 2-3L during the day and at bedtime H/O pulmonary Hypertension --CTA: No evidence for pulmonary embolus. Interval progression of the moderate bilateral pleural effusions. Interval progression of the scattered airspace opacities and interstitial thickening within the lungs as described above. This likely represents a pneumonia. Superimposed pulmonary edema cannot be excluded. Mild emphysema. -Started broad spectrum IV Antibiotics (Vanco and Zosyn), vancomycin will d/c, mrsa swab negative Oxygen support with high flow and BiPAP as needed, Duonebs Pt on HF NC yesterday and now on NC 4L Blood cultures -Negative Aspiration precautions Appreciate pulmonary input and recommendation Was on intravenous Lasix and intravenous Solu-Medrol Has been on oral furosemide and prednisone and will continue as advised Continue intravenous antibiotic for now and will convert to oral Augmentin on discharge-discussed with waterproofer Hyponatremia Hypochloremia Noted chronically as well Volume overload could be contributing as well Sodium level is 134 as of 05/11/2020 Acute on chronic systolic/Diastolic CHF exacerbation Last ECHO: EF: 45-50%, grade 1 diastolic dysfunction Pt also received IVF in ED Started IV Lasix 40mg on admission Update ECHO: LV systolic function is normal without any wall motion abnormalities but mild concentric LVH, EF 50 to 55%, mild MR and mild TR. no change compared with 03/20/2014 Daily weight, I/Os, fluid restriction Oxygen support PRN Monitor renal function/electrolytes-remains unremarkable CKD stage III Renal function baseline Monitor Creatinine slightly up at 1.33 today that is 05/11/2020 Creatinine has been normalized Dementia Stable Held benzodiazepines secondary to respiratory status P.Afib on Amiodarone, Metoprolol Not on any anticoagulation GERD: Continue PPI DVT Px: Heparin SQ Code Status : DNI/DNR as per discussion with patient/Patient's daughter-POA Disposition : To be determined Discussed with the daughter. Family members are traveling from [place] to see her in the hospital Will transfer her to [facility] tomorrow Admission and Anticipated Discharge Date Admission Date: May 08, 2020 Subjective Patient was seen and examined in telemetry unit She remains generally weak and lethargic but denies any acute symptoms No pain and/or shortness of breath No nausea and or vomiting 05/12/2020 The patient was seen and examined in medical floor She remains weak and lethargic but denies any other symptoms at rest She has been trying to eat and drink more Review of Systems Review of Systems: All systems reviewed and are unremarkable except as noted below Respiratory: + cough and + dyspnea Neurologic: + generalized weakness Physical Exam Physical Exam: Sitting on a chair without any acute distress Constitutional: well developed and well nourished; no acute distress and not ill appearing Eyes: PERRL, conjunctivae normal, anicteric sclerae ENMT: external ear and nose normal, oropharynx normal Neck: trachea midline, no thyromegaly Respiratory: normal respiratory effort; no respiratory distress Auscultation: + diminished lung sounds and + crackles (Minimal bibasilar crackles) Cardiovascular: Rate/Rhythm: regular rate and regular rhythm Heart Sounds: no murmur Extremities: no edema Gastrointestinal (Abdomen): Inspection/Auscultation: abdomen normal to inspection and normal bowel sounds; abdomen not distended Percussion/Palpation: abdomen soft; abdomen nontender Musculoskeletal: No acute arthritis involving any joints Neurologic: moves all extremities; no focal motor deficits Psychiatric: Insight: + limited insight Results & Data Results & Data ([facility]) Vital Signs (Past 12 Hours) Vital Signs Temp Pulse Resp BP BP Pulse Ox 05/12/20 15:37 37.2 C 75 18 158/77 H 95 05/12/20 11:06 65 16 92 05/12/20 07:40 37.0 C 69 14 167/88 H 97 05/12/20 07:05 64 16 98 Laboratory Results Short CBC 05/12/20 Range/Units 05:38 WBC 7.73 (4.8-10.8) K/uL Hgb 9.3 L (12.0-16.0) g/dL Hct 29.4 L (37-47) % Plt Count 488 H (130-400) K/uL BMP 05/12/20 05:38 Sodium 136 Potassium 3.9 Chloride 91 L Carbon Dioxide 40 H BUN 45 H Creatinine 1.15 Glucose 93 Calcium 8.6 Medications Administered Current Inpatient Medications Acetaminophen (Tylenol) 650 mg PO Q4H PRN PRN Reason: Pain or Fever Stop: 06/07/20 17:50 Last Admin: 05/12/20 12:48 Dose: 650 mg Documented by: Albuterol (Combivent Respimat) 1 puffs INH Q6H PRN PRN Reason: Wheezing Stop: 06/10/20 17:38 Albuterol (Duoneb) 3 ml NEB Q2R PRN PRN Reason: Shortness Of Breath Or Wheezing Stop: 06/11/20 11:39 Amiodarone HCl (Cordarone) 200 mg PO QAM [facility] Stop: 06/08/20 08:59 Last Admin: 05/12/20 08:33 Dose: 200 mg Documented by: Dicyclomine HCl (Bentyl) 10 mg PO QID [facility] Stop: 06/07/20 17:50 Last Admin: 05/12/20 12:48 Dose: 10 mg Documented by: Docusate Sodium (Colace) 100 mg PO BID [facility] Stop: 06/07/20 20:59 Last Admin: 05/12/20 08:33 Dose: 100 mg Documented by: Donepezil HCl (Aricept) 10 mg PO QAM [facility] Stop: 06/08/20 08:59 Last Admin: 05/12/20 08:33 Dose: 10 mg Documented by: Furosemide (Lasix) 40 mg PO BID17 [facility] Stop: 06/10/20 08:59 Last Admin: 05/12/20 08:32 Dose: 40 mg Documented by: Heparin Sodium (Porcine) (Heparin Sodium (Porcine)) 5,000 units SC BID [facility] Stop: 06/07/20 20:59 Last Admin: 05/12/20 08:30 Dose: 5,000 units Documented by: Piperacillin Sod/Tazobactam (Sod 3.375 gm/ Dextrose) 115 mls @ 28.75 mls/hr IV Q12H [facility]; Protocol Stop: 05/15/20 19:59 Last Infusion: 05/12/20 14:22 Dose: Infused Documented by: Lisinopril (Zestril) 2.5 mg PO QAM [facility] Stop: 06/08/20 08:59 Last Admin: 05/12/20 08:33 Dose: 2.5 mg Documented by: Magnesium Oxide (Mag-Ox) 400 mg PO DAILY [facility] Stop: 06/11/20 08:59 Last Admin: 05/12/20 08:34 Dose: 400 mg Documented by: Melatonin (Melatonin) 3 mg PO HS [facility] Stop: 06/08/20 20:59 Last Admin: 05/11/20 21:18 Dose: 3 mg Documented by: Metoprolol Tartrate (Lopressor) 25 mg PO BID [facility] Stop: 06/07/20 20:59 Last Admin: 05/12/20 08:30 Dose: 25 mg Documented by: Miscellaneous Information (Pharmacy Consult) 1 ea N/A UD PRN PRN Reason: Consult Stop: 06/07/20 17:52 Multivitamins (Multivitamin Tab) 1 tab PO DAILY [facility] Stop: 06/11/20 08:59 Last Admin: 05/12/20 08:35 Dose: 1 tab Documented by: Pantoprazole Sodium (Protonix) 40 mg PO DAILY [facility] Stop: 06/08/20 08:59 Last Admin: 05/12/20 08:29 Dose: 40 mg Documented by: Polyethylene Glycol (Miralax Powder Packet) 17 gm PO DAILY PRN PRN Reason: Constipation Stop: 06/07/20 17:50 Prednisone (Prednisone) 60 mg PO QAM [facility] Stop: 06/10/20 08:59 Last Admin: 05/12/20 08:34 Dose: 60 mg Documented by: Vitamin D (Vitamin D3) 1,000 units PO DAILY [facility] Stop: 06/11/20 08:59 Last Admin: 05/12/20 08:34 Dose: 1,000 units Documented by:
[2020-05-12] MEDS: MELATONIN 3 MG TAB PO SCH (20:54)
[2020-05-13] MEDS: ACETAMINOPHEN 325 MG TAB PO PRN ×2 (06:16→10:16)
[2020-05-13] MEDS ORDERED: PIPERACILL/TAZOBAC CONSULT ACTIVE PRN (08:19)
[2020-05-13] MEDS: METOPROLOL TARTRATE 25 MG TAB PO SCH (08:50)
[2020-05-13] MEDS: FUROSEMIDE 40 MG TAB PO SCH (08:51)
[2020-05-13] MEDS: predniSONE 20 MG TAB PO SCH (08:51)
[2020-05-13] MEDS: DICYCLOMINE HCL 10 MG CAP PO SCH (08:51)
[2020-05-13] MEDS: CHOLECALCIFEROL 1,000 UNITS 25 MCG TAB PO SCH (08:52)
[2020-05-13] MEDS: AMIODARONE 200 MG TAB PO SCH (08:52)
[2020-05-13] MEDS: PANTOprazole 40 MG TAB PO SCH (08:52)
[2020-05-13] MEDS: DONEPEZIL HCL 10 MG TAB PO SCH (08:52)
[2020-05-13] MEDS: MULTIVITAMIN TAB PO SCH (08:52)
[2020-05-13] MEDS: MAGNESIUM OXIDE 400 MG TAB PO SCH (08:52)
[2020-05-13] MEDS: PIPERACILLIN/TAZOBACTAM 3.375 GM in DEXTROSE 5% 100 ML IV SCH (08:53)
[2020-05-13] MEDS: HEPARIN SOD 5,000 UNIT/0.5 ML VIAL SC SCH (08:53)
[2020-05-13] MEDS: DOCUSATE SODIUM 100 MG CAP PO SCH (10:16)
--- NOTE | 2020-05-13 11:32 | Hospitalist Progress Note ---
Date of Service May 13, 2020 Assessment & Plan (1) Hypoxemia: Healthcare associated pneumonia, interstitial lung disease B/L pleural effusions--Volume overload status (received 1L of NS in ED) Acute on chronic respiratory failure with Hypoxia/Hypercapnia On chronic Oxygen 2-3L during the day and at bedtime H/O pulmonary Hypertension --CTA: No evidence for pulmonary embolus. Interval progression of the moderate bilateral pleural effusions. Interval progression of the scattered airspace opacities and interstitial thickening within the lungs as described above. This likely represents a pneumonia. Superimposed pulmonary edema cannot be excluded. Mild emphysema. -Started broad spectrum IV Antibiotics (Vanco and Zosyn), vancomycin will d/c, mrsa swab negative Oxygen support with high flow and BiPAP as needed, Duonebs Pt on HF NC yesterday and now on NC 4L Blood cultures -Negative Aspiration precautions Appreciate pulmonary input and recommendation Was on intravenous Lasix and intravenous Solu-Medrol Has been on oral furosemide and prednisone and will continue as advised Will discontinue antibiotic after the dose today and she will not need any more antibiotics Hyponatremia Hypochloremia Noted chronically as well Volume overload could be contributing as well Sodium level is normalized at 136 on 05/12/2020 Acute on chronic systolic/Diastolic CHF exacerbation Last ECHO: EF: 45-50%, grade 1 diastolic dysfunction Pt also received IVF in ED Started IV Lasix 40mg on admission Update ECHO: LV systolic function is normal without any wall motion abnormalities but mild concentric LVH, EF 50 to 55%, mild MR and mild TR. no change compared with 03/20/2014 Daily weight, I/Os, fluid restriction Oxygen support PRN Monitor renal function/electrolytes-remains unremarkable CKD stage III Renal function baseline Monitor Creatinine slightly up at 1.33 today that is 05/11/2020 Creatinine has been normalized Dementia Stable Held benzodiazepines secondary to respiratory status Will not be given any benzodiazepines on discharge P.Afib on Amiodarone, Metoprolol Not on any anticoagulation GERD: Continue PPI DVT Px: Heparin SQ Code Status : DNI/DNR as per discussion with patient/Patient's daughter-POA Disposition : To be determined Discussed with the daughter. Will transfer her to [facility] this afternoon Admission and Anticipated Discharge Date Admission Date: May 08, 2020 Subjective Patient was seen and examined in telemetry unit She remains generally weak and lethargic but denies any acute symptoms No pain and/or shortness of breath No nausea and or vomiting 05/12/2020 The patient was seen and examined in medical floor She remains weak and lethargic but denies any other symptoms at rest She has been trying to eat and drink more 05/13/2020 The patient was seen and examined in medical floor She complains to have weakness but otherwise denies any other symptoms She is aware that she will be going to [place] this afternoon Review of Systems Review of Systems: All systems reviewed and are unremarkable except as noted below Neurologic: + generalized weakness Physical Exam Physical Exam: Lying in the bed without any acute distress Constitutional: well developed and well nourished; no acute distress and not ill appearing Eyes: PERRL, conjunctivae normal, anicteric sclerae ENMT: external ear and nose normal, oropharynx normal Neck: trachea midline, no thyromegaly Respiratory: normal respiratory effort; no respiratory distress Auscultation: + diminished lung sounds and + crackles (Minimal bibasilar crackles); no wheezes Cardiovascular: Rate/Rhythm: regular rate and regular rhythm Heart Sounds: no murmur Extremities: no edema Gastrointestinal (Abdomen): Inspection/Auscultation: abdomen normal to inspection and normal bowel sounds; abdomen not distended Percussion/Palpation: abdomen soft; abdomen nontender Musculoskeletal: No acute arthritis involving any joints Neurologic: moves all extremities; no focal motor deficits Psychiatric: Insight: + limited insight Results & Data Results & Data ([facility]) Vital Signs (Past 12 Hours) Vital Signs Temp Pulse Resp BP Pulse Ox 05/13/20 08:27 36.8 C 65 18 144/73 H 93 Medications Administered Current Inpatient Medications Acetaminophen (Tylenol) 650 mg PO Q4H PRN PRN Reason: Pain or Fever Stop: 06/07/20 17:50 Last Admin: 05/13/20 10:16 Dose: 650 mg Documented by: Albuterol (Combivent Respimat) 1 puffs INH Q6H PRN PRN Reason: Wheezing Stop: 06/10/20 17:38 Albuterol (Duoneb) 3 ml NEB Q2R PRN PRN Reason: Shortness Of Breath Or Wheezing Stop: 06/11/20 11:39 [facility]) [facility] Stop: 06/08/20 08:59 Last Admin: 05/13/20 08:52 Dose: 200 mg Documented by: Dicyclomine HCl (Bentyl) 10 mg PO QID [facility] Stop: 06/07/20 17:50 Last Admin: 05/13/20 08:51 Dose: 10 mg Documented by: Docusate Sodium (Colace) 100 mg PO BID [facility] Stop: 06/07/20 20:59 Last Admin: 05/13/20 10:16 Dose: 100 mg Documented by: Donepezil HCl (Aricept) 10 mg PO QAM [facility] Stop: 06/08/20 08:59 Last Admin: 05/13/20 08:52 Dose: 10 mg Documented by: Furosemide (Lasix) 40 mg PO BID17 [facility] Stop: 06/10/20 08:59 Last Admin: 05/13/20 08:51 Dose: 40 mg Documented by: Heparin Sodium (Porcine) (Heparin Sodium (Porcine)) 5,000 units SC BID [facility] Stop: 06/07/20 20:59 Last Admin: 05/13/20 08:53 Dose: 5,000 units Documented by: Piperacillin Sod/Tazobactam (Sod 3.375 gm/ Dextrose) 115 mls @ 28.75 mls/hr IV Q12H [facility]; Protocol Stop: 05/15/20 19:59 Last Admin: 05/13/20 08:53 Dose: 28.7 mls/hr Documented by: Lisinopril (Zestril) 2.5 mg PO QAM [facility] Stop: 06/08/20 08:59 Last Admin: 05/13/20 08:51 Dose: 2.5 mg Documented by: Magnesium Oxide (Mag-Ox) 400 mg PO DAILY [facility] Stop: 06/11/20 08:59 Last Admin: 05/13/20 08:52 Dose: 400 mg Documented by: Melatonin (Melatonin) 3 mg PO HS [facility] Stop: 06/08/20 20:59 Last Admin: 05/12/20 20:54 Dose: 3 mg Documented by: Metoprolol Tartrate (Lopressor) 25 mg PO BID [facility] Stop: 06/07/20 20:59 Last Admin: 05/13/20 08:50 Dose: 25 mg Documented by: Miscellaneous Information (Consult) 1 ea N/A UD PRN PRN Reason: Consult Stop: 06/12/20 08:18 Multivitamins (Multivitamin Tab) 1 tab PO DAILY [facility] Stop: 06/11/20 08:59 Last Admin: 05/13/20 08:52 Dose: 1 tab Documented by: Pantoprazole Sodium (Protonix) 40 mg PO DAILY [facility] Stop: 06/08/20 08:59 Last Admin: 05/13/20 08:52 Dose: 40 mg Documented by: Polyethylene Glycol (Miralax Powder Packet) 17 gm PO DAILY PRN PRN Reason: Constipation Stop: 06/07/20 17:50 Prednisone (Prednisone) 60 mg PO QAM [facility] Stop: 06/10/20 08:59 Last Admin: 05/13/20 08:51 Dose: 60 mg Documented by: Vitamin D (Vitamin D3) 1,000 units PO DAILY [facility] Stop: 06/11/20 08:59 Last Admin: 05/13/20 08:52 Dose: 1,000 units Documented by:
--- NOTE | 2020-05-14 07:33 | Discharge Summary ---
Date of Service May 14, 2020 Admission HPI Per Admitting Provider Patient is an 89-year-old female with history of CHF, CKD stage III, chronic respiratory failure with oxygen dependency, dementia, pulmonary hypertension, interstitial lung disease, GERD and other medical problems presents with history of worsening shortness of breath. History is limited secondary to patient's dementia. Most of the history is obtained from old records, ER physician and family. As per the staff, patient was noted to be hypoxic in 70s while on 3 L of nasal cannula and was placed on nonrebreather while at rehab facility. Later she was transitioned to BiPAP while in ED. No known history of fever, cough, chest pain. He was discharged from [facility] 10 days ago after being treated for hypoxic respiratory failure likely secondary to pneumonia, UTI and atrial fibrillation with RVR. She was started on amiodarone and metoprolol by [facility] cardiology during prior admission. She was noted to have an abnormal CT chest on prior admission and was evaluated by pulmonology. She was thought to h ave interstitial lung disease likely given history of polymyalgia rheumatica. COVID screen was tested negative. Chest CTA showed no evidence of PE. Short interval progression of moderate bilateral pleural effusions. Also showed progression of scattered airspace opacities in interstitial thickening within the lungs. I personally discussed with scientific software developer Dr. Fang consultant teacher and also updated patient's daughter. Admission Exam Per Admitting Provider Physical Exam: Physical Exam: Vitals signs as noted above General Appearance: Chronically appearing, frail, elderly, no apparent distress, on BiPAP, no apparent distress Moderately built and nourished Head: normocephalic, Atraumatic Eyes: normal inspection, EOMI Neck: supple, Trachea midline Respiratory/Chest: Decreased breath sounds, B/L crackles, No accessory muscle use Cardiovascular: S1, S2, + murmur, tachycardia Abdomen/GI:Soft, Non tender, Bowel sounds present Extremities/Musculoskelatal:normal inspection, no edema Neurologic/Psych:grossly no focal neurological deficits, +Dementia Skin: normal color, warm Principal Diagnosis Acute on chronic respiratory failure with hypoxia and hypercapnia, interstitial lung disease, pneumonia, combined diastolic and systolic CHF, paroxysmal atrial fibrillation, CKD, dementia Discharge Exam Constitutional well developed and well nourished; no acute distress and not ill appearing Eyes PERRL, conjunctivae normal, anicteric sclerae ENMT external ear and nose normal, oropharynx normal Neck trachea midline, no thyromegaly Respiratory normal respiratory effort; no respiratory distress Auscultation: + diminished lung sounds and + crackles (Minimal bibasilar crackles); no wheezes Cardiovascular Rate/Rhythm: regular rate and regular rhythm Heart Sounds: no murmur Extremities: no edema Gastrointestinal (Abdomen) Inspection/Auscultation: abdomen normal to inspection and normal bowel sounds; abdomen not distended Percussion/Palpation: abdomen soft; abdomen nontender Neurologic moves all extremities; no focal motor deficits Psychiatric Insight: + limited insight Discharge Data Allergies Allergy/AdvReac Type Severity Reaction Status Date / Time Penicillins Allergy Intermediate rash Verified 04/16/20 10:47 strawberry Allergy Intermediate Rash Verified 04/16/20 16:20 latex Allergy Unknown "I don't Verified 04/16/20 10:47 remember" yellow dye Allergy Unknown Unknown Verified 04/16/20 10:47 Consultations 05/08/20 13:13 ED Decision to Admit Stat 05/08/20 17:51 Consult Case Management - Discharge Planning Routine Consult Pulmonology Routine 05/09/20 08:00 Consult Palliative Care Routine Ordered Studies 05/08/20 10:16 CT angio chest PE protocol Stat Hospital Course (1) Hypoxemia: Healthcare associated pneumonia, interstitial lung disease B/L pleural effusions--Volume overload status (received 1L of NS in ED) Acute on chronic respiratory failure with Hypoxia/Hypercapnia On chronic Oxygen 2-3L during the day and at bedtime H/O pulmonary Hypertension --CTA: No evidence for pulmonary embolus. Interval progression of the moderate bilateral pleural effusions. Interval progression of the scattered airspace opacities and interstitial thickening within the lungs as described above. This likely represents a pneumonia. Superimposed pulmonary edema cannot be excluded. Mild emphysema. -Started broad spectrum IV Antibiotics (Vanco and Zosyn), vancomycin will d/c, mrsa swab negative Oxygen support with high flow and BiPAP as needed, Cydney Pt on HF NC yesterday and now on NC 4L Blood cultures -Negative Aspiration precautions Appreciate pulmonary input and recommendation Was on intravenous Lasix and intravenous Solu-Medrol Has been on oral furosemide and prednisone and will continue as advised Will discontinue antibiotic after the dose today and she will not need any more antibiotics Hyponatremia Hypochloremia Noted chronically as well Volume overload could be contributing as well Sodium level is normalized at 136 on 05/12/2020 Acute on chronic systolic/Diastolic CHF exacerbation Last ECHO: EF: 45-50%, grade 1 diastolic dysfunction Pt also received IVF in ED Started IV Lasix 40mg on admission Update ECHO: LV systolic function is normal without any wall motion abnormalities but mild concentric LVH, EF 50 to 55%, mild MR and mild TR. no change compared with 03/20/2014 Daily weight, I/Os, fluid restriction Oxygen support PRN Monitor renal function/electrolytes-remains unremarkable CKD stage III Renal function baseline Monitor Creatinine slightly up at 1.33 today that is 05/11/2020 Creatinine has been normalized Dementia Stable Held benzodiazepines secondary to respiratory status Will not be given any benzodiazepines on discharge P.Afib on Amiodarone, Metoprolol Not on any anticoagulation GERD: Continue PPI DVT Px: Heparin SQ Code Status : DNI/DNR as per discussion with patient/Patient's daughter-POA Disposition : To be determined Discussed with the daughter. Will transfer her to [facility] this afternoon Total Time Total Time Spent Total Time Spent (In Minutes): 35 minutes Total Time Includes: Examination of the Patient, Discharge Planning, Medication Reconciliation and Communication With Other Providers Discharge Plan Discharge Items Patient Disposition: Transfer Intermediate Fac Reason For Visit: HCAP Discharge Diagnosis: Acute on chronic respiratory failure with hypoxia and hypercapnia, interstitial lung disease, pneumonia, combined diastolic and systolic CHF, paroxysmal atrial fibrillation, CKD, dementia Condition on Discharge: Fair Activity: Resume your previous activity Non-emergency contact: Primary Care Provider Call non-emergency contact if: you have any medication questions and your symptoms worsen Follow-up/Referrals: Tiffanie Herrera DO [Primary Care Provider] - (Please make an appointment with your primary care physician within 1 week of discharge from the facility) Diet: Low Sodium (2gm) Fluids: 1500ml (6 cups) Diet Texture: Easy to Chew Addtl Attending Provider Instructions: Please take precautions to avoid fall Continue oxygen as advised to keep saturation above 89% Pending Studies at Discharge: No Stand-Alone Forms: My [employer] Skilled Items Patient informed of condition?: Yes DNR: Yes Discharge Level of Care: Skilled Communicable Disease: No Discharge Prognosis: Stable Lines: None Urinary Catheter: No Medications and DC Order Prescriptions: New melatonin 3 mg Tablet 3 mg PO HS 30 Days Qty: 30 RF: 0 prednisone 10 mg tablet 10 mg PO UD Qty: 60 RF: 1 Continued multivitamin [Multiple Vitamins] tablet 1 tab PO DAILY RF: 0 ondansetron 4 mg tablet,disintegrating 4 mg PO Q8H PRN (Reason: Nausea) RF: 0 donepezil 10 mg tablet 10 mg PO QAM RF: 0 dicyclomine 10 mg Capsule 10 mg PO QID RF: 0 cholecalciferol (vitamin D3) [Vitamin D3] 25 mcg (1,000 unit) Tablet 1,000 unit PO DAILY RF: 0 heparin, porcine (PF) 5,000 unit/0.5 mL Syringe 5,000 unit subcut Q12 Qty: 25 RF: 0 lisinopril 2.5 mg Tablet 2.5 mg PO QAM 30 Days Qty: 30 RF: 0 metoprolol tartrate 25 mg Tablet 25 mg PO BID 30 Days Qty: 60 RF: 0 amiodarone 200 mg Tablet 200 mg PO QAM 30 Days Qty: 30 RF: 0 pantoprazole [Protonix] 40 mg Tablet,Delayed Release (Dr/Ec) 40 mg PO DAILY RF: 0 docusate sodium 100 mg Capsule 100 mg PO BID RF: 0 magnesium 200 mg Tablet 200 mg PO DAILY RF: 0 Combivent Respimat 20-100 mcg/actuation Mist 1 puff INHALATION Q6H PRN (Reason: Wheezing) RF: 0 Discontinued alprazolam 0.25 mg Tablet 0.25 mg PO BID PRN (Reason: Anxiety) Qty: 30 RF: 0 temazepam 15 mg Capsule 15 mg PO HS RF: 0 Discharge Orders: Discharge Order (Routine); Ordered 05/13/20 Ordered By: Yoselyn Lu Admission Data Admit Date/Time: 05/08/20 15:19 Attending Provider: Yoselyn Lu Admit Provider: Ashwin Guillermo Primary Care Provider: Tiffanie Herrera Other Providers: [facility] ; [facility] ; Benedict Lynn ; Ashwin Guillermo ; Cooper Fang ; Tiffanie Kaur Other Interventions: Discharge Summary Assessment (RN) Last Done: 05/13/20 14:06 DC Date/Time DO NOT enter until pt leaves facility: 05/13/20 14:30
== END 2020-05-13 14:30 | DRG 196 ==
LOC: ED 08:21 → SUATTDRO 15:19 → 2S 15:19 → 3N 05-11 14:37